=== PATIENT | male | born 1955 | race Caucasian/White ===

== ENCOUNTER 2017-12-25 09:43 | Inpatient (IN) ==
[2017-12-25] MEDS: Heparin Drip 25,000 UNIT/250 ML BAG IV.CONT PRN ×2 (12:00→20:58)
[2017-12-25] MEDS ORDERED: Dextrose 50% in Water 50 ML Vial IV.PUSH PRN (13:35)
[2017-12-25] MEDS ORDERED: Bisacodyl 10 MG Supp RECTAL PRN (13:37)
[2017-12-25] MEDS ORDERED: Temazepam 15 MG Capsule PO PRN (13:37)
[2017-12-25] MEDS ORDERED: Ranolazine 500 MG 12HR ER Tablet PO SCH (14:00)
[2017-12-25] MEDS ORDERED: Vancomycin Consult Pharmacy 1 EACH OTHER SCH (15:00)
[2017-12-25] MEDS: Sod Chloride 0.9% Inj 1,000 ML IV.CONT SCH (15:04)
--- NOTE | 2017-12-25 15:16 | P.HPIM ---
History of Present Illness Primary Care Physician: UNKNOWN History of Present Illness: 62-year-old male with a history of diabetes mellitus, CAD with CABG in 2013, cardiomyopathy with EF 4550%, hypertension, peripheral artery disease with history of PCI to the right leg, hyperlipidemia, peripheral neuropathy, history of osteomyelitis with partial amputation of the right fourth toe who presented to outside hospital 2 weeks ago with right first toe cellulitis, which has subsequently progressed to wet gangrene. Patient was continued on broad- spectrum antibiotics. Podiatry and interventional radiology were consulted during admission. Patient underwent right lower extremity catheterization with balloon angioplasty of proximal right anterior tibial artery, right posterior tibial artery. Patient reports continued intermittent neuropathic type pain in the right leg. Denies any chest pain or shortness of breath. Denies nausea or vomiting. Patient transferred here per discussion between referring hospital and vascular surgery. Patient reportedly may need further revascularization. Inpatient Certification: I certify that the inpatient services were ordered in accordance with Medicare regulations governing the order. This includes certification that hospital inpatient services are reasonable and necessary and in the case of services not specified as inpatient-only under 42 CFR 419.22(n), that they are appropriately provided as inpatient services in accordance to with the 2-midnight benchmark under 43 CFR 412.3(e) PMFSH - History History Provided By: Patient - Medical History Medical History: Medical History (Last Updated 12/25/17 @ 15:13 by Danny Feliciano MD) Cardiomyopathy Chronic back pain Coronary artery disease Diabetes mellitus Diabetic peripheral neuropathy Hyperlipidemia Hypertension Peripheral artery disease - Surgical History Surgical History: Surgical History (Last Updated 12/25/17 @ 15:13 by Danny Feliciano MD) Hx of CABG S/P cervical spinal fusion - Family History Family History: Family History (Last Updated 12/25/17 @ 15:13 by Danny Feliciano MD) Mother Cancer Father Heart disease - Tobacco History Second Hand Smoke Exposure: No Smoking Status: Never smoker - Alcohol History How Often Do You Have a Drink Containing Alcohol: Never - Substance Use History Substance History: No History of Abuse - Travel History History of Recent Travel: No Recent Travel in the USA Within the Last 8 Weeks: No Recent Travel Out of the Country Within the Last 8 Weeks: No Medications and Allergies Active Medications: Active Medications Al Hydroxide/Mg Hydroxide (Milk Of Magnboby Liq) 30 ml PO Q12H PRN PRN Reason: Mild Constipation Amitriptyline HCl (Elavil) 25 mg PO DAILY [facility] Aspirin (Ecotrin) 81 mg PO DAILY [facility] Bisacodyl (Dulcolax Supp) 10 mg RECTAL DAILY PRN PRN Reason: SEVERE CONSITIPATION Dextrose (D50w Vial) 50 ml IV.PUSH UNSCH PRN PRN Reason: PER HYPOGLYCEMIA PROTOCOL Enalapril Maleate (Vasotec) 5 mg PO DAILY [facility] Glucagon (Glucagon Inj) 1 mg OTHER PRN PRN PRN Reason: for Hypoglycemia Protocol Sodium Chloride (Ns Inj) 1,000 mls @ 40 mls/hr IV.CONT .Q24H [facility] Last Admin: 12/25/17 15:04 Dose: 40 mls/hr Heparin Sodium/Dextrose (Heparin/D5w 25,000 U/250 Ml) 25,000 unit in 250 mls @ 0 mls/hr IV.CONT TITRATE PRN; Protocol PRN Reason: Per Protocol Pharmacy Profile Note (Vancomycin Consult Pharmacy) 0 mls @ 0 mls/hr OTHER UNSCH [facility] Piperacillin/Tazobactam/Dextrose (Zosyn 3.375 Gm Premix) 50 mls @ 100 mls/hr IV.SIG Q6H [facility] Insulin Aspart (Novolog Insulin Correctional Sugar Inj) 0 unit SQ ACHS [facility]; Protocol Lactulose (Lactulose Liq) 30 ml PO DAILY PRN PRN Reason: SEVERE CONSITIPATION Pravastatin Sodium (Pravachol) 40 mg PO DAILY [facility] Ranolazine (Ranexa) 500 mg PO Q12H [facility] Sennosides (Senokot) 17.2 mg PO Q12H PRN PRN Reason: Moderate Constipation Temazepam (Restoril) 15 mg PO HS PRN PRN Reason: INSOMNIA Allergies Allergy/AdvReac Type Severity Reaction Status Date / Time No Known Allergies Allergy Unverified 12/25/17 13:13 Home Medications Medication Instructions Recorded Confirmed Type amitriptyline 25 mg PO DAILY 12/25/17 12/25/17 History aspirin 81 mg PO DAILY 12/25/17 12/25/17 History enalapril maleate 5 mg PO DAILY 12/25/17 12/25/17 History insulin asp prt-insulin aspart 20 unit SUB-Q BID 12/25/17 12/25/17 History insulin asp prt-insulin aspart 20 unit SUB-Q BID 12/25/17 12/25/17 History [Novolog Mix 70-30FlexPen U-100] metformin 1,000 mg PO BID 12/25/17 12/25/17 History ranolazine [Ranexa] 500 mg PO Q12H 12/25/17 12/25/17 History simvastatin 20 tab PO DAILY 12/25/17 12/25/17 History Exam Vital signs: Vital Signs 12/25/17 12:00 12/25/17 12:18 12/25/17 12:34 Temperature 98.2 F Pulse Rate 88 64 87 Respiratory Rate 20 Blood Pressure 159/87 H Pulse Oximetry 99 Intake & Output 12/24/17 12/25/17 12/25/17 18:59 06:59 18:59 Weight 97.5 kg Other: Date of Last Bowel Movement 12/23/17 Weight On Admission 97.5 kg Narrative: GENERAL: Patient sitting up in bed. Appears comfortable. Alert and oriented 4. SKIN: Warm and dry. HEAD: Atraumatic. Normocephalic. EYES: Pupils equal and round. No scleral icterus. No injection or drainage. ENT: No nasal bleeding or discharge. Mucous membranes pink and moist. NECK: Trachea midline. No JVD. CARDIOVASCULAR: Regular rate and rhythm. RESPIRATORY: No accessory muscle use. Clear to auscultation. Breath sounds equal bilaterally. GASTROINTESTINAL: Abdomen soft, non-tender, nondistended. Hepatic and splenic margins not palpable. MUSCULOSKELETAL: Extremities without clubbing. Patient with black right first toe up to just distal to first MTP. Toe is boggy and edematous, malodorous, appears to be wet gangrene. NEUROLOGICAL: Awake and alert. No obvious cranial nerve deficits. Motor grossly within normal limits. Five out of 5 muscle strength in the arms and legs. Normal speech. PSYCHIATRIC: Appropriate mood and affect; insight and judgment normal. Caprini VTE Risk Assessment Caprini VTE Risk Assessment: Moderate/High Risk (score >= 2) Caprini Risk Assessment Model: Point Value = 1 Point Value = 2 Point Value = 3 Point Value = 5 Age 41-60 Minor surgery BMI > 25 kg/m2 Swollen legs Varicose veins or History of unexplained or recurrent spontaneous Oral contraceptives or hormone replacement Sepsis (< 1 month) Serious lung disease, including pneumonia (< 1 month) Abnormal pulmonary function Acute myocardial infarction Congestive heart failure (< 1 month) History of inflammatory bowel disease Medical patient at bed rest Age 61-74 Arthroscopic surgery Major open surgery (> 45 min) Laparoscopic surgery (> 45 min) Malignancy Confined to bed (> 72 hours) Immobilizing plaster cast Central venous access Age >= 75 History of VTE Family history of VTE Factor V Leiden Prothrombin 38506Y Lupus anticoagulant Anticardiolipin antibodies Elevated serum homocysteine Heparin-induced thrombocytopenia Other congenital or acquired thrombophilia Stroke (< 1 month) Elective arthroplasty Hip, pelvis, or leg fracture Acute spinal cord injury (< 1 month) Prophylaxis Regimen: Total Risk Factor Score Risk Level Prophylaxis Regimen 0-1 Low Early ambulation 2 Moderate Order ONE of the following: *Sequential Compression Device (SCD) *Heparin 5000 units SQ BID 3-4 Higher Order ONE of the following medications: *Heparin 5000 units SQ TID *Enoxaparin/Lovenox 40 mg SQ daily (WT < 150 kg, CrCl > 30 mL/min) *Enoxaparin/Lovenox 30 mg SQ daily (WT < 150 kg, CrCl > 10-29 mL/min) *Enoxaparin/Lovenox 30 mg SQ BID (WT < 150 kg, CrCl > 30 mL/min) AND/OR *Sequential Compression Device (SCD) 5 or more Highest Order ONE of the following medications: *Heparin 5000 units SQ TID (Preferred with Epidurals) *Enoxaparin/Lovenox 40 mg SQ daily (WT < 150 kg, CrCl > 30 mL/min) *Enoxaparin/Lovenox 30 mg SQ daily (WT < 150 kg, CrCl > 10-29 mL/min) *Enoxaparin/Lovenox 30 mg SQ BID (WT < 150 kg, CrCl > 30 mL/min) AND *Sequential Compression Device (SCD) Assessment and Plan - Plan //Right lower extremity first toe wet gangrene //Diabetic foot infection //Presentation with sepsis to the outside hospital. //Right lower extremity peripheral artery disease Patient is continued on heparin drip. = Continue on broad-spectrum antibiotics. Vancomycin and Zosyn. Continue ranolazine -We will request more recent outside records, most recent progress note, microbiology results, hopefully a discharge summary Consult vascular surgery and podiatry. //Diabetes mellitus. Diabetic diet and insulin sliding scale. Monitor sugars closely. //History of coronary artery disease //History of cardiomyopathy Continue aspirin, enalapril. Patient does not appear to be on beta-arnulfo. //Hypertension. Blood pressure acceptable. Continue home medications. Discharge Planning: Pending clearance by vascular surgery and podiatry, maybe patient can be transferred back to referring hospital. H&P: Quality - VTE Deep Vein Thrombosis/Pulmonary Embolism Present on Admission: No
[2017-12-25] MEDS: Piperacil/Tazo 3.375 GM Premix 50 ML IV.SIG SCH ×2 (16:13→22:32)
[2017-12-25 16:15] LABS: Baso # (Auto) 0.1 th/mm3 (0.0-0.2); Baso % (Auto) 0.8 % (0.0-2.0); Eos # (Auto) 0.2 th/mm3 (0.0-0.4); Eos % (Auto) 1.6 % (0.0-4.0); Hematocrit 32.8 % (39.0-51.0); Hemoglobin 10.9 gm/dL (13.0-17.0); Lymph # (Auto) 1.6 th/mm3 (1.0-4.8); Lymph % (Auto) 16.4 % (9.0-44.0); Mean Corpuscular HGB Conc 33.2 % (32.0-36.0); Mean Corpuscular Hemoglobin 29.1 pg (27.0-34.0); Mean Corpuscular Volume 87.8 fL (80.0-100.0); Mean Platelet Volume 8.3 fL (7.0-11.0); Mono # (Auto) 0.7 th/mm3 (0.0-0.9); Mono % (Auto) 7.6 % (0.0-8.0); Neut # (Auto) 7.1 th/mm3 (1.8-7.7); Neut % (Auto) 73.6 % (16.0-70.0); Platelet Count 385 th/mm3 (150-450); Red Blood Count 3.73 mil/mm3 (4.50-5.90); Red Cell Distribution Width 13.9 % (11.6-17.2); White Blood Count 9.6 th/mm3 (4.0-11.0)
[2017-12-25 16:21] LABS: Activated Partial Thrombo Time 54.8 sec (24.3-30.1); INR 1.1 Ratio; Prothrombin Time 11.3 sec (9.8-11.6)
[2017-12-25 16:31] LABS: Albumin 2.9 g/dL (3.4-5.0); Anion Gap 8 meq/L (5-15); Aspartate Aminotransferase 9 U/L (15-37); Blood Urea Nitrogen 15 mg/dL (7-18); Carbon Dioxide 27.9 meq/L (21.0-32.0); Chloride 99 meq/L (98-107); Glomerular Filtration Rate 68 mL/min (>89); Glucose,Random 332 mg/dL (74-106); Potassium 4.4 meq/L (3.5-5.1); Sodium 135 meq/L (136-145)
[2017-12-25 16:32] LABS: Alanine Aminotransferase 12 U/L (12-78)
[2017-12-25 16:35] LABS: Alkaline Phosphatase 63 U/L (45-117); Total Protein 8.1 g/dL (6.4-8.2)
[2017-12-25] MEDS: Insulin NovoLOG Aspart Correctional Sugar Inj SQ SCH ×2 (17:06→20:54)
--- NOTE | 2017-12-25 17:29 | ECHRPT ---
EXAM DATE: 12/25/2017 4:57 PM EDT AGE/SEX: 62 years / Male INDICATIONS: wound infection CLINICAL DATA: This is the patient's initial encounter. Patient reports that signs and symptoms have been present for 1 week and indicates a pain score of 8/10. MEDICAL/SURGICAL HISTORY: . cardiomyopathy, chronic back pain, coronary artery disease, diabete s mellitus, diabetic peripheral neuropathy, hyperlipidemia, hypertension, peripheral artery disease . cabg, cervical spinal fusion COMPARISON: No prior exams available for comparison. TECHNIQUE: Four-cuff ankle and brachial pressures were obtained. Pulse cuff waveform tracings of the ankles were recorded, and ankle-brachial indices were calculated. PRESSURES (mmHg): Brachial (arm) : RIGHT: 150, LEFT: IV SITE Ankle : RIGHT: 73, LEFT: 69 RL : RIGHT: 0.49, LEFT: 0.46 TBI : RIGHT: 0.19, LEFT: 0.17 FINDINGS: Pulsed-Cuff Waveform: There are poor pulse wave tracings. CONCLUSION: 1. Severely depressed depressed RL using right brachial pressures suggesting critical limb ischemia . 2. I have no prior cross-sectional imaging studies for comparison 3. CT angiography or conventional catheter angiography would be of benefit. Electronically signed by: Jaleel Goodman MD 12/25/2017 5:27 PM EDT
[2017-12-25 17:36] LABS: Bilirubin,Urine Negative (Negative); Clarity,Urine Clear (Clear); Color,Urine Yellow (Yellw/Straw); Glucose,Urine (UA) 500 or Greater mg/dL (Negative); Leukocyte Esterase,Urine Negative (Negative); Nitrite,Urine Negative (Negative); Specific Gravity,Urine 1.011 (1.002-1.035)
--- NOTE | 2017-12-25 18:53 | P.CONVS ---
History of Present Illness Service: Vascular Surgery Consult date: 12/25/17 Requesting Physician: Danny Feliciano Reason for Consult: PAD Primary Care Provider: UNKNOWN Family Provider: Carlos Salamanca MD Chief Complaint: R gangrenous toe History of Present Illness: 62 yo male who sustained trauma to R great toe about a week and a half ago - was taking out garbage and upon return noted that his dog was licking the toe and there was blood. Wound worsened. Adm to OSH and rec'd antibiotics and hep gtt and angiogram that showed infrapopliteal disease, not amenable to endovascular repair. Transferred here for consideration of revascularization. Pt notes chills and pain in R foot but no rigors. BS elevated chronically (per OSH EMR, A1c was 9 during prior admission). No fevers. Moved to [place] from [place] in 2009. Retired from insurance. Review of Systems Constitutional: Reports chills Cardiovascular: Denies chest pain Respiratory: Denies shortness of breath Musculoskeletal: Reports abnormal walking, Reports neck pain, Reports numbness Neurologic: Reports sensory deficit, Reports tingling/numbness/burning sensations PMFSH - History History Provided By: Patient - Medical History Medical History: Medical History (Last Reviewed 12/25/17 @ 18:48 by Nadeem Llanos MD) Cardiomyopathy Chronic back pain Coronary artery disease Diabetes mellitus Diabetic peripheral neuropathy Hyperlipidemia Hypertension Peripheral artery disease - Surgical History Surgical History: Surgical History (Last Reviewed 12/25/17 @ 18:48 by Nadeem Llanos MD) Hx of CABG S/P cervical spinal fusion - Family History Family History: Family History (Last Updated 12/25/17 @ 15:13 by Danny Feliciano MD) Mother Cancer Father Heart disease - Tobacco History Second Hand Smoke Exposure: No Smoking Status: Never smoker - Alcohol History How Often Do You Have a Drink Containing Alcohol: Never - Substance Use History Substance History: No History of Abuse - Travel History History of Recent Travel: No Recent Travel in the [place] Within the Last 8 Weeks: No Recent Travel Out of the Country Within the Last 8 Weeks: No Medications and Allergies Active Medications: Active Medications Hydrocodone Bitart/Acetaminophen (Orient 5/325) 1 tab PO Q4H PRN PRN Reason: Pain 2-10 Last Admin: 12/25/17 18:01 Dose: 1 tab Al Hydroxide/Mg Hydroxide (Milk Of Magnesia Liq) 30 ml PO Q12H PRN PRN Reason: Mild Constipation Amitriptyline HCl (Elavil) 25 mg PO DAILY [facility] Aspirin (Ecotrin) 81 mg PO DAILY [facility] Bisacodyl (Dulcolax Supp) 10 mg RECTAL DAILY PRN PRN Reason: SEVERE CONSITIPATION Dextrose (D50w Vial) 50 ml IV.PUSH UNSCH PRN PRN Reason: PER HYPOGLYCEMIA PROTOCOL Enalapril Maleate (Vasotec) 5 mg PO DAILY [facility] Glucagon (Glucagon Inj) 1 mg OTHER PRN PRN PRN Reason: for Hypoglycemia Protocol Sodium Chloride (Ns Inj) 1,000 mls @ 40 mls/hr IV.CONT .Q24H [facility] Last Admin: 12/25/17 15:04 Dose: 40 mls/hr Heparin Sodium/Dextrose (Heparin/D5w 25,000 U/250 Ml) 25,000 unit in 250 mls @ 0 mls/hr IV.CONT TITRATE PRN; Protocol PRN Reason: Per Protocol Last Titration: 12/25/17 16:00 Dose: 1,900 units/hr, 19 mls/hr Pharmacy Profile Note (Vancomycin Consult Pharmacy) 0 mls @ 0 mls/hr OTHER UNSCH [facility] Piperacillin/Tazobactam/Dextrose (Zosyn 3.375 Gm Premix) 50 mls @ 100 mls/hr IV.SIG Q6H [facility] Last Infusion: 12/25/17 16:43 Dose: Infused Insulin Aspart (Novolog Insulin Correctional Sugar Inj) 0 unit SQ ACHS [facility]; Protocol Last Admin: 12/25/17 17:06 Dose: 1 unit Lactulose (Lactulose Liq) 30 ml PO DAILY PRN PRN Reason: SEVERE CONSITIPATION Pravastatin Sodium (Pravachol) 40 mg PO DAILY [facility] Ranolazine (Ranexa) 500 mg PO Q12H [facility] Sennosides (Senokot) 17.2 mg PO Q12H PRN PRN Reason: Moderate Constipation Temazepam (Restoril) 15 mg PO HS PRN PRN Reason: INSOMNIA Allergies Allergy/AdvReac Type Severity Reaction Status Date / Time No Known Allergies Allergy Unverified 12/25/17 13:13 Home Medications Medication Instructions Recorded Confirmed Type amitriptyline 25 mg PO DAILY 12/25/17 12/25/17 History aspirin 81 mg PO DAILY 12/25/17 12/25/17 History cefepime 50 mg/kg IV Q8H 12/25/17 12/25/17 History enalapril maleate 5 mg PO DAILY 12/25/17 12/25/17 History heparin (porcine) in 5 % dex 250 ml IV DIRECTED 12/25/17 12/25/17 History hydrocodone-acetaminophen [Orient] 1 tab PO Q4-6H PRN 12/25/17 12/25/17 History insulin asp prt-insulin aspart 20 unit SUB-Q BID 12/25/17 12/25/17 History insulin asp prt-insulin aspart 20 unit SUB-Q BID 12/25/17 12/25/17 History [Novolog Mix 70-30FlexPen U-100] metformin 1,000 mg PO BID 12/25/17 12/25/17 History ranolazine [Ranexa] 500 mg PO Q12H 12/25/17 12/25/17 History simvastatin 20 tab PO DAILY 12/25/17 12/25/17 History Physical Exam Vital Signs / I&O: Vital Signs 12/25/17 12:00 12/25/17 12:18 12/25/17 12:34 Temperature 98.2 F Pulse Rate 88 64 87 Respiratory Rate 20 Blood Pressure 159/87 H Pulse Oximetry 99 12/25/17 15:00 12/25/17 16:00 12/25/17 17:00 Temperature 98.6 F Pulse Rate 78 85 90 Respiratory Rate 20 Blood Pressure 150/65 H Pulse Oximetry 96 12/25/17 17:56 Temperature Pulse Rate 76 Respiratory Rate Blood Pressure Pulse Oximetry Intake & Output 12/24/17 12/25/17 12/25/17 18:59 06:59 18:59 Intake Total 230 / 230 Output Total 600 / 600 Balance -370 / -370 Weight 97.5 kg Intake: IV 50 / 50 Zosyn 3.375 GM Premix 50 ML @ 50 / 50 100 mls/hr IV.SIG Q6H [facility] Rx#: [id number] Oral 180 / 180 Output: Urine 600 / 600 Other: # Voids 1 Date of Last Bowel Movement 12/23/17 # Bowel Movements 0 Weight On Admission 97.5 kg Neuro: alert, oriented, pleasant HEENT: NC/AT; anicteric sclera Neck: no JVD Heart: reg rate Lungs: clear and nonlabored Vascular: palpable femoral and R popliteal pulse, no palpable R pedal pulses Extremities: Gangrenous, erythematous R hallux extending to distal forefoot. + odor Laboratory Results - last 24 hr 12/25/17 12/25/17 12/25/17 15:28 15:28 15:28 WBC 9.6 RBC 3.73 L Hgb 10.9 L Hct 32.8 L MCV 87.8 MCH 29.1 MCHC 33.2 RDW 13.9 Plt Count 385 MPV 8.3 Neut % (Auto) 73.6 H Lymph % (Auto) 16.4 [place] % (Auto) 7.6 Eos % (Auto) 1.6 Baso % (Auto) 0.8 Neut # (Auto) 7.1 Lymph # (Auto) 1.6 [place] # (Auto) 0.7 Eos # (Auto) 0.2 Baso # (Auto) 0.1 WBC Differential . Differential Comment Auto diff final PT 11.3 INR 1.1 APTT 54.8 H Sodium 135 L Potassium 4.4 Chloride 99 Carbon Dioxide 27.9 Anion Gap 8 BUN 15 Creatinine 1.09 Estimated GFR 68 L POC Glucose Random Glucose 332 H Calcium 9.0 Total Bilirubin 0.3 AST 9 L ALT 12 Alkaline Phosphatase 63 Total Protein 8.1 Albumin 2.9 L Urine Color Urine Clarity Urine pH Ur Specific Blackwell Urine Protein Urine Glucose (UA) Urine Ketones Urine Occult Blood Urine Nitrate Urine Bilirubin Urine Urobilinogen Ur Leukocyte Esterase Urine RBC Urine WBC 12/25/17 12/25/17 16:28 16:43 WBC RBC Hgb Hct MCV MCH MCHC RDW Plt Count MPV Neut % (Auto) Lymph % (Auto) Dor[place] % (Auto) Eos % (Auto) Baso % (Auto) Neut # (Auto) Lymph # (Auto) [place] # (Auto) Eos # (Auto) Baso # (Auto) WBC Differential Differential Comment PT INR APTT Sodium Potassium Chloride Carbon Dioxide Anion Gap BUN Creatinine Estimated GFR POC Glucose 363 H Random Glucose Calcium Total Bilirubin AST ALT Alkaline Phosphatase Total Protein Albumin Urine Color Yellow Urine Clarity Clear Urine pH 6.0 Ur Specific [place]well 1.011 Urine Protein 30 H Urine Glucose (UA) 500 or greater Urine Ketones Negative Urine Occult Blood Negative Urine Nitrate Negative Urine Bilirubin Negative Urine Urobilinogen Less than 2 Ur Leukocyte Esterase Negative Urine RBC Less than 1 Urine WBC 1 Impressions Extremity Arterial Study 12/25/17 00:00 CONCLUSION: 1. Severely depressed depressed RL using right brachial pressures suggesting critical limb ischemia. 2. I have no prior cross-sectional imaging studies for comparison 3. CT angiography or conventional catheter angiography would be of benefit. Assessment and Plan - Assessment (1) Diabetic infection of right foot Code(s): E11.628 - Type 2 diabetes mellitus with other skin complications; L08.9 - Local infection of the skin and subcutaneous tissue, unspecified Status: Acute (2) PAD (peripheral artery disease) Code(s): I73.9 - Peripheral vascular disease, unspecified Status: Acute - Plan 62 yo male with DM and diabetic foot infection 1. Podiatry consulted; continue antibiotics (broad spectrum). Discussed with patient and the need for toe amputation. Plain XRay ordered. 2. PAD - needs more perfusion. Outside angiogram reviewed. Infrapopliteal disease. ABIs show severe PAD. Will get UE/LE vein survey for conduit options. Unfortunately, his R GSV was ablated for "varicose veins" elsewhere. Given pattern of disease, may either need arm vein distal bypass or re-attempt at endovascular recanalization including pedal (retrograde) access. Will schedule early part of week. 3. DM control - A1c ordered. Defer to medicine 4. PT/wound care. Nadeem Llanos MD FACS [employer] audit tech [facility] - [facility] Vascular Surgery at [facility] [phone]
--- NOTE | 2017-12-25 20:21 | XR ---
EXAM DATE: 12/25/2017 7:21 PM EDT AGE/SEX: 62 years / Male INDICATIONS: Evaluate for osteomyelitis on right great toe. CLINICAL DATA: This is the patient's initial encounter. Patient reports that signs and symptoms have been present for 1 week and indicates a pain score of 2/10. MEDICAL/SURGICAL HISTORY: . cardiomyopathy, chronic back pain, coronary artery disease, diabete s mellitus, diabetic peripheral neuropathy, hyperlipidemia, hypertension, peripheral artery disease. . CABG. Cervical spinal fusion COMPARISON: No prior exams available for comparison. FINDINGS: There is marked soft tissue swelling about the great toe without bony destruction. There is a suggestion of a small amount gas in the webspace. There is obvious osteomyelitis involving the distal tuft of the fourth metatarsal with penciling of t he fourth phalanx head of the fifth metatarsal is probably involved as well. CONCLUSION: Osteomyelitis involving fourth and fifth toes. Questionable small amount of gas web space versus second toes I don't see osteomyelitis great toe. Electronically signed by: Jaleel Goodman MD 12/25/2017 8:20 PM EDT
[2017-12-25] MEDS: Ranolazine 500 MG 12HR ER Tablet PO SCH (20:32)
--- NOTE | 2017-12-25 20:49 | P.CONPOD ---
History of Present Illness Service: Podiatry Consult date: 12/25/17 Primary Care Provider: UNKNOWN Family Provider: Carlos Salamanca MD Chief Complaint: R gangrenous toe History of Present Illness: Patient states he has had increasing redness to the foot and darkening of the great toe over a period of about a week and a half. he states he took out the garbage and was wearing shoes and then noticed his dog sniffing and licking the foot area and took his shoes off and saw blood everywhere. he went to [facility] and got antibiotics and was discharged and told to come back if it did not improve, then went back a few days later when it started looking worse. he was then transferred to [place]. Review of Systems All other systems reviewed negative except as stated in [facility] - History History Provided By: Patient - Medical History Medical History: Medical History (Last Reviewed 12/25/17 @ 18:48 by Nadeem Llanos MD) Cardiomyopathy Chronic back pain Coronary artery disease Diabetes mellitus Diabetic peripheral neuropathy Hyperlipidemia Hypertension Peripheral artery disease - Surgical History Surgical History: Surgical History (Last Reviewed 12/25/17 @ 18:48 by Nadeem Llanos MD) Hx of CABG S/P cervical spinal fusion - Family History Family History: Family History (Last Updated 12/25/17 @ 15:13 by Danny Feliciano MD) Mother Cancer Father Heart disease - Tobacco History Second Hand Smoke Exposure: No Smoking Status: Never smoker - Alcohol History How Often Do You Have a Drink Containing Alcohol: Never - Substance Use History Substance History: No History of Abuse - Travel History History of Recent Travel: No Recent Travel in the [place] Within the Last 8 Weeks: No Recent Travel Out of the Country Within the Last 8 Weeks: No Medications and Allergies Active Medications: Active Medications Hydrocodone Bitart/Acetaminophen ([place] 5/325) 1 tab PO Q4H PRN PRN Reason: Pain 2-10 Last Admin: 12/25/17 18:01 Dose: 1 tab Al Hydroxide/Mg Hydroxide (Milk Of Magnboby Liq) 30 ml PO Q12H PRN PRN Reason: Mild Constipation Amitriptyline HCl (Elavil) 25 mg PO DAILY [facility] Aspirin (Ecotrin) 81 mg PO DAILY [facility] Bisacodyl (Dulcolax Supp) 10 mg RECTAL DAILY PRN PRN Reason: SEVERE CONSITIPATION Dextrose (D50w Vial) 50 ml IV.PUSH UNSCH PRN PRN Reason: PER HYPOGLYCEMIA PROTOCOL Enalapril Maleate (Vasotec) 5 mg PO DAILY [facility] Glucagon (Glucagon Inj) 1 mg OTHER PRN PRN PRN Reason: for Hypoglycemia Protocol Sodium Chloride (Ns Inj) 1,000 mls @ 40 mls/hr IV.CONT .Q24H [facility] Last Admin: 12/25/17 15:04 Dose: 40 mls/hr Heparin Sodium/Dextrose (Heparin/D5w 25,000 U/250 Ml) 25,000 unit in 250 mls @ 0 mls/hr IV.CONT TITRATE PRN; Protocol PRN Reason: Per Protocol Last Titration: 12/25/17 16:00 Dose: 1,900 units/hr, 19 mls/hr Pharmacy Profile Note (Vancomycin Consult Pharmacy) 0 mls @ 0 mls/hr OTHER UNSCH [facility] Piperacillin/Tazobactam/Dextrose (Zosyn 3.375 Gm Premix) 50 mls @ 100 mls/hr IV.SIG Q6H [facility] Last Infusion: 12/25/17 16:43 Dose: Infused Insulin Aspart (Novolog Insulin Correctional Sugar Inj) 0 unit SQ ACHS [facility]; Protocol Last Admin: 12/25/17 17:06 Dose: 1 unit Lactulose (Lactulose Liq) 30 ml PO DAILY PRN PRN Reason: SEVERE CONSITIPATION Pravastatin Sodium (Pravachol) 40 mg PO DAILY [facility] Ranolazine (Ranexa) 500 mg PO Q12H [facility] Last Admin: 12/25/17 20:32 Dose: 500 mg Sennosides (Senokot) 17.2 mg PO Q12H PRN PRN Reason: Moderate Constipation Temazepam (Restoril) 15 mg PO HS PRN PRN Reason: INSOMNIA Allergies Allergy/AdvReac Type Severity Reaction Status Date / Time No Known Allergies Allergy Unverified 12/25/17 13:13 Home Medications Medication Instructions Recorded Confirmed Type amitriptyline 25 mg PO DAILY 12/25/17 12/25/17 History aspirin 81 mg PO DAILY 12/25/17 12/25/17 History cefepime 50 mg/kg IV Q8H 12/25/17 12/25/17 History enalapril maleate 5 mg PO DAILY 12/25/17 12/25/17 History heparin (porcine) in 5 % dex 250 ml IV DIRECTED 12/25/17 12/25/17 History hydrocodone-acetaminophen [[place]] 1 tab PO Q4-6H PRN 12/25/17 12/25/17 History insulin asp prt-insulin aspart 20 unit SUB-Q BID 12/25/17 12/25/17 History insulin asp prt-insulin aspart 20 unit SUB-Q BID 12/25/17 12/25/17 History [Novolog Mix 70-30FlexPen U-100] metformin 1,000 mg PO BID 12/25/17 12/25/17 History ranolazine [Ranexa] 500 mg PO Q12H 12/25/17 12/25/17 History simvastatin 20 tab PO DAILY 12/25/17 12/25/17 History Physical Exam Vital signs: Vital Signs 12/25/17 12:00 12/25/17 12:18 12/25/17 12:34 Temperature 98.2 F Pulse Rate 88 64 87 Respiratory Rate 20 Blood Pressure 159/87 H Pulse Oximetry 99 12/25/17 15:00 12/25/17 16:00 12/25/17 17:00 Temperature 98.6 F Pulse Rate 78 85 90 Respiratory Rate 20 Blood Pressure 150/65 H Pulse Oximetry 96 12/25/17 17:56 Temperature Pulse Rate 76 Respiratory Rate Blood Pressure Pulse Oximetry Intake & Output 12/25/17 12/25/17 12/26/17 06:59 18:59 06:59 Intake Total 230 / 230 Output Total 600 / 600 Balance -370 / -370 Weight 97.5 kg Intake: IV 50 / 50 Zosyn 3.375 GM Premix 50 ML @ 50 / 50 100 mls/hr IV.SIG Q6H [facility] Rx#: [id number] Oral 180 / 180 Output: Urine 600 / 600 Other: # Voids 1 Date of Last Bowel Movement 12/23/17 # Bowel Movements 0 Weight On Admission 97.5 kg Narrative: Right foot with necrotic purple tissue to entire right hallux with erythema extending to midfoot level. Mild purulence at margin noted. No other toes appear to be affected. Sensation absent to light touch. - Constitutional no acute distress - Neurological Alert and oriented x3 Results - Labs CBC & Chem 7: 12/25/17 15:28 12/25/17 15:28 Laboratory Results - last 24 hr 12/25/17 12/25/17 12/25/17 15:28 15:28 15:28 WBC 9.6 RBC 3.73 L Hgb 10.9 L Hct 32.8 L MCV 87.8 MCH 29.1 MCHC 33.2 RDW 13.9 Plt Count 385 MPV 8.3 Neut % (Auto) 73.6 H Lymph % (Auto) 16.4 Real % (Auto) 7.6 Eos % (Auto) 1.6 Baso % (Auto) 0.8 Neut # (Auto) 7.1 Lymph # (Auto) 1.6 Real # (Auto) 0.7 Eos # (Auto) 0.2 Baso # (Auto) 0.1 WBC Differential . Differential Comment Auto diff final PT 11.3 INR 1.1 APTT 54.8 H Sodium 135 L Potassium 4.4 Chloride 99 Carbon Dioxide 27.9 Anion Gap 8 BUN 15 Creatinine 1.09 Estimated GFR 68 L POC Glucose Random Glucose 332 H Calcium 9.0 Total Bilirubin 0.3 AST 9 L ALT 12 Alkaline Phosphatase 63 Total Protein 8.1 Albumin 2.9 L Urine Color Urine Clarity Urine pH Ur Specific Franklin Urine Protein Urine Glucose (UA) Urine Ketones Urine Occult Blood Urine Nitrate Urine Bilirubin Urine Urobilinogen Ur Leukocyte Esterase Urine RBC Urine WBC 12/25/17 12/25/17 12/25/17 16:28 16:43 20:35 WBC RBC Hgb Hct MCV MCH MCHC RDW Plt Count MPV Neut % (Auto) Lymph % (Auto) Real % (Auto) Eos % (Auto) Baso % (Auto) Neut # (Auto) Lymph # (Auto) Real # (Auto) Eos # (Auto) Baso # (Auto) WBC Differential Differential Comment PT INR APTT Sodium Potassium Chloride Carbon Dioxide Anion Gap BUN Creatinine Estimated GFR POC Glucose 363 H 297 H Random Glucose Calcium Total Bilirubin AST ALT Alkaline Phosphatase Total Protein Albumin Urine Color Yellow Urine Clarity Clear Urine pH 6.0 Ur Specific Franklin 1.011 Urine Protein 30 H Urine Glucose (UA) 500 or greater Urine Ketones Negative Urine Occult Blood Negative Urine Nitrate Negative Urine Bilirubin Negative Urine Urobilinogen Less than 2 Ur Leukocyte Esterase Negative Urine RBC Less than 1 Urine WBC 1 - Imaging Impressions Extremity Arterial Study 12/25/17 00:00 CONCLUSION: 1. Severely depressed depressed RL using right brachial pressures suggesting critical limb ischemia. 2. I have no prior cross-sectional imaging studies for comparison 3. CT angiography or conventional catheter angiography would be of benefit. Foot X-Ray 12/25/17 00:00 CONCLUSION: Osteomyelitis involving fourth and fifth toes. Questionable small amount of gas web space versus second toes I don't see osteomyelitis great toe. Assessment and Plan - Assessment (1) Gangrene due to peripheral vascular disease Code(s): I96 - Gangrene, not elsewhere classified; I73.9 - Peripheral vascular disease, unspecified Status: Acute Plan: To OR tomorrow for right foot partial 1st ray amputation. Discussed risks/benefits/complications with patient and he agrees to proceed. Discussed with Dr Llanos for revascularization early next week. Will continue to monitor tissue response to revascularization/IV antibiotics postoperatively to determine if further foot surgery is required later next week. NPO after midnight Consent ordered (2) Cellulitis of foot, right Code(s): L03.115 - Cellulitis of right lower limb Status: Acute
--- NOTE | 2017-12-25 21:08 | US ---
EXAM DATE: 12/25/2017 9:03 PM EDT AGE/SEX: 62 years / Male INDICATIONS: PreOp bypass. CLINICAL DATA: This is the patient's initial encounter. Patient reports that signs and symptoms have been present for 1 day and indicates a pain score of 0/10. MEDICAL/SURGICAL HISTORY: . Cardiomyopathy. Chronic back pain. Coronary artery disease. Diabete s. Diabetic neuropathy. Hyperlipidemia. Hypertension. Peripheral artery disease. CABG. Cervical spin e fusion. COMPARISON: [facility] [place], VENOUS DOPPLER LEG BI, 12/25/2017. . MEASUREMENTS: RIGHT THIGH: Proximal:__8 mm Mid:__ 4 mm Distal:__6 mm LEFT THIGH: Proximal:__8 mm Mid:__Non-visualized Distal:__6 mm RIGHT CALF: Proximal:__5 mm Mid:__2 mm Distal:__5 mm LEFT CALF: Proximal:__Non-visualized Mid:__Non-visualized Distal:__Non-visualized FINDINGS: The right greater saphenous vein in mid calf is varicose. The left greater saphenous vein is surgically absent. CONCLUSION: 1. Venous mapping as above. The right greater saphenous vein has significant varicosities. Electronically signed by: Jaleel Goodman MD 12/25/2017 9:06 PM EDT
--- NOTE | 2017-12-25 21:09 | US ---
EXAM DATE: 12/25/2017 9:01 PM EDT AGE/SEX: 62 years / Male INDICATIONS: PreOp bypass. CLINICAL DATA: This is the patient's initial encounter. Patient reports that signs and symptoms have been present for 1 day and indicates a pain score of 0/10. MEDICAL/SURGICAL HISTORY: . Cardiomyopathy. Chronic back pain. Coronary artery disease. Diabete s. Diabetic neuropathy. Hyperlipidemia. Hypertension. Peripheral artery disease. CABG. Cervical fusi on. COMPARISON: No prior exams available for comparison. TECHNIQUE: Venous ultrasound of both lower extremities was performed from the inguinal ligament to t he proximal calf. Real-time, color Doppler and spectral tracing, compression and augmentation techni ques were used. FINDINGS: Right Leg: Normal compression of the deep venous system from the inguinal region to the proximal erick f. No echogenic clot is seen. Normal response of the venous system to augmentation and respiration. Left Leg: Normal compression of the deep venous system from the inguinal region to the proximal calf . No echogenic clot is seen. Normal response of the venous system to augmentation and respiration. Other: 2.3 cm right inguinal node. CONCLUSION: 1. Negative for deep venous thrombosis 2. Right inguinal adenopathy Electronically signed by: Jaleel Goodman MD 12/25/2017 9:08 PM EDT
--- NOTE | 2017-12-25 21:14 | US ---
EXAM DATE: 12/25/2017 9:09 PM EDT AGE/SEX: 62 years / Male INDICATIONS: PreOp bypass. CLINICAL DATA: This is the patient's initial encounter. Patient reports that signs and symptoms have been present for 1 day and indicates a pain score of 0/10. MEDICAL/SURGICAL HISTORY: . Cardiomyopathy. Chronic back pain. Coronary artery disease. Diabete s. Diabetic neuropathy. Hyperlipidemia. Hypertension. Peripheral artery disease. CABG. Cervical spin e fusion. COMPARISON: [facility] [place], VENOUS DOPPLER ARM BI, 12/25/2017. . MEASUREMENTS: RIGHT: CEPHALIC: Origin:__Thrombosed Mid-Arm:__Thrombosed Elbow:__Thrombosed Forearm:__Thrombosed Wrist:__Thrombosed BASILIC: Origin:__3 mm Mid-Arm:__2 mm Elbow:__3 mm ARTERIES: Brachial:__6 mm Ulnar:__2 mm Radial:__3 mm VEINS: Radial:__2 mm Ulnar:__2 mm LEFT: CEPHALIC: Origin:__2 mm Mid-Arm:__2 mm Elbow:__3 mm Forearm:__2 mm Wrist:__2 mm BASILIC: Origin:__3 mm Mid-Arm:__4 mm Elbow:__5 mm ARTERIES: Brachial:__5 mm Ulnar:__3 mm Radial:__2 mm VEINS: Radial:__2 mm Ulnar:__2 mm FINDINGS: The venous system of the upper extremities are patent by color Doppler imaging. Measurements of the arm veins (in mm) are listed above. CONCLUSION: 1. Majority of the cephalic vein is thrombosed from wrist to shoulder. 2. Measurements of the deep venous system as above. Electronically signed by: Jaleel Goodman MD 12/25/2017 9:12 PM EDT
--- NOTE | 2017-12-25 21:15 | US ---
EXAM DATE: 12/25/2017 9:06 PM EDT AGE/SEX: 62 years / Male INDICATIONS: PreOp bypass. CLINICAL DATA: This is the patient's initial encounter. Patient reports that signs and symptoms have been present for 1 day and indicates a pain score of 0/10. MEDICAL/SURGICAL HISTORY: . Cardiomyopathy. Chronic back pain. Coronary artery disease. Diabete s. Diabetic neuropathy. Hyperlipidemia. Hypertension. Peripheral artery disease. CABG. Cervical fusi on. COMPARISON: No prior exams available for comparison. FINDINGS: Right Upper Extremity: Occlusive thrombus in the cephalic vein from wrist to axillary vein. The deep venous system is patent. Left Upper Extremity: Nonocclusive thrombus in mid left cephalic vein above the elbow. The venous system patent. Other: None. CONCLUSION: 1. Complete superficial cephalic vein thrombosis on the right. 2. Partial cephalic vein thrombosis on the left. Electronically signed by: Jaleel Goodman MD 12/25/2017 9:13 PM EDT
[2017-12-25] MEDS ORDERED: Chlorhexidine Gluconate 2% 1 Pack (2 Cloths) TOPICAL SCH (22:30)
[2017-12-25] MEDS ORDERED: Sodium Chlor 0.9% Inj 500 ML IV.SIG SCH (23:00)
[2017-12-26 04:34] LABS: Baso % (Auto) 0.4 % (0.0-2.0); Eos # (Auto) 0.1 th/mm3 (0.0-0.4); Eos % (Auto) 1.6 % (0.0-4.0); Hematocrit 29.9 % (39.0-51.0); Hemoglobin 10.2 gm/dL (13.0-17.0); Lymph # (Auto) 1.7 th/mm3 (1.0-4.8); Lymph % (Auto) 19.3 % (9.0-44.0); Mean Corpuscular Hemoglobin 29.5 pg (27.0-34.0); Mean Corpuscular Volume 86.6 fL (80.0-100.0); Mean Platelet Volume 7.6 fL (7.0-11.0); Mono # (Auto) 0.7 th/mm3 (0.0-0.9); Mono % (Auto) 8.3 % (0.0-8.0); Neut # (Auto) 6.2 th/mm3 (1.8-7.7); Neut % (Auto) 70.4 % (16.0-70.0); Platelet Count 356 th/mm3 (150-450); Red Blood Count 3.45 mil/mm3 (4.50-5.90); Red Cell Distribution Width 13.7 % (11.6-17.2); White Blood Count 8.8 th/mm3 (4.0-11.0)
[2017-12-26 04:59] LABS: Alanine Aminotransferase 8 U/L (12-78); Albumin 2.4 g/dL (3.4-5.0); Alkaline Phosphatase 52 U/L (45-117); Anion Gap 6 meq/L (5-15); Aspartate Aminotransferase 8 U/L (15-37); Blood Urea Nitrogen 16 mg/dL (7-18); Calcium 8.5 mg/dL (8.5-10.1); Carbon Dioxide 28.5 meq/L (21.0-32.0); Chloride 103 meq/L (98-107); Glomerular Filtration Rate 76 mL/min (>89); Glucose,Random 221 mg/dL (74-106); Potassium 4.2 meq/L (3.5-5.1); Sodium 137 meq/L (136-145); Total Protein 7.1 g/dL (6.4-8.2)
[2017-12-26] MEDS: Piperacil/Tazo 3.375 GM Premix 50 ML IV.SIG SCH ×3 (05:20→16:29)
[2017-12-26] MEDS ORDERED: Lidocaine 2% Inj 50 ML Vial ONE (07:11)
[2017-12-26] MEDS ORDERED: Bupivacaine PF 0.5% Inj 30 ML Vial ONE (07:12)
[2017-12-26] MEDS: Insulin NovoLOG Aspart Correctional Sugar Inj SQ SCH ×4 (07:41→20:54)
[2017-12-26] MEDS: Ranolazine 500 MG 12HR ER Tablet PO SCH ×2 (08:10→20:51)
[2017-12-26] MEDS: Amitriptyline 25 MG Tablet PO SCH (08:10)
--- NOTE | 2017-12-26 09:43 | P.BOP ---
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 Tissue at first metatarsophalangeal joint necrotic with purulent drainage. Incision taken more proximally to achieve viable margin and bone resected at midshaft 1st metatarsal level to remove distal 1st metatarsal and hallux. Sent to pathology. Bone from residual 1st metatarsal sent as bone biopsy. Culture taken from wound. Excision of all necrotic tissue down to viable tissue, followed by irrigation with normal saline, and closure with 2-0 nylon suture. No tourniquet utilized. All visible infected tissue was removed. Minimal bleeding noted intraoperatively. Plan to monitor tissue to determine if further surgery is required later in the week after revascularization has taken place. Nonweightbearing right lower extremity. Wear surgical shoe when up with PT. Ok to remove when at rest. PT consulted. Implants: n/a Anesthesia: GETA, local (20mL 0.5% marcaine plain) Surgeon: Precious Mccollum DPM [employer] Control System Installer: staff Estimated blood loss (mL): 20 Pathology: other (1. culture right foot. 2. partial first ray right foot. 3. bone residual 1st metatarsal for bone biopsy) Condition: stable Disposition: PACU
[2017-12-26] MEDS ORDERED: *Meperidine Inj 25 MG/ML Vial PERIprocedural Use ONLY ONE (09:45)
[2017-12-26 10:28] LABS: Hemoglobin A1c 7.7 % (4.3-6.0)
[2017-12-26] MEDS: Vancomycin Inj 1,750 MG in Sodium Chlor 0.9% Inj 500 ML IV.SIG SCH ×2 (10:35→20:51)
--- NOTE | 2017-12-26 10:55 | XR ---
EXAM DATE: 12/26/2017 10:49 AM EDT AGE/SEX: 62 years / Male INDICATIONS: Post op. CLINICAL DATA: This is the patient's initial encounter. Patient reports that signs and symptoms have been present for 1 day and indicates a pain score of 4/10. MEDICAL/SURGICAL HISTORY: . cardiomyopathy, chronic back pain, coronary artery disease, diabet es mellitus, diabetic peripheral neuropathy, hyperlipidemia, hypertension, peripheral artery disease. . CABG. Cervical spinal fusion [place] [facility] [place]. . FINDINGS: There is evidence for amputation of the first digit at the level of the mid metatarsal bone. The defo rmity of the fourth metatarsophalangeal joint with adjacent displaced bony fragments are again seen n ot significantly changed may be chronic. CONCLUSION: Interval amputation of the first digit otherwise not significantly changed. Electronically signed by: Miri Carter MD 12/26/2017 10:54 AM EDT
--- NOTE | 2017-12-26 11:00 | P.PNIM ---
Subjective Interval history: Patient says he is feeling all right. Denies any chest or shortness of breath. Physical Exam Vital signs: Vital Signs 12/25/17 12:00 12/25/17 12:18 12/25/17 12:34 Temperature 98.2 F Pulse Rate 88 64 87 Respiratory Rate 20 Blood Pressure 159/87 H Pulse Oximetry 99 12/25/17 15:00 12/25/17 16:00 12/25/17 17:00 Temperature 98.6 F Pulse Rate 78 85 90 Respiratory Rate 20 Blood Pressure 150/65 H Pulse Oximetry 96 12/25/17 17:56 12/25/17 19:00 12/25/17 20:00 Temperature 98.1 F Pulse Rate 76 79 79 Respiratory Rate Blood Pressure 172/77 H Pulse Oximetry 98 12/25/17 21:00 12/25/17 22:29 12/26/17 00:00 Temperature 98.1 F Pulse Rate 77 76 75 Respiratory Rate Blood Pressure 155/71 H Pulse Oximetry 98 12/26/17 01:00 12/26/17 02:00 12/26/17 03:00 Temperature Pulse Rate 73 74 66 Respiratory Rate Blood Pressure Pulse Oximetry 12/26/17 04:00 12/26/17 05:00 12/26/17 06:00 Temperature 98 F Pulse Rate 81 68 63 Respiratory Rate Blood Pressure 170/79 H Pulse Oximetry 98 12/26/17 07:00 12/26/17 07:45 12/26/17 08:00 Temperature 97.9 F Pulse Rate 73 83 69 Respiratory Rate 20 Blood Pressure 176/78 H Pulse Oximetry 99 12/26/17 09:36 12/26/17 09:45 12/26/17 10:00 Temperature 98.2 F Pulse Rate 69 68 68 Respiratory Rate 20 18 17 Blood Pressure 147/70 H 155/74 H 160/80 H Pulse Oximetry 99 99 97 12/26/17 10:05 12/26/17 10:07 Temperature 98.3 F Pulse Rate 68 Respiratory Rate 18 Blood Pressure 155/74 H Pulse Oximetry 99 98 Intake & Output 12/25/17 12/26/17 12/26/17 18:59 06:59 18:59 Intake Total 230 / 230 1684 / 1684 Output Total 600 / 600 1050 / 1050 Balance -370 / -370 634 / 634 Weight 97.5 kg 102 kg Intake: IV 50 / 50 964 / 964 Heparin/D5W 25,000 U/250 mL 25, 250 / 250 000 unit In 250 ml @ Per Protocol IV.CONT TITRATE PRN Rx #:[id number] NS Inj 1,000 ML @ 40 mls/hr IV. 614 / 614 CONT .Q24H MEY Rx#:[id number] Zosyn 3.375 GM Premix 50 ML @ 50 / 50 100 / 100 100 mls/hr IV.SIG Q6H MEY Rx#: [id number] Oral 180 / 180 720 / 720 Output: Urine 600 / 600 1050 / 1050 Other: # Voids 1 Date of Last Bowel Movement 12/23/17 12/23/17 # Bowel Movements 0 Weight On Admission 97.5 kg Narrative: GENERAL: Patient sitting up in bed. Appears comfortable. SKIN: Warm and dry. HEAD: Normocephalic. EYES: No scleral icterus. No injection or drainage. NECK: Supple, trachea midline. No JVD. CARDIOVASCULAR: Regular rate and rhythm without murmurs, gallops, or rubs. RESPIRATORY: Breath sounds equal bilaterally. No accessory muscle use. GASTROINTESTINAL: Abdomen soft, non-tender, nondistended. MUSCULOSKELETAL: No cyanosis, or edema. BACK: Nontender without obvious deformity. No CVA tenderness. Results - Labs CBC & Chem 7: 12/26/17 03:17 12/26/17 03:17 Laboratory Results - last 24 hr 12/25/17 12/25/17 12/25/17 15:28 15:28 15:28 WBC 9.6 RBC 3.73 L Hgb 10.9 L Hct 32.8 L MCV 87.8 MCH 29.1 MCHC 33.2 RDW 13.9 Plt Count 385 MPV 8.3 Neut % (Auto) 73.6 H Lymph % (Auto) 16.4 [place] % (Auto) 7.6 Eos % (Auto) 1.6 Baso % (Auto) 0.8 Neut # (Auto) 7.1 Lymph # (Auto) 1.6 [place] # (Auto) 0.7 Eos # (Auto) 0.2 Baso # (Auto) 0.1 WBC Differential . Differential Comment Auto diff final PT 11.3 INR 1.1 APTT 54.8 H Sodium 135 L Potassium 4.4 Chloride 99 Carbon Dioxide 27.9 Anion Gap 8 BUN 15 Creatinine 1.09 Estimated GFR 68 L POC Glucose Random Glucose 332 H Calcium 9.0 Total Bilirubin 0.3 AST 9 L ALT 12 Alkaline Phosphatase 63 Total Protein 8.1 Albumin 2.9 L Urine Color Urine Clarity Urine pH Ur Specific [place] Urine Protein Urine Glucose (UA) Urine Ketones Urine Occult Blood Urine Nitrate Urine Bilirubin Urine Urobilinogen Ur Leukocyte Esterase Urine RBC Urine WBC Blood Type Blood Type Recheck Antibody Screen 12/25/17 12/25/17 12/25/17 16:28 16:43 20:35 WBC RBC Hgb Hct MCV MCH MCHC RDW Plt Count MPV Neut % (Auto) Lymph % (Auto) [place] % (Auto) Eos % (Auto) Baso % (Auto) Neut # (Auto) Lymph # (Auto) [place] # (Auto) Eos # (Auto) Baso # (Auto) WBC Differential Differential Comment PT INR APTT Sodium Potassium Chloride Carbon Dioxide Anion Gap BUN Creatinine Estimated GFR POC Glucose 363 H 297 H Random Glucose Calcium Total Bilirubin AST ALT Alkaline Phosphatase Total Protein Albumin Urine Color Yellow Urine Clarity Clear Urine pH 6.0 Ur Specific [place] 1.011 Urine Protein 30 H Urine Glucose (UA) 500 or greater Urine Ketones Negative Urine Occult Blood Negative Urine Nitrate Negative Urine Bilirubin Negative Urine Urobilinogen Less than 2 Ur Leukocyte Esterase Negative Urine RBC Less than 1 Urine WBC 1 Blood Type Blood Type Recheck Antibody Screen 12/25/17 12/26/17 12/26/17 21:02 03:17 03:17 WBC 8.8 RBC 3.45 L Hgb 10.2 L Hct 29.9 L MCV 86.6 MCH 29.5 MCHC 34.0 RDW 13.7 Plt Count 356 MPV 7.6 Neut % (Auto) 70.4 H Lymph % (Auto) 19.3 [place] % (Auto) 8.3 H Eos % (Auto) 1.6 Baso % (Auto) 0.4 Neut # (Auto) 6.2 Lymph # (Auto) 1.7 [place] # (Auto) 0.7 Eos # (Auto) 0.1 Baso # (Auto) 0.0 WBC Differential . Differential Comment Auto diff final PT INR APTT 52.7 H Sodium 137 Potassium 4.2 Chloride 103 Carbon Dioxide 28.5 Anion Gap 6 BUN 16 Creatinine 0.99 Estimated GFR 76 L POC Glucose Random Glucose 221 H D Calcium 8.5 Total Bilirubin 0.2 AST 8 L ALT 8 L Alkaline Phosphatase 52 Total Protein 7.1 D Albumin 2.4 L Urine Color Urine Clarity Urine pH Ur Specific [place] Urine Protein Urine Glucose (UA) Urine Ketones Urine Occult Blood Urine Nitrate Urine Bilirubin Urine Urobilinogen Ur Leukocyte Esterase Urine RBC Urine WBC Blood Type Blood Type Recheck Antibody Screen 12/26/17 12/26/17 12/26/17 03:17 07:28 07:33 WBC RBC Hgb Hct MCV MCH MCHC RDW Plt Count MPV Neut % (Auto) Lymph % (Auto) [place] % (Auto) Eos % (Auto) Baso % (Auto) Neut # (Auto) Lymph # (Auto) [place] # (Auto) Eos # (Auto) Baso # (Auto) WBC Differential Differential Comment PT INR APTT 60.9 H Sodium Potassium Chloride Carbon Dioxide Anion Gap BUN Creatinine Estimated GFR POC Glucose 210 H Random Glucose Calcium Total Bilirubin AST ALT Alkaline Phosphatase Total Protein Albumin Urine Color Urine Clarity Urine pH Ur Specific [place] Urine Protein Urine Glucose (UA) Urine Ketones Urine Occult Blood Urine Nitrate Urine Bilirubin Urine Urobilinogen Ur Leukocyte Esterase Urine RBC Urine WBC Blood Type A Positive Blood Type Recheck Required Antibody Screen Negative 12/26/17 09:42 WBC RBC Hgb Hct MCV MCH MCHC RDW Plt Count MPV Neut % (Auto) Lymph % (Auto) [place] % (Auto) Eos % (Auto) Baso % (Auto) Neut # (Auto) Lymph # (Auto) [place] # (Auto) Eos # (Auto) Baso # (Auto) WBC Differential Differential Comment PT INR APTT Sodium Potassium Chloride Carbon Dioxide Anion Gap BUN Creatinine Estimated GFR POC Glucose 185 H Random Glucose Calcium Total Bilirubin AST ALT Alkaline Phosphatase Total Protein Albumin Urine Color Urine Clarity Urine pH Ur Specific [place] Urine Protein Urine Glucose (UA) Urine Ketones Urine Occult Blood Urine Nitrate Urine Bilirubin Urine Urobilinogen Ur Leukocyte Esterase Urine RBC Urine WBC Blood Type Blood Type Recheck Antibody Screen - Imaging Impressions Extremity Arterial Study 12/25/17 00:00 CONCLUSION: 1. Severely depressed depressed RL using right brachial pressures suggesting critical limb ischemia. 2. I have no prior cross-sectional imaging studies for comparison 3. CT angiography or conventional catheter angiography would be of benefit. Foot X-Ray 12/25/17 00:00 CONCLUSION: Osteomyelitis involving fourth and fifth toes. Questionable small amount of gas web space versus second toes I don't see osteomyelitis great toe. Lower Extremity Ultrasound 12/25/17 00:00 CONCLUSION: 1. Venous mapping as above. The right greater saphenous vein has significant varicosities. Upper Extremity Ultrasound 12/25/17 00:00 CONCLUSION: 1. Majority of the cephalic vein is thrombosed from wrist to shoulder. 2. Measurements of the deep venous system as above. Venous Doppler Study 12/25/17 00:00 CONCLUSION: 1. Negative for deep venous thrombosis 2. Right inguinal adenopathy Venous Doppler Study 12/25/17 00:00 CONCLUSION: 1. Complete superficial cephalic vein thrombosis on the right. 2. Partial cephalic vein thrombosis on the left. Foot X-Ray 12/26/17 00:00 CONCLUSION: Interval amputation of the first digit otherwise not significantly changed. Assessment and Plan - Plan //Right lower extremity first toe wet gangrene //Diabetic foot infection //Presentation with sepsis to the outside hospital. //Right lower extremity peripheral artery disease Patient is continued on heparin drip. = Continue on broad-spectrum antibiotics. Vancomycin and Zosyn. Continue ranolazine -We will request more recent outside records, most recent progress note, microbiology results, hopefully a discharge summary Consult vascular surgery and podiatry. = 12/26. Status post amputation this morning. Pending revascularization procedure this coming week by Dr. Llanos. //Diabetes mellitus. Diabetic diet and insulin sliding scale. Monitor sugars closely. //History of coronary artery disease //History of cardiomyopathy Continue aspirin, enalapril. Patient does not appear to be on beta-arnulfo. //Hypertension. Blood pressure acceptable. Okay with systolic blood pressures under 170. Continue home medications. Discussed with nursing. Discharge Planning: Pending clearance by vascular surgery and podiatry, maybe patient can be transferred back to referring hospital.
[2017-12-26] MEDS ORDERED: Lidocaine PF 1% Inj 5 ML Syringe INFILTRATN ONE (12:00)
[2017-12-26] MEDS: Sod Chloride 0.9% Inj 1,000 ML IV.CONT SCH (13:40)
--- NOTE | 2017-12-26 14:15 | ECG ---
Date Performed: 12/25/2017 Time Performed: 22:37:00 PTAGE: 62 years EKG: Sinus rhythm Left axis deviation IV conduction defect Lateral ST elevation suggests early repolarization Lateral ST-T changes may be due to myocardial ischemia Abnormal ECG NO PREVIOUS TRACING DOCTOR: Pastor Vernon Interpretating Date/Time 12/26/2017 14:14:38
--- NOTE | 2017-12-26 15:36 | OTSOAPIP ---
TIME SESSION COMPLETED: AM TREATMENT TIME: 0 MINS. CHART REVIEWED. ATTEMPTED TO SEE FOR OT ASSESSMENT, HOWEVER HAVING SURGERY FOR RIGHT GREAT TOE AMPUTATION. WILL FOLLOW NEXT DAY. Therapist: Sue Hussein Signature on file
[2017-12-27] MEDS: Piperacil/Tazo 3.375 GM Premix 50 ML IV.SIG SCH ×5 (00:01→23:26)
[2017-12-27] MEDS: Heparin Drip 25,000 UNIT/250 ML BAG IV.CONT PRN ×2 (00:01→11:08)
[2017-12-27] MEDS: Insulin NovoLOG Aspart Correctional Sugar Inj SQ SCH ×4 (07:52→20:50)
--- NOTE | 2017-12-27 07:55 | P.PNVS ---
- Pre-operative Note Planned Procedure: R LE angiogram and potential intervention (scheduled 12/28) Interval History: Pt underwent toe amputation yesterday. discussed with patient this morning that I would like to attempt once at endovascular revascularization. If fails or unable, will schedule for R LE surgical bypass, likely . Labs: WBC 8.8 th/mm3 (4.0-11.0) 12/26/17 03:17 RBC 3.45 mil/mm3 (4.50-5.90) L 12/26/17 03:17 Hgb 10.2 gm/dL (13.0-17.0) L 12/26/17 03:17 Hct 29.9 % (39.0-51.0) L 12/26/17 03:17 MCV 86.6 fL (80.0-100.0) 12/26/17 03:17 MCH 29.5 pg (27.0-34.0) 12/26/17 03:17 MCHC 34.0 % (32.0-36.0) 12/26/17 03:17 RDW 13.7 % (11.6-17.2) 12/26/17 03:17 Plt Count 356 th/mm3 (150-450) 12/26/17 03:17 MPV 7.6 fL (7.0-11.0) 12/26/17 03:17 INR 1.1 Ratio 12/25/17 15:28 Sodium 137 meq/L (136-145) 12/26/17 03:17 Potassium 4.2 meq/L (3.5-5.1) 12/26/17 03:17 Chloride 103 meq/L (98-107) 12/26/17 03:17 Carbon Dioxide 28.5 meq/L (21.0-32.0) 12/26/17 03:17 Anion Gap 6 meq/L (5-15) 12/26/17 03:17 BUN 16 mg/dL (7-18) 12/26/17 03:17 Random Glucose 221 mg/dL (74-106) H D 12/26/17 03:17 Calcium 8.5 mg/dL (8.5-10.1) 12/26/17 03:17 Blood: none needed Imaging: ITS Impressions Extremity Arterial Study 12/25/17 00:00 CONCLUSION: 1. Severely depressed depressed RL using right brachial pressures suggesting critical limb ischemia. 2. I have no prior cross-sectional imaging studies for comparison 3. CT angiography or conventional catheter angiography would be of benefit. Lower Extremity Ultrasound 12/25/17 00:00 CONCLUSION: 1. Venous mapping as above. The right greater saphenous vein has significant varicosities. Upper Extremity Ultrasound 12/25/17 00:00 CONCLUSION: 1. Majority of the cephalic vein is thrombosed from wrist to shoulder. 2. Measurements of the deep venous system as above. Venous Doppler Study 12/25/17 00:00 CONCLUSION: 1. Complete superficial cephalic vein thrombosis on the right. 2. Partial cephalic vein thrombosis on the left. Foot X-Ray 12/26/17 00:00 CONCLUSION: Interval amputation of the first digit otherwise not significantly changed. Orders: NPO after MN Post-operative Destination: PACU, then back to floor Operative site marked: Yes Consent: Informed consent has been obtained from Steve Villarreal. I have explained the procedure in detail and discussed the risks, benefits, and potential complications. All questions have been answered.
[2017-12-27] MEDS: Amitriptyline 25 MG Tablet PO SCH (09:03)
[2017-12-27] MEDS: Ranolazine 500 MG 12HR ER Tablet PO SCH ×2 (09:03→20:49)
[2017-12-27] MEDS: Vancomycin Inj 1,750 MG in Sodium Chlor 0.9% Inj 500 ML IV.SIG SCH ×2 (09:05→20:49)
--- NOTE | 2017-12-27 11:58 | P.PN ---
Subjective Interval history: 62-year-old male with gangrene of the right large toe secondary to poor circulation and complications of diabetes and peripheral neuropathy. He underwent amputation of the right large toe yesterday and states that he is feeling well, pain is adequately controlled. He understands that he will be undergoing a vascular procedure to restore blood flow to his right lower extremity in order to prevent further infections and other complications in the future. Physical Exam Vital signs: Vital Signs 12/26/17 12:00 12/26/17 13:27 12/26/17 14:00 Temperature Pulse Rate 79 86 80 Respiratory Rate Blood Pressure Pulse Oximetry 12/26/17 15:00 12/26/17 15:33 12/26/17 16:00 Temperature 98.6 F Pulse Rate 66 85 69 Respiratory Rate 20 Blood Pressure 150/65 H Pulse Oximetry 96 12/26/17 17:00 12/26/17 18:00 12/26/17 19:00 Temperature Pulse Rate 78 81 81 Respiratory Rate Blood Pressure Pulse Oximetry 12/26/17 20:00 12/26/17 21:00 12/26/17 22:00 Temperature 98.4 F Pulse Rate 81 78 75 Respiratory Rate Blood Pressure 163/79 H Pulse Oximetry 99 12/26/17 23:00 12/27/17 00:00 12/27/17 01:00 Temperature 98.4 F Pulse Rate 77 77 81 Respiratory Rate Blood Pressure 182/83 H Pulse Oximetry 96 12/27/17 02:00 12/27/17 03:00 12/27/17 04:00 Temperature 98.3 F Pulse Rate 77 100 H 77 Respiratory Rate Blood Pressure 163/73 H Pulse Oximetry 95 12/27/17 05:00 12/27/17 06:00 12/27/17 07:00 Temperature Pulse Rate 71 71 77 Respiratory Rate Blood Pressure Pulse Oximetry 12/27/17 07:30 12/27/17 08:00 12/27/17 09:00 Temperature 98.5 F Pulse Rate 78 84 70 Respiratory Rate 16 Blood Pressure 187/84 H Pulse Oximetry 100 12/27/17 10:00 12/27/17 10:59 Temperature 97.6 F Pulse Rate 68 77 Respiratory Rate 16 Blood Pressure 186/84 H Pulse Oximetry 100 Intake & Output 12/26/17 12/27/17 12/27/17 18:59 06:59 18:59 Intake Total 2440 / 2440 1718.0 / 1718.0 147 / 147 Output Total 800 / 800 2140 / 2140 Balance 1640 / 1640 -422.0 / -422.0 147 / 147 Weight 101.5 kg Intake: IV 850 / 850 1238.0 / 1238.0 147 / 147 Heparin/D5W 25,000 U/250 mL 25, 250 / 250 103 / 103 147 / 147 000 unit In 250 ml @ Per Protocol IV.CONT TITRATE PRN Rx #:[id number] Zosyn 3.375 GM Premix 50 ML @ 100 / 100 100 / 100 100 mls/hr IV.SIG Q6H MEY Rx#: [id number] Vancomycin Inj 1,750 MG In NS 500 / 500 1035.0 / 1035.0 Inj 500 ML @ 250 mls/hr IV.SIG Q12H MEY Rx#:[id number] Oral 940 / 940 480 / 480 Anesthesia Amount 650 / 650 Output: Urine 800 / 800 2140 / 2140 Other: Date of Last Bowel Movement 12/23/17 12/27/17 # Bowel Movements 0 Narrative: GENERAL: Alert and oriented 3, no acute distress SKIN: Warm and dry. HEAD: Normocephalic. EYES: No scleral icterus. No injection or drainage. NECK: Supple, trachea midline. No JVD or lymphadenopathy. CARDIOVASCULAR: Regular rate and rhythm without murmurs, gallops, or rubs. RESPIRATORY: Breath sounds equal bilaterally. No accessory muscle use. GASTROINTESTINAL: Abdomen soft, non-tender, nondistended. MUSCULOSKELETAL: No cyanosis, or edema. Right foot and surgical wrap, status post amputation of right large toe Results - Labs CBC & Chem 7: 12/26/17 03:17 12/26/17 03:17 Laboratory Results - last 24 hr 12/26/17 12/26/17 12/27/17 16:38 20:55 07:45 APTT POC Glucose 327 H 184 H 176 H 12/27/17 09:57 APTT 50.3 H POC Glucose Microbiology 12/26/17 09:30 Wound - Foot Fungal Smear - Final No fungal elements seen 12/26/17 09:30 Wound - Foot Gram Stain - Final Assessment and Plan - Plan Gangrene, right large toe complications of diabetic foot infection and very poor circulation s/p amputation of right large toe 12/26, pain controlled Borderline sepsis prior to admission Continue heparin drip Continue vancomycin and Zosyn Continue ranolazine Vascular surgery planning revascularization procedure this week Appreciate podiatry consult Appreciate vascular surgery consult Type 2 diabetes Last hemoglobin A1c was 7.7 Continue sliding-scale insulin coverage with Accu-Cheks Continue diabetic diet h/o CHF, CAD Continue aspirin, enalapril h/o HTN Continue enalapril Continue Clonidine as needed Discharge Planning Pending clearance by vascular surgery and podiatry, maybe patient can be transferred back to referring hospital.
[2017-12-27] MEDS: Sod Chloride 0.9% Inj 1,000 ML IV.CONT SCH (16:21)
--- NOTE | 2017-12-27 18:02 | P.PNPOD ---
Subjective Interval history: Patient seen postop day 1. Denies any nausea vomiting fevers or chills. Denies any calf pain. Is resting comfortably no concerns at this time. Physical Exam Vital signs: Vital Signs 12/26/17 18:00 12/26/17 19:00 12/26/17 20:00 Temperature 98.4 F Pulse Rate 81 81 81 Respiratory Rate Blood Pressure 163/79 H Pulse Oximetry 99 12/26/17 21:00 12/26/17 22:00 12/26/17 23:00 Temperature Pulse Rate 78 75 77 Respiratory Rate Blood Pressure Pulse Oximetry 12/27/17 00:00 12/27/17 01:00 12/27/17 02:00 Temperature 98.4 F Pulse Rate 77 81 77 Respiratory Rate Blood Pressure 182/83 H Pulse Oximetry 96 12/27/17 03:00 12/27/17 04:00 12/27/17 05:00 Temperature 98.3 F Pulse Rate 100 H 77 71 Respiratory Rate Blood Pressure 163/73 H Pulse Oximetry 95 12/27/17 06:00 12/27/17 07:00 12/27/17 07:30 Temperature 98.5 F Pulse Rate 71 77 78 Respiratory Rate 16 Blood Pressure 187/84 H Pulse Oximetry 100 12/27/17 08:00 12/27/17 09:00 12/27/17 10:00 Temperature Pulse Rate 84 70 68 Respiratory Rate Blood Pressure Pulse Oximetry 12/27/17 10:59 12/27/17 11:00 12/27/17 12:00 Temperature 97.6 F Pulse Rate 77 77 76 Respiratory Rate 16 Blood Pressure 186/84 H Pulse Oximetry 100 12/27/17 13:00 12/27/17 13:40 12/27/17 14:00 Temperature Pulse Rate 68 66 Respiratory Rate Blood Pressure 158/69 H Pulse Oximetry 12/27/17 15:00 12/27/17 15:36 12/27/17 16:00 Temperature 99.0 F Pulse Rate 85 68 78 Respiratory Rate 16 Blood Pressure 161/73 H Pulse Oximetry 98 12/27/17 17:00 Temperature Pulse Rate 80 Respiratory Rate Blood Pressure Pulse Oximetry Intake & Output 12/26/17 12/27/17 12/27/17 18:59 06:59 18:59 Intake Total 2440 / 2440 1718.0 / 1718.0 2154.5 / 2154.5 Output Total 800 / 800 2140 / 2140 1600 / 1600 Balance 1640 / 1640 -422.0 / -422.0 554.5 / 554.5 Weight 101.5 kg Intake: IV 850 / 850 1238.0 / 1238.0 714.5 / 714.5 Heparin/D5W 25,000 U/250 mL 25, 250 / 250 103 / 103 147 / 147 000 unit In 250 ml @ Per Protocol IV.CONT TITRATE PRN Rx #:[id number] Zosyn 3.375 GM Premix 50 ML @ 100 / 100 100 / 100 50 / 50 100 mls/hr IV.SIG Q6H [facility] Rx#: [id number] Vancomycin Inj 1,750 MG In NS 500 / 500 1035.0 / 1035.0 517.5 / 517.5 Inj 500 ML @ 250 mls/hr IV.SIG Q12H [facility] Rx#:[id number] Oral 940 / 940 480 / 480 1440 / 1440 Anesthesia Amount 650 / 650 Output: Urine 800 / 800 2140 / 2140 1600 / 1600 Other: Date of Last Bowel Movement 12/23/17 12/27/17 # Bowel Movements 0 1 Narrative: Dressing the right foot clean dry and intact with capillary refill time to digits 2 through 5 under 3 seconds and intact. No ascending erythema noted past ankle. Medications and Allergies Active Medications: Active Medications Hydrocodone Bitart/Acetaminophen (Pomona 5/325) 1 tab PO Q4H PRN PRN Reason: Pain 2-10 Last Admin: 12/27/17 12:28 Dose: 1 tab Al Hydroxide/Mg Hydroxide (Milk Of Dung Penaloza) 30 ml PO Q12H PRN PRN Reason: Mild Constipation Amitriptyline HCl (Elavil) 25 mg PO DAILY [facility] Last Admin: 12/27/17 09:03 Dose: 25 mg Aspirin (Ecotrin) 81 mg PO DAILY [facility] Last Admin: 12/27/17 09:04 Dose: 81 mg Bisacodyl (Dulcolax Supp) 10 mg RECTAL DAILY PRN PRN Reason: SEVERE CONSITIPATION Chlorhexidine Gluconate (Chlorhexidine 2% Cloth) 3 pack TOPICAL [employer] [facility] Stop: 12/28/17 22:26 Clonidine HCl (Catapres) 0.1 mg PO Q6H PRN PRN Reason: SBP>160, DBP>90 Last Admin: 12/27/17 11:35 Dose: 0.1 mg Dextrose (D50w Vial) 50 ml IV.PUSH UNSCH PRN PRN Reason: PER HYPOGLYCEMIA PROTOCOL Enalapril Maleate (Vasotec) 5 mg PO DAILY [facility] Last Admin: 12/27/17 09:04 Dose: 5 mg Glucagon (Glucagon Inj) 1 mg OTHER PRN PRN PRN Reason: for Hypoglycemia Protocol Sodium Chloride (Ns Inj) 1,000 mls @ 40 mls/hr IV.CONT .Q24H [facility] Last Admin: 12/27/17 16:21 Dose: Not Given Heparin Sodium/Dextrose (Heparin/D5w 25,000 U/250 Ml) 25,000 unit in 250 mls @ 0 mls/hr IV.CONT TITRATE PRN; Protocol PRN Reason: Per Protocol Last Admin: 12/27/17 11:08 Dose: 1,900 units/hr, 19 mls/hr Pharmacy Profile Note (Vancomycin Consult Pharmacy) 0 mls @ 0 mls/hr OTHER UNSCH [facility] Piperacillin/Tazobactam/Dextrose (Zosyn 3.375 Gm Premix) 50 mls @ 100 mls/hr IV.SIG Q6H [facility] Last Admin: 12/27/17 16:21 Dose: 100 mls/hr Sodium Chloride (Ns Inj) 500 mls @ 30 mls/hr IV.SIG .Q10H [facility] Stop: 12/28/17 22:26 Lactated Ringer's (Lr 1000 Ml Inj) 1,000 mls @ 30 mls/hr IV.SIG .Q24H [facility] Stop: 12/28/17 22:26 Last Admin: 12/26/17 23:57 Dose: Not Given Vancomycin HCl 1,750 mg/ (Sodium Chloride) 517.5 mls @ 250 mls/hr IV.SIG Q12H [facility] Last Infusion: 12/27/17 11:10 Dose: Infused Insulin Aspart (Novolog Insulin Correctional Sugar Inj) 0 unit SQ ACHS [facility]; Protocol Last Admin: 12/27/17 16:52 Dose: 10 unit Lactulose (Lactulose Liq) 30 ml PO DAILY PRN PRN Reason: SEVERE CONSITIPATION Miscellaneous Information ([facility] Ordered Lab Info) 0 each OTHER ONCE ONE Stop: 12/27/17 20:46 Povidone Iodine (Betadine 5% Antisepsis Kit) 1 applicatio EACH NARE [employer] [facility] Stop: 12/28/17 22:26 Pravastatin Sodium (Pravachol) 40 mg PO DAILY [facility] Last Admin: 12/27/17 09:04 Dose: 40 mg Ranolazine (Ranexa) 500 mg PO Q12H [facility] Last Admin: 12/27/17 09:03 Dose: 500 mg Sennosides (Senokot) 17.2 mg PO Q12H PRN PRN Reason: Moderate Constipation Temazepam (Restoril) 15 mg PO HS PRN PRN Reason: INSOMNIA Allergies Allergy/AdvReac Type Severity Reaction Status Date / Time No Known Allergies Allergy Unverified 12/25/17 13:13 Home Medications Medication Instructions Recorded Confirmed Type amitriptyline 25 mg PO DAILY 12/25/17 12/25/17 History aspirin 81 mg PO DAILY 12/25/17 12/25/17 History cefepime 50 mg/kg IV Q8H 12/25/17 12/25/17 History enalapril maleate 5 mg PO DAILY 12/25/17 12/25/17 History heparin (porcine) in 5 % dex 250 ml IV DIRECTED 12/25/17 12/25/17 History hydrocodone-acetaminophen [Pomona] 1 tab PO Q4-6H PRN 12/25/17 12/25/17 History insulin asp prt-insulin aspart 20 unit SUB-Q BID 12/25/17 12/25/17 History insulin asp prt-insulin aspart 20 unit SUB-Q BID 12/25/17 12/25/17 History [Novolog Mix 70-30FlexPen U-100] metformin 1,000 mg PO BID 12/25/17 12/25/17 History ranolazine [Ranexa] 500 mg PO Q12H 12/25/17 12/25/17 History simvastatin 20 tab PO DAILY 12/25/17 12/25/17 History Results - Labs CBC & Chem 7: 12/26/17 03:17 12/26/17 03:17 Laboratory Results - last 24 hr 12/26/17 12/27/17 12/27/17 20:55 07:45 09:57 APTT 50.3 H POC Glucose 184 H 176 H 12/27/17 12/27/17 12:20 16:23 APTT POC Glucose 197 H 297 H Microbiology 12/27/17 12:30 Stool Stool Occult Blood ([facility]) - Final Hemoccult negative 12/26/17 09:30 Wound - Foot Gram Stain - Final 12/26/17 09:30 Wound - Foot Wound Culture - Preliminary Proteus species Group D Enterococcus 12/26/17 09:30 Wound - Foot Acid Fast Bacilli Smear - Final No acid fast bacilli seen 12/26/17 09:30 Wound - Foot Fungal Smear - Final No fungal elements seen Assessment and Plan - Assessment (1) Gangrene due to peripheral vascular disease Code(s): I96 - Gangrene, not elsewhere classified; I73.9 - Peripheral vascular disease, unspecified Status: Acute (2) Cellulitis of foot, right Code(s): L03.115 - Cellulitis of right lower limb Status: Acute - Plan 62-year-old male postop day 1 right foot partial first ray amputation; date of surgery: 12/26 Examined evaluated with all questions answered Will take down dressing in the next 24-48 hours and evaluate if further debridement is necessary Patient for vascular intervention tomorrow Patient to keep right leg elevated, keep dressing clean dry and intact Heel weightbearing to right foot in surgical shoe
[2017-12-27] MEDS ORDERED: Pharmacy Ordered Lab Info OTHER ONE (20:45)
[2017-12-28] MEDS: Heparin Drip 25,000 UNIT/250 ML BAG IV.CONT PRN (02:26)
[2017-12-28] MEDS: Piperacil/Tazo 3.375 GM Premix 50 ML IV.SIG SCH ×4 (04:34→23:00)
[2017-12-28] MEDS: Insulin NovoLOG Aspart Correctional Sugar Inj SQ SCH ×4 (08:01→23:55)
[2017-12-28] MEDS: Ranolazine 500 MG 12HR ER Tablet PO SCH ×2 (08:16→21:51)
[2017-12-28] MEDS: Amitriptyline 25 MG Tablet PO SCH (08:16)
[2017-12-28] MEDS: Vancomycin Inj 1,750 MG in Sodium Chlor 0.9% Inj 500 ML IV.SIG SCH (08:16)
[2017-12-28] MEDS ORDERED: Glycopyrrolate Inj 1 MG/5 ML Syringe IV.PUSH ONE (12:00)
[2017-12-28] MEDS ORDERED: Lidocaine PF 1% Inj 5 ML Syringe INFILTRATN ONE (12:00)
[2017-12-28] MEDS ORDERED: Phenylephrine/NS 1000 MCG/10ML Syringe IV.PUSH ONE (12:00)
--- NOTE | 2017-12-28 13:47 | P.PN ---
Subjective Interval history: Patient understands he will likely have a vascular procedure done today to restore flow to his distal right lower extremity. He had a right large toe amputation performed 2 days ago and has his pain well controlled with current pain medicines. Physical Exam Vital signs: Vital Signs 12/27/17 14:00 12/27/17 15:00 12/27/17 15:36 Temperature 99.0 F Pulse Rate 66 85 68 Respiratory Rate 16 Blood Pressure 161/73 H Pulse Oximetry 98 12/27/17 16:00 12/27/17 17:00 12/27/17 18:14 Temperature Pulse Rate 78 80 83 Respiratory Rate Blood Pressure Pulse Oximetry 12/27/17 19:00 12/27/17 20:00 12/27/17 21:00 Temperature 98.9 F Pulse Rate 79 69 62 Respiratory Rate Blood Pressure 182/80 H Pulse Oximetry 99 12/27/17 22:00 12/27/17 23:00 12/28/17 00:00 Temperature 98.4 F Pulse Rate 61 59 L 57 L Respiratory Rate Blood Pressure 123/58 L Pulse Oximetry 98 12/28/17 01:00 12/28/17 02:00 12/28/17 03:00 Temperature 98.2 F Pulse Rate 61 66 69 Respiratory Rate Blood Pressure 148/68 H Pulse Oximetry 96 12/28/17 04:00 12/28/17 05:00 12/28/17 06:00 Temperature Pulse Rate 69 66 69 Respiratory Rate Blood Pressure Pulse Oximetry 12/28/17 07:00 12/28/17 08:00 12/28/17 09:00 Temperature 97.9 F Pulse Rate 76 71 61 Respiratory Rate 18 Blood Pressure 158/72 H Pulse Oximetry 100 12/28/17 10:00 12/28/17 11:00 12/28/17 12:00 Temperature 98.2 F Pulse Rate 65 62 62 Respiratory Rate 18 Blood Pressure 163/70 H Pulse Oximetry 100 12/28/17 13:00 Temperature Pulse Rate 57 L Respiratory Rate Blood Pressure Pulse Oximetry Intake & Output 12/27/17 12/28/17 12/28/17 18:59 06:59 18:59 Intake Total 2204.5 / 2204.5 1707.5 / 1707.5 567.5 / 567.5 Output Total 1600 / 1600 1550 / 1550 Balance 604.5 / 604.5 157.5 / 157.5 567.5 / 567.5 Weight 101.5 kg Intake: IV 764.5 / 764.5 867.5 / 867.5 567.5 / 567.5 Heparin/D5W 25,000 U/250 mL 25, 147 / 147 250 / 250 000 unit In 250 ml @ Per Protocol IV.CONT TITRATE PRN Rx #:[id number] Zosyn 3.375 GM Premix 50 ML @ 100 / 100 100 / 100 50 / 50 100 mls/hr IV.SIG Q6H [facility] Rx#: [id number] Vancomycin Inj 1,750 MG In NS 517.5 / 517.5 517.5 / 517.5 517.5 / 517.5 Inj 500 ML @ 250 mls/hr IV.SIG Q12H [facility] Rx#:[id number] Oral 1440 / 1440 840 / 840 Output: Urine 1600 / 1600 1550 / 1550 Other: Date of Last Bowel Movement 12/27/17 12/27/17 # Bowel Movements 1 Narrative: GENERAL: Alert and oriented 3, no acute distress SKIN: Warm and dry. HEAD: Normocephalic. EYES: No scleral icterus. No injection or drainage. NECK: Supple, trachea midline. No JVD or lymphadenopathy. CARDIOVASCULAR: Regular rate and rhythm without murmurs, gallops, or rubs. RESPIRATORY: Breath sounds equal bilaterally. No accessory muscle use. GASTROINTESTINAL: Abdomen soft, non-tender, nondistended. MUSCULOSKELETAL: No cyanosis, or edema. Right foot and surgical wrap, status post amputation of right large toe Results - Labs CBC & Chem 7: 12/26/17 03:17 12/26/17 03:17 Laboratory Results - last 24 hr 12/27/17 12/27/17 12/27/17 16:23 20:44 20:50 APTT POC Glucose 297 H 276 H Vancomycin Trough 16.6 H 12/28/17 12/28/17 12/28/17 05:02 07:38 10:15 APTT 57.4 H POC Glucose 215 H 175 H Vancomycin Trough Microbiology 12/26/17 09:30 Wound - Foot Gram Stain - Final 12/26/17 09:30 Wound - Foot Wound Culture - Preliminary Proteus mirabilis Group D Enterococcus 12/27/17 12:30 Stool Stool Occult Blood ([facility]) - Final Hemoccult negative 12/26/17 09:30 Wound - Foot Acid Fast Bacilli Smear - Final No acid fast bacilli seen Assessment and Plan - Plan Gangrene, right large toe complications of diabetic foot infection and very poor circulation s/p amputation of right large toe 12/26, pain controlled Continue heparin drip, ranolazine Continue vancomycin and Zosyn Vascular surgery planning revascularization procedure Podiatry to reevaluate wound following revascularization Appreciate podiatry consult Appreciate vascular surgery consult Type 2 diabetes Last hemoglobin A1c was 7.7 Continue sliding-scale insulin coverage with Accu-Cheks Continue diabetic diet h/o CHF, CAD Continue aspirin, enalapril h/o HTN Continue enalapril Continue Clonidine as needed Discharge Planning Pending clearance by vascular surgery and podiatry, maybe patient can be transferred back to referring hospital.
[2017-12-28] MEDS: Heparin/NS PF Inj 500 ML ONE ×2 (15:00→15:07)
[2017-12-28] MEDS: Heparin 10,000 UNITS/10 ML Vial (for IV use) ONE ×2 (15:00→15:07)
[2017-12-28] MEDS: Sod Chloride 0.9% Inj 1,000 ML IV.CONT SCH (15:07)
[2017-12-28] MEDS ORDERED: Iohexol 300 MG/ML 50 ML Vial (for Rad Diag) IVCONTRAST ONE (16:27)
[2017-12-28] MEDS ORDERED: fentaNYL Citrate Inj 100 MCG/2 ML Ampul ONE ×3 (16:29→23:21)
--- NOTE | 2017-12-28 16:37 | P.OP ---
Date of procedure: 12/28/17 Procedure: 1. Aortogram w/ R LE angiogram 2. U/S guided access to R DP 3. R LE angiogram via pedal access 4. L [employer] Angioseal Implants: L [employer] Angioseal Anesthesia: GETA Surgeon: Nadeem Llanos MD Estimated blood loss (mL): 10 IV fluids (mL): 450 Operation and Findings: 1. Patent aortoiliac segment 2. Patent R fem-pop segment 3. Occluded BK pop and all tibial arteries 4. Reconstitution of DP and distal peroneal Needs either pop-DP with compromised conduit or BKA
--- NOTE | 2017-12-28 19:26 | MP ---
cc: Nadeem Llanos MD, Robert J MD DATE OF OPERATION: 12/28/2017 PREOPERATIVE DIAGNOSIS: Right lower extremity tissue loss, peripheral arterial occlusive disease. POSTOPERATIVE DIAGNOSIS: Right lower extremity tissue loss, peripheral arterial occlusive disease. PROCEDURES PERFORMED: 1. Aortogram with right lower extremity angiograms. 2. Ultrasound-guided access to dorsalis pedis artery. 3. Retrograde angiogram of right lower extremity. 4. Left common femoral artery Angio-Seal. ATTENDING SURGEON: Nadeem Llanos MD SECTIONIZER SURGEON: None. ANESTHESIA: General. INDICATIONS: Mr. Villarreal is a 59-year-old gentleman with right lower extremity tissue loss. He has infrapopliteal disease by physical examination. He is taken to the operating room for endovascular evaluation and treatment. There is no prior catheter-based imaging available for my review of adequate quality in the infrapopliteal segment. DESCRIPTION OF PROCEDURE: Informed consent was obtained from the patient and he was taken to the operating room and placed supine on the operating table. Appropriate timeout was taken to ensure the patient's identity, the operative site and planned procedure. The administration of antibiotics was not necessary as the patient is on systemic and therapeutic antibiotics for ongoing treatment of a diabetic foot infection. Everyone in the room agreed with timeout and we proceeded. His bilateral groin and right leg were prepped and draped. A 21-gauge micropuncture needle was used to access the left common femoral artery. This was exchanged using Seldinger technique for micropuncture sheath through which a 0.035 Glidewire was introduced. The micro sheath was exchanged for a 5-Bolivian sheath and a VCF catheter was placed over the wire and through the sheath and aortogram and pelvic arteriogram was obtained. The Glidewire was reintroduced and navigated down to the right common femoral artery and the VCF catheter was advanced over this and a right lower extremity arteriogram was obtained. The patient was systemically heparinized with 5000 units of IV heparin. A 0.035 Quach wire was advanced down to the popliteal artery. The VCF catheter and 5-Bolivian sheath were removed, and a 6-Bolivian 90 cm sheath was introduced and a CXI catheter was placed over the wire and through the sheath and the Quach wire was exchanged for a SLITTER CREASER SLOTTER OPERATOR wire and ultimately a stiffened Glidewire was used to navigated into the anterior tibial artery and the CXI catheter followed the wire into the anterior tibial artery. Multiple attempts were made to recanalize the anterior tibial artery from the antegrade approach, but these were unsuccessful. Using ultrasonographic guidance, the right dorsalis pedis was accessed with a 21-gauge micropuncture needle. This was exchanged using Seldinger technique for a micropuncture sheath through which a 0.018 14 SLITTER CREASER SLOTTER OPERATOR wire and then a V-18 wire was then introduced and a 0.018 CXI catheter was placed over this. Multiple attempts to recanalize retrograde were obtained, but we were not able to pass the wire nor catheter past the mid tibia. The wire and catheter were removed and pressure was held on the dorsalis pedis. Wire, catheter and sheath were removed from the left groin and the groin was closed with an Angio-Seal. There were no complications. I was present and scrubbed and performed the entire procedure. INTERPRETATION OF IMAGES: The patient has a patent terminal aorta, common iliac arteries, hypogastric arteries and external iliac arteries bilaterally. Common femoral artery is patent bilaterally and the right profunda and SFA are patent. The popliteal artery is patent. The below-knee popliteal artery occludes and there is no posterior tibial artery down almost to the level of the ankle. The dorsalis pedis reconstitutes via peroneal collaterals and the peroneal is very diseased distally and only fills via collaterals. On retrograde angiography through the dorsalis pedis, the anterior tibial artery is occluded in the distal calf and there is no retrograde reconstitution. MD SHOSHANA Kennedy/ , 06:49 PM , 06:57 PM
[2017-12-28] MEDS ORDERED: Pharmacy Ordered Lab Info OTHER ONE (20:45)
[2017-12-28 23:36] LABS: Vancomycin,Trough 17.6 mcg/mL (5.0-10.0)
[2017-12-29] MEDS: Vancomycin Inj 1,750 MG in Sodium Chlor 0.9% Inj 500 ML IV.SIG SCH ×3 (00:43→21:28)
[2017-12-29] MEDS: Piperacil/Tazo 3.375 GM Premix 50 ML IV.SIG SCH ×4 (05:00→23:56)
--- NOTE | 2017-12-29 07:09 | P.PNVS ---
Subjective Subjective/Hospital Course: Pt POD#1 R LE angiogram without intervention No new foot symptoms, pain controlled Objective Vital Signs / I&O: Vital Signs 12/28/17 08:00 12/28/17 09:00 12/28/17 10:00 Temperature Pulse Rate 71 61 65 Respiratory Rate Blood Pressure Pulse Oximetry 12/28/17 11:00 12/28/17 12:00 12/28/17 13:00 Temperature 98.2 F Pulse Rate 62 62 57 L Respiratory Rate 18 Blood Pressure 163/70 H Pulse Oximetry 100 12/28/17 14:00 12/28/17 16:22 12/28/17 16:30 Temperature 97.9 F Pulse Rate 67 77 77 Respiratory Rate 18 18 Blood Pressure 160/74 H 153/72 H Pulse Oximetry 100 12/28/17 16:37 12/28/17 16:45 12/28/17 17:00 Temperature 98.5 F 97.9 F Pulse Rate 74 72 73 Respiratory Rate 18 Blood Pressure 168/80 H 159/74 H Pulse Oximetry 99 100 12/28/17 20:00 12/28/17 23:00 12/29/17 04:00 Temperature 97.7 F 98 F 98 F Pulse Rate 82 99 H 68 Respiratory Rate Blood Pressure 169/79 H 178/79 H 153/72 H Pulse Oximetry 97 97 97 Intake & Output 12/28/17 12/29/17 12/29/17 18:59 06:59 18:59 Intake Total 2287.5 / 2287.5 420 / 420 Output Total 1060 / 1060 1200 / 1200 Balance 1227.5 / 1227.5 -780 / -780 Weight 103.5 kg Intake: IV 1117.5 / 1117.5 Heparin/NS PF Inj 500 ML @ 0 500 / 500 mls/hr .ROUTE .[facility] Rx#: [id number] Zosyn 3.375 GM Premix 50 ML @ 100 / 100 100 mls/hr IV.SIG Q6H [facility] Rx#: [id number] Vancomycin Inj 1,750 MG In NS 517.5 / 517.5 Inj 500 ML @ 250 mls/hr IV.SIG Q12H [facility] Rx#:[id number] Oral 720 / 720 420 / 420 Anesthesia Amount 450 / 450 Output: Urine 1050 / 1050 1200 / 1200 Estimated Blood Loss Physical Exam: resting comfortably foot wrapped leg warm Laboratory Results - last 24 hr 12/28/17 12/28/17 12/28/17 07:38 10:15 21:50 POC Glucose 215 H 175 H 491 H* Random Glucose Vancomycin Trough 12/28/17 12/28/17 22:00 22:56 POC Glucose 522 H* Random Glucose 441 H Vancomycin Trough 17.6 H Microbiology 12/26/17 09:30 Gram Stain - Final Wound - Foot Wound Culture - Preliminary Proteus mirabilis Group D Enterococcus Assessment and Plan - Assessment (1) Diabetic infection of right foot Code(s): E11.628 - Type 2 diabetes mellitus with other skin complications; L08.9 - Local infection of the skin and subcutaneous tissue, unspecified Status: Acute (2) PAD (peripheral artery disease) Code(s): I73.9 - Peripheral vascular disease, unspecified Status: Acute - Plan 62 yo male with DM and diabetic foot infection, PAD and severe tibial disease I had a long talk with the patient about the options - BKA vs attempt at pedal bypass. Limited conduit and poor distal target make bypass option less viable. He would like to try anything to avoid amputation as long as he can and so will attempt bypass tomorrow (). He understands risks including bypass failure and ultimate need for amputation
[2017-12-29] MEDS: Insulin NovoLOG Aspart Correctional Sugar Inj SQ SCH ×4 (08:36→21:36)
[2017-12-29] MEDS: Ranolazine 500 MG 12HR ER Tablet PO SCH ×2 (08:37→21:08)
[2017-12-29] MEDS: Amitriptyline 25 MG Tablet PO SCH (08:37)
[2017-12-29] MEDS ORDERED: Pharmacy Ordered Lab Info OTHER ONE (08:45)
--- NOTE | 2017-12-29 09:03 | P.PN ---
Subjective Interval history: 62-year-old male who underwent an attempted stent placement in his right leg yesterday to restore blood flow. The level of occlusions was 2 advanced and I passed grafting is recommended. Patient is resting comfortably. Bypass grafting is scheduled for tomorrow. Physical Exam Vital signs: Vital Signs 12/28/17 10:00 12/28/17 11:00 12/28/17 12:00 Temperature 98.2 F Pulse Rate 65 62 62 Respiratory Rate 18 Blood Pressure 163/70 H Pulse Oximetry 100 12/28/17 13:00 12/28/17 14:00 12/28/17 16:22 Temperature 97.9 F Pulse Rate 57 L 67 77 Respiratory Rate 18 Blood Pressure 160/74 H Pulse Oximetry 12/28/17 16:30 12/28/17 16:37 12/28/17 16:45 Temperature 98.5 F 97.9 F Pulse Rate 77 74 72 Respiratory Rate 18 18 Blood Pressure 153/72 H 168/80 H 159/74 H Pulse Oximetry 100 99 100 12/28/17 17:00 12/28/17 20:00 12/28/17 23:00 Temperature 97.7 F 98 F Pulse Rate 73 82 99 H Respiratory Rate Blood Pressure 169/79 H 178/79 H Pulse Oximetry 97 97 12/29/17 04:00 12/29/17 08:00 Temperature 98 F Pulse Rate 68 Respiratory Rate Blood Pressure 153/72 H Pulse Oximetry 97 100 Intake & Output 12/28/17 12/29/17 12/29/17 18:59 06:59 18:59 Intake Total 2287.5 / 2287.5 470 / 470 567.5 / 567.5 Output Total 1060 / 1060 1200 / 1200 Balance 1227.5 / 1227.5 -730 / -730 567.5 / 567.5 Weight 103.5 kg Intake: IV 1117.5 / 1117.5 50 / 50 567.5 / 567.5 Heparin/NS PF Inj 500 ML @ 0 500 / 500 mls/hr .ROUTE .[facility] Rx#: [id number] Zosyn 3.375 GM Premix 50 ML @ 100 / 100 50 / 50 50 / 50 100 mls/hr IV.SIG Q6H [facility] Rx#: [id number] Vancomycin Inj 1,750 MG In NS 517.5 / 517.5 517.5 / 517.5 Inj 500 ML @ 250 mls/hr IV.SIG Q12H [facility] Rx#:[id number] Oral 720 / 720 420 / 420 Anesthesia Amount 450 / 450 Output: Urine 1050 / 1050 1200 / 1200 Estimated Blood Loss Narrative: GENERAL: Alert and oriented 3, no acute distress SKIN: Warm and dry. HEAD: Normocephalic. EYES: No scleral icterus. No injection or drainage. NECK: Supple, trachea midline. No JVD or lymphadenopathy. CARDIOVASCULAR: Regular rate and rhythm without murmurs, gallops, or rubs. RESPIRATORY: Breath sounds equal bilaterally. No accessory muscle use. GASTROINTESTINAL: Abdomen soft, non-tender, nondistended. MUSCULOSKELETAL: No cyanosis, or edema. Right foot and surgical wrap, status post amputation of right large toe Results - Labs CBC & Chem 7: 12/26/17 03:17 12/28/17 22:56 Laboratory Results - last 24 hr 12/28/17 12/28/17 12/28/17 10:15 21:50 22:00 POC Glucose 175 H 491 H* 522 H* Random Glucose Vancomycin Trough 12/28/17 12/29/17 22:56 07:40 POC Glucose 312 H Random Glucose 441 H Vancomycin Trough 17.6 H Microbiology 12/26/17 09:30 Wound - Foot Gram Stain - Final 12/26/17 09:30 Wound - Foot Wound Culture - Preliminary Proteus mirabilis Group D Enterococcus Assessment and Plan - Plan Gangrene, right large toe complications of diabetic foot infection and very poor circulation s/p amputation of right large toe 12/26, pain controlled Continue heparin drip, ranolazine Continue vancomycin and Zosyn Stent placement via vascular was unsuccessful due to very extensive disease Bypass graft with vascular surgery is recommended and is scheduled for tomorrow Podiatry to reevaluate wound following revascularization Appreciate podiatry consult Appreciate vascular surgery consult Type 2 diabetes Last hemoglobin A1c was 7.7 Continue sliding-scale insulin coverage with Accu-Cheks Continue diabetic diet h/o CHF, CAD Continue aspirin, enalapril h/o HTN Continue enalapril Continue Clonidine as needed Discharge Planning Undergoing bypass graft of right leg tomorrow
[2017-12-29] MEDS: Sod Chloride 0.9% Inj 1,000 ML IV.CONT SCH (13:24)
--- NOTE | 2017-12-29 22:55 | P.PNPOD ---
Subjective Interval history: Patient seen bedside. States vascular surgery will be performing bypass tomorrow. Patient denies any N,V,F,Ch. Physical Exam Vital signs: Vital Signs 12/28/17 23:00 12/29/17 04:00 12/29/17 07:00 Temperature 98 F 98 F 98.0 F Pulse Rate 99 H 68 79 Respiratory Rate 18 Blood Pressure 178/79 H 153/72 H 173/81 H Pulse Oximetry 97 97 99 12/29/17 08:00 12/29/17 10:00 12/29/17 11:00 Temperature 98.2 F Pulse Rate 84 69 65 Respiratory Rate 18 Blood Pressure 149/64 H Pulse Oximetry 100 100 12/29/17 12:00 12/29/17 13:00 12/29/17 14:00 Temperature Pulse Rate 70 64 78 Respiratory Rate Blood Pressure Pulse Oximetry 12/29/17 15:00 12/29/17 16:00 12/29/17 17:00 Temperature 98.5 F Pulse Rate 63 60 62 Respiratory Rate 18 Blood Pressure 167/77 H Pulse Oximetry 100 12/29/17 18:00 12/29/17 19:00 12/29/17 20:00 Temperature 98.2 F Pulse Rate 65 60 64 Respiratory Rate 16 Blood Pressure 139/60 Pulse Oximetry 99 99 12/29/17 21:14 Temperature Pulse Rate Respiratory Rate Blood Pressure Pulse Oximetry 99 Intake & Output 12/29/17 12/29/17 12/30/17 06:59 18:59 06:59 Intake Total 470 / 470 2485.0 / 2485.0 Output Total 1200 / 1200 1100 / 1100 Balance -730 / -730 1385.0 / 1385.0 Weight 103.5 kg Intake: IV 50 / 50 1185.0 / 1185.0 Zosyn 3.375 GM Premix 50 ML @ 50 / 50 150 / 150 100 mls/hr IV.SIG Q6H [facility] Rx#: [id number] Vancomycin Inj 1,750 MG In NS 1035.0 / 1035.0 Inj 500 ML @ 250 mls/hr IV.SIG Q12H [facility] Rx#:[id number] Oral 420 / 420 1300 / 1300 Output: Urine 1200 / 1200 1100 / 1100 Other: Date of Last Bowel Movement 12/29/17 # Bowel Movements 1 Narrative: Sutures intact with skin well coapted. Ischemia and maceration noted to incision line. Ischemia and discoloration extends approximately 1cm mehran incisional area. Medications and Allergies Active Medications: Active Medications Hydrocodone Bitart/Acetaminophen ([place] 5/325) 1 tab PO Q4H PRN PRN Reason: Pain 2-10 Last Admin: 12/29/17 22:40 Dose: 1 tab Al Hydroxide/Mg Hydroxide (Milk Of Magnboby Liq) 30 ml PO Q12H PRN PRN Reason: Mild Constipation Amitriptyline HCl (Elavil) 25 mg PO DAILY [facility] Last Admin: 12/29/17 08:37 Dose: 25 mg Aspirin (Ecotrin) 81 mg PO DAILY [facility] Last Admin: 12/29/17 08:37 Dose: 81 mg Bisacodyl (Dulcolax Supp) 10 mg RECTAL DAILY PRN PRN Reason: SEVERE CONSITIPATION Clonidine HCl (Catapres) 0.1 mg PO Q6H PRN PRN Reason: SBP>160, DBP>90 Last Admin: 12/29/17 15:58 Dose: 0.1 mg Dextrose (D50w Vial) 50 ml IV.PUSH UNSCH PRN PRN Reason: PER HYPOGLYCEMIA PROTOCOL Enalapril Maleate (Vasotec) 5 mg PO DAILY [facility] Last Admin: 12/29/17 08:37 Dose: 5 mg Glucagon (Glucagon Inj) 1 mg OTHER PRN PRN PRN Reason: for Hypoglycemia Protocol Sodium Chloride (Ns Inj) 1,000 mls @ 40 mls/hr IV.CONT .Q24H [facility] Last Admin: 12/29/17 13:24 Dose: Not Given Heparin Sodium/Dextrose (Heparin/D5w 25,000 U/250 Ml) 25,000 unit in 250 mls @ 0 mls/hr IV.CONT TITRATE PRN; Protocol PRN Reason: Per Protocol Last Admin: 12/28/17 02:26 Dose: 1,900 units/hr, 19 mls/hr Pharmacy Profile Note (Vancomycin Consult Pharmacy) 0 mls @ 0 mls/hr OTHER UNSCH [facility] Piperacillin/Tazobactam/Dextrose (Zosyn 3.375 Gm Premix) 50 mls @ 100 mls/hr IV.SIG Q6H [facility] Last Infusion: 12/29/17 16:43 Dose: Infused Vancomycin HCl 1,750 mg/ (Sodium Chloride) 517.5 mls @ 250 mls/hr IV.SIG Q12H [facility] Last Admin: 12/29/17 21:28 Dose: 250 mls/hr Insulin Aspart (Novolog Insulin Correctional Sugar Inj) 0 unit SQ ACHS [facility]; Protocol Last Admin: 12/29/17 21:36 Dose: 7 unit Lactulose (Lactulose Liq) 30 ml PO DAILY PRN PRN Reason: SEVERE CONSITIPATION Miscellaneous Information ([facility] Ordered Lab Info) 0 each OTHER ONCE ONE Stop: 12/30/17 08:46 Pravastatin Sodium (Pravachol) 40 mg PO DAILY [facility] Last Admin: 12/29/17 08:37 Dose: 40 mg Ranolazine (Ranexa) 500 mg PO Q12H [facility] Last Admin: 12/29/17 21:08 Dose: 500 mg Sennosides (Senokot) 17.2 mg PO Q12H PRN PRN Reason: Moderate Constipation Sodium Chloride (Ns Flush) 2 ml IV.FLUSH BID [facility] Last Admin: 12/29/17 08:37 Dose: 2 ml Sodium Chloride (Ns Flush) 2 ml IV.FLUSH PRN PRN PRN Reason: FLUSH AFTER USING IV ACCESS Temazepam (Restoril) 15 mg PO HS PRN PRN Reason: INSOMNIA Allergies Allergy/AdvReac Type Severity Reaction Status Date / Time No Known Allergies Allergy Unverified 12/25/17 13:13 Home Medications Medication Instructions Recorded Confirmed Type amitriptyline 25 mg PO DAILY 12/25/17 12/25/17 History aspirin 81 mg PO DAILY 12/25/17 12/25/17 History cefepime 50 mg/kg IV Q8H 12/25/17 12/25/17 History enalapril maleate 5 mg PO DAILY 12/25/17 12/25/17 History heparin (porcine) in 5 % dex 250 ml IV DIRECTED 12/25/17 12/25/17 History hydrocodone-acetaminophen [[place]] 1 tab PO Q4-6H PRN 12/25/17 12/25/17 History insulin asp prt-insulin aspart 20 unit SUB-Q BID 12/25/17 12/25/17 History insulin asp prt-insulin aspart 20 unit SUB-Q BID 12/25/17 12/25/17 History [Novolog Mix 70-30FlexPen U-100] metformin 1,000 mg PO BID 12/25/17 12/25/17 History ranolazine [Ranexa] 500 mg PO Q12H 12/25/17 12/25/17 History simvastatin 20 tab PO DAILY 12/25/17 12/25/17 History Results - Labs CBC & Chem 7: 12/26/17 03:17 12/28/17 22:56 Laboratory Results - last 24 hr 12/28/17 12/29/17 12/29/17 22:56 07:40 11:18 POC Glucose 312 H 372 H Random Glucose 441 H Vancomycin Trough 17.6 H 12/29/17 12/29/17 15:57 19:47 POC Glucose 156 H 279 H Random Glucose Vancomycin Trough Microbiology 12/26/17 09:30 Wound - Foot Gram Stain - Final 12/26/17 09:30 Wound - Foot Wound Culture - Final Proteus mirabilis Enterococcus faecalis Enterococcus raffinosus anaerobic gram negative rods Assessment and Plan - Assessment (1) Gangrene due to peripheral vascular disease Code(s): I96 - Gangrene, not elsewhere classified; I73.9 - Peripheral vascular disease, unspecified Status: Acute (2) Cellulitis of foot, right Code(s): L03.115 - Cellulitis of right lower limb Status: Acute - Plan 62-year-old male postop day 1 right foot partial first ray amputation; date of surgery: 12/26 Examined evaluated with all questions answered Bypass tomorrow with vascular Will take down dressing in the next 48 hours after bypass and evaluate if further debridement/resection is necessary Patient to keep right leg elevated, keep dressing clean dry and intact Heel weightbearing to right foot in surgical shoe Discussed with patient and present bedside
[2017-12-30] MEDS: Piperacil/Tazo 3.375 GM Premix 50 ML IV.SIG SCH ×4 (04:14→23:12)
[2017-12-30] MEDS ORDERED: Pharmacy Ordered Lab Info OTHER ONE (08:45)
[2017-12-30] MEDS: Vancomycin Inj 1,750 MG in Sodium Chlor 0.9% Inj 500 ML IV.SIG SCH ×2 (09:22→21:12)
[2017-12-30] MEDS: Ranolazine 500 MG 12HR ER Tablet PO SCH ×2 (09:24→21:12)
[2017-12-30] MEDS: Amitriptyline 25 MG Tablet PO SCH (09:26)
[2017-12-30] MEDS: Insulin NovoLOG Aspart Correctional Sugar Inj SQ SCH ×4 (09:28→21:47)
[2017-12-30] MEDS ORDERED: Glycopyrrolate Inj 1 MG/5 ML Syringe IV.PUSH ONE (12:00)
[2017-12-30] MEDS ORDERED: Sodium Chlor 0.9% Inj 500 ML IV.SIG ONE (12:00)
[2017-12-30] MEDS ORDERED: Labetalol HCl Inj 100 MG/20 ML Vial IV.CONT ONE (12:00)
[2017-12-30] MEDS ORDERED: Lidocaine PF 1% Inj 5 ML Syringe INFILTRATN ONE (12:00)
[2017-12-30] MEDS ORDERED: Phenylephrine/NS 1000 MCG/10ML Syringe IV.PUSH ONE (12:00)
[2017-12-30] MEDS ORDERED: Neostigmine Inj 5 MG/5 ML Syringe IV.PUSH ONE (12:00)
[2017-12-30] MEDS ORDERED: Heparin 10,000 UNITS/10 ML Vial (for IV use) ONE ×2 (12:12→13:47)
[2017-12-30] MEDS ORDERED: Protamine Sulfate Inj 50 MG/5 ML Vial ONE ×2 (12:12→13:47)
[2017-12-30] MEDS ORDERED: Bupivacaine PF 0.5% Inj 30 ML Vial ONE (12:12)
[2017-12-30] MEDS ORDERED: Heparin/NS PF Inj 500 ML ONE (12:13)
[2017-12-30] MEDS ORDERED: ceFAZolin 2 GM Premix Inj 0 GM/0 ML PIGGYBACK IV.SIG ONE (12:13)
[2017-12-30] MEDS ORDERED: Thrombin Topical 20,000 UNIT Spray Kit TOPICAL ONE (12:13)
[2017-12-30] MEDS ORDERED: fentaNYL Citrate Inj 250 MCG/5 ML Ampul ONE (15:07)
[2017-12-30] MEDS ORDERED: fentaNYL Citrate Inj 100 MCG/2 ML Ampul ONE (15:13)
--- NOTE | 2017-12-30 15:42 | P.OP ---
Date of procedure: 12/30/17 Procedure: 1. R BK pop-DP bypass with cryo vein 2. Vein patch of DP Implants: cryo vein Anesthesia: GETA Surgeon: Nadeem Llanos MD [employer] Worker: Nadeem Kenyon Estimated blood loss (mL): 150 IV fluids (mL): 2,000 Urine output (mL): 1,500 Pathology: none sent Operation and Findings: severe disease at DP palpable graft pulse and DP and PT signals at conclusion of case
--- NOTE | 2017-12-30 16:14 | MP ---
cc: Nadeem Llanos MD DATE OF OPERATION: 12/30/2017 PREOPERATIVE DIAGNOSIS: Right lower extremity diabetic foot infection, peripheral arterial occlusive disease. POSTOPERATIVE DIAGNOSIS: Right lower extremity diabetic foot infection, peripheral arterial occlusive disease. PROCEDURE PERFORMED: 1. Right below-knee popliteal artery to dorsalis pedis bypass with reverse greater saphenous vein. 2. Vein patch of the dorsalis pedis artery. ATTENDING SURGEON: Nadeem Llanos MD. [employer] SURGEON: Nadeem Snowden MD ANESTHESIA: General. INDICATIONS: Mr. Villarreal is a 62-year-old gentleman with a diabetic tissue loss. He has nonpalpable pulses and no vein. His right leg vein has been ablated. His left leg vein has been harvested for coronary bypass and he has no suitable arm vein. Cryopreserved vein was then chosen. DESCRIPTION OF PROCEDURE: Informed consent was obtained from the patient. He was taken to the operating room and placed supine on the operating room table. Appropriate timeout was taken to ensure the patient's identity, operative site, and the planned procedure. Antibiotics were not administered as the patient was on systemic and therapeutic antibiotics and these will be continued postoperatively for ongoing therapy of diabetic foot infection. Everyone in the room agreed with the timeout and we proceeded. He was prepped from his nipples to his toes and incision was made over the dorsalis pedis in the dorsum of the foot, carried down through subcutaneous tissue with electrocautery. The dorsalis pedis artery was identified and dissected free for several centimeters. A medial incision was made on the proximal calf, carried down to subcutaneous tissue with electrocautery. Muscle was retracted posteriorly and the popliteal vein was retracted posteriorly. Further dissection exposed the exposed popliteal artery. This had a nice pulse in it and it was dissected circumferentially for several centimeters. A counter incision was made on the distal medial calf, carried down through subcutaneous tissue with electrocautery. A tributary vein was identified and dissected free for several centimeters. It was clamped proximally and distally and the vein was resected and spatulated. The patient was then systemically heparinized and ACT was confirmed to be greater than 250. Proximal and distal control of the dorsalis pedis artery were obtained with Carlos haas. A longitudinal arteriotomy was made with an 11 blade and the vein which had been harvested was fashioned into a patch and sewn on with running 6-0 Prolene suture as a patch. The cryopreserved vein was brought up on the field and prepared in the standard fashion. The proximal and distal control of the below-knee popliteal artery was obtained with profunda clamps and a longitudinal arteriotomy was made with an 11 blade, extended with Adrian scissors. The vein was spatulated and sewn end-to-side to the below-knee popliteal artery with a running 5-0 Prolene suture. At the completion, it was flushed and noted to be hemostatic. The vein was clamped on the distal end, marked for orientation and passed through the tunnel from the below-knee popliteal artery incision to the distal calf incision. We then tunneled it anterior to the tibia over toward the dorsalis pedis and the dorsalis pedis was controlled proximally and distally. The previous patch was incised with an 11 blade, extended with Adrian scissors. The vein was cut to an appropriate length, spatulated and sewn end-to-side to the patch with running 6-0 Prolene suture. At the completion, it was flushed and noted to be hemostatic. There was a nice palpable pulse in the graft and the dorsalis pedis signal distal to the skin incision as well as the posterior tibial artery Doppler signal. The wounds were all irrigated, heparin reversed with protamine. The wounds were closed. The proximal calf wound was closed with 2-0 Polysorb, 3-0 Polysorb and 4-0 Monocryl. The distal calf wound was closed with 3-0 Polysorb and 4-0 Monocryl as was the dorsalis pedis wound. MD SHOSHANA Kennedy/SOHAM , 03:48 PM , 03:56 PM
--- NOTE | 2017-12-30 16:37 | P.PN ---
Subjective Interval history: 62-year-old male awaiting vascular bypass surgery for his leg today. He was n.p.o. so he is on a bit of pain this morning. Elevated blood pressure is asymptomatic from that. Physical Exam Vital signs: Vital Signs 12/29/17 17:00 12/29/17 18:00 12/29/17 19:00 Temperature 98.2 F Pulse Rate 62 65 60 Respiratory Rate 16 Blood Pressure 139/60 Pulse Oximetry 99 12/29/17 20:00 12/29/17 21:00 12/29/17 21:14 Temperature Pulse Rate 64 68 Respiratory Rate Blood Pressure Pulse Oximetry 99 99 12/29/17 22:00 12/29/17 23:00 12/30/17 00:00 Temperature 98.5 F Pulse Rate 64 65 66 Respiratory Rate 16 Blood Pressure 148/69 H Pulse Oximetry 99 12/30/17 01:00 12/30/17 02:00 12/30/17 03:00 Temperature 97.5 F L Pulse Rate 65 65 67 Respiratory Rate 16 Blood Pressure 169/79 H Pulse Oximetry 99 12/30/17 04:00 12/30/17 05:00 12/30/17 05:58 Temperature Pulse Rate 67 68 60 Respiratory Rate Blood Pressure Pulse Oximetry 12/30/17 07:00 12/30/17 08:00 12/30/17 08:21 Temperature 97.8 F Pulse Rate 72 59 L Respiratory Rate 16 Blood Pressure 185/84 H Pulse Oximetry 100 100 12/30/17 09:00 12/30/17 10:00 12/30/17 11:00 Temperature 97.8 F Pulse Rate 61 59 L 72 Respiratory Rate 16 Blood Pressure 185/84 H Pulse Oximetry 100 12/30/17 12:00 12/30/17 16:14 Temperature 97.8 F Pulse Rate 70 65 Respiratory Rate 12 Blood Pressure 148/70 H Pulse Oximetry 97 Intake & Output 12/29/17 12/30/17 12/30/17 18:59 06:59 18:59 Intake Total 2485.0 / 2485.0 80 / 80 3635.0 / 3635.0 Output Total 1100 / 1100 1250 / 1250 1650 / 1650 Balance 1385.0 / 1385.0 -1170 / -1170 1985.0 / 1985.0 Weight 101.5 kg Intake: IV 1185.0 / 1185.0 50 / 50 1635.0 / 1635.0 Heparin/NS PF Inj 500 ML @ 0 500 / 500 mls[facility]#: [id number] Zosyn 3.375 GM Premix 50 ML @ 150 / 150 50 / 50 100 / 100 100 mls/hr IV.SIG Q6H [facility] Rx#: [id number] Vancomycin Inj 1,750 MG In NS 1035.0 / 1035.0 1035.0 / 1035.0 Inj 500 ML @ 250 mls/hr IV.SIG Q12H [facility] Rx#:[id number] Oral 1300 / 1300 30 / 30 Anesthesia Amount 2000 / 1999 Output: Urine 1100 / 1100 1250 / 1250 Estimated Blood Loss 150 / 150 Urine Amount (Catheter) 1500 / 1500 Indwelling Urethral Catheter 1500 / 1500 Other: Date of Last Bowel Movement 12/29/17 # Bowel Movements 1 Narrative: GENERAL: Alert and oriented 3, no acute distress SKIN: Warm and dry. HEAD: Normocephalic. EYES: No scleral icterus. No injection or drainage. NECK: Supple, trachea midline. No JVD or lymphadenopathy. CARDIOVASCULAR: Regular rate and rhythm without murmurs, gallops, or rubs. RESPIRATORY: Breath sounds equal bilaterally. No accessory muscle use. GASTROINTESTINAL: Abdomen soft, non-tender, nondistended. MUSCULOSKELETAL: No cyanosis, or edema. Right foot and surgical wrap, status post amputation of right large toe - Urinary Catheter Management Indwelling Urethral Catheter Cath placed during this visit: yes Reason for continuing: Hourly intake/output Insertion date: 12/30/17 Insertion time: 13:05 Results - Labs CBC & Chem 7: 12/26/17 03:17 12/30/17 03:28 Laboratory Results - last 24 hr 12/29/17 12/30/17 12/30/17 19:47 03:28 03:28 Creatinine 0.96 Estimated GFR 79 L POC Glucose 279 H Vancomycin Trough 26.5 H 12/30/17 12/30/17 12/30/17 08:26 12:02 16:25 Creatinine Estimated GFR POC Glucose 265 H 236 H 238 H Vancomycin Trough Assessment and Plan - Plan Gangrene, right large toe complications of diabetic foot infection and very poor circulation s/p amputation of right large toe 12/26, pain controlled Continue heparin drip, ranolazine Continue vancomycin and Zosyn Stent placement via vascular was unsuccessful due to very extensive disease Bypass graft with vascular surgery was performed 12/30/17 Podiatry to reevaluate wound following revascularization Appreciate podiatry consult Appreciate vascular surgery consult Type 2 diabetes Last hemoglobin A1c was 7.7 Continue sliding-scale insulin coverage with Accu-Cheks Continue diabetic diet h/o CHF, CAD Continue aspirin, enalapril h/o HTN Continue enalapril Continue Clonidine as needed Discharge Planning Undergoing bypass graft of right leg today
[2017-12-30] MEDS ORDERED: *morphine SULFATE 4 MG/ML PERIprocedure ONLY ONE (17:36)
[2017-12-30] MEDS ORDERED: Morphine Inj 4 MG/ML Vial ONE (18:34)
[2017-12-30] MEDS: Sod Chloride 0.9% Inj 1,000 ML IV.CONT SCH (23:07)
[2017-12-30] MEDS: Morphine Inj 4 MG/ML Vial IV.PUSH PRN (23:10)
[2017-12-31] MEDS: Piperacil/Tazo 3.375 GM Premix 50 ML IV.SIG SCH ×5 (01:35→20:13)
[2017-12-31 04:22] LABS: Hematocrit 26.9 % (39.0-51.0); Hemoglobin 9.1 gm/dL (13.0-17.0); Mean Corpuscular Hemoglobin 29.4 pg (27.0-34.0); Mean Corpuscular Volume 86.4 fL (80.0-100.0); Mean Platelet Volume 7.4 fL (7.0-11.0); Platelet Count 308 th/mm3 (150-450); Red Blood Count 3.11 mil/mm3 (4.50-5.90); Red Cell Distribution Width 13.7 % (11.6-17.2); White Blood Count 8.5 th/mm3 (4.0-11.0)
[2017-12-31 04:44] LABS: Calcium 8.2 mg/dL (8.5-10.1); Carbon Dioxide 28.9 meq/L (21.0-32.0); Potassium 4.2 meq/L (3.5-5.1)
[2017-12-31] MEDS: Morphine Inj 4 MG/ML Vial IV.PUSH PRN (05:47)
--- NOTE | 2017-12-31 07:15 | P.PNVS ---
Subjective Post Op Day #: 1 Procedure: R BK pop to DP bypass with patch of DP Subjective/Hospital Course: looks great - foot "tingling". Pain controlled + hematuria last night but that has cleared - he notes that he accidentally pulled on his Cota Objective Vital Signs / I&O: Vital Signs 12/30/17 08:00 12/30/17 08:21 12/30/17 09:00 Temperature Pulse Rate 59 L 61 Respiratory Rate Blood Pressure Pulse Oximetry 100 12/30/17 10:00 12/30/17 11:00 12/30/17 12:00 Temperature 97.8 F Pulse Rate 59 L 72 70 Respiratory Rate 16 Blood Pressure 185/84 H Pulse Oximetry 100 12/30/17 16:14 12/30/17 16:30 12/30/17 16:45 Temperature 97.8 F Pulse Rate 65 67 68 Respiratory Rate 12 12 12 Blood Pressure 148/70 H 151/74 H 156/76 H Pulse Oximetry 97 99 98 12/30/17 17:00 12/30/17 17:15 12/30/17 17:30 Temperature Pulse Rate 64 66 73 Respiratory Rate 12 12 12 Blood Pressure 155/75 H 156/72 H 164/81 H Pulse Oximetry 95 98 95 12/30/17 17:41 12/30/17 17:45 12/30/17 18:00 Temperature Pulse Rate 66 70 Respiratory Rate 12 Blood Pressure 162/76 H Pulse Oximetry 95 96 12/30/17 19:00 12/30/17 20:00 12/30/17 21:00 Temperature 98.0 F Pulse Rate 77 88 76 Respiratory Rate 16 Blood Pressure 193/93 H Pulse Oximetry 97 97 12/30/17 22:00 12/30/17 22:29 12/30/17 23:00 Temperature 98.0 F Pulse Rate 78 77 Respiratory Rate 16 16 Blood Pressure 169/77 H Pulse Oximetry 97 12/30/17 23:15 12/31/17 00:00 12/31/17 01:00 Temperature Pulse Rate 74 72 Respiratory Rate 16 Blood Pressure Pulse Oximetry 12/31/17 02:00 12/31/17 02:30 12/31/17 03:00 Temperature 98.2 F Pulse Rate 74 70 70 Respiratory Rate 16 Blood Pressure 158/70 H Pulse Oximetry 96 12/31/17 04:00 12/31/17 05:00 12/31/17 06:00 Temperature Pulse Rate 72 76 76 Respiratory Rate Blood Pressure Pulse Oximetry 12/31/17 06:12 Temperature Pulse Rate Respiratory Rate 16 Blood Pressure Pulse Oximetry Intake & Output 12/30/17 12/31/17 12/31/17 18:59 06:59 18:59 Intake Total 3635.0 / 3635.0 1447.5 / 1447.5 Output Total 1800 / 1800 1300 / 1300 Balance 1835.0 / 1835.0 147.5 / 147.5 Weight 103 kg Intake: IV 1635.0 / 1635.0 667.5 / 667.5 Heparin/NS PF Inj 500 ML @ 0 500 / 500 mls/hr .ROUTE [facility] Rx#: [id number] Zosyn 3.375 GM Premix 50 ML @ 100 / 100 150 / 150 100 mls/hr IV.SIG Q6H [facility] Rx#: [id number] Vancomycin Inj 1,750 MG In NS 1035.0 / 1035.0 517.5 / 517.5 Inj 500 ML @ 250 mls/hr IV.SIG Q12H [facility] Rx#:[id number] Oral 780 / 780 Anesthesia Amount 1999 / 1999 Output: Estimated Blood Loss 150 / 150 Urine Amount (Catheter) 1650 / 1650 1300 / 1300 Indwelling Temp Sensing 1300 / 1300 Catheter Indwelling Urethral Catheter 1650 / 1650 Exam: Resting comfortably palpable graft pulse R BK pop and distal calf incision c/d/i R DP incision covered Laboratory Results - last 24 hr 12/30/17 12/30/17 12/30/17 03:28 08:26 12:02 WBC RBC Hgb Hct MCV MCH MCHC RDW Plt Count MPV Sodium Potassium Chloride Carbon Dioxide Anion Gap BUN Creatinine Estimated GFR POC Glucose 265 H 236 H Random Glucose Calcium Vancomycin Trough 26.5 H 12/30/17 12/30/17 12/31/17 16:25 21:33 03:55 WBC RBC Hgb Hct MCV MCH MCHC RDW Plt Count MPV Sodium 137 Potassium 4.2 Chloride 102 Carbon Dioxide 28.9 Anion Gap 6 BUN 12 Creatinine 1.00 Estimated GFR 75 L POC Glucose 238 H 307 H Random Glucose 220 H Calcium 8.2 L Vancomycin Trough 12/31/17 03:55 WBC 8.5 RBC 3.11 L Hgb 9.1 L Hct 26.9 L MCV 86.4 MCH 29.4 MCHC 34.0 RDW 13.7 Plt Count 308 MPV 7.4 Sodium Potassium Chloride Carbon Dioxide Anion Gap BUN Creatinine Estimated GFR POC Glucose Random Glucose Calcium Vancomycin Trough Assessment and Plan - Assessment (1) Diabetic infection of right foot Code(s): E11.628 - Type 2 diabetes mellitus with other skin complications; L08.9 - Local infection of the skin and subcutaneous tissue, unspecified Status: Acute (2) PAD (peripheral artery disease) Code(s): I73.9 - Peripheral vascular disease, unspecified Status: Acute - Plan POD#1 s/p R BK-pop to DP bypass 1. Cancel urology consult - hematuria resolved 2. D/C cota 3. Anticoagulation for graft protection 4. OOB/PT; mobility and weight bearing per podiatry 5. wound care per podiatry Discharge Planning: likely 2-3 days
[2017-12-31] MEDS ORDERED: Heparin Drip 25,000 UNIT/250 ML BAG IV.CONT PRN (07:16)
[2017-12-31] MEDS: Vancomycin Inj 1,750 MG in Sodium Chlor 0.9% Inj 500 ML IV.SIG SCH (08:32)
[2017-12-31] MEDS: Ranolazine 500 MG 12HR ER Tablet PO SCH ×2 (08:33→20:12)
[2017-12-31] MEDS: Amitriptyline 25 MG Tablet PO SCH (08:33)
[2017-12-31] MEDS: Insulin NovoLOG Aspart Correctional Sugar Inj SQ SCH ×4 (08:38→20:22)
[2017-12-31 10:26] LABS: Hematocrit 29.4 % (39.0-51.0); Hemoglobin 9.9 gm/dL (13.0-17.0); Mean Corpuscular HGB Conc 33.7 % (32.0-36.0); Mean Corpuscular Hemoglobin 29.4 pg (27.0-34.0); Mean Corpuscular Volume 87.2 fL (80.0-100.0); Mean Platelet Volume 7.7 fL (7.0-11.0); Platelet Count 314 th/mm3 (150-450); Red Blood Count 3.37 mil/mm3 (4.50-5.90); Red Cell Distribution Width 14.2 % (11.6-17.2); White Blood Count 8.4 th/mm3 (4.0-11.0)
[2017-12-31 10:40] LABS: INR 1.1 Ratio; Prothrombin Time 11.5 sec (9.8-11.6)
--- NOTE | 2017-12-31 11:38 | P.CONURO ---
History of Present Illness Service: Urology Consult date: 12/31/17 Requesting Physician: Nadeem Llanos Reason for Consult: Hematuria Primary Care Provider: UNKNOWN Family Provider: Carlos Salamanca MD Chief Complaint: R gangrenous toe History of Present Illness: Pt is a 62y.o m s/p following Procedure: 1. R BK pop-DP bypass with cryo vein 2. Vein patch of DP He is recovering well. Urology was paged last night due to hematuria. Pt has cota cath post/op. Hematuria now resolving, no pain, no abnormal labs. no fever. He states that he possibly pulled his catheter a little by accident and bled after. Plus being on heparin made it a little worse Since hematuria is resolving he does not need any additional w/u Review of Systems All other systems reviewed negative except as stated in HPI PMFSH - History History Provided By: Patient - Medical History Medical History: Medical History (Last Reviewed 12/30/17 @ 09:55 by Anya Ivory) Cardiomyopathy Chronic back pain Coronary artery disease Diabetes mellitus Diabetic peripheral neuropathy Hyperlipidemia Hypertension Peripheral artery disease - Surgical History Surgical History: Surgical History (Last Reviewed 12/30/17 @ 09:55 by Anya Ivory) Hx of CABG S/P cervical spinal fusion - Family History Family History: Family History (Last Reviewed 12/30/17 @ 09:55 by Anya Ivory) Mother Cancer Father Heart disease - Tobacco History Second Hand Smoke Exposure: No Smoking Status: Never smoker - Alcohol History How Often Do You Have a Drink Containing Alcohol: Never - Substance Use History Substance History: No History of Abuse - Travel History History of Recent Travel: No Recent Travel in the [place] Within the Last 8 Weeks: No Recent Travel Out of the Country Within the Last 8 Weeks: No Medications and Allergies Active Medications: Active Medications Hydrocodone Bitart/Acetaminophen (Monarch 5/325) 1 tab PO Q4H PRN PRN Reason: Pain 2-10 Last Admin: 12/31/17 01:34 Dose: 1 tab Al Hydroxide/Mg Hydroxide (Milk Of Magnboby Liq) 30 ml PO Q12H PRN PRN Reason: Mild Constipation Amitriptyline HCl (Elavil) 25 mg PO DAILY [facility] Last Admin: 12/31/17 08:33 Dose: 25 mg Aspirin (Ecotrin) 81 mg PO DAILY [facility] Last Admin: 12/31/17 08:33 Dose: 81 mg Bisacodyl (Dulcolax Supp) 10 mg RECTAL DAILY PRN PRN Reason: SEVERE CONSITIPATION Clonidine HCl (Catapres) 0.1 mg PO Q6H PRN PRN Reason: SBP>160, DBP>90 Last Admin: 12/31/17 05:54 Dose: 0.1 mg Dextrose (D50w Vial) 50 ml IV.PUSH UNSCH PRN PRN Reason: PER HYPOGLYCEMIA PROTOCOL Enalapril Maleate (Vasotec) 5 mg PO DAILY [facility] Last Admin: 12/31/17 08:33 Dose: 5 mg Glucagon (Glucagon Inj) 1 mg OTHER PRN PRN PRN Reason: for Hypoglycemia Protocol Pharmacy Profile Note (Vancomycin Consult Pharmacy) 0 mls @ 0 mls/hr OTHER UNSCH [facility] Vancomycin HCl 1,750 mg/ (Sodium Chloride) 517.5 mls @ 250 mls/hr IV.SIG Q12H [facility] Last Admin: 12/31/17 08:32 Dose: 250 mls/hr Piperacillin/Tazobactam/Dextrose (Zosyn 3.375 Gm Premix) 50 mls @ 100 mls/hr IV.SIG Q6H [facility] Last Infusion: 12/31/17 10:12 Dose: Infused Heparin Sodium/Dextrose (Heparin/D5w 25,000 U/250 Ml) 25,000 unit in 250 mls @ 0 mls/hr IV.CONT TITRATE PRN; Protocol PRN Reason: Per Protocol Insulin Aspart (Novolog Insulin Correctional Sugar Inj) 0 unit SQ ACHS [facility]; Protocol Last Admin: 12/31/17 08:38 Dose: 7 unit Lactulose (Lactulose Liq) 30 ml PO DAILY PRN PRN Reason: SEVERE CONSITIPATION Miscellaneous Information (Misc Nursing Information) 1 each OTHER UNSCH PRN PRN Reason: SEE LABEL COMMENTS Stop: 12/31/17 16:13 Morphine Sulfate (Morphine Inj) 2 mg IV.PUSH Q1H PRN PRN Reason: BREAKTHROUGH PAIN 1 -10 Last Admin: 12/31/17 05:47 Dose: 2 mg Pravastatin Sodium (Pravachol) 40 mg PO DAILY [facility] Last Admin: 12/31/17 08:33 Dose: 40 mg Ranolazine (Ranexa) 500 mg PO Q12H [facility] Last Admin: 12/31/17 08:33 Dose: 500 mg Sennosides (Senokot) 17.2 mg PO Q12H PRN PRN Reason: Moderate Constipation Sodium Chloride (Ns Flush) 2 ml IV.FLUSH BID [facility] Last Admin: 12/31/17 08:33 Dose: 2 ml Sodium Chloride (Ns Flush) 2 ml IV.FLUSH PRN PRN PRN Reason: FLUSH AFTER USING IV ACCESS Temazepam (Restoril) 15 mg PO HS PRN PRN Reason: INSOMNIA Allergies Allergy/AdvReac Type Severity Reaction Status Date / Time No Known Allergies Allergy Unverified 12/25/17 13:13 Home Medications Medication Instructions Recorded Confirmed Type amitriptyline 25 mg PO DAILY 12/25/17 12/25/17 History aspirin 81 mg PO DAILY 12/25/17 12/25/17 History cefepime 50 mg/kg IV Q8H 12/25/17 12/25/17 History enalapril maleate 5 mg PO DAILY 12/25/17 12/25/17 History heparin (porcine) in 5 % dex 250 ml IV DIRECTED 12/25/17 12/25/17 History hydrocodone-acetaminophen [Monarch] 1 tab PO Q4-6H PRN 12/25/17 12/25/17 History insulin asp prt-insulin aspart 20 unit SUB-Q BID 12/25/17 12/25/17 History insulin asp prt-insulin aspart 20 unit SUB-Q BID 12/25/17 12/25/17 History [Novolog Mix 70-30FlexPen U-100] metformin 1,000 mg PO BID 12/25/17 12/25/17 History ranolazine [Ranexa] 500 mg PO Q12H 12/25/17 12/25/17 History simvastatin 20 tab PO DAILY 12/25/17 12/25/17 History Physical Exam Vital Signs - 24 hr 12/30/17 12:00 12/30/17 16:14 12/30/17 16:30 Temperature 97.8 F Pulse Rate 70 65 67 Respiratory Rate 12 12 Blood Pressure 148/70 H 151/74 H Pulse Oximetry 97 99 12/30/17 16:45 12/30/17 17:00 12/30/17 17:15 Temperature Pulse Rate 68 64 66 Respiratory Rate 12 12 12 Blood Pressure 156/76 H 155/75 H 156/72 H Pulse Oximetry 98 95 98 12/30/17 17:30 12/30/17 17:41 12/30/17 17:45 Temperature Pulse Rate 73 66 Respiratory Rate 12 12 Blood Pressure 164/81 H 162/76 H Pulse Oximetry 95 95 96 12/30/17 18:00 12/30/17 19:00 12/30/17 20:00 Temperature 98.0 F Pulse Rate 70 77 88 Respiratory Rate 16 Blood Pressure 193/93 H Pulse Oximetry 97 97 12/30/17 21:00 12/30/17 22:00 12/30/17 22:29 Temperature Pulse Rate 76 78 Respiratory Rate 16 Blood Pressure Pulse Oximetry 12/30/17 23:00 12/30/17 23:15 12/31/17 00:00 Temperature 98.0 F Pulse Rate 77 74 Respiratory Rate 16 16 Blood Pressure 169/77 H Pulse Oximetry 97 12/31/17 01:00 12/31/17 02:00 12/31/17 02:30 Temperature Pulse Rate 72 74 70 Respiratory Rate Blood Pressure Pulse Oximetry 12/31/17 03:00 12/31/17 04:00 12/31/17 05:00 Temperature 98.2 F Pulse Rate 70 72 76 Respiratory Rate 16 Blood Pressure 158/70 H Pulse Oximetry 96 12/31/17 06:00 12/31/17 06:12 12/31/17 07:00 Temperature 97.9 F Pulse Rate 76 80 Respiratory Rate 16 18 Blood Pressure 186/86 H Pulse Oximetry 99 12/31/17 10:30 Temperature Pulse Rate Respiratory Rate Blood Pressure Pulse Oximetry 94 L Physical Exam: NAD RRR Clear lungs Cota is in place. Laboratory Results - last 24 hr 12/30/17 12/30/17 12/30/17 03:28 12:02 16:25 WBC RBC Hgb Hct MCV MCH MCHC RDW Plt Count MPV PT INR APTT Sodium Potassium Chloride Carbon Dioxide Anion Gap BUN Creatinine Estimated GFR POC Glucose 236 H 238 H Random Glucose Calcium Vancomycin Trough 26.5 H 12/30/17 12/31/17 12/31/17 21:33 03:55 03:55 WBC 8.5 RBC 3.11 L Hgb 9.1 L Hct 26.9 L MCV 86.4 MCH 29.4 MCHC 34.0 RDW 13.7 Plt Count 308 MPV 7.4 PT INR APTT Sodium 137 Potassium 4.2 Chloride 102 Carbon Dioxide 28.9 Anion Gap 6 BUN 12 Creatinine 1.00 Estimated GFR 75 L POC Glucose 307 H Random Glucose 220 H Calcium 8.2 L Vancomycin Trough 12/31/17 12/31/17 12/31/17 08:38 09:56 09:56 WBC 8.4 RBC 3.37 L Hgb 9.9 L Hct 29.4 L MCV 87.2 MCH 29.4 MCHC 33.7 RDW 14.2 Plt Count 314 MPV 7.7 PT 11.5 INR 1.1 APTT Sodium Potassium Chloride Carbon Dioxide Anion Gap BUN Creatinine Estimated GFR POC Glucose 278 H Random Glucose Calcium Vancomycin Trough 12/31/17 09:56 WBC RBC Hgb Hct MCV MCH MCHC RDW Plt Count MPV PT INR APTT 31.0 H Sodium Potassium Chloride Carbon Dioxide Anion Gap BUN Creatinine Estimated GFR POC Glucose Random Glucose Calcium Vancomycin Trough Result Diagrams: 12/31/17 09:56 12/31/17 03:55 Imaging: ITS Impressions Extremity Arterial Study 12/25/17 00:00 CONCLUSION: 1. Severely depressed depressed RL using right brachial pressures suggesting critical limb ischemia. 2. I have no prior cross-sectional imaging studies for comparison 3. CT angiography or conventional catheter angiography would be of benefit. Lower Extremity Ultrasound 12/25/17 00:00 CONCLUSION: 1. Venous mapping as above. The right greater saphenous vein has significant varicosities. Upper Extremity Ultrasound 12/25/17 00:00 CONCLUSION: 1. Majority of the cephalic vein is thrombosed from wrist to shoulder. 2. Measurements of the deep venous system as above. Venous Doppler Study 12/25/17 00:00 CONCLUSION: 1. Complete superficial cephalic vein thrombosis on the right. 2. Partial cephalic vein thrombosis on the left. Foot X-Ray 12/26/17 00:00 CONCLUSION: Interval amputation of the first digit otherwise not significantly changed. Assessment and Plan - Plan 62 y.o M s/p Vascular surgery on 12/30/17 Had episode of hematuria. He is on Heparin. Hematuria resolving pt has no other c/o - Continue care as per primary team No additional intervention needed Keep cota as long as needed by Vascular team Rx flomax daily this will help him to void better after cota removed Pt to f/u with [facility] outpt after d/c Discussed Condition With: Dr Cally NERI attending who agrees with this plan
--- NOTE | 2017-12-31 11:55 | P.PN ---
Subjective Interval history: 62-year-old male admitted for right distal foot gangrene, status post right large toe amputation. Main underlying issue was poor circulation, he underwent double bypass of the lower extremity yesterday and tolerated the procedure well. He has no new complaints, no major pain. Physical Exam Vital signs: Vital Signs 12/30/17 12:00 12/30/17 16:14 12/30/17 16:30 Temperature 97.8 F Pulse Rate 70 65 67 Respiratory Rate 12 12 Blood Pressure 148/70 H 151/74 H Pulse Oximetry 97 99 12/30/17 16:45 12/30/17 17:00 12/30/17 17:15 Temperature Pulse Rate 68 64 66 Respiratory Rate 12 12 12 Blood Pressure 156/76 H 155/75 H 156/72 H Pulse Oximetry 98 95 98 12/30/17 17:30 12/30/17 17:41 12/30/17 17:45 Temperature Pulse Rate 73 66 Respiratory Rate 12 12 Blood Pressure 164/81 H 162/76 H Pulse Oximetry 95 95 96 12/30/17 18:00 12/30/17 19:00 12/30/17 20:00 Temperature 98.0 F Pulse Rate 70 77 88 Respiratory Rate 16 Blood Pressure 193/93 H Pulse Oximetry 97 97 12/30/17 21:00 12/30/17 22:00 12/30/17 22:29 Temperature Pulse Rate 76 78 Respiratory Rate 16 Blood Pressure Pulse Oximetry 12/30/17 23:00 12/30/17 23:15 12/31/17 00:00 Temperature 98.0 F Pulse Rate 77 74 Respiratory Rate 16 16 Blood Pressure 169/77 H Pulse Oximetry 97 12/31/17 01:00 12/31/17 02:00 12/31/17 02:30 Temperature Pulse Rate 72 74 70 Respiratory Rate Blood Pressure Pulse Oximetry 12/31/17 03:00 12/31/17 04:00 12/31/17 05:00 Temperature 98.2 F Pulse Rate 70 72 76 Respiratory Rate 16 Blood Pressure 158/70 H Pulse Oximetry 96 12/31/17 06:00 12/31/17 06:12 12/31/17 07:00 Temperature 97.9 F Pulse Rate 76 80 Respiratory Rate 16 18 Blood Pressure 186/86 H Pulse Oximetry 99 12/31/17 08:00 12/31/17 09:00 12/31/17 10:00 Temperature Pulse Rate 74 66 69 Respiratory Rate Blood Pressure Pulse Oximetry 12/31/17 10:30 Temperature Pulse Rate Respiratory Rate Blood Pressure Pulse Oximetry 94 L Intake & Output 12/30/17 12/31/17 12/31/17 18:59 06:59 18:59 Intake Total 3635.0 / 3635.0 1447.5 / 1447.5 567.5 / 567.5 Output Total 1800 / 1800 1300 / 1300 Balance 1835.0 / 1835.0 147.5 / 147.5 567.5 / 567.5 Weight 103 kg Intake: IV 1635.0 / 1635.0 667.5 / 667.5 567.5 / 567.5 Heparin/NS PF Inj 500 ML @ 0 500 / 500 mls/hr .[facility] Rx#: [id number] Zosyn 3.375 GM Premix 50 ML @ 100 / 100 150 / 150 50 / 50 100 mls/hr IV.SIG Q6H [facility] Rx#: [id number] Vancomycin Inj 1,750 MG In NS 1035.0 / 1035.0 517.5 / 517.5 517.5 / 517.5 Inj 500 ML @ 250 mls/hr IV.SIG Q12H [facility] Rx#:[id number] Oral 780 / 780 Anesthesia Amount 1999 / 1999 Output: Estimated Blood Loss 150 / 150 Urine Amount (Catheter) 1650 / 1650 1300 / 1300 Indwelling Temp Sensing 1300 / 1300 Catheter Indwelling Urethral Catheter 1650 / 1650 Narrative: GENERAL: Alert and oriented 3, no acute distress SKIN: Warm and dry. HEAD: Normocephalic. EYES: No scleral icterus. No injection or drainage. NECK: Supple, trachea midline. No JVD or lymphadenopathy. CARDIOVASCULAR: Regular rate and rhythm without murmurs, gallops, or rubs. RESPIRATORY: Breath sounds equal bilaterally. No accessory muscle use. GASTROINTESTINAL: Abdomen soft, non-tender, nondistended. MUSCULOSKELETAL: No cyanosis, or edema. Right foot bandaged with gauze, walking shoe in place - Urinary Catheter Management Indwelling Urethral Catheter Cath placed during this visit: yes Reason for continuing: Other continuation reason Insertion date: 12/30/17 Insertion time: 13:05 Indwelling Temp Sensing Catheter Cath placed during this visit: yes Reason for continuing: Hourly intake/output Insertion date: 12/30/17 Results - Labs CBC & Chem 7: 12/31/17 09:56 12/31/17 03:55 Laboratory Results - last 24 hr 12/30/17 12/30/17 12/30/17 03:28 12:02 16:25 WBC RBC Hgb Hct MCV MCH MCHC RDW Plt Count MPV PT INR APTT Sodium Potassium Chloride Carbon Dioxide Anion Gap BUN Creatinine Estimated GFR POC Glucose 236 H 238 H Random Glucose Calcium Vancomycin Trough 26.5 H 12/30/17 12/31/17 12/31/17 21:33 03:55 03:55 WBC 8.5 RBC 3.11 L Hgb 9.1 L Hct 26.9 L MCV 86.4 MCH 29.4 MCHC 34.0 RDW 13.7 Plt Count 308 MPV 7.4 PT INR APTT Sodium 137 Potassium 4.2 Chloride 102 Carbon Dioxide 28.9 Anion Gap 6 BUN 12 Creatinine 1.00 Estimated GFR 75 L POC Glucose 307 H Random Glucose 220 H Calcium 8.2 L Vancomycin Trough 12/31/17 12/31/17 12/31/17 08:38 09:56 09:56 WBC 8.4 RBC 3.37 L Hgb 9.9 L Hct 29.4 L MCV 87.2 MCH 29.4 MCHC 33.7 RDW 14.2 Plt Count 314 MPV 7.7 PT 11.5 INR 1.1 APTT Sodium Potassium Chloride Carbon Dioxide Anion Gap BUN Creatinine Estimated GFR POC Glucose 278 H Random Glucose Calcium Vancomycin Trough 12/31/17 09:56 WBC RBC Hgb Hct MCV MCH MCHC RDW Plt Count MPV PT INR APTT 31.0 H Sodium Potassium Chloride Carbon Dioxide Anion Gap BUN Creatinine Estimated GFR POC Glucose Random Glucose Calcium Vancomycin Trough Assessment and Plan - Plan Gangrene, right large toe complications of diabetic foot infection and very poor circulation s/p amputation of right large toe 12/26, pain controlled Continue heparin drip, ranolazine Continue vancomycin and Zosyn Stent placement via vascular was unsuccessful due to very extensive disease Bypass graft with vascular surgery was performed successfully 12/30/17, 2 grafts placed Podiatry to reevaluate wound prior to discharge Appreciate podiatry consult Appreciate vascular surgery consult Type 2 diabetes Last hemoglobin A1c was 7.7 Continue sliding-scale insulin coverage with Accu-Cheks Continue diabetic diet h/o CHF, CAD Continue aspirin, enalapril h/o HTN Continue enalapril Continue Clonidine as needed Discharge Planning Undergoing bypass graft of right leg 12/30, podiatry to evaluate wound and debride prior to discharge
--- NOTE | 2017-12-31 16:44 | MP ---
cc: Ioana Mccollummalikabhupinder CHONG DATE OF OPERATION: 12/26/2017 DATE OF SURGERY: 12/26/2017 INDICATION FOR PROCEDURE: The patient presented initially to [facility] with wet gangrene to the great toe on the right foot. He was found to have some gas in the tissues of that area as well as significant necrosis with erythema to the area as well as peripheral vascular disease. Vascular was consulted and followed by podiatry being consulted to manage the infection prior to revascularization, which is planned to follow. I discussed with the patient that we need to at least remove the infected tissue that we know to be necrotic at this time, with the possibility of further surgery being required in the future after revascularization and allowing the tissues to demarcate. He agreed to move forward with surgery after reviewing risks, benefits, and potential complications and agreed to move forward with right foot partial first ray amputation. DESCRIPTION OF PROCEDURE: The patient was seen in preop holding by myself, nursing staff, and anesthesia, where the correct patient, side, and site were all confirmed to be correct and the right foot. He was then taken to the surgical suite in supine position and the right foot was prepped and draped in normal sterile fashion. Following this, 2 semi-elliptical incisions were made at the level of the first metatarsophalangeal joint of the right foot after timeouts were performed as per facility protocol. The tissue at the first metatarsophalangeal joint was noted to be necrotic with purulent drainage. The incision was then taken more proximally to achieve a viable margin and the bone was resected at approximately the level of midshaft first metatarsal to remove the distal aspect of the first metatarsal and the hallux. This was sent to pathology. Bone from the residual first metatarsal was also sent to pathology as a bone biopsy. Culture was taken from the wound. Excision of all necrotic tissue was taken down to viable tissue, followed by irrigation with normal saline and attempts at closure with 2-0 nylon suture. No visible necrotic tissue was noted and all visible infected tissue was removed at this time. There was minimal bleeding noted intraoperatively. The patient tolerated procedure and anesthesia well without complications and was taken back to PACU with vital signs stable and vascular status intact to the remainder of the right foot. He will be nonweightbearing to the right lower extremity, wear a surgical shoe and will undergo revascularization, and we will continue to monitor the tissue to determine if further surgery is required. SHORT OPERATIVE NOTE SURGEON: Precious Mccollum DPM GIS PROFESSOR: Staff. PREOPERATIVE DIAGNOSIS: Gangrene, right foot. POSTOPERATIVE DIAGNOSES: 1. Gangrene, right foot. 2. Abscess, right foot with osteomyelitis. PROCEDURE PERFORMED: Right foot partial first ray amputation with bone biopsy. ANESTHESIA: General endotracheal anesthesia plus local consisting of 20 mL 0.5% Marcaine plain. ESTIMATED BLOOD LOSS: 20 mL. PATHOLOGY: 1. Culture, right foot. 2. Partial first ray, right foot. 3. Bone from residual first metatarsal for bone biopsy, right foot. HEMOSTASIS: No tourniquet utilized. CONDITION: Stable to PACU. DISPOSITION: Nonweightbearing right lower extremity. We will continue to assess viability of tissue to determine if further surgery will be required. CASTILLO Zaldivar/RAIN , 04:24 PM , 04:32 PM
[2018-01-01] MEDS: Piperacil/Tazo 3.375 GM Premix 50 ML IV.SIG SCH ×4 (04:17→20:11)
[2018-01-01 05:31] LABS: Hematocrit 24.9 % (39.0-51.0); Hemoglobin 8.5 gm/dL (13.0-17.0); Mean Corpuscular HGB Conc 34.3 % (32.0-36.0); Mean Corpuscular Hemoglobin 29.8 pg (27.0-34.0); Mean Corpuscular Volume 86.9 fL (80.0-100.0); Mean Platelet Volume 7.7 fL (7.0-11.0); Platelet Count 278 th/mm3 (150-450); Red Blood Count 2.87 mil/mm3 (4.50-5.90); White Blood Count 7.8 th/mm3 (4.0-11.0)
[2018-01-01 05:57] LABS: Calcium 8.5 mg/dL (8.5-10.1); Carbon Dioxide 25.5 meq/L (21.0-32.0)
[2018-01-01 05:59] LABS: Vancomycin,Random 15.3 Comment
[2018-01-01] MEDS: Amitriptyline 25 MG Tablet PO SCH (08:30)
[2018-01-01] MEDS: Ranolazine 500 MG 12HR ER Tablet PO SCH ×2 (08:30→20:12)
[2018-01-01] MEDS: Insulin NovoLOG Aspart Correctional Sugar Inj SQ SCH ×4 (08:30→21:02)
--- NOTE | 2018-01-01 10:30 | P.PNIM ---
Subjective Interval history: Patient is status post amputation yesterday and bypass surgery previous to that. Pain is under good control today. He has not been ambulating significantly after the procedure. His last physical therapy assessment shows recommendations rehab which could be difficult given patient has no insurance. Physical Exam Vital signs: Vital Signs 12/31/17 10:30 12/31/17 11:00 12/31/17 12:00 Temperature 97.8 F Pulse Rate 76 75 Respiratory Rate 18 Blood Pressure 143/65 H Pulse Oximetry 94 L 99 12/31/17 13:00 12/31/17 13:01 12/31/17 13:27 Temperature Pulse Rate 87 87 Respiratory Rate 18 Blood Pressure Pulse Oximetry 12/31/17 15:00 12/31/17 16:00 12/31/17 17:00 Temperature 98.2 F Pulse Rate 72 70 86 Respiratory Rate 18 Blood Pressure 164/74 H Pulse Oximetry 100 12/31/17 17:38 12/31/17 18:36 12/31/17 19:00 Temperature 98.2 F Pulse Rate 89 82 Respiratory Rate 18 Blood Pressure 152/66 H Pulse Oximetry 96 12/31/17 20:00 12/31/17 21:00 12/31/17 22:00 Temperature Pulse Rate 70 92 H 70 Respiratory Rate Blood Pressure Pulse Oximetry 12/31/17 23:00 01/01/18 00:00 01/01/18 01:00 Temperature 99 F Pulse Rate 72 72 65 Respiratory Rate Blood Pressure 168/73 H Pulse Oximetry 98 01/01/18 02:00 01/01/18 03:00 01/01/18 04:00 Temperature 98.7 F Pulse Rate 85 76 76 Respiratory Rate Blood Pressure 149/67 H Pulse Oximetry 95 01/01/18 05:00 01/01/18 06:00 01/01/18 07:00 Temperature 98.0 F Pulse Rate 72 77 69 Respiratory Rate 18 Blood Pressure 183/83 H Pulse Oximetry 100 01/01/18 08:00 01/01/18 09:00 01/01/18 10:00 Temperature Pulse Rate 78 75 73 Respiratory Rate Blood Pressure Pulse Oximetry 100 Intake & Output 12/31/17 01/01/18 01/01/18 18:59 06:59 18:59 Intake Total 1697.5 / 1697.5 820 / 820 50 / 50 Output Total 1550 / 1550 1200 / 1200 Balance 147.5 / 147.5 -380 / -380 50 / 50 Weight 103 kg Intake: IV 617.5 / 617.5 100 / 100 50 / 50 Zosyn 3.375 GM Premix 50 ML @ 100 / 100 100 / 100 50 / 50 100 mls/hr IV.SIG Q6H [facility] Rx#: [id number] Vancomycin Inj 1,750 MG In NS 517.5 / 517.5 Inj 500 ML @ 250 mls/hr IV.SIG Q12H [facility] Rx#:[id number] Oral 1080 / 1080 720 / 720 Output: Urine 1550 / 1550 200 / 200 Urine Amount (Catheter) 1000 / 1000 Straight 1000 / 1000 Other: Date of Last Bowel Movement 12/29/17 # Bowel Movements 0 Narrative: GENERAL: NAD, A&Ox3 HEAD: Normocephalic. NECK: Supple, trachea midline. No lymphadenopathy. EYES: No scleral icterus. No injection or drainage. CARDIOVASCULAR: Regular rate and rhythm without murmurs, gallops, or rubs. RESPIRATORY: Breath sounds equal bilaterally. No accessory muscle use. GASTROINTESTINAL: Abdomen soft, non-tender, nondistended. MUSCULOSKELETAL: No cyanosis, or edema. Right foot bandaged. SKIN: Warm and dry. NEURO: No focal neurological deficits. - Urinary Catheter Management Indwelling Urethral Catheter Cath placed during this visit: yes Reason for continuing: Not indwelling catheter Insertion date: 12/30/17 Insertion time: 13:05 Indwelling Temp Sensing Catheter Cath placed during this visit: yes Reason for continuing: Not indwelling catheter Insertion date: 12/30/17 Straight Cath placed during this visit: no Results - Labs CBC & Chem 7: 01/01/18 04:43 01/01/18 04:43 Laboratory Results - last 24 hr 12/31/17 12/31/17 12/31/17 09:56 09:56 12:20 WBC RBC Hgb Hct MCV MCH MCHC RDW Plt Count MPV PT 11.5 INR 1.1 APTT 31.0 H Sodium Potassium Chloride Carbon Dioxide Anion Gap BUN Creatinine Estimated GFR POC Glucose 282 H Random Glucose Calcium Vancomycin Trough Random Vancomycin 12/31/17 12/31/17 12/31/17 13:44 13:44 17:19 WBC RBC Hgb Hct MCV MCH MCHC RDW Plt Count MPV PT INR APTT 31.3 H Sodium Potassium Chloride Carbon Dioxide Anion Gap BUN Creatinine Estimated GFR POC Glucose 258 H Random Glucose Calcium Vancomycin Trough 34.2 H Random Vancomycin 12/31/17 01/01/18 01/01/18 20:20 04:43 04:43 WBC 7.8 RBC 2.87 L Hgb 8.5 L Hct 24.9 L MCV 86.9 MCH 29.8 MCHC 34.3 RDW 14.0 Plt Count 278 MPV 7.7 PT INR APTT Sodium 136 Potassium 4.0 Chloride 102 Carbon Dioxide 25.5 Anion Gap 9 BUN 12 Creatinine 0.88 Estimated GFR 87 L POC Glucose 334 H Random Glucose 245 H Calcium 8.5 Vancomycin Trough Random Vancomycin 15.3 Assessment and Plan - Plan 62-year-old male admitted secondary to right toe gangrene, now status post bypass surgery and amputation Gangrene, right large toe Status post amputation Amputation surgery occurred on 12/31/2017 Bypass graft with vascular surgery occurred on 12/30/2017 Pain control Continue heparin drip, ranolazine Continue vancomycin and Zosyn Podiatry to reevaluate wound prior to discharge Improved ambulation needed prior to discharge Continue with physical therapy Type 2 diabetes Follow blood sugars Insulin sliding scale Diabetic diet h/o CHF, CAD Asymptomatic continue aspirin, enalapril h/o HTN Continue baseline treatment Follow blood pressures Adjust treatments as needed continue enalapril Continue Clonidine as needed Discharge Planning podiatry to evaluate wound and debride prior to discharge Improved ambulation needed prior to discharge
--- NOTE | 2018-01-01 11:18 | P.PNVS ---
Subjective Post Op Day #: 2 Procedure: R BK pop to DP bypass with patch of DP Subjective/Hospital Course: looks great; hematuria resolved foot feels "tingly" but otherwise ok Objective Vital Signs / I&O: Vital Signs 12/31/17 12:00 12/31/17 13:00 12/31/17 13:01 Temperature Pulse Rate 75 87 Respiratory Rate 18 Blood Pressure Pulse Oximetry 12/31/17 13:27 12/31/17 15:00 12/31/17 16:00 Temperature 98.2 F Pulse Rate 87 72 70 Respiratory Rate 18 Blood Pressure 164/74 H Pulse Oximetry 100 12/31/17 17:00 12/31/17 17:38 12/31/17 18:36 Temperature Pulse Rate 86 89 Respiratory Rate 18 Blood Pressure Pulse Oximetry 12/31/17 19:00 12/31/17 20:00 12/31/17 21:00 Temperature 98.2 F Pulse Rate 82 70 92 H Respiratory Rate Blood Pressure 152/66 H Pulse Oximetry 96 12/31/17 22:00 12/31/17 23:00 01/01/18 00:00 Temperature 99 F Pulse Rate 70 72 72 Respiratory Rate Blood Pressure 168/73 H Pulse Oximetry 98 01/01/18 01:00 01/01/18 02:00 01/01/18 03:00 Temperature 98.7 F Pulse Rate 65 85 76 Respiratory Rate Blood Pressure 149/67 H Pulse Oximetry 95 01/01/18 04:00 01/01/18 05:00 01/01/18 06:00 Temperature Pulse Rate 76 72 77 Respiratory Rate Blood Pressure Pulse Oximetry 01/01/18 07:00 01/01/18 08:00 01/01/18 09:00 Temperature 98.0 F Pulse Rate 69 78 75 Respiratory Rate 18 Blood Pressure 183/83 H Pulse Oximetry 100 100 01/01/18 10:00 Temperature Pulse Rate 73 Respiratory Rate Blood Pressure Pulse Oximetry Intake & Output 12/31/17 01/01/18 01/01/18 18:59 06:59 18:59 Intake Total 1697.5 / 1697.5 820 / 820 50 / 50 Output Total 1550 / 1550 1200 / 1200 Balance 147.5 / 147.5 -380 / -380 50 / 50 Weight 103 kg Intake: IV 617.5 / 617.5 100 / 100 50 / 50 Zosyn 3.375 GM Premix 50 ML @ 100 / 100 100 / 100 50 / 50 100 mls/hr IV.SIG Q6H [facility] Rx#: [id number] Vancomycin Inj 1,750 MG In NS 517.5 / 517.5 Inj 500 ML @ 250 mls/hr IV.SIG Q12H [facility] Rx#:[id number] Oral 1080 / 1080 720 / 720 Output: Urine 1550 / 1550 200 / 200 Urine Amount (Catheter) 1000 / 1000 Straight 1000 / 1000 Other: Date of Last Bowel Movement 12/29/17 # Bowel Movements 0 Exam: sitting in chair Medial calf incisions c/d/i palpable graft pulse DP incision dressing c/d/i Laboratory Results - last 24 hr 12/31/17 12/31/17 12/31/17 12:20 13:44 13:44 WBC RBC Hgb Hct MCV MCH MCHC RDW Plt Count MPV APTT 31.3 H Sodium Potassium Chloride Carbon Dioxide Anion Gap BUN Creatinine Estimated GFR POC Glucose 282 H Random Glucose Calcium Vancomycin Trough 34.2 H Random Vancomycin 12/31/17 12/31/17 01/01/18 17:19 20:20 04:43 WBC RBC Hgb Hct MCV MCH MCHC RDW Plt Count MPV APTT Sodium 136 Potassium 4.0 Chloride 102 Carbon Dioxide 25.5 Anion Gap 9 BUN 12 Creatinine 0.88 Estimated GFR 87 L POC Glucose 258 H 334 H Random Glucose 245 H Calcium 8.5 Vancomycin Trough Random Vancomycin 15.3 01/01/18 04:43 WBC 7.8 RBC 2.87 L Hgb 8.5 L Hct 24.9 L MCV 86.9 MCH 29.8 MCHC 34.3 RDW 14.0 Plt Count 278 MPV 7.7 APTT Sodium Potassium Chloride Carbon Dioxide Anion Gap BUN Creatinine Estimated GFR POC Glucose Random Glucose Calcium Vancomycin Trough Random Vancomycin Assessment and Plan - Assessment (1) Diabetic infection of right foot Code(s): E11.628 - Type 2 diabetes mellitus with other skin complications; L08.9 - Local infection of the skin and subcutaneous tissue, unspecified Status: Acute (2) PAD (peripheral artery disease) Code(s): I73.9 - Peripheral vascular disease, unspecified Status: Acute - Plan POD#2 s/p R BK-pop to DP bypass 1. From vascular standpoint, no activity limitations 2. Hep gtt until POD#4 then transition to po anticoagulation. Anticipate d/c on oral systemic anticoagulation x 6m and then ASA along with statin 3. Will take DP dressing off POD#4 (Wednesday) 4. Toe amputation site per podiatry Discharge Planning: probably Wednesday
[2018-01-01] MEDS: Vancomycin Inj 1,250 MG in Sodium Chlor 0.9% Inj 250 ML IV.SIG SCH (12:13)
[2018-01-02] MEDS: Vancomycin Inj 1,250 MG in Sodium Chlor 0.9% Inj 250 ML IV.SIG SCH ×3 (00:31→23:14)
[2018-01-02] MEDS: Piperacil/Tazo 3.375 GM Premix 50 ML IV.SIG SCH ×4 (03:09→20:55)
[2018-01-02 04:32] LABS: Hematocrit 25.5 % (39.0-51.0); Hemoglobin 8.7 gm/dL (13.0-17.0); Mean Corpuscular Hemoglobin 29.5 pg (27.0-34.0); Mean Corpuscular Volume 86.9 fL (80.0-100.0); Mean Platelet Volume 7.6 fL (7.0-11.0); Platelet Count 284 th/mm3 (150-450); Red Blood Count 2.93 mil/mm3 (4.50-5.90); Red Cell Distribution Width 14.3 % (11.6-17.2); White Blood Count 6.8 th/mm3 (4.0-11.0)
[2018-01-02] MEDS: Amitriptyline 25 MG Tablet PO SCH (08:28)
[2018-01-02] MEDS: Ranolazine 500 MG 12HR ER Tablet PO SCH ×2 (08:28→20:55)
[2018-01-02] MEDS: Insulin NovoLOG Aspart Correctional Sugar Inj SQ SCH ×4 (08:28→20:55)
[2018-01-02] MEDS ORDERED: Insulin Detemir Inj 1,000 UNIT/10 ML Vial SQ ONE (09:09)
--- NOTE | 2018-01-02 09:54 | P.PNPOD ---
Subjective Interval history: s/p right partial first ray amp with and vascular bypass with . Pt denies any pain to the foot. He denies any n/v/f/h/c/sob. Physical Exam Vital signs: Vital Signs 01/01/18 10:00 01/01/18 11:00 01/01/18 12:00 Temperature 98.2 F Pulse Rate 73 69 76 Respiratory Rate 18 Blood Pressure 147/66 H Pulse Oximetry 100 01/01/18 13:00 01/01/18 14:00 01/01/18 15:00 Temperature 98.1 F Pulse Rate 70 72 70 Respiratory Rate 18 Blood Pressure 183/81 H Pulse Oximetry 100 01/01/18 16:00 01/01/18 17:00 01/01/18 18:00 Temperature Pulse Rate 76 71 64 Respiratory Rate Blood Pressure Pulse Oximetry 01/01/18 19:00 01/01/18 19:55 01/01/18 20:00 Temperature 98.3 F Pulse Rate 71 71 68 Respiratory Rate 20 Blood Pressure 158/72 H Pulse Oximetry 98 01/01/18 21:00 01/01/18 22:00 01/01/18 23:00 Temperature 98.3 F Pulse Rate 71 69 68 Respiratory Rate 18 Blood Pressure 142/65 H Pulse Oximetry 98 01/02/18 00:00 01/02/18 01:00 01/02/18 02:00 Temperature Pulse Rate 79 78 71 Respiratory Rate Blood Pressure Pulse Oximetry 01/02/18 03:00 01/02/18 04:00 01/02/18 05:00 Temperature 98.1 F Pulse Rate 71 79 66 Respiratory Rate 18 Blood Pressure 141/66 H Pulse Oximetry 97 01/02/18 06:00 01/02/18 07:00 01/02/18 08:00 Temperature 98.2 F Pulse Rate 74 69 70 Respiratory Rate 18 Blood Pressure 146/68 H Pulse Oximetry 100 01/02/18 09:00 Temperature Pulse Rate 72 Respiratory Rate Blood Pressure Pulse Oximetry Intake & Output 01/01/18 01/02/18 01/02/18 18:59 06:59 18:59 Intake Total 1562.5 / 1562.5 782.5 / 782.5 50 / 50 Output Total 1974 1475 / 1475 Balance -412.5 / -412.5 -692.5 / -692.5 50 / 50 Weight 104 kg Intake: IV 362.5 / 362.5 362.5 / 362.5 50 / 50 Zosyn 3.375 GM Premix 50 ML @ 100 / 100 100 / 100 50 / 50 100 mls/hr IV.SIG Q6H [facility] Rx#: [id number] Vancomycin Inj 1,250 MG In NS 262.5 / 262.5 262.5 / 262.5 Inj 250 ML @ 250 mls/hr IV.SIG Q12H [facility] Rx#:[id number] Oral 1200 / 1200 420 / 420 Output: Urine 1974 1475 / 1475 Narrative: Right foot partial first ray amputation with sutures intact but dry gangrene through out the incision line. No erythema. No drainage. Foot feels warm and perfused but no palpable pulses. Medications and Allergies Active Medications: Active Medications Hydrocodone Bitart/Acetaminophen ([place] 5/325) 1 tab PO Q4H PRN PRN Reason: Pain 2-10 Last Admin: 01/02/18 03:21 Dose: 1 tab Al Hydroxide/Mg Hydroxide ([employer]k [employer]) 30 ml PO Q12H PRN PRN Reason: Mild Constipation Amitriptyline HCl (Elavil) 25 mg PO DAILY [facility] Last Admin: 01/02/18 08:28 Dose: 25 mg Aspirin (Ecotrin) 81 mg PO DAILY [facility] Last Admin: 01/02/18 08:28 Dose: 81 mg Bisacodyl (Dulcolax Supp) 10 mg RECTAL DAILY PRN PRN Reason: SEVERE CONSITIPATION Clonidine HCl (Catapres) 0.1 mg PO Q6H PRN PRN Reason: SBP>160, DBP>90 Last Admin: 01/01/18 15:28 Dose: 0.1 mg Dextrose (D50w Vial) 50 ml IV.PUSH UNSCH PRN PRN Reason: PER HYPOGLYCEMIA PROTOCOL Enalapril Maleate (Vasotec) 5 mg PO DAILY [facility] Last Admin: 01/02/18 08:29 Dose: 5 mg Glucagon (Glucagon Inj) 1 mg OTHER PRN PRN PRN Reason: for Hypoglycemia Protocol Pharmacy Profile Note (Vancomycin Consult Pharmacy) 0 mls @ 0 mls/hr OTHER UNSCH [facility] Piperacillin/Tazobactam/Dextrose (Zosyn 3.375 Gm Premix) 50 mls @ 100 mls/hr IV.SIG Q6H [facility] Last Infusion: 01/02/18 09:33 Dose: Infused Heparin Sodium/Dextrose (Heparin/D5w 25,000 U/250 Ml) 25,000 unit in 250 mls @ 0 mls/hr IV.CONT TITRATE PRN; Protocol PRN Reason: Per Protocol Vancomycin HCl 1,250 mg/ (Sodium Chloride) 262.5 mls @ 250 mls/hr IV.SIG Q12H [facility] Last Infusion: 01/02/18 01:34 Dose: Infused Insulin Aspart (Novolog Insulin Correctional Sugar Inj) 0 unit SQ ACHS [facility]; Protocol Last Admin: 01/02/18 08:28 Dose: 4 unit Insulin Detemir (Levemir Inj) 10 unit SQ DAILY [facility] Lactulose (Lactulose Liq) 30 ml PO DAILY PRN PRN Reason: SEVERE CONSITIPATION Miscellaneous Information ([facility] Ordered Lab Info) 0 each OTHER ONCE ONE Stop: 01/03/18 11:46 Morphine Sulfate (Morphine Inj) 2 mg IV.PUSH Q1H PRN PRN Reason: BREAKTHROUGH PAIN 1 -10 Last Admin: 12/31/17 05:47 Dose: 2 mg Pravastatin Sodium (Pravachol) 40 mg PO DAILY [facility] Last Admin: 01/02/18 08:28 Dose: 40 mg Ranolazine (Ranexa) 500 mg PO Q12H [facility] Last Admin: 01/02/18 08:28 Dose: 500 mg Sennosides (Senokot) 17.2 mg PO Q12H PRN PRN Reason: Moderate Constipation Sodium Chloride (Ns Flush) 2 ml IV.FLUSH BID [facility] Last Admin: 01/02/18 08:29 Dose: 2 ml Sodium Chloride (Ns Flush) 2 ml IV.FLUSH PRN PRN PRN Reason: FLUSH AFTER USING IV ACCESS Temazepam (Restoril) 15 mg PO HS PRN PRN Reason: INSOMNIA Allergies Allergy/AdvReac Type Severity Reaction Status Date / Time No Known Allergies Allergy Unverified 12/25/17 13:13 Home Medications Medication Instructions Recorded Confirmed Type amitriptyline 25 mg PO DAILY 12/25/17 12/25/17 History aspirin 81 mg PO DAILY 12/25/17 12/25/17 History cefepime 50 mg/kg IV Q8H 12/25/17 12/25/17 History enalapril maleate 5 mg PO DAILY 12/25/17 12/25/17 History heparin (porcine) in 5 % dex 250 ml IV DIRECTED 12/25/17 12/25/17 History hydrocodone-acetaminophen [[place]] 1 tab PO Q4-6H PRN 12/25/17 12/25/17 History insulin asp prt-insulin aspart 20 unit SUB-Q BID 12/25/17 12/25/17 History insulin asp prt-insulin aspart 20 unit SUB-Q BID 12/25/17 12/25/17 History [Novolog Mix 70-30FlexPen U-100] metformin 1,000 mg PO BID 12/25/17 12/25/17 History ranolazine [Ranexa] 500 mg PO Q12H 12/25/17 12/25/17 History simvastatin 20 tab PO DAILY 12/25/17 12/25/17 History Results - Labs CBC & Chem 7: 01/02/18 03:51 01/02/18 03:51 Laboratory Results - last 24 hr 01/01/18 01/01/18 01/01/18 11:20 16:03 20:52 WBC RBC Hgb Hct MCV MCH MCHC RDW Plt Count MPV Creatinine Estimated GFR POC Glucose 323 H 231 H 218 H 01/02/18 01/02/18 01/02/18 03:51 03:51 07:33 WBC 6.8 RBC 2.93 L Hgb 8.7 L Hct 25.5 L MCV 86.9 MCH 29.5 MCHC 34.0 RDW 14.3 Plt Count 284 MPV 7.6 Creatinine 1.02 Estimated GFR 74 L POC Glucose 245 H Assessment and Plan - Assessment (1) Gangrene due to peripheral vascular disease Code(s): I96 - Gangrene, not elsewhere classified; I73.9 - Peripheral vascular disease, unspecified Status: Acute Plan: - pt will need revisional first ray amputation to remove dry gangrene - NPO after midnight -plan reviewed with pt, he is agreeable - to operate tentatively on Wednesday afternoon (2) Cellulitis of foot, right Code(s): L03.115 - Cellulitis of right lower limb Status: Acute
--- NOTE | 2018-01-02 11:29 | P.PNIM ---
Subjective Interval history: No new complaints from the patient. Pain control. Plan for further surgery on 01/03/2018 for further revision of gangrene. Postop vascular wounds are being monitored by vascular team through tomorrow. Physical Exam Vital signs: Vital Signs 01/01/18 12:00 01/01/18 13:00 01/01/18 14:00 Temperature Pulse Rate 76 70 72 Respiratory Rate Blood Pressure Pulse Oximetry 01/01/18 15:00 01/01/18 16:00 01/01/18 17:00 Temperature 98.1 F Pulse Rate 70 76 71 Respiratory Rate 18 Blood Pressure 183/81 H Pulse Oximetry 100 01/01/18 18:00 01/01/18 19:00 01/01/18 19:55 Temperature 98.3 F Pulse Rate 64 71 71 Respiratory Rate 20 Blood Pressure 158/72 H Pulse Oximetry 98 01/01/18 20:00 01/01/18 21:00 01/01/18 22:00 Temperature Pulse Rate 68 71 69 Respiratory Rate Blood Pressure Pulse Oximetry 01/01/18 23:00 01/02/18 00:00 01/02/18 01:00 Temperature 98.3 F Pulse Rate 68 79 78 Respiratory Rate 18 Blood Pressure 142/65 H Pulse Oximetry 98 01/02/18 02:00 01/02/18 03:00 01/02/18 04:00 Temperature 98.1 F Pulse Rate 71 71 79 Respiratory Rate 18 Blood Pressure 141/66 H Pulse Oximetry 97 01/02/18 05:00 01/02/18 06:00 01/02/18 07:00 Temperature 98.2 F Pulse Rate 66 74 69 Respiratory Rate 18 Blood Pressure 146/68 H Pulse Oximetry 100 01/02/18 08:00 01/02/18 09:00 01/02/18 10:00 Temperature Pulse Rate 70 72 70 Respiratory Rate Blood Pressure Pulse Oximetry 01/02/18 11:00 Temperature 98.0 F Pulse Rate 68 Respiratory Rate 18 Blood Pressure 181/76 H Pulse Oximetry 100 Intake & Output 01/01/18 01/02/18 01/02/18 18:59 06:59 18:59 Intake Total 1562.5 / 1562.5 782.5 / 782.5 50 / 50 Output Total 1974 1475 / 1475 Balance -412.5 / -412.5 -692.5 / -692.5 50 / 50 Weight 104 kg Intake: IV 362.5 / 362.5 362.5 / 362.5 50 / 50 Zosyn 3.375 GM Premix 50 ML @ 100 / 100 100 / 100 50 / 50 100 mls/hr IV.SIG Q6H [facility] Rx#: [id number] Vancomycin Inj 1,250 MG In NS 262.5 / 262.5 262.5 / 262.5 Inj 250 ML @ 250 mls/hr IV.SIG Q12H [facility] Rx#:[id number] Oral 1200 / 1200 420 / 420 Output: Urine 1974 1475 / 1475 Narrative: GENERAL: NAD, A&Ox3 HEAD: Normocephalic. NECK: Supple, trachea midline. No lymphadenopathy. EYES: No scleral icterus. No injection or drainage. CARDIOVASCULAR: Regular rate and rhythm without murmurs, gallops, or rubs. RESPIRATORY: Breath sounds equal bilaterally. No accessory muscle use. GASTROINTESTINAL: Abdomen soft, non-tender, nondistended. MUSCULOSKELETAL: No cyanosis, or edema. Right foot bandaged. Healthy postop vascular surgery wounds of right lower extremity. SKIN: Warm and dry. NEURO: No focal neurological deficits. - Urinary Catheter Management Indwelling Urethral Catheter Cath placed during this visit: yes Reason for continuing: Not indwelling catheter Insertion date: 12/30/17 Insertion time: 13:05 Indwelling Temp Sensing Catheter Cath placed during this visit: yes Reason for continuing: Not indwelling catheter Insertion date: 12/30/17 Straight Cath placed during this visit: no Results - Labs CBC & Chem 7: 01/02/18 03:51 01/02/18 03:51 Laboratory Results - last 24 hr 01/01/18 01/01/18 01/02/18 16:03 20:52 03:51 WBC RBC Hgb Hct MCV MCH MCHC RDW Plt Count MPV Creatinine 1.02 Estimated GFR 74 L POC Glucose 231 H 218 H 01/02/18 01/02/18 01/02/18 03:51 07:33 10:58 WBC 6.8 RBC 2.93 L Hgb 8.7 L Hct 25.5 L MCV 86.9 MCH 29.5 MCHC 34.0 RDW 14.3 Plt Count 284 MPV 7.6 Creatinine Estimated GFR POC Glucose 245 H 263 H Assessment and Plan - Plan 62-year-old male admitted secondary to right toe gangrene, now status post bypass surgery and amputation Plan for repeat foot surgery tomorrow for further removal of gangrene. Postop vascular surgery wounds are looking healthy without signs of infection and appear to be healing well. Continue pain treatments. N.p.o. after midnight for surgery tomorrow. Gangrene, right large toe Status post amputation Amputation surgery occurred on 12/31/2017 Bypass graft with vascular surgery occurred on 12/30/2017 Pain control Continue heparin drip, ranolazine Continue vancomycin and Zosyn Podiatry to reevaluate wound prior to discharge Improved ambulation needed prior to discharge Continue with physical therapy Type 2 diabetes Follow blood sugars Insulin sliding scale Diabetic diet h/o CHF, CAD Asymptomatic continue aspirin, enalapril h/o HTN Continue baseline treatment Follow blood pressures Adjust treatments as needed continue enalapril Continue Clonidine as needed Discharge Planning podiatry to evaluate wound and debride prior to discharge Improved ambulation needed prior to discharge
[2018-01-03] MEDS: Piperacil/Tazo 3.375 GM Premix 50 ML IV.SIG SCH ×4 (03:03→20:47)
[2018-01-03] MEDS: Ranolazine 500 MG 12HR ER Tablet PO SCH ×2 (08:15→20:46)
--- NOTE | 2018-01-03 08:15 | P.PNVS ---
Subjective Post Op Day #: 4 Procedure: R BK pop to DP bypass with patch of DP Subjective/Hospital Course: doing well, pain treated appropriately headed to OR with podiatry today Objective Vital Signs / I&O: Vital Signs 01/02/18 09:00 01/02/18 10:00 01/02/18 11:00 Temperature 98.0 F Pulse Rate 72 70 68 Respiratory Rate 18 Blood Pressure 181/76 H Pulse Oximetry 100 01/02/18 12:00 01/02/18 13:00 01/02/18 14:00 Temperature Pulse Rate 71 64 67 Respiratory Rate Blood Pressure Pulse Oximetry 01/02/18 15:00 01/02/18 16:00 01/02/18 17:00 Temperature 98.2 F Pulse Rate 63 65 70 Respiratory Rate 18 Blood Pressure 161/71 H Pulse Oximetry 100 01/02/18 18:00 01/02/18 19:00 01/02/18 20:00 Temperature 98.1 F Pulse Rate 84 68 71 Respiratory Rate 18 Blood Pressure 172/72 H Pulse Oximetry 100 01/02/18 21:00 01/02/18 22:00 01/02/18 23:00 Temperature 98 F Pulse Rate 67 63 66 Respiratory Rate 16 Blood Pressure 166/76 H Pulse Oximetry 98 01/03/18 00:00 01/03/18 01:00 01/03/18 02:00 Temperature Pulse Rate 62 64 63 Respiratory Rate Blood Pressure Pulse Oximetry 01/03/18 03:00 01/03/18 04:00 01/03/18 05:00 Temperature 97.9 F Pulse Rate 76 63 62 Respiratory Rate 16 Blood Pressure 179/82 H Pulse Oximetry 100 01/03/18 06:00 01/03/18 07:00 01/03/18 08:00 Temperature 98.2 F Pulse Rate 64 71 68 Respiratory Rate 16 Blood Pressure 168/81 H Pulse Oximetry 98 Intake & Output 01/02/18 01/03/18 01/03/18 18:59 06:59 18:59 Intake Total 2162.5 / 2162.5 602.5 / 602.5 Output Total 1600 / 1600 800 / 800 Balance 562.5 / 562.5 -197.5 / -197.5 Weight 102 kg Intake: IV 362.5 / 362.5 362.5 / 362.5 Zosyn 3.375 GM Premix 50 ML @ 100 / 100 100 / 100 100 mls/hr IV.SIG Q6H [facility] Rx#: [id number] Vancomycin Inj 1,250 MG In NS 262.5 / 262.5 262.5 / 262.5 Inj 250 ML @ 250 mls/hr IV.SIG Q12H [facility] Rx#:[id number] Oral 1800 / 1800 240 / 240 Output: Urine 1600 / 1600 800 / 800 Other: Date of Last Bowel Movement 12/29/17 01/01/18 Exam: Medial calf incisions c/d/i Dorsal foot incision covered from OR palpable graft pulse at ankle Laboratory Results - last 24 hr 01/02/18 01/02/18 01/02/18 10:58 15:58 19:28 Creatinine Estimated GFR POC Glucose 263 H 166 H 286 H 01/03/18 01/03/18 05:02 07:29 Creatinine 0.94 Estimated GFR 81 L POC Glucose 216 H Microbiology 12/26/17 09:30 Fungal Smear - Final Wound - Foot No fungal elements seen Fungal Culture - Preliminary No growth in 1 week 12/26/17 09:30 Acid Fast Bacilli Smear - Final Wound - Foot No acid fast bacilli seen Mycobacterial Culture - Preliminary No growth in 1 week Assessment and Plan - Assessment (1) Diabetic infection of right foot Code(s): E11.628 - Type 2 diabetes mellitus with other skin complications; L08.9 - Local infection of the skin and subcutaneous tissue, unspecified Status: Acute (2) PAD (peripheral artery disease) Code(s): I73.9 - Peripheral vascular disease, unspecified Status: Acute - Plan POD#4 s/p R BK-pop to DP bypass 1. From vascular standpoint, no activity limitations 2. Hep gtt until after podiatry procedures completed then transition to oral anticoagulation. Anticipate d/c on oral systemic anticoagulation x 6m and then ASA along with statin 3. Will take DP dressing off after podiatry procedure today 4. Toe amputation site per podiatry Discharge Planning: anytime once on oral anticoagulation
[2018-01-03] MEDS: Amitriptyline 25 MG Tablet PO SCH (08:16)
[2018-01-03] MEDS: Insulin NovoLOG Aspart Correctional Sugar Inj SQ SCH ×4 (08:18→20:46)
[2018-01-03] MEDS: Insulin Detemir Inj 1,000 UNIT/10 ML Vial SQ SCH (08:19)
--- NOTE | 2018-01-03 10:09 | P.PNIM ---
Subjective Interval history: Plan for further revision with podiatry in the OR today. Patient has no complaints. Pain control. Ambulation improving. Physical Exam Vital signs: Vital Signs 01/02/18 11:00 01/02/18 12:00 01/02/18 13:00 Temperature 98.0 F Pulse Rate 68 71 64 Respiratory Rate 18 Blood Pressure 181/76 H Pulse Oximetry 100 01/02/18 14:00 01/02/18 15:00 01/02/18 16:00 Temperature 98.2 F Pulse Rate 67 63 65 Respiratory Rate 18 Blood Pressure 161/71 H Pulse Oximetry 100 01/02/18 17:00 01/02/18 18:00 01/02/18 19:00 Temperature 98.1 F Pulse Rate 70 84 68 Respiratory Rate 18 Blood Pressure 172/72 H Pulse Oximetry 100 01/02/18 20:00 01/02/18 21:00 01/02/18 22:00 Temperature Pulse Rate 71 67 63 Respiratory Rate Blood Pressure Pulse Oximetry 01/02/18 23:00 01/03/18 00:00 01/03/18 01:00 Temperature 98 F Pulse Rate 66 62 64 Respiratory Rate 16 Blood Pressure 166/76 H Pulse Oximetry 98 01/03/18 02:00 01/03/18 03:00 01/03/18 04:00 Temperature 97.9 F Pulse Rate 63 76 63 Respiratory Rate 16 Blood Pressure 179/82 H Pulse Oximetry 100 01/03/18 05:00 01/03/18 06:00 01/03/18 07:00 Temperature 98.2 F Pulse Rate 62 64 71 Respiratory Rate 16 Blood Pressure 168/81 H Pulse Oximetry 98 01/03/18 08:00 01/03/18 09:00 01/03/18 10:00 Temperature Pulse Rate 68 66 61 Respiratory Rate Blood Pressure Pulse Oximetry Intake & Output 01/02/18 01/03/18 01/03/18 18:59 06:59 18:59 Intake Total 2162.5 / 2162.5 602.5 / 602.5 50 / 50 Output Total 1600 / 1600 800 / 800 Balance 562.5 / 562.5 -197.5 / -197.5 50 / 50 Weight 102 kg Intake: IV 362.5 / 362.5 362.5 / 362.5 50 / 50 Zosyn 3.375 GM Premix 50 ML @ 100 / 100 100 / 100 50 / 50 100 mls/hr IV.SIG Q6H [facility] Rx#: [id number] Vancomycin Inj 1,250 MG In NS 262.5 / 262.5 262.5 / 262.5 Inj 250 ML @ 250 mls/hr IV.SIG Q12H [facility] Rx#:[id number] Oral 1800 / 1800 240 / 240 Output: Urine 1600 / 1600 800 / 800 Other: Date of Last Bowel Movement 12/29/17 01/01/18 Narrative: GENERAL: NAD, A&Ox3 HEAD: Normocephalic. NECK: Supple, trachea midline. No lymphadenopathy. EYES: No scleral icterus. No injection or drainage. CARDIOVASCULAR: Regular rate and rhythm without murmurs, gallops, or rubs. RESPIRATORY: Breath sounds equal bilaterally. No accessory muscle use. GASTROINTESTINAL: Abdomen soft, non-tender, nondistended. MUSCULOSKELETAL: No cyanosis, or edema. Right foot bandaged. Healthy postop vascular surgery wounds of right lower extremity. SKIN: Warm and dry. NEURO: No focal neurological deficits. - Urinary Catheter Management Indwelling Urethral Catheter Cath placed during this visit: yes Reason for continuing: Not indwelling catheter Insertion date: 12/30/17 Insertion time: 13:05 Indwelling Temp Sensing Catheter Cath placed during this visit: yes Reason for continuing: Not indwelling catheter Insertion date: 12/30/17 Straight Cath placed during this visit: no Results - Labs CBC & Chem 7: 01/02/18 03:51 01/03/18 05:02 Laboratory Results - last 24 hr 01/02/18 01/02/18 01/02/18 10:58 15:58 19:28 Creatinine Estimated GFR POC Glucose 263 H 166 H 286 H 01/03/18 01/03/18 05:02 07:29 Creatinine 0.94 Estimated GFR 81 L POC Glucose 216 H Microbiology 12/26/17 09:30 Wound - Foot Fungal Smear - Final No fungal elements seen 12/26/17 09:30 Wound - Foot Fungal Culture - Preliminary No growth in 1 week 12/26/17 09:30 Wound - Foot Acid Fast Bacilli Smear - Final No acid fast bacilli seen 12/26/17 09:30 Wound - Foot Mycobacterial Culture - Preliminary No growth in 1 week Assessment and Plan - Plan 62-year-old male admitted secondary to right toe gangrene, now status post bypass surgery and amputation Plan for repeat foot surgery today for further removal of gangrene. Postop vascular surgery wounds are looking healthy without signs of infection and appear to be healing well. Continue pain treatments. For surgery tomorrow. Gangrene, right large toe Status post amputation Amputation surgery occurred on 12/31/2017 Bypass graft with vascular surgery occurred on 12/30/2017 Pain control Continue heparin drip, ranolazine Continue vancomycin and Zosyn Podiatry to reevaluate wound prior to discharge Improved ambulation needed prior to discharge Continue with physical therapy Type 2 diabetes Follow blood sugars Insulin sliding scale Diabetic diet h/o CHF, CAD Asymptomatic continue aspirin, enalapril h/o HTN Continue baseline treatment Follow blood pressures Adjust treatments as needed continue enalapril Continue Clonidine as needed Discharge Planning podiatry to evaluate wound and debride prior to discharge Improved ambulation needed prior to discharge
[2018-01-03] MEDS ORDERED: Pharmacy Ordered Lab Info OTHER ONE (11:45)
[2018-01-03] MEDS: Vancomycin Inj 1,250 MG in Sodium Chlor 0.9% Inj 250 ML IV.SIG SCH ×2 (12:32→23:15)
[2018-01-04] MEDS: Piperacil/Tazo 3.375 GM Premix 50 ML IV.SIG SCH ×4 (03:39→21:09)
[2018-01-04 05:42] LABS: Baso % (Auto) 0.8 % (0.0-2.0); Eos # (Auto) 0.1 th/mm3 (0.0-0.4); Eos % (Auto) 2.8 % (0.0-4.0); Hematocrit 28.3 % (39.0-51.0); Hemoglobin 9.5 gm/dL (13.0-17.0); Lymph # (Auto) 0.8 th/mm3 (1.0-4.8); Lymph % (Auto) 14.8 % (9.0-44.0); Mean Corpuscular HGB Conc 33.5 % (32.0-36.0); Mean Corpuscular Hemoglobin 28.9 pg (27.0-34.0); Mean Corpuscular Volume 86.5 fL (80.0-100.0); Mean Platelet Volume 7.1 fL (7.0-11.0); Mono # (Auto) 0.6 th/mm3 (0.0-0.9); Mono % (Auto) 10.5 % (0.0-8.0); Neut # (Auto) 3.8 th/mm3 (1.8-7.7); Neut % (Auto) 71.1 % (16.0-70.0); Platelet Count 274 th/mm3 (150-450); Red Blood Count 3.27 mil/mm3 (4.50-5.90); Red Cell Distribution Width 13.8 % (11.6-17.2); White Blood Count 5.3 th/mm3 (4.0-11.0)
[2018-01-04 06:08] LABS: Alanine Aminotransferase 10 U/L (12-78); Albumin 2.5 g/dL (3.4-5.0); Anion Gap 5 meq/L (5-15); Aspartate Aminotransferase 7 U/L (15-37); Blood Urea Nitrogen 12 mg/dL (7-18); Calcium 8.4 mg/dL (8.5-10.1); Carbon Dioxide 29.3 meq/L (21.0-32.0); Chloride 105 meq/L (98-107); Glomerular Filtration Rate 70 mL/min (>89); Glucose,Random 231 mg/dL (74-106); Potassium 4.3 meq/L (3.5-5.1); Sodium 139 meq/L (136-145)
[2018-01-04 06:11] LABS: Alkaline Phosphatase 52 U/L (45-117); Total Protein 6.7 g/dL (6.4-8.2)
--- NOTE | 2018-01-04 07:42 | ECG ---
Date Performed: 01/02/2018 Time Performed: 22:30:46 PTAGE: 62 years EKG: Sinus rhythm Left axis deviation IV conduction defect Possible left ventricular hypertrophy Lateral ST-T changes may be due to hypertrophy and/or ischemia Abnormal ECG PREVIOUS TRACING : 12/25/2017 22.37 DOCTOR: Kel Abdi Interpretating Date/Time 01/04/2018 07:37:05
[2018-01-04] MEDS: Ranolazine 500 MG 12HR ER Tablet PO SCH ×2 (08:05→21:09)
[2018-01-04] MEDS: Amitriptyline 25 MG Tablet PO SCH (08:05)
[2018-01-04] MEDS: Insulin Detemir Inj 1,000 UNIT/10 ML Vial SQ SCH (09:08)
[2018-01-04] MEDS: Insulin NovoLOG Aspart Correctional Sugar Inj SQ SCH ×4 (09:08→21:09)
[2018-01-04] MEDS ORDERED: Sod Phosphate/Sod Biphosphate (Adult) Enema 133 ML Bottle RECTAL ONE (09:51)
--- NOTE | 2018-01-04 09:52 | P.PNIM ---
Subjective Interval history: Patient was unable to have podiatry procedure yesterday. This is planned for this afternoon. Patient currently n.p.o. Complaint today of constipation which is painful. He is trying oral therapies. Physical Exam Vital signs: Vital Signs 01/03/18 10:00 01/03/18 11:00 01/03/18 12:00 Temperature 98.0 F Pulse Rate 61 59 L 54 L Respiratory Rate 16 Blood Pressure 127/62 Pulse Oximetry 98 01/03/18 13:00 01/03/18 14:00 01/03/18 15:00 Temperature 98.1 F Pulse Rate 59 L 54 L 55 L Respiratory Rate 18 Blood Pressure 142/69 H Pulse Oximetry 98 01/03/18 16:00 01/03/18 17:00 01/03/18 18:00 Temperature Pulse Rate 60 63 60 Respiratory Rate Blood Pressure Pulse Oximetry 01/03/18 19:00 01/03/18 23:00 01/04/18 01:26 Temperature 98.4 F 98 F Pulse Rate 72 74 67 Respiratory Rate 18 16 Blood Pressure 200/91 H 144/69 H Pulse Oximetry 100 100 01/04/18 03:00 01/04/18 05:54 01/04/18 06:00 Temperature 98.2 F Pulse Rate 65 66 76 Respiratory Rate 16 Blood Pressure 135/67 Pulse Oximetry 98 01/04/18 07:00 01/04/18 08:00 01/04/18 09:00 Temperature 97.6 F Pulse Rate 78 78 97 H Respiratory Rate 18 Blood Pressure 194/86 H Pulse Oximetry 100 Intake & Output 01/03/18 01/04/18 01/04/18 18:59 06:59 18:59 Intake Total 482.5 / 482.5 1042.5 / 1042.5 Output Total 275 / 275 Balance 482.5 / 482.5 767.5 / 767.5 Weight 101.5 kg Intake: IV 362.5 / 362.5 362.5 / 362.5 Zosyn 3.375 GM Premix 50 ML @ 100 / 100 100 / 100 100 mls/hr IV.SIG Q6H MEY Rx#: [id number] Vancomycin Inj 1,250 MG In NS 262.5 / 262.5 262.5 / 262.5 Inj 250 ML @ 250 mls/hr IV.SIG Q12H MEY Rx#:[id number] Oral 120 / 120 680 / 680 Output: Urine 275 / 275 Other: # Voids 3 3 Date of Last Bowel Movement 01/01/18 01/01/18 01/01/18 Narrative: GENERAL: NAD, A&Ox3 HEAD: Normocephalic. NECK: Supple, trachea midline. No lymphadenopathy. EYES: No scleral icterus. No injection or drainage. CARDIOVASCULAR: Regular rate and rhythm without murmurs, gallops, or rubs. RESPIRATORY: Breath sounds equal bilaterally. No accessory muscle use. GASTROINTESTINAL: Abdomen soft, non-tender, nondistended. MUSCULOSKELETAL: No cyanosis, or edema. Right foot bandaged. Healthy postop vascular surgery wounds of right lower extremity. SKIN: Warm and dry. NEURO: No focal neurological deficits. - Urinary Catheter Management Indwelling Urethral Catheter Cath placed during this visit: yes Reason for continuing: Not indwelling catheter Insertion date: 12/30/17 Insertion time: 13:05 Indwelling Temp Sensing Catheter Cath placed during this visit: yes Reason for continuing: Not indwelling catheter Insertion date: 12/30/17 Straight Cath placed during this visit: no Results - Labs CBC & Chem 7: 01/04/18 05:32 01/04/18 05:32 Laboratory Results - last 24 hr 01/03/18 01/03/18 01/03/18 12:08 12:19 17:23 WBC RBC Hgb Hct MCV MCH MCHC RDW Plt Count MPV Neut % (Auto) Lymph % (Auto) [place] % (Auto) Eos % (Auto) Baso % (Auto) Neut # (Auto) Lymph # (Auto) [place] # (Auto) Eos # (Auto) Baso # (Auto) WBC Differential Differential Comment Sodium Potassium Chloride Carbon Dioxide Anion Gap BUN Creatinine Estimated GFR POC Glucose 203 H 109 Random Glucose Calcium Total Bilirubin AST ALT Alkaline Phosphatase Total Protein Albumin Vancomycin Trough 14.7 H 01/03/18 01/04/18 01/04/18 20:03 05:32 05:32 WBC 5.3 RBC 3.27 L Hgb 9.5 L Hct 28.3 L MCV 86.5 MCH 28.9 MCHC 33.5 RDW 13.8 Plt Count 274 MPV 7.1 Neut % (Auto) 71.1 H Lymph % (Auto) 14.8 Labette % (Auto) 10.5 H Eos % (Auto) 2.8 Baso % (Auto) 0.8 Neut # (Auto) 3.8 Lymph # (Auto) 0.8 L [place] # (Auto) 0.6 Eos # (Auto) 0.1 Baso # (Auto) 0.0 WBC Differential . Differential Comment Auto diff final Sodium 139 Potassium 4.3 Chloride 105 Carbon Dioxide 29.3 Anion Gap 5 BUN 12 Creatinine 1.07 Estimated GFR 70 L POC Glucose 176 H Random Glucose 231 H Calcium 8.4 L Total Bilirubin 0.4 AST 7 L ALT 10 L Alkaline Phosphatase 52 Total Protein 6.7 Albumin 2.5 L Vancomycin Trough 01/04/18 08:21 WBC RBC Hgb Hct MCV MCH MCHC RDW Plt Count MPV Neut % (Auto) Lymph % (Auto) Lab[place] % (Auto) Eos % (Auto) Baso % (Auto) Neut # (Auto) Lymph # (Auto) Labette # (Auto) Eos # (Auto) Baso # (Auto) WBC Differential Differential Comment Sodium Potassium Chloride Carbon Dioxide Anion Gap BUN Creatinine Estimated GFR POC Glucose 297 H Random Glucose Calcium Total Bilirubin AST ALT Alkaline Phosphatase Total Protein Albumin Vancomycin Trough Assessment and Plan - Plan 62-year-old male admitted secondary to right toe gangrene, now status post bypass surgery and amputation Plan for repeat foot surgery today for further removal of gangrene. Add fleets enema for constipation. Monitor for resolution constipation and try oral magnesium citrate postop if no benefit from enema. Gangrene, right large toe Status post amputation Amputation surgery occurred on 12/31/2017 Bypass graft with vascular surgery occurred on 12/30/2017 Pain control Continue heparin drip, ranolazine Continue vancomycin and Zosyn Podiatry to reevaluate wound prior to discharge Improved ambulation needed prior to discharge Continue with physical therapy Type 2 diabetes Follow blood sugars Insulin sliding scale Diabetic diet h/o CHF, CAD Asymptomatic continue aspirin, enalapril h/o HTN Continue baseline treatment Follow blood pressures Adjust treatments as needed continue enalapril Continue Clonidine as needed Discharge Planning podiatry to evaluate wound and debride prior to discharge Improved ambulation needed prior to discharge
[2018-01-04] MEDS ORDERED: Lidocaine PF 1% Inj 5 ML Syringe INFILTRATN ONE (12:00)
[2018-01-04] MEDS ORDERED: Phenylephrine/NS 1000 MCG/10ML Syringe IV.PUSH ONE (12:00)
[2018-01-04] MEDS: Vancomycin Inj 1,250 MG in Sodium Chlor 0.9% Inj 250 ML IV.SIG SCH ×2 (13:28→23:41)
[2018-01-04] MEDS ORDERED: Bupivacaine PF 0.5% Inj 30 ML Vial ONE (16:44)
[2018-01-04] MEDS ORDERED: Lidocaine 2% Inj 50 ML Vial ONE (16:44)
[2018-01-04] MEDS ORDERED: fentaNYL Citrate Inj 100 MCG/2 ML Ampul ONE (18:46)
--- NOTE | 2018-01-04 18:47 | P.BOP ---
- Preoperative Diagnosis (1) Gangrene due to peripheral vascular disease (2) Cellulitis of foot, right (3) Abscess of right foot including toes - Postoperative Diagnosis (1) Gangrene due to peripheral vascular disease (2) Cellulitis of foot, right (3) Abscess of right foot including toes Date of procedure: 01/04/18 Procedure: 1. Revision amputation right foot partial 1st ray 2. Right foot partial 2nd ray amputation Necrotic tissue from previous amputation site of partial first ray amputation excised and 2nd toe amputated. Further bone at level of midshaft 2nd metatarsal resected. Specimen sent to pathology. Bleeders tied off and hemostasis achieved. Adequate bleeding noted. No tourniquet utilized. Tissue resected to viable bleeding margins, followed by culture, then irrigation with normal saline and closure with 2-0 nylon suture. Dressing with xeroform, 4x4, abd, cast padding, rosendo applied to right foot. Nonweightbearing right foot. No further surgery anticipated. Follow up in clinic 1 week for dressing change Anesthesia: NELIDA Surgeon: Precious Mccollum DPM Auditor/Quality: staff Estimated blood loss (mL): 80 Pathology: other (1. partial 1st and 2nd ray right foot 2. culture right foot) Condition: stable Disposition: PACU
--- NOTE | 2018-01-04 22:08 | XR ---
EXAM DATE: 01/04/2018 9:58 PM EDT AGE/SEX: 62 years / Male INDICATIONS: Post operative right foot. Second digit amputation. CLINICAL DATA: This is the patient's initial encounter. Patient reports that signs and symptoms have been present for 1 day and indicates a pain score of 5/10. MEDICAL/SURGICAL HISTORY: . Cardiomyopathy, chronic back pain, coronary artery disease, diabete s mellitus, diabetic peripheral neuropathy, hyperlipidemia, hypertension, peripheral artery disease. . CABG. Cervical spinal fusion. Right foot, first digit amputation. COMPARISON: [facility] [place], FOOT COMPLETE RIGHT 3V, 12/26/2017. . FINDINGS: Second toe has been amputated back to the mid metatarsal. First metatarsal amputation has been expand ed back to the proximal shaft. Chronic appearing destructive changes are seen of the fourth toe and fourth metatarsal head. There is increased conspicuity minimally displaced fracture in the neck region of the third metatarsal. CONCLUSION: 1. New surgical changes second toe and second metatarsal and of the first metatarsal without evidenc e of an acute complication here. 2. Fracture propagation neck region of the third metatarsal since the prior study. Displacement is m inimal. 3. Chronic bone changes fourth metatarsal head and phalanges. Electronically signed by: Jimmie Hernadez MD 01/04/2018 10:07 PM EDT
[2018-01-05] MEDS: Piperacil/Tazo 3.375 GM Premix 50 ML IV.SIG SCH ×4 (03:12→20:07)
[2018-01-05] MEDS: Morphine Inj 4 MG/ML Vial IV.PUSH PRN ×2 (03:14→19:57)
--- NOTE | 2018-01-05 08:29 | P.PNVS ---
Subjective Post Op Day #: 6 Procedure: R BK pop to DP bypass with patch of DP Subjective/Hospital Course: 62/M S/P R LE distal bypass POD 6 Pt continues to be doing well LE warm Incisions intact w/o R/D/S Post op dressing I/C/D to R foot (s/p toe amputation/podiatry) Pt c/o right foot discomfort - "amputation site" Objective Vital Signs / I&O: Vital Signs 01/04/18 09:00 01/04/18 10:00 01/04/18 11:00 Temperature 97.6 F Pulse Rate 97 H 100 H 84 Respiratory Rate 18 Blood Pressure 159/79 H Pulse Oximetry 99 01/04/18 12:00 01/04/18 13:00 01/04/18 14:00 Temperature Pulse Rate 78 75 72 Respiratory Rate Blood Pressure Pulse Oximetry 01/04/18 15:00 01/04/18 16:00 01/04/18 16:50 Temperature 97.6 F 98.1 F Pulse Rate 76 75 81 Respiratory Rate 18 15 Blood Pressure 178/81 H 176/84 H Pulse Oximetry 96 100 01/04/18 18:45 01/04/18 19:00 01/04/18 19:15 Temperature 97.5 F L 98.5 F Pulse Rate 81 71 73 Respiratory Rate 17 14 14 Blood Pressure 106/60 137/61 137/67 Pulse Oximetry 96 99 98 01/04/18 19:40 01/04/18 19:50 01/04/18 20:00 Temperature 98.7 F Pulse Rate 76 76 Respiratory Rate 20 Blood Pressure 159/75 H Pulse Oximetry 96 99 01/04/18 21:30 01/04/18 22:50 01/04/18 23:54 Temperature 98.5 F Pulse Rate 78 77 78 Respiratory Rate 17 Blood Pressure 127/59 L Pulse Oximetry 99 01/05/18 00:04 01/05/18 01:14 01/05/18 02:00 Temperature Pulse Rate 69 67 68 Respiratory Rate Blood Pressure Pulse Oximetry 01/05/18 03:00 01/05/18 04:00 01/05/18 05:00 Temperature 98.1 F Pulse Rate 80 78 75 Respiratory Rate 16 20 Blood Pressure 165/88 H Pulse Oximetry 98 01/05/18 05:58 Temperature Pulse Rate 80 Respiratory Rate Blood Pressure Pulse Oximetry Intake & Output 01/04/18 01/05/18 01/05/18 18:59 06:59 18:59 Intake Total 782.5 / 782.5 770 / 770 Output Total 400 / 400 900 / 900 Balance 382.5 / 382.5 -130 / -130 Weight 103 kg Intake: IV 362.5 / 362.5 50 / 50 Zosyn 3.375 GM Premix 50 ML @ 100 / 100 50 / 50 100 mls/hr IV.SIG Q6H MEY Rx#: [id number] Vancomycin Inj 1,250 MG In NS 262.5 / 262.5 Inj 250 ML @ 250 mls/hr IV.SIG Q12H MEY Rx#:[id number] Oral 120 / 120 720 / 720 Anesthesia Amount 300 / 300 Output: Urine 300 / 300 900 / 900 Estimated Blood Loss 100 / 100 Other: # Voids 4 Date of Last Bowel Movement 01/04/18 # Bowel Movements 4 Exam: GENERAL: A&OX3,NAD,GCS 15 SKIN: LE Warm and dry Incision to R LE intact w/o R/D/S GASTROINTESTINAL: Abdomen soft, non-tender, nondistended/B groins w/o swelling or hematoma MUSCULOSKELETAL: No cyanosis, or edema. Dressing to R foot I/C/D Laboratory Results - last 24 hr 01/04/18 01/04/18 01/04/18 08:21 13:39 18:53 POC Glucose 297 H 239 H 179 H 01/04/18 01/05/18 20:32 07:53 POC Glucose 210 H 236 H Assessment and Plan - Assessment (1) Diabetic infection of right foot Code(s): E11.628 - Type 2 diabetes mellitus with other skin complications; L08.9 - Local infection of the skin and subcutaneous tissue, unspecified Status: Acute (2) PAD (peripheral artery disease) Code(s): I73.9 - Peripheral vascular disease, unspecified Status: Acute - Plan POD#6 S/p R BK-pop to DP bypass Doing well Pain controlled Plan Discussed post operative care and management with patient From a vascular standpoint- no activity limitations D/C Hep gtt start oral anticoagulation- Apixaban ordered Pt clear for D/C from a vascular standpoint -Anticipate d/c on oral systemic anticoagulation x 6m and then ASA 81mg along with statin Arranged out pt f/u in 2W Pt aware of plan Lottie Caldera NP [facility]/[place] [phone] Discharge Planning: anytime once on oral anticoagulation
[2018-01-05] MEDS: Insulin NovoLOG Aspart Correctional Sugar Inj SQ SCH ×4 (08:36→20:07)
[2018-01-05] MEDS: Insulin Detemir Inj 1,000 UNIT/10 ML Vial SQ SCH (08:36)
[2018-01-05] MEDS: Ranolazine 500 MG 12HR ER Tablet PO SCH ×2 (08:39→20:44)
[2018-01-05] MEDS: Amitriptyline 25 MG Tablet PO SCH (08:39)
[2018-01-05] MEDS ORDERED: Pharmacy Ordered Lab Info OTHER ONE (11:45)
[2018-01-05] MEDS: Vancomycin Inj 1,250 MG in Sodium Chlor 0.9% Inj 250 ML IV.SIG SCH (12:32)
--- NOTE | 2018-01-05 13:43 | P.PNIM ---
Subjective Interval history: Patient is doing well postop. First and second toes have been amputated at this point. He had a bowel movement with enema yesterday. Physical Exam Vital signs: Vital Signs 01/04/18 14:00 01/04/18 15:00 01/04/18 16:00 Temperature 97.6 F Pulse Rate 72 76 75 Respiratory Rate 18 Blood Pressure 178/81 H Pulse Oximetry 96 01/04/18 16:50 01/04/18 18:45 01/04/18 19:00 Temperature 98.1 F 97.5 F L Pulse Rate 81 81 71 Respiratory Rate 15 17 14 Blood Pressure 176/84 H 106/60 137/61 Pulse Oximetry 100 96 99 01/04/18 19:15 01/04/18 19:40 01/04/18 19:50 Temperature 98.5 F 98.7 F Pulse Rate 73 76 Respiratory Rate 14 20 Blood Pressure 137/67 159/75 H Pulse Oximetry 98 96 99 01/04/18 20:00 01/04/18 21:30 01/04/18 22:50 Temperature Pulse Rate 76 78 77 Respiratory Rate Blood Pressure Pulse Oximetry 01/04/18 23:54 01/05/18 00:04 01/05/18 01:14 Temperature 98.5 F Pulse Rate 78 69 67 Respiratory Rate 17 Blood Pressure 127/59 L Pulse Oximetry 99 01/05/18 02:00 01/05/18 03:00 01/05/18 04:00 Temperature 98.1 F Pulse Rate 68 80 78 Respiratory Rate 16 20 Blood Pressure 165/88 H Pulse Oximetry 98 01/05/18 05:00 01/05/18 05:58 01/05/18 07:00 Temperature Pulse Rate 75 80 82 Respiratory Rate Blood Pressure Pulse Oximetry 01/05/18 08:00 01/05/18 09:00 01/05/18 12:00 Temperature 97.9 F Pulse Rate 84 82 82 Respiratory Rate 16 Blood Pressure 177/77 H Pulse Oximetry 99 Intake & Output 01/04/18 01/05/18 01/05/18 18:59 06:59 18:59 Intake Total 782.5 / 782.5 1082.5 / 1082.5 50 / 50 Output Total 400 / 400 900 / 900 Balance 382.5 / 382.5 182.5 / 182.5 50 / 50 Weight 103 kg Intake: IV 362.5 / 362.5 362.5 / 362.5 50 / 50 Zosyn 3.375 GM Premix 50 ML @ 100 / 100 100 / 100 50 / 50 100 mls/hr IV.SIG Q6H MEY Rx#: [id number] Vancomycin Inj 1,250 MG In NS 262.5 / 262.5 262.5 / 262.5 Inj 250 ML @ 250 mls/hr IV.SIG Q12H MEY Rx#:[id number] Oral 120 / 120 720 / 720 Anesthesia Amount 300 / 300 Output: Urine 300 / 300 900 / 900 Estimated Blood Loss 100 / 100 Other: # Voids 4 Date of Last Bowel Movement 01/04/18 01/04/18 # Bowel Movements 4 Narrative: GENERAL: NAD, A&Ox3 HEAD: Normocephalic. NECK: Supple, trachea midline. No lymphadenopathy. EYES: No scleral icterus. No injection or drainage. CARDIOVASCULAR: Regular rate and rhythm without murmurs, gallops, or rubs. RESPIRATORY: Breath sounds equal bilaterally. No accessory muscle use. GASTROINTESTINAL: Abdomen soft, non-tender, nondistended. MUSCULOSKELETAL: No cyanosis, or edema. Right foot bandaged. Healthy postop vascular surgery wounds of right lower extremity. SKIN: Warm and dry. NEURO: No focal neurological deficits. - Urinary Catheter Management Indwelling Urethral Catheter Cath placed during this visit: yes Reason for continuing: Not indwelling catheter Insertion date: 12/30/17 Insertion time: 13:05 Indwelling Temp Sensing Catheter Cath placed during this visit: yes Reason for continuing: Not indwelling catheter Insertion date: 12/30/17 Straight Cath placed during this visit: no Results - Labs CBC & Chem 7: 01/04/18 05:32 01/04/18 05:32 Laboratory Results - last 24 hr 01/04/18 01/04/18 01/04/18 13:39 18:53 20:32 POC Glucose 239 H 179 H 210 H Vancomycin Trough 01/05/18 01/05/18 01/05/18 07:53 11:46 12:29 POC Glucose 236 H 289 H Vancomycin Trough 16.8 H Microbiology 01/04/18 18:30 Wound - Foot Gram Stain - Final - Imaging Impressions Foot X-Ray 01/04/18 00:00 CONCLUSION: 1. New surgical changes second toe and second metatarsal and of the first metatarsal without evidence of an acute complication here. 2. Fracture propagation neck region of the third metatarsal since the prior study. Displacement is minimal. 3. Chronic bone changes fourth metatarsal head and phalanges. Assessment and Plan - Plan 62-year-old male admitted secondary to right toe gangrene, now status post bypass surgery and amputation Status post repeat foot surgery for gangrene with amputation of first and second toes of the right foot. Patient responded yesterday to fleets enema for constipation. Repeat wound evaluation pending and discharge will be considered after cleared by podiatry. Gangrene, right large toe Status post amputation Amputation surgery occurred on 12/31/2017 Bypass graft with vascular surgery occurred on 12/30/2017 Pain control Continue heparin drip, ranolazine Continue vancomycin and Zosyn Podiatry to reevaluate wound prior to discharge Improved ambulation needed prior to discharge Continue with physical therapy Type 2 diabetes Follow blood sugars Insulin sliding scale Diabetic diet h/o CHF, CAD Asymptomatic continue aspirin, enalapril h/o HTN Continue baseline treatment Follow blood pressures Adjust treatments as needed continue enalapril Continue Clonidine as needed Discharge Planning podiatry to evaluate wound and debride prior to discharge Vascular surgery has cleared patient for discharge.
--- NOTE | 2018-01-05 20:01 | P.PNPOD ---
Physical Exam Vital signs: Vital Signs 01/04/18 20:00 01/04/18 21:30 01/04/18 22:50 Temperature Pulse Rate 76 78 77 Respiratory Rate Blood Pressure Pulse Oximetry 01/04/18 23:54 01/05/18 00:04 01/05/18 01:14 Temperature 98.5 F Pulse Rate 78 69 67 Respiratory Rate 17 Blood Pressure 127/59 L Pulse Oximetry 99 01/05/18 02:00 01/05/18 03:00 01/05/18 04:00 Temperature 98.1 F Pulse Rate 68 80 78 Respiratory Rate 16 20 Blood Pressure 165/88 H Pulse Oximetry 98 01/05/18 05:00 01/05/18 05:58 01/05/18 07:00 Temperature Pulse Rate 75 80 82 Respiratory Rate Blood Pressure Pulse Oximetry 01/05/18 08:00 01/05/18 09:00 01/05/18 12:00 Temperature 97.9 F 98.5 F Pulse Rate 84 82 83 Respiratory Rate 16 16 Blood Pressure 177/77 H 147/72 H Pulse Oximetry 99 97 01/05/18 16:00 Temperature Pulse Rate 61 Respiratory Rate Blood Pressure Pulse Oximetry Intake & Output 01/05/18 01/05/18 01/06/18 06:59 18:59 06:59 Intake Total 1082.5 / 1082.5 1082.5 / 1082.5 Output Total 900 / 900 1900 / 1900 Balance 182.5 / 182.5 -817.5 / -817.5 Weight 103 kg Intake: IV 362.5 / 362.5 362.5 / 362.5 Zosyn 3.375 GM Premix 50 ML @ 100 / 100 100 / 100 100 mls/hr IV.SIG Q6H MEY Rx#: [id number] Vancomycin Inj 1,250 MG In NS 262.5 / 262.5 262.5 / 262.5 Inj 250 ML @ 250 mls/hr IV.SIG Q12H MEY Rx#:[id number] Oral 720 / 720 720 / 720 Output: Urine 900 / 900 1900 / 1900 Other: Date of Last Bowel Movement 01/04/18 Narrative: Bandage intact to right foot, clean, dry. Medications and Allergies Active Medications: Active Medications Hydrocodone Bitart/Acetaminophen (Hurley 5/325) 1 tab PO Q4H PRN PRN Reason: Pain 2-10 Last Admin: 01/05/18 16:59 Dose: 1 tab Al Hydroxide/Mg Hydroxide (Milk Of Magnesia Liq) 30 ml PO Q12H PRN PRN Reason: Mild Constipation Last Admin: 01/04/18 06:26 Dose: 30 ml Amitriptyline HCl (Elavil) 25 mg PO DAILY [facility] Last Admin: 01/05/18 08:39 Dose: 25 mg Apixaban (Eliquis) 5 mg PO BID [facility] Last Admin: 01/05/18 08:45 Dose: 5 mg Aspirin (Ecotrin) 81 mg PO DAILY [facility] Last Admin: 01/05/18 08:34 Dose: 81 mg Bisacodyl (Dulcolax Supp) 10 mg RECTAL DAILY PRN PRN Reason: SEVERE CONSITIPATION Last Admin: 01/04/18 08:10 Dose: 10 mg Clonidine HCl (Catapres) 0.1 mg PO Q6H PRN PRN Reason: SBP>160, DBP>90 Last Admin: 01/05/18 18:22 Dose: 0.1 mg Dextrose (D50w Vial) 50 ml IV.PUSH UNSCH PRN PRN Reason: PER HYPOGLYCEMIA PROTOCOL Docusate Sodium (Colace) 100 mg PO BID [facility] Enalapril Maleate (Vasotec) 5 mg PO DAILY [facility] Last Admin: 01/05/18 08:34 Dose: 5 mg Glucagon (Glucagon Inj) 1 mg OTHER PRN PRN PRN Reason: for Hypoglycemia Protocol Pharmacy Profile Note (Vancomycin Consult Pharmacy) 0 mls @ 0 mls/hr OTHER UNSCH [facility] Piperacillin/Tazobactam/Dextrose (Zosyn 3.375 Gm Premix) 50 mls @ 100 mls/hr IV.SIG Q6H [facility] Last Infusion: 01/05/18 16:21 Dose: Infused Vancomycin HCl 1,250 mg/ (Sodium Chloride) 262.5 mls @ 250 mls/hr IV.SIG Q12H [facility] Last Infusion: 01/05/18 13:57 Dose: Infused Insulin Aspart (Novolog Insulin Correctional Sugar Inj) 0 unit SQ ACHS [facility]; Protocol Last Admin: 01/05/18 16:59 Dose: 4 unit Insulin Detemir (Levemir Inj) 10 unit SQ DAILY [facility] Last Admin: 01/05/18 08:36 Dose: 10 unit Lactulose (Lactulose Liq) 30 ml PO DAILY PRN PRN Reason: SEVERE CONSITIPATION Miscellaneous Information ([facility] Ordered Lab Info) 0 each OTHER ONCE ONE Stop: 01/10/18 11:46 Morphine Sulfate (Morphine Inj) 2 mg IV.PUSH Q1H PRN PRN Reason: BREAKTHROUGH PAIN 1 -10 Last Admin: 01/05/18 03:14 Dose: 2 mg Pravastatin Sodium (Pravachol) 40 mg PO DAILY [facility] Last Admin: 01/05/18 08:34 Dose: 40 mg Ranolazine (Ranexa) 500 mg PO Q12H [facility] Last Admin: 01/05/18 08:39 Dose: 500 mg Sennosides (Senokot) 17.2 mg PO Q12H PRN PRN Reason: Moderate Constipation Last Admin: 01/05/18 05:33 Dose: 8.6 mg Sodium Chloride (Ns Flush) 2 ml IV.FLUSH BID [facility] Last Admin: 01/05/18 08:40 Dose: 2 ml Sodium Chloride (Ns Flush) 2 ml IV.FLUSH PRN PRN PRN Reason: FLUSH AFTER USING IV ACCESS Temazepam (Restoril) 15 mg PO HS PRN PRN Reason: INSOMNIA Allergies Allergy/AdvReac Type Severity Reaction Status Date / Time No Known Allergies Allergy Unverified 12/25/17 13:13 Home Medications Medication Instructions Recorded Confirmed Type amitriptyline 25 mg PO DAILY 12/25/17 12/25/17 History aspirin 81 mg PO DAILY 12/25/17 12/25/17 History cefepime 50 mg/kg IV Q8H 12/25/17 12/25/17 History enalapril maleate 5 mg PO DAILY 12/25/17 12/25/17 History heparin (porcine) in 5 % dex 250 ml IV DIRECTED 12/25/17 12/25/17 History hydrocodone-acetaminophen [Hurley] 1 tab PO Q4-6H PRN 12/25/17 12/25/17 History insulin asp prt-insulin aspart 20 unit SUB-Q BID 12/25/17 12/25/17 History insulin asp prt-insulin aspart 20 unit SUB-Q BID 12/25/17 12/25/17 History [Novolog Mix 70-30FlexPen U-100] metformin 1,000 mg PO BID 12/25/17 12/25/17 History ranolazine [Ranexa] 500 mg PO Q12H 12/25/17 12/25/17 History simvastatin 20 tab PO DAILY 12/25/17 12/25/17 History Results - Labs CBC & Chem 7: 01/04/18 05:32 01/04/18 05:32 Laboratory Results - last 24 hr 01/04/18 01/05/18 01/05/18 20:32 07:53 11:46 POC Glucose 210 H 236 H 289 H Vancomycin Trough 01/05/18 01/05/18 12:29 16:23 POC Glucose 248 H Vancomycin Trough 16.8 H Microbiology 01/04/18 18:30 Wound - Foot Gram Stain - Final 01/04/18 18:30 Wound - Foot Wound Culture - Preliminary gram negative rods - Imaging Impressions Foot X-Ray 01/04/18 00:00 CONCLUSION: 1. New surgical changes second toe and second metatarsal and of the first metatarsal without evidence of an acute complication here. 2. Fracture propagation neck region of the third metatarsal since the prior study. Displacement is minimal. 3. Chronic bone changes fourth metatarsal head and phalanges. Assessment and Plan - Assessment (1) Gangrene due to peripheral vascular disease Code(s): I96 - Gangrene, not elsewhere classified; I73.9 - Peripheral vascular disease, unspecified Status: Acute Plan: To OR tomorrow for right foot partial 1st ray amputation. Discussed risks/benefits/complications with patient and he agrees to proceed. Discussed with Dr Llanos for revascularization early next week. Will continue to monitor tissue response to revascularization/IV antibiotics postoperatively to determine if further foot surgery is required later next week. NPO after midnight Consent ordered (2) Abscess of right foot including toes Code(s): L02.611 - Cutaneous abscess of right foot Status: Acute - Plan s/p revision partial 1st ray and partial 2nd ray amputation right foot, 01/04/18 Dr Mccollum Heel touch for transfers only. Ok to keep bandage intact and follow up in clinic in 1 week for dressing change. Podiatry ok with discharge tomorrow 01/06/18
[2018-01-05] MEDS: Docusate Sodium 100 MG Capsule PO SCH (20:07)
[2018-01-06] MEDS: Vancomycin Inj 1,250 MG in Sodium Chlor 0.9% Inj 250 ML IV.SIG SCH ×2 (00:03→12:49)
[2018-01-06] MEDS: Piperacil/Tazo 3.375 GM Premix 50 ML IV.SIG SCH ×4 (02:57→21:03)
[2018-01-06] MEDS: Docusate Sodium 100 MG Capsule PO SCH ×2 (09:31→21:03)
[2018-01-06] MEDS: Insulin NovoLOG Aspart Correctional Sugar Inj SQ SCH ×4 (09:32→21:05)
[2018-01-06] MEDS: Amitriptyline 25 MG Tablet PO SCH (09:33)
[2018-01-06] MEDS: Insulin Detemir Inj 1,000 UNIT/10 ML Vial SQ SCH (09:33)
[2018-01-06 09:43] LABS: Baso % (Auto) 0.5 % (0.0-2.0); Eos # (Auto) 0.1 th/mm3 (0.0-0.4); Eos % (Auto) 1.2 % (0.0-4.0); Hematocrit 23.1 % (39.0-51.0); Hemoglobin 7.8 gm/dL (13.0-17.0); Lymph % (Auto) 10.8 % (9.0-44.0); Mean Corpuscular HGB Conc 33.9 % (32.0-36.0); Mean Corpuscular Hemoglobin 29.5 pg (27.0-34.0); Mean Platelet Volume 7.8 fL (7.0-11.0); Mono # (Auto) 0.7 th/mm3 (0.0-0.9); Neut # (Auto) 7.3 th/mm3 (1.8-7.7); Neut % (Auto) 79.5 % (16.0-70.0); Platelet Count 221 th/mm3 (150-450); Red Blood Count 2.65 mil/mm3 (4.50-5.90); Red Cell Distribution Width 13.9 % (11.6-17.2); White Blood Count 9.1 th/mm3 (4.0-11.0)
[2018-01-06 10:08] LABS: Albumin 2.4 g/dL (3.4-5.0); Anion Gap 9 meq/L (5-15); Aspartate Aminotransferase 7 U/L (15-37); Calcium 7.8 mg/dL (8.5-10.1); Carbon Dioxide 24.4 meq/L (21.0-32.0); Chloride 103 meq/L (98-107); Glomerular Filtration Rate 59 mL/min (>89); Glucose,Random 256 mg/dL (74-106); Potassium 3.8 meq/L (3.5-5.1); Sodium 136 meq/L (136-145)
[2018-01-06 10:10] LABS: Blood Urea Nitrogen 13 mg/dL (7-18); Total Protein 6.6 g/dL (6.4-8.2)
[2018-01-06 10:11] LABS: Alkaline Phosphatase 47 U/L (45-117)
[2018-01-06] MEDS: Ranolazine 500 MG 12HR ER Tablet PO SCH ×2 (11:07→22:34)
--- NOTE | 2018-01-06 13:11 | P.PNIM ---
Subjective Interval history: Patient has been cleared by podiatry today. He says he is having difficulty walking with a walker without being able to put any pressure on his right foot. Repeat physical therapy evaluation pending. Physical Exam Vital signs: Vital Signs 01/05/18 16:00 01/05/18 19:59 01/05/18 20:00 Temperature 101.5 F H Pulse Rate 61 89 Respiratory Rate 18 17 Blood Pressure 171/81 H Pulse Oximetry 96 01/05/18 21:32 01/06/18 00:00 01/06/18 01:31 Temperature 100.9 F H Pulse Rate 87 Respiratory Rate 18 18 18 Blood Pressure 138/66 Pulse Oximetry 97 01/06/18 04:00 01/06/18 06:33 01/06/18 07:00 Temperature 98.6 F Pulse Rate 77 77 Respiratory Rate 18 18 Blood Pressure 124/58 L Pulse Oximetry 95 01/06/18 07:46 01/06/18 08:00 01/06/18 11:06 Temperature 99.5 F Pulse Rate 80 81 81 Respiratory Rate 18 Blood Pressure 125/60 Pulse Oximetry 95 01/06/18 12:00 Temperature 99.3 F Pulse Rate 77 Respiratory Rate 18 Blood Pressure 147/67 H Pulse Oximetry 97 Intake & Output 01/05/18 01/06/18 01/06/18 18:59 06:59 18:59 Intake Total 1082.5 / 1082.5 722.5 / 722.5 Output Total 1900 / 1900 550 / 550 Balance -817.5 / -817.5 172.5 / 172.5 Weight 100.8 kg Intake: IV 362.5 / 362.5 362.5 / 362.5 Zosyn 3.375 GM Premix 50 ML @ 100 / 100 100 / 100 100 mls/hr IV.SIG Q6H MEY Rx#: [id number] Vancomycin Inj 1,250 MG In NS 262.5 / 262.5 262.5 / 262.5 Inj 250 ML @ 250 mls/hr IV.SIG Q12H MEY Rx#:[id number] Oral 720 / 720 360 / 360 Output: Urine 1900 / 1900 550 / 550 Other: Date of Last Bowel Movement 01/04/18 01/04/18 Narrative: GENERAL: NAD, A&Ox3 HEAD: Normocephalic. NECK: Supple, trachea midline. No lymphadenopathy. EYES: No scleral icterus. No injection or drainage. CARDIOVASCULAR: Regular rate and rhythm without murmurs, gallops, or rubs. RESPIRATORY: Breath sounds equal bilaterally. No accessory muscle use. GASTROINTESTINAL: Abdomen soft, non-tender, nondistended. MUSCULOSKELETAL: No cyanosis, or edema. Right foot bandaged. Healthy postop vascular surgery wounds of right lower extremity. SKIN: Warm and dry. NEURO: No focal neurological deficits. - Urinary Catheter Management Indwelling Urethral Catheter Cath placed during this visit: yes Reason for continuing: Not indwelling catheter Insertion date: 12/30/17 Insertion time: 13:05 Indwelling Temp Sensing Catheter Cath placed during this visit: yes Reason for continuing: Not indwelling catheter Insertion date: 12/30/17 Straight Cath placed during this visit: no Results - Labs CBC & Chem 7: 01/06/18 08:39 01/06/18 08:39 Laboratory Results - last 24 hr 01/05/18 01/05/18 01/05/18 12:29 16:23 20:02 WBC RBC Hgb Hct MCV MCH MCHC RDW Plt Count MPV Neut % (Auto) Lymph % (Auto) Divide % (Auto) Eos % (Auto) Baso % (Auto) Neut # (Auto) Lymph # (Auto) Divide # (Auto) Eos # (Auto) Baso # (Auto) WBC Differential Differential Comment Sodium Potassium Chloride Carbon Dioxide Anion Gap BUN Creatinine Estimated GFR POC Glucose 248 H 303 H Random Glucose Calcium Total Bilirubin AST ALT Alkaline Phosphatase Total Protein Albumin Vancomycin Trough 16.8 H 01/06/18 01/06/18 01/06/18 08:39 08:39 08:49 WBC 9.1 RBC 2.65 L Hgb 7.8 L Hct 23.1 L MCV 87.0 MCH 29.5 MCHC 33.9 RDW 13.9 Plt Count 221 MPV 7.8 Neut % (Auto) 79.5 H Lymph % (Auto) 10.8 Divide % (Auto) 8.0 Eos % (Auto) 1.2 Baso % (Auto) 0.5 Neut # (Auto) 7.3 Lymph # (Auto) 1.0 Divide # (Auto) 0.7 Eos # (Auto) 0.1 Baso # (Auto) 0.0 WBC Differential . Differential Comment Auto diff final Sodium 136 Potassium 3.8 Chloride 103 Carbon Dioxide 24.4 Anion Gap 9 BUN 13 Creatinine 1.23 Estimated GFR 59 L POC Glucose 326 H Random Glucose 256 H Calcium 7.8 L Total Bilirubin 0.4 AST 7 L ALT Less than 6 L Alkaline Phosphatase 47 Total Protein 6.6 Albumin 2.4 L Vancomycin Trough 01/06/18 12:02 WBC RBC Hgb Hct MCV MCH MCHC RDW Plt Count MPV Neut % (Auto) Lymph % (Auto) Divide % (Auto) Eos % (Auto) Baso % (Auto) Neut # (Auto) Lymph # (Auto) Divide # (Auto) Eos # (Auto) Baso # (Auto) WBC Differential Differential Comment Sodium Potassium Chloride Carbon Dioxide Anion Gap BUN Creatinine Estimated GFR POC Glucose 304 H Random Glucose Calcium Total Bilirubin AST ALT Alkaline Phosphatase Total Protein Albumin Vancomycin Trough Microbiology 01/04/18 18:30 Wound - Foot Acid Fast Bacilli Smear - Final No acid fast bacilli seen 01/04/18 18:30 Wound - Foot Gram Stain - Final 01/04/18 18:30 Wound - Foot Wound Culture - Final Klebsiella pneumoniae Pseudomonas aeruginosa Assessment and Plan - Plan 62-year-old male admitted secondary to right toe gangrene, now status post bypass surgery and amputation Patient has been cleared by podiatry and vascular surgery. Repeat physical therapy evaluation pending. Patient will need to be functional for care for self at home prior to discharge. Gangrene, right large toe Status post amputation Amputation surgery occurred on 12/31/2017 Bypass graft with vascular surgery occurred on 12/30/2017 Pain control Continue heparin drip, ranolazine Continue vancomycin and Zosyn Improved ambulation needed prior to discharge Continue with physical therapy Type 2 diabetes Follow blood sugars Insulin sliding scale Diabetic diet h/o CHF, CAD Asymptomatic continue aspirin, enalapril h/o HTN Continue baseline treatment Follow blood pressures Adjust treatments as needed continue enalapril Continue Clonidine as needed Discharge Planning Physical functionality needed prior to discharge Podiatry is clear patient for discharge Vascular surgery has cleared patient for discharge.
[2018-01-07] MEDS: Vancomycin Inj 1,250 MG in Sodium Chlor 0.9% Inj 250 ML IV.SIG SCH ×2 (00:48→12:37)
[2018-01-07] MEDS: Piperacil/Tazo 3.375 GM Premix 50 ML IV.SIG SCH ×4 (03:35→21:24)
[2018-01-07] MEDS: Insulin NovoLOG Aspart Correctional Sugar Inj SQ SCH ×4 (08:44→21:22)
[2018-01-07] MEDS: Insulin Detemir Inj 1,000 UNIT/10 ML Vial SQ SCH (08:45)
[2018-01-07] MEDS: Docusate Sodium 100 MG Capsule PO SCH ×2 (08:45→21:23)
[2018-01-07] MEDS: Ranolazine 500 MG 12HR ER Tablet PO SCH ×2 (08:45→21:23)
[2018-01-07] MEDS: Amitriptyline 25 MG Tablet PO SCH (08:45)
--- NOTE | 2018-01-07 12:56 | P.PNIM ---
Subjective Interval history: Patient reports fatigue today. He is working in physical therapy. Pain is under control. Physical Exam Vital signs: Vital Signs 01/06/18 15:00 01/06/18 15:18 01/06/18 16:00 Temperature 98.6 F Pulse Rate 68 77 Respiratory Rate 18 18 Blood Pressure 159/72 H Pulse Oximetry 97 01/06/18 20:00 01/06/18 21:27 01/07/18 00:00 Temperature 98.7 F 98.7 F Pulse Rate 83 78 Respiratory Rate 17 18 17 Blood Pressure 188/84 H 137/64 Pulse Oximetry 99 99 01/07/18 04:00 01/07/18 08:00 01/07/18 12:00 Temperature 98.2 F 99.5 F 97.9 F Pulse Rate 88 74 70 Respiratory Rate 18 18 17 Blood Pressure 163/89 H 166/79 H 139/66 Pulse Oximetry 100 96 98 Intake & Output 01/06/18 01/07/18 01/07/18 18:59 06:59 18:59 Intake Total 1322.5 / 1322.5 362.5 / 362.5 50 / 50 Output Total 500 / 500 Balance 822.5 / 822.5 362.5 / 362.5 50 / 50 Weight 101.3 kg Intake: IV 362.5 / 362.5 362.5 / 362.5 50 / 50 Zosyn 3.375 GM Premix 50 ML @ 100 / 100 100 / 100 50 / 50 100 mls/hr IV.SIG Q6H MEY Rx#: [id number] Vancomycin Inj 1,250 MG In NS 262.5 / 262.5 262.5 / 262.5 Inj 250 ML @ 250 mls/hr IV.SIG Q12H MEY Rx#:[id number] Oral 960 / 960 Output: Urine 500 / 500 Other: Date of Last Bowel Movement 01/04/18 Narrative: GENERAL: NAD, A&Ox3 HEAD: Normocephalic. NECK: Supple, trachea midline. No lymphadenopathy. EYES: No scleral icterus. No injection or drainage. CARDIOVASCULAR: Regular rate and rhythm without murmurs, gallops, or rubs. RESPIRATORY: Breath sounds equal bilaterally. No accessory muscle use. GASTROINTESTINAL: Abdomen soft, non-tender, nondistended. MUSCULOSKELETAL: No cyanosis, or edema. Right foot bandaged. Healthy postop vascular surgery wounds of right lower extremity. SKIN: Warm and dry. NEURO: No focal neurological deficits. - Urinary Catheter Management Indwelling Urethral Catheter Cath placed during this visit: yes Reason for continuing: Not indwelling catheter Insertion date: 12/30/17 Insertion time: 13:05 Indwelling Temp Sensing Catheter Cath placed during this visit: yes Reason for continuing: Not indwelling catheter Insertion date: 12/30/17 Straight Cath placed during this visit: no Results - Labs CBC & Chem 7: 01/06/18 08:39 01/06/18 08:39 Laboratory Results - last 24 hr 01/06/18 01/06/18 01/07/18 16:54 20:26 08:11 POC Glucose 160 H 259 H 195 H 01/07/18 12:15 POC Glucose 281 H Microbiology 01/04/18 18:30 Wound - Foot Acid Fast Bacilli Smear - Final No acid fast bacilli seen 01/04/18 18:30 Wound - Foot Gram Stain - Final 01/04/18 18:30 Wound - Foot Wound Culture - Final Klebsiella pneumoniae Pseudomonas aeruginosa Assessment and Plan - Plan 62-year-old male admitted secondary to right toe gangrene, now status post bypass surgery and amputation Patient has been cleared by podiatry and vascular surgery. Continue physical therapy until patient likely functional to return to home in care of herself. Patient is self-pay and has no options for rehab placement. Gangrene, right large toe Status post amputation Amputation surgery occurred on 12/31/2017 Bypass graft with vascular surgery occurred on 12/30/2017 Pain control Continue heparin drip, ranolazine Continue vancomycin and Zosyn Improved ambulation needed prior to discharge Continue with physical therapy Type 2 diabetes Follow blood sugars Insulin sliding scale Diabetic diet h/o CHF, CAD Asymptomatic continue aspirin, enalapril h/o HTN Continue baseline treatment Follow blood pressures Adjust treatments as needed continue enalapril Continue Clonidine as needed Discharge Planning Improved physical functionality needed prior to discharge Podiatry is clear patient for discharge Vascular surgery has cleared patient for discharge.
[2018-01-08] MEDS: Piperacil/Tazo 3.375 GM Premix 50 ML IV.SIG SCH ×4 (02:15→21:02)
[2018-01-08] MEDS ORDERED: Vancomycin Inj 1,250 MG in Sodium Chlor 0.9% Inj 250 ML IV.SIG SCH (06:00)
[2018-01-08] MEDS: Insulin Detemir Inj 1,000 UNIT/10 ML Vial SQ SCH (07:59)
[2018-01-08] MEDS: Amitriptyline 25 MG Tablet PO SCH (07:59)
[2018-01-08] MEDS: Ranolazine 500 MG 12HR ER Tablet PO SCH ×2 (07:59→21:02)
[2018-01-08] MEDS: Docusate Sodium 100 MG Capsule PO SCH ×2 (07:59→21:02)
[2018-01-08] MEDS: Insulin NovoLOG Aspart Correctional Sugar Inj SQ SCH ×4 (09:31→21:01)
--- NOTE | 2018-01-08 16:13 | P.PNIM ---
Subjective Interval history: RN denies any deterioration since last night. Pt thinks he needs some more rehab. Physical Exam Vital signs: Vital Signs 01/07/18 20:00 01/08/18 00:00 01/08/18 04:00 Temperature 98.5 F 98.9 F 98.5 F Pulse Rate 78 76 74 Respiratory Rate 18 18 18 Blood Pressure 142/62 H 159/83 H Pulse Oximetry 97 97 97 01/08/18 11:08 01/08/18 12:00 Temperature 98.7 F 97.2 F L Pulse Rate 72 69 Respiratory Rate 20 20 Blood Pressure 175/79 H 135/63 Pulse Oximetry 96 100 Intake & Output 01/07/18 01/08/18 01/08/18 18:59 06:59 18:59 Intake Total 362.5 / 362.5 1082 / 1082 312.5 / 312.5 Output Total 1100 / 1100 Balance 362.5 / 362.5 -18 / -18 312.5 / 312.5 Weight 102.5 kg Intake: IV 362.5 / 362.5 362 / 362 312.5 / 312.5 Zosyn 3.375 GM Premix 50 ML @ 100 / 100 100 / 100 50 / 50 100 mls/hr IV.SIG Q6H MEY Rx#: [id number] Vancomycin Inj 1,250 MG In NS 262.5 / 262.5 262 / 262 262.5 / 262.5 Inj 250 ML @ 250 mls/hr IV.SIG Q18H MEY Rx#:[id number] Oral 720 / 720 Output: Urine 1100 / 1100 Other: # Voids 3 Date of Last Bowel Movement 01/07/18 12/31/17 Narrative: Right foot is in postop shoe/status post ray amputation Postop wound with no obvious drainage, wound dressing in place, sutures in place - Urinary Catheter Management Indwelling Urethral Catheter Cath placed during this visit: yes Reason for continuing: Not indwelling catheter Insertion date: 12/30/17 Insertion time: 13:05 Indwelling Temp Sensing Catheter Cath placed during this visit: yes Reason for continuing: Not indwelling catheter Insertion date: 12/30/17 Straight Cath placed during this visit: no Results - Labs CBC & Chem 7: 01/06/18 08:39 01/08/18 05:37 Laboratory Results - last 24 hr 01/07/18 01/07/1801/08/18 17:28 19:55 05:37 Creatinine 1.20 Estimated GFR 61 L POC Glucose 293 H 286 H 01/08/18 01/08/18 07:27 11:22 Creatinine Estimated GFR POC Glucose 195 H 310 H Microbiology 01/04/18 18:30 Wound - Foot Fungal Smear - Final No fungal elements seen Assessment and Plan - Plan 62-year-old male admitted secondary to right toe gangrene, now status post bypass surgery and amputation Patient has been cleared by podiatry and vascular surgery. Continue physical therapy until patient likely functional to return to home in care of himself. Patient is self-pay and has no options for rehab placement. Gangrene, right large toe Status post amputation Amputation surgery occurred on 12/31/2017 Bypass graft with vascular surgery occurred on 12/30/2017 Pain control Continue heparin drip, ranolazine Continue vancomycin and Zosyn Improved ambulation needed prior to discharge Continue with physical therapy Type 2 diabetes Follow blood sugars Insulin sliding scale h/o CHF, CAD Asymptomatic continue aspirin, enalapril h/o HTN continue enalapril Continue Clonidine as needed Discharge Planning Improved physical functionality needed prior to discharge Podiatry has cleared patient for discharge Vascular surgery has cleared patient for discharge.
[2018-01-09] MEDS: Piperacil/Tazo 3.375 GM Premix 50 ML IV.SIG SCH ×3 (04:25→14:53)
[2018-01-09] MEDS: Insulin NovoLOG Aspart Correctional Sugar Inj SQ SCH ×5 (08:28→21:13)
[2018-01-09] MEDS: Ranolazine 500 MG 12HR ER Tablet PO SCH ×2 (08:29→21:12)
[2018-01-09] MEDS: Docusate Sodium 100 MG Capsule PO SCH ×2 (08:29→21:12)
[2018-01-09] MEDS: Amitriptyline 25 MG Tablet PO SCH (08:29)
[2018-01-09] MEDS: Insulin Detemir Inj 1,000 UNIT/10 ML Vial SQ SCH ×3 (11:32→21:13)
[2018-01-09] MEDS ORDERED: Vancomycin Inj 1,250 MG in Sodium Chlor 0.9% Inj 250 ML IV.SIG SCH (13:00)
--- NOTE | 2018-01-09 16:12 | P.PNIM ---
Subjective Interval history: Denies any deterioration since last night. Physical therapy reports that the patient starts to bear weight on his foot when he gets tired during his physical therapy sessions and needs to be reminded to not bear weight on the front of his right foot. Patient himself has no new complaints otherwise. Says he bled a little bit after the adhesive dressing was changed yesterday since he is on a blood thinner (Eliquis). Physical Exam Vital signs: Vital Signs 01/08/18 20:00 01/09/18 00:00 01/09/18 04:00 Temperature 98.0 F 98.3 F 98.6 F Pulse Rate 66 77 84 Respiratory Rate 18 18 16 Blood Pressure 159/76 H 126/66 185/88 H Pulse Oximetry 99 95 96 01/09/18 08:00 01/09/18 12:00 Temperature 97.9 F 98.1 F Pulse Rate 68 67 Respiratory Rate 20 Blood Pressure 162/80 H 159/75 H Pulse Oximetry 98 Intake & Output 01/08/18 01/09/18 01/09/18 18:59 06:59 18:59 Intake Total 1442.5 / 1442.5 580 / 580 312.05 / 312.05 Output Total 800 / 800 Balance 642.5 / 642.5 580 / 580 312.05 / 312.05 Weight 103.9 kg Intake: IV 362.5 / 362.5 100 / 100 312.05 / 312.05 Zosyn 3.375 GM Premix 50 ML @ 100 / 100 100 / 100 50 / 50 100 mls/hr IV.SIG Q6H MEY Rx#: [id number] Vancomycin Inj 1,250 MG In NS 262.5 / 262.5 262.05 / 262.05 Inj 250 ML @ 250 mls/hr IV.SIG Q12H MEY Rx#:[id number] Oral 1080 / 1080 480 / 480 Output: Urine 800 / 800 Other: # Voids 2 1 # Urine Diapers 2 Date of Last Bowel Movement 12/31/17 01/09/18 # Bowel Movements 0 1 Narrative: Right foot in postop dressing which appears to be soaked in now dried blood, in post op shoe sitting up in chair - Urinary Catheter Management Indwelling Urethral Catheter Cath placed during this visit: yes Reason for continuing: Not indwelling catheter Insertion date: 12/30/17 Insertion time: 13:05 Indwelling Temp Sensing Catheter Cath placed during this visit: yes Reason for continuing: Not indwelling catheter Insertion date: 12/30/17 Straight Cath placed during this visit: no Results - Labs CBC & Chem 7: 01/06/18 08:39 01/08/18 05:37 Laboratory Results - last 24 hr 01/08/18 01/08/18 01/09/18 16:24 19:56 07:24 POC Glucose 260 H 274 H 210 H Random Vancomycin 01/09/18 01/09/18 10:30 11:50 POC Glucose 276 H Random Vancomycin 9.8 Microbiology 12/26/17 09:30 Wound - Foot Fungal Smear - Final No fungal elements seen 12/26/17 09:30 Wound - Foot Fungal Culture - Preliminary No growth in 2 weeks 12/26/17 09:30 Wound - Foot Acid Fast Bacilli Smear - Final No acid fast bacilli seen 12/26/17 09:30 Wound - Foot Mycobacterial Culture - Preliminary No growth in 2 weeks Assessment and Plan - Plan 62-year-old male admitted secondary to right toe gangrene, now status post bypass surgery and amputation Patient has been cleared by podiatry and vascular surgery. Continue physical therapy until patient likely functional to return to home in care of himself. Patient is self-pay and has no options for rehab placement. Gangrene, right large toe Status post amputation Amputation surgery occurred on 12/31/2017 Bypass graft with vascular surgery occurred on 12/30/2017 Pain control Continue ranolazine transitioning to Levaquin. Improved ambulation needed prior to discharge Continue with physical therapy Type 2 diabetes Still uncontrolled BS while on MDSS plus levemir 10 daily; will Double levemir dosing from 10 daily to 10 bid; plenty of room to expand insulin coverage given sugars are reaching 300s - essential to wound healing h/o CHF, CAD Asymptomatic continue aspirin, enalapril h/o HTN continue enalapril Continue Clonidine as needed Discharge Planning Improved physical functionality needed prior to discharge Podiatry has cleared patient for discharge Vascular surgery has cleared patient for discharge.
[2018-01-09] MEDS ORDERED: Pharmacy Ordered Lab Info OTHER ONE (17:45)
[2018-01-09] MEDS ORDERED: Insulin Detemir Inj 1,000 UNIT/10 ML Vial SQ SCH (21:00)
[2018-01-09] MEDS: levoFLOXacin 750 MG Tablet PO SCH (21:11)
[2018-01-10] MEDS: Amitriptyline 25 MG Tablet PO SCH (08:24)
[2018-01-10] MEDS: Ranolazine 500 MG 12HR ER Tablet PO SCH ×2 (08:24→20:48)
[2018-01-10] MEDS: Docusate Sodium 100 MG Capsule PO SCH ×2 (08:25→20:45)
[2018-01-10] MEDS: Insulin NovoLOG Aspart Correctional Sugar Inj SQ SCH ×4 (10:06→20:44)
[2018-01-10] MEDS: Insulin Detemir Inj 1,000 UNIT/10 ML Vial SQ SCH ×2 (10:08→20:46)
[2018-01-10] MEDS ORDERED: Pharmacy Ordered Lab Info OTHER ONE (11:45)
[2018-01-10] MEDS ORDERED: NIFEdipine 10 MG Capsule PO ONE (11:48)
--- NOTE | 2018-01-10 12:32 | MP ---
cc: Precious Mccollum DPM DATE OF OPERATION: 01/04/2018 INDICATIONS: The patient presented initially with gangrene and active infection, with purulent drainage to the right foot/great toe area. He underwent relatively urgent amputation of the great toe and partial first ray amputation. He subsequently underwent revascularization with Dr. Llanos and I discussed with the patient, after examining his soft tissue to the area, that he needed to undergo revision of this partial first ray amputation and possible partial second ray amputation in order to achieve primary closure of the area secondary to continued demarcation. He agreed to move forward with surgery. PROCEDURE IN DETAIL: He was seen in preop holding by myself, nursing staff, and anesthesia where the correct patient, side, and site were all confirmed to be correct on the right foot. He was then taken to the surgical suite in supine position. Right foot was prepped and draped in normal sterile fashion. After timeouts were performed per facility protocol, the right foot was addressed. There was some necrotic tissue noted from previous amputation site of the partial first ray amputation. It was excised and the second toe was amputated, as well as further bone removed at the level of the midshaft second metatarsal area. All the bone was resected and necrotic tissue was resected and sent to pathology as a specimen. Active bleeders were noted. There was adequate bleeding noted throughout the remaining soft tissue. All necrotic tissue was removed and the area was irrigated, followed by culture of the area. Irrigated with normal saline and closed primarily with 2-0 nylon suture. A dressing consisting of Xeroform, 4 x 4s, ABD, cast padding, and Gerald were applied to the right foot. He tolerated the procedure and anesthesia well and will be nonweightbearing to the right foot. No further surgery is anticipated and he needs to follow up in clinic in 1 week for a dressing change. SHORT OPERATIVE NOTE SURGEON: Precious Mccollum DPM. FIELD [employer]ILLERY OPERATIONS SPECIALIST: Staff. PREOPERATIVE DIAGNOSES: 1. Gangrene, right foot. 2. Cellulitis, right foot. 3. Abscess, right foot. POSTOPERATIVE DIAGNOSES: 1. Gangrene, right foot. 2. Cellulitis, right foot. 3. Abscess, right foot. PROCEDURES PERFORMED: 1. Revision amputation, right foot partial first ray. 2. Right foot partial second ray amputation. PATHOLOGY: 1. Partial first and second ray, right foot. 2. Culture right foot. TYPE OF ANESTHESIA: General endotracheal anesthesia. ESTIMATED BLOOD LOSS: 80 mL. CONDITION: Stable to PACU. DISPOSITION: Nonweightbearing right foot. No further surgery. Anticipated followup in clinic in 1 week for a dressing change. CASTILLO Zaldivar/bhavana , 11:22 AM , 11:29 AM
--- NOTE | 2018-01-10 17:24 | P.DS ---
Date of admission: 12/25/17 12:07 Primary care physician: UNKNOWN Brief History from admission: 62-year-old male with a history of diabetes mellitus, CAD with CABG in 2013, cardiomyopathy with EF 4550%, hypertension, peripheral artery disease with history of PCI to the right leg, hyperlipidemia, peripheral neuropathy, history of osteomyelitis with partial amputation of the right fourth toe who presented to outside hospital 2 weeks ago with right first toe cellulitis, which has subsequently progressed to wet gangrene. Patient was continued on broad- spectrum antibiotics. Podiatry and interventional radiology were consulted during admission. Patient underwent right lower extremity catheterization with balloon angioplasty of proximal right anterior tibial artery, right posterior tibial artery. Patient reports continued intermittent neuropathic type pain in the right leg. Denies any chest pain or shortness of breath. Denies nausea or vomiting. Patient transferred here per discussion between referring hospital and vascular surgery. Patient reportedly may need further revascularization. DS: Medications - Discharge Medications Prescriptions: apixaban [Eliquis] 5 mg PO BID #60 tab carvedilol 6.25 mg PO BID #60 tab hydrocodone-acetaminophen [[place]] 1 tab PO Q6H PRN #24 tab PRN Reason: Acute Pain levofloxacin 750 mg PO DAILY #7 tab DS: Summary Hospital Course: Patient was admitted and had a complex course while inpatient. Podiatry and vascular surgery were consulted while started on abx. Ultimately underwent 4 operations: - 12/26 right foot partial first ray amputation -on 12/28 pt underwent Aortogram w/ R LE angiogram, U/S guided access to R DP, R LE angiogram via pedal access, and L SENIOR COMMUNICATIONS SPECIALIST Angioseal. -Then on 12/30/17 Under went R BK pop-DP bypass with cryo vein and Vein patch of DP. -on 01/04/18 Also underwent Revision amputation right foot partial 1st ray and Right foot partial 2nd ray amputation. Foot cultures grew Pseudomonas and Klebsiella, abx were continued. Patient had improvement in his blood sugars. Patient was not a qualifying candidate for [facility] rehab bed. Ultimately PT cleared the patient to be able to go home so long as the patient agreed to follow instructions (which he was emphatically informed of) to avoid weightbearing of the right foot, only allowed to heal weight-bear for transfers only per podiatry. Patient verbalized understanding of instructions and understood that he would otherwise need to use a wheelchair for ambulatory purposes until cleared by podiatry in the outpatient setting to ambulate otherwise. Patient has met maximal benefit from hospitalization and is clinically stable for discharge. [employer] Prescription Drug Monitoring Database has been queried and verified prior to prescribing the controlled subsection. Patient is having significant pain caused by patient's foot condition which will last more than 3 days. Trial of alternative treatment options other than prescribed opioids has not helped. I believe that it is medically necessary to treat the patients pain because it is affecting patients ability to return to normal level of function. - Time Spent with Patient Total time spent providing and/or coordinating discharge services: Less than 30 minutes - Quality: VTE Deep Vein Thrombosis/Pulmonary Embolism Present on Admission: No Exam Vital signs: Vital Signs 01/09/18 20:00 01/10/18 00:00 01/10/18 04:00 Temperature 97.7 F 98.0 F 98.0 F Pulse Rate 74 84 69 Respiratory Rate 20 20 20 Blood Pressure 172/71 H 187/83 H 176/83 H Pulse Oximetry 99 97 97 01/10/18 05:34 01/10/18 08:00 01/10/18 12:00 Temperature 97.9 F 98 F Pulse Rate 71 74 Respiratory Rate 20 20 Blood Pressure 160/75 H 170/78 H 105/55 L Pulse Oximetry 100 98 01/10/18 16:00 Temperature 98.6 F Pulse Rate 73 Respiratory Rate 20 Blood Pressure 136/65 Pulse Oximetry 97 Intake & Output 01/09/18 01/10/18 01/10/18 18:59 06:59 18:59 Intake Total 1612.05 / 1612.05 120 / 120 Output Total 550 / 550 Balance 1612.05 / 1612.05 -430 / -430 Weight 103.4 kg Intake: IV 312.05 / 312.05 Zosyn 3.375 GM Premix 50 ML @ 50 / 50 100 mls/hr IV.SIG Q6H MEY Rx#: [id number] Vancomycin Inj 1,250 MG In NS 262.05 / 262.05 Inj 250 ML @ 250 mls/hr IV.SIG Q12H MEY Rx#:[id number] Oral 1300 / 1300 120 / 120 Output: Urine 550 / 550 Other: # Voids 3 Date of Last Bowel Movement 01/09/18 01/09/18 # Bowel Movements 1 1 Narrative: Right foot and postop dressing and postop shoe Results Procedures completed during hospitalization: - 12/26 right foot partial first ray amputation -on 12/28 pt underwent Aortogram w/ R LE angiogram, U/S guided access to R DP, R LE angiogram via pedal access, and L SENIOR COMMUNICATIONS SPECIALIST Angioseal. Date of procedure: 12/30/17 Procedure: 1. R BK pop-DP bypass with cryo vein 2. Vein patch of DP Implants: cryo vein Date of procedure: 01/04/18 Procedure: 1. Revision amputation right foot partial 1st ray 2. Right foot partial 2nd ray amputation Completed studies during hospitalization: Pending at discharge 01/04/18 07:35 Surgical [PTH] Routine Labs on day of discharge: Labs from last 24 hours 01/10/18 01/10/18 01/10/18 17:08 12:34 08:22 Creatinine Estimated GFR POC Glucose 237 H 320 H 175 H 01/10/18 01/09/18 05:56 19:50 Creatinine 1.18 Estimated GFR 62 L POC Glucose 253 H Preliminary micro results at discharge 12/26/17 09:30 Fungal Culture - Preliminary Wound - Foot No growth in 2 weeks 12/26/17 09:30 Mycobacterial Culture - Preliminary Wound - Foot No growth in 2 weeks - Impressions ITS Impressions Extremity Arterial Study 12/25/17 00:00 CONCLUSION: 1. Severely depressed depressed RL using right brachial pressures suggesting critical limb ischemia. 2. I have no prior cross-sectional imaging studies for comparison 3. CT angiography or conventional catheter angiography would be of benefit. Lower Extremity Ultrasound 12/25/17 00:00 CONCLUSION: 1. Venous mapping as above. The right greater saphenous vein has significant varicosities. Upper Extremity Ultrasound 12/25/17 00:00 CONCLUSION: 1. Majority of the cephalic vein is thrombosed from wrist to shoulder. 2. Measurements of the deep venous system as above. Venous Doppler Study 12/25/17 00:00 CONCLUSION: 1. Complete superficial cephalic vein thrombosis on the right. 2. Partial cephalic vein thrombosis on the left. Foot X-Ray 01/04/18 00:00 CONCLUSION: 1. New surgical changes second toe and second metatarsal and of the first metatarsal without evidence of an acute complication here. 2. Fracture propagation neck region of the third metatarsal since the prior study. Displacement is minimal. 3. Chronic bone changes fourth metatarsal head and phalanges. Discharge Plan - Discharge Disposition Patient Disposition: 01 Discharge Home - Discharge Condition Condition: Stable - Discharge Order Discharge Orders: Discharge Order (Routine); Ordered 01/10/18 Ordered By: Cyrus Waldron - Physicians Team Primary Care Provider: CLOETTE, Attending Provider: Cyrus Waldron Other Providers: Nadeem Llanos MD ; Precious Mccollum DPM - Rxs /Orders / Referrals /Forms Prescriptions: New apixaban [Eliquis] 5 mg Tablet 5 mg PO BID Qty: 60 RF: 0 carvedilol 6.25 mg Tablet 6.25 mg PO BID Qty: 60 RF: 0 hydrocodone-acetaminophen [[place]] 5-325 mg Tablet 1 tab PO Q6H PRN (Reason: Acute Pain) Qty: 24 levofloxacin 750 mg Tablet 750 mg PO DAILY Qty: 7 RF: 0 Continue amitriptyline 25 mg Tablet 25 mg PO DAILY aspirin 81 mg Tablet,Delayed Release (Dr/Ec) 81 mg PO DAILY enalapril maleate 5 mg Tablet 5 mg PO DAILY insulin asp prt-insulin aspart 100 unit/mL (70-30) Insulin Pen 20 unit SUB-Q BID insulin asp prt-insulin aspart [Novolog Mix 70-30FlexPen U-100] 100 unit/mL ( 70-30) Insulin Pen 20 unit SUB-Q BID metformin 1,000 mg Tablet 1,000 mg PO BID ranolazine [Ranexa] 500 mg Tablet Extended Release 12 Hr 500 mg PO Q12H simvastatin 20 mg Tablet 20 tab PO DAILY Discontinued cefepime 2 gram Recon Soln 50 mg/kg IV Q8H heparin (porcine) in 5 % dex 25,000 unit/500 mL (50 unit/mL) Parenteral Solution 250 ml IV DIRECTED Ambulatory Orders / Order Sets / DME: Wheelchair (1 each) (Routine) Location: Determined by Patient Ordered By: Cyrus Waldron Referrals: Carlos Salamanca MD [Family Provider] - See Instructions (UNABLE TO REACH PHYSICIAN) Precious Mccollum DPM [Physician] - See Instructions (1 week provider requires further information for follow up appointment. please call to set up appointment.) Nadeem Llanos MD [Physician] - See Instructions (Your post op follow up is scheduled on 01/19/18 at 3:15) UNKNOWN, [Primary Care Provider] - See Instructions (CALL [facility] TO SET UP APPOINTMENT. ) - Discharge Instructions Patient Printed Instructions: Hydrocodone/Acetaminophen (By mouth), Levofloxacin (By mouth), Carvedilol (By mouth), Apixaban (By mouth), Toe Amputation (DC) Additional Instructions: An appointment has been scheduled with Dr. Mccollum on January 26, 2018 at 2: 30PM for dressing change to right foot. Office phone number is . - Post Discharge Care Plan Care Plan Goals: Your Health Problems: Goals to Promote Your Health: * To prevent worsening of your condition * To maintain your health at the optimal level Directions to Meet Your Goals: * Take your medications as prescribed * Follow your dietary instruction * Follow activity as directed * Keep your appointments as scheduled * Take your immunizations and boosters as scheduled * If your symptoms worsen call your PCP * If no PCP go to Urgent Care or Emergency Room Smoking is dangerous to your health. Avoid second hand smoke. You may reach the 24-hour crisis hotline for domestic abuse at .
[2018-01-10] MEDS: NIFEdipine 10 MG Capsule PO SCH ×2 (18:38→20:43)
[2018-01-10] MEDS: levoFLOXacin 750 MG Tablet PO SCH (20:43)
[2018-01-11] MEDS ORDERED: Pharmacy Ordered Lab Info OTHER ONE (00:45)
[2018-01-11] MEDS ORDERED: Lisinopril 20 MG Tablet PO SCH (09:00)
[2018-01-11] MEDS: NIFEdipine 10 MG Capsule PO SCH (09:01)
[2018-01-11] MEDS: Ranolazine 500 MG 12HR ER Tablet PO SCH (09:02)
[2018-01-11] MEDS: Amitriptyline 25 MG Tablet PO SCH (09:02)
[2018-01-11 09:09] VITALS: RESP 20; O2SAT 100
[2018-01-11] MEDS: Docusate Sodium 100 MG Capsule PO SCH (09:29)
[2018-01-11] MEDS: Insulin NovoLOG Aspart Correctional Sugar Inj SQ SCH (09:29)
--- NOTE | 2018-01-11 09:30 | P.PNVS ---
Subjective Post Op Day #: 12 Procedure: R BK pop to DP bypass with patch of DP Subjective/Hospital Course: 62/M S/P R LE distal bypass POD 12 Pt continues to be doing well Pt w/o complaints of pain Pt reported he is being D/C today Objective Vital Signs / I&O: Vital Signs 01/10/18 12:00 01/10/18 16:00 01/10/18 20:00 Temperature 98 F 98.6 F 98.2 F Pulse Rate 74 70 76 Respiratory Rate 20 20 20 Blood Pressure 105/55 L 136/65 167/77 H Pulse Oximetry 98 97 100 01/11/18 00:00 01/11/18 04:00 01/11/18 08:00 Temperature 97.9 F 97.7 F 97.2 F L Pulse Rate 77 84 70 Respiratory Rate 20 18 20 Blood Pressure 160/84 H 183/83 H 158/100 H Pulse Oximetry 96 98 100 Intake & Output 01/10/18 01/11/18 01/11/18 18:59 06:59 18:59 Intake Total 720 / 720 Output Total 4 / 4 Balance 716 / 716 Weight 102.1 kg Intake: Oral 720 / 720 Output: Urine 3 / 3 Stool 1 / 1 Other: Date of Last Bowel Movement 01/10/18 Exam: 62/M Alert in NAD B LE Warm and dry w/ motor intact L groin soft w/o hematoma or swelling Palpable R DP (2+) Incisions to R LE intact, well approximated w/o R/D/S/O Post op dressing I/C/D to R foot (s/p toe amputation/podiatry) Laboratory Results - last 24 hr 01/10/18 01/10/18 01/10/18 12:34 17:08 19:38 POC Glucose 320 H 237 H 230 H 01/11/18 08:02 POC Glucose 187 H Assessment and Plan - Assessment (1) Diabetic infection of right foot Code(s): E11.628 - Type 2 diabetes mellitus with other skin complications; L08.9 - Local infection of the skin and subcutaneous tissue, unspecified Status: Acute (2) PAD (peripheral artery disease) Code(s): I73.9 - Peripheral vascular disease, unspecified Status: Acute - Plan POD#12 S/p R BK-pop to DP bypass Doing well Pain controlled Plan Discussed post operative care and management with patient From a vascular standpoint- no activity limitations Pt clear for D/C from a vascular standpoint with anticipated d/c on oral systemic anticoagulation x 6m and then ASA 81mg along with statin Arranged out pt f/u next week Pt aware of plan Lottie Caldera NP [facility] [phone] Discharge Planning: anytime once on oral anticoagulation
[2018-01-11] MEDS: Insulin Detemir Inj 1,000 UNIT/10 ML Vial SQ SCH (09:56)
[2018-01-11 12:23] VITALS: BP 145/69; PULSE 75; TEMP 98.7
== END 2018-01-11 13:06 | disposition home or self-care (01) ==
LOC: HCPC 12:07 → UNDODISIN 12-26 12:20 → N04 01-05 01:35
PROVIDERS: ADMIT Hospitalist; ATTEND Hospitalist
PROC: ANGIOLE (2017-12-28 14:30)

== ENCOUNTER 2018-01-14 12:44 | Observation (INO) ==
--- NOTE | 2018-01-14 17:38 | P.PNVS ---
Subjective Subjective/Hospital Course: Pt well known to me. He had significant R LE tissue loss and underwent R BK pop -DP bypass with DP patch on 12/30/17. He presents to ED tonight with toe amputation site troubles. No F/C. Pain controlled. Objective Vital Signs / I&O: Vital Signs 01/14/18 12:47 01/14/18 16:37 Temperature 98.4 F Pulse Rate 73 82 Respiratory Rate 16 19 Blood Pressure 205/90 H 193/101 H Pulse Oximetry 100 100 Intake & Output 01/13/18 01/14/18 01/14/18 18:59 06:59 18:59 Weight 101.605 kg Physical Exam: sitting in bed, no distress foot wound slightly dehisced, edematous. DP and 2 medial calf incisions c/d/i palpable pulse Assessment and Plan - Assessment (1) PAD (peripheral artery disease) Code(s): I73.9 - Peripheral vascular disease, unspecified Status: Acute - Plan graft patent, slight wound dehiscence from toe amputation site 1. consult podiatry 2. pulse checks 3. can be managed as outpatient from a pure vascular surgery standpoint, but I will see him while inpatient. Nadeem Llanos MD FACS [employer]PV[employer] head mechanic [facility] - Heart and Vascular Surgery at [facility] [phone]
--- NOTE | 2018-01-14 17:40 | XR ---
EXAM DATE: 01/14/2018 5:32 PM EDT AGE/SEX: 62 years / Male INDICATIONS: Pain. Possible infection in 1st and 2nd amputated toes. CLINICAL DATA: This is the patient's initial encounter. Patient reports that signs and symptoms have been present for 1 day and indicates a pain score of 0/10. MEDICAL/SURGICAL HISTORY: . Cardiomyopathy, chronic back pain, coronary artery disease, diabete s mellitus, diabetic peripheral neuropathy, hyperlipidemia, hypertension, peripheral artery disease. . CABG. Cervical spinal fusion. Right foot, first and second digit amputation. COMPARISON: [facility] [place], FOOT COMPLETE RIGHT 3V, 01/04/2018. . FINDINGS: Compare January 04. There are postoperative changes are amputation of the distal first and second metat arsals. Previously noted fracture at the distal third metatarsal has become more displaced. Erosive c hanges at the fourth metatarsal head are stable. Partial amputation of the fourth toe. CONCLUSION: Amputation of the first and second metatarsals distally. Increase in displacement of the fracture through the third distal metatarsal compared with prior exam ination on January 04. Stable erosive changes of the fourth metatarsal head. Electronically signed by: Joel Rainey MD 01/14/2018 5:39 PM EDT
[2018-01-14 18:15] LABS: Calcium 8.5 mg/dL (8.5-10.1); Carbon Dioxide 22.5 meq/L (21.0-32.0); Potassium 4.3 meq/L (3.5-5.1)
--- NOTE | 2018-01-14 18:20 | US ---
EXAM DATE: 01/14/2018 6:11 PM EDT AGE/SEX: 62 years / Male INDICATIONS: Right lower extremity pain and swelling status post right arterial bypass surgery. CLINICAL DATA: This is the patient's initial encounter. Patient reports that signs and symptoms have been present for 2 days and indicates a pain score of 7/10. MEDICAL/SURGICAL HISTORY: Cardiovascular disease. Hypercholesterolemia. Hypertension. Diabet es mellitus. Diabetic peripheral neuropathy. Peripheral artery disease. CABG. Fusion, cervical. Right Pop-DP bypass with patch on 12/30/17. COMPARISON: [facility] – [place], [place] VENOUS MAPPING LEG BI, 12/25/2017. . TECHNIQUE: Venous ultrasound of both lower extremities was performed from the inguinal ligament to t he proximal calf. Real-time, color Doppler and spectral tracing, compression and augmentation techni ques were used. FINDINGS: Normal compression of the deep venous system from the inguinal region to the proximal calf . No echogenic clot is seen. Normal response of the venous system to augmentation and respiration. CONCLUSION: 1. Negative exam with no evidence of deep venous thrombosis. Electronically signed by: Maxwell Deluca MD 01/14/2018 6:19 PM EDT
[2018-01-14 19:20] LABS: Baso % (Auto) 0.6 % (0.0-2.0); Eos # (Auto) 0.4 th/mm3 (0.0-0.4); Eos % (Auto) 5.1 % (0.0-4.0); Hemoglobin 9.9 gm/dL (13.0-17.0); Lymph # (Auto) 1.2 th/mm3 (1.0-4.8); Mean Corpuscular Hemoglobin 28.5 pg (27.0-34.0); Mean Corpuscular Volume 86.2 fL (80.0-100.0); Mean Platelet Volume 7.8 fL (7.0-11.0); Mono # (Auto) 0.7 th/mm3 (0.0-0.9); Mono % (Auto) 8.5 % (0.0-8.0); Neut # (Auto) 5.8 th/mm3 (1.8-7.7); Neut % (Auto) 70.8 % (16.0-70.0); Platelet Count 370 th/mm3 (150-450); Red Blood Count 3.48 mil/mm3 (4.50-5.90); Red Cell Distribution Width 14.2 % (11.6-17.2); White Blood Count 8.2 th/mm3 (4.0-11.0)
[2018-01-14] MEDS ORDERED: Dextrose 50% in Water 50 ML Vial IV.PUSH PRN (19:38)
[2018-01-14] MEDS ORDERED: Bisacodyl 10 MG Supp RECTAL PRN (19:38)
[2018-01-14] MEDS ORDERED: Acetaminophen 325 MG Tablet PO PRN (19:39)
[2018-01-14] MEDS ORDERED: Morphine Sulfate Inj 2 MG/ML Vial IV.PUSH PRN (19:40)
[2018-01-14] MEDS ORDERED: Vancomycin Consult Pharmacy OTHER ONE (20:06)
--- NOTE | 2018-01-14 20:06 | P.HPIM ---
History of Present Illness Primary Care Physician: [facility] History of Present Illness: This is a 62-year-old male with a PMH of HTN, Hyperlipidemia, Peripheral Neuropathy, CHF (EF 45-50%), PVD s/p PCI to RLE, h/o Right Foot Osteomyelitis and Wet Gangrene s/p amputation great toe by Dr. Mccollum 12/26/17, Right BK Pop- DP Bypass w/ DP Patch 12/30/[address] Llanos and revision of partial first ray amputation w/ partial second ray amputation on 01/04/[address] Mccollum. Wound Cultures 01/04/18 +Pseudomonas/Klebsiella, s/p Cefepime 2mg IV q8h and d/c' d home on 01/10/18 w/ Levaquin 750mg po qd x7 days. States saw his PCP today who noted erythema and purulent drainage from post-op site and referred him to the ER. Denies fever, chills. No significant pain complaints. On arrival, BP 205/90, HR 73, O2 sat 100% on RA, Afebrile. WBC 8.2. Chemistry essentially unremarkable except for creatinine 1.35, previously 1.18 on 01/10/2018. Foot X- ray with increasing displacement of fracture through third distal metatarsal, stable erosive changes of fourth metatarsal head, amputation of first and second metatarsals. RLE Doppler negative for DVT. S/p eval by Dr. Llanos in ER , no emergent vascular intervention needed at this time. Dr. Pineda consulted , recommended admission for IV Abx w/ possible surgical intervention. - Diagnosis (1) Cellulitis of foot, right (2) HTN (hypertension) (3) DM (diabetes mellitus) (4) BRAD (acute kidney injury) Review of Systems PAST FAMILY HISTORY: Reviewed, positive for DM. All other systems reviewed negative except as stated in HPI PMFSH - History History Provided By: Patient - Medical History Medical History: Medical History (Last Reviewed 01/14/18 @ 20:07 by KATHY Dawn) Cardiomyopathy (Acute) Peripheral artery disease (Acute) Diabetes mellitus (Acute) Diabetic peripheral neuropathy (Acute) Coronary artery disease (Acute) Chronic back pain (Acute) Hyperlipidemia (Acute) Hypertension (Acute) Neuropathy - Surgical History Surgical History: Surgical History (Last Reviewed 01/14/18 @ 20:07 by KATHY Dawn) S/P cervical spinal fusion (Acute) Hx of CABG (Acute) - Family History Family History: Family History (Last Reviewed 01/14/18 @ 20:07 by KATHY Dawn) Mother Cancer Father Heart disease - Tobacco History Second Hand Smoke Exposure: No Smoking Status: Never smoker - Alcohol History How Often Do You Have a Drink Containing Alcohol: Never - Substance Use History Substance History: No History of Abuse - Travel History History of Recent Travel: No Recent Travel in the [place] Within the Last 8 Weeks: No Recent Travel Out of the Country Within the Last 8 Weeks: No - Immunization History Tetanus Immunization: <5 Years Tetanus Immunization Year if Known: 2016 Hx Influenza Vaccine This Season: Yes Medications and Allergies Active Medications: Active Medications Acetaminophen (Tylenol) 650 mg PO Q4H PRN PRN Reason: Temp > 100.4 Hydrocodone Bitart/Acetaminophen (Ponce 5/325) 1 tab PO Q4H PRN PRN Reason: PAIN 3-5 Al Hydroxide/Mg Hydroxide (Milk Of Magnesia Liq) 30 ml PO Q12H PRN PRN Reason: Mild Constipation Amitriptyline HCl (Elavil) 25 mg PO DAILY MEY Apixaban (Eliquis) 5 mg PO BID MEY Aspirin (Ecotrin) 81 mg PO DAILY MEY Bisacodyl (Dulcolax Supp) 10 mg RECTAL DAILY PRN PRN Reason: SEVERE CONSITIPATION Carvedilol (Coreg) 6.25 mg PO BID MEY Dextrose (D50w Vial) 50 ml IV.PUSH UNSCH PRN PRN Reason: PER HYPOGLYCEMIA PROTOCOL Enalapril Maleate (Vasotec) 5 mg PO DAILY MEY Glucagon (Glucagon Inj) 1 mg OTHER PRN PRN PRN Reason: for Hypoglycemia Protocol Sodium Chloride (Ns Inj) 1,000 mls @ 100 mls/hr IV.CONT .Q10H MEY Insulin Aspart (Novolog Insulin Correctional Sugar Inj) 0 unit SQ ACHS MEY; Protocol Lactulose (Lactulose Liq) 30 ml PO DAILY PRN PRN Reason: SEVERE CONSITIPATION Morphine Sulfate (Morphine Inj) 2 mg IV.PUSH Q4H PRN PRN Reason: PAIN 6-10 Non-Formulary Medication (Insulin Asp Prt-Insulin Aspart [Novolog Mix 70- 30flexpen U-100]) 20 unit SQ BID MEY Non-Formulary Medication (Simvastatin [Simvastatin]) 20 tab PO DAILY [facility] Ondansetron HCl (Zofran Inj) 4 mg IV.PUSH Q6H PRN PRN Reason: NAUSEA OR VOMITING Ranolazine (Ranexa) 500 mg PO Q12H [facility] Senna/Docusate Sodium (Ilda-Colace) 1 tab PO BID [facility] Sennosides (Senokot) 17.2 mg PO Q12H PRN PRN Reason: Moderate Constipation Temazepam (Restoril) 15 mg PO HS PRN PRN Reason: INSOMNIA Allergies Allergy/AdvReac Type Severity Reaction Status Date / Time No Known Allergies Allergy Verified 01/14/18 16:30 Home Medications Medication Instructions Recorded Confirmed Type amitriptyline 25 mg PO DAILY 12/25/17 01/14/18 History aspirin 81 mg PO DAILY 12/25/17 01/14/18 History enalapril maleate 5 mg PO DAILY 12/25/17 01/14/18 History insulin asp prt-insulin aspart 20 unit SUB-Q BID 12/25/17 01/14/18 History insulin asp prt-insulin aspart 20 unit SUB-Q BID 12/25/17 01/14/18 History [Novolog Mix 70-30FlexPen U-100] metformin 1,000 mg PO BID 12/25/17 01/14/18 History ranolazine [Ranexa] 500 mg PO Q12H 12/25/17 01/14/18 History simvastatin 20 tab PO DAILY 12/25/17 01/14/18 History Exam Vital signs: Vital Signs 01/14/18 12:47 01/14/18 16:37 Temperature 98.4 F Pulse Rate 73 82 Respiratory Rate 16 19 Blood Pressure 205/90 H 193/101 H Pulse Oximetry 100 100 Intake & Output 01/14/18 01/14/18 01/15/18 06:59 18:59 06:59 Weight 101.605 kg Narrative: PE: GENERAL: Pleasant middle-aged white male in no acute distress. HEENT: PERRLA, EOMI. No scleral icterus or conjunctival pallor. No lid lag or facial droop. CARDIOVASCULAR: Regular rate and rhythm. No obvious murmurs to auscultation. No chest tenderness to palpation. RESPIRATORY: No obvious rhonchi or wheezing. Clear to auscultation. Breath sounds equal bilaterally. GASTROINTESTINAL: Abdomen soft, non-tender, nondistended. BS normal. MUSCULOSKELETAL: Extremities without clubbing, cyanosis, or edema. No obvious deformities. Right foot s/p 1st/2nd toe amputation, sutures in place, macerated tissue, +erythema/edema, +purulent drainage NEUROLOGICAL: Awake, alert and oriented x4. No focal neurologic deficits. Moving both upper and lower extremities spontaneously. Results - Labs CBC & Chem 7: 01/14/18 18:40 01/14/18 17:45 Labs: Short CBC 01/14/18 Range/Units 18:40 WBC 8.2 (4.0-11.0) th/mm3 Hgb 9.9 L (13.0-17.0) gm/dL Hct 30.0 L (39.0-51.0) % Plt Count 370 D (150-450) th/mm3 BMP 01/14/18 17:45 Sodium 139 Potassium 4.3 Chloride 108 H Carbon Dioxide 22.5 BUN 18 Creatinine 1.35 H Calcium 8.5 - Imaging Impressions Foot X-Ray 01/14/18 16:56 CONCLUSION: Amputation of the first and second metatarsals distally. Increase in displacement of the fracture through the third distal metatarsal compared with prior examination on January 04. Stable erosive changes of the fourth metatarsal head. Venous Doppler Study 01/14/18 16:57 CONCLUSION: 1. Negative exam with no evidence of deep venous thrombosis. Caprini VTE Risk Assessment Caprini VTE Risk Assessment: No/Low Risk (score <= 1) Caprini Risk Assessment Model: Point Value = 1 Point Value = 2 Point Value = 3 Point Value = 5 Age 41-60 Minor surgery BMI > 25 kg/m2 Swollen legs Varicose veins or History of unexplained or recurrent spontaneous Oral contraceptives or hormone replacement Sepsis (< 1 month) Serious lung disease, including pneumonia (< 1 month) Abnormal pulmonary function Acute myocardial infarction Congestive heart failure (< 1 month) History of inflammatory bowel disease Medical patient at bed rest Age 61-74 Arthroscopic surgery Major open surgery (> 45 min) Laparoscopic surgery (> 45 min) Malignancy Confined to bed (> 72 hours) Immobilizing plaster cast Central venous access Age >= 75 History of VTE Family history of VTE Factor V Leiden Prothrombin [id number] Lupus anticoagulant Anticardiolipin antibodies Elevated serum homocysteine Heparin-induced thrombocytopenia Other congenital or acquired thrombophilia Stroke (< 1 month) Elective arthroplasty Hip, pelvis, or leg fracture Acute spinal cord injury (< 1 month) Prophylaxis Regimen: Total Risk Factor Score Risk Level Prophylaxis Regimen 0-1 Low Early ambulation 2 Moderate Order ONE of the following: *Sequential Compression Device (SCD) *Heparin 5000 units SQ BID 3-4 Higher Order ONE of the following medications: *Heparin 5000 units SQ TID *Enoxaparin/Lovenox 40 mg SQ daily (WT < 150 kg, CrCl > 30 mL/min) *Enoxaparin/Lovenox 30 mg SQ daily (WT < 150 kg, CrCl > 10-29 mL/min) *Enoxaparin/Lovenox 30 mg SQ BID (WT < 150 kg, CrCl > 30 mL/min) AND/OR *Sequential Compression Device (SCD) 5 or more Highest Order ONE of the following medications: *Heparin 5000 units SQ TID (Preferred with Epidurals) *Enoxaparin/Lovenox 40 mg SQ daily (WT < 150 kg, CrCl > 30 mL/min) *Enoxaparin/Lovenox 30 mg SQ daily (WT < 150 kg, CrCl > 10-29 mL/min) *Enoxaparin/Lovenox 30 mg SQ BID (WT < 150 kg, CrCl > 30 mL/min) AND *Sequential Compression Device (SCD) Assessment and Plan - Assessment (1) Cellulitis of foot, right Code(s): L03.115 - Cellulitis of right lower limb Status: Acute (2) HTN (hypertension) Code(s): I10 - Essential (primary) hypertension Status: Acute (3) DM (diabetes mellitus) Code(s): E11.9 - Type 2 diabetes mellitus without complications Status: Acute (4) BRAD (acute kidney injury) Code(s): N17.9 - Acute kidney failure, unspecified Status: Acute - Plan A/P: 1. Right Foot Cellulitis: s/p Right 1st/2nd Toe Amputation by Dr. Mccollum and R BK Pop-DP Bypass w/ DP Patch by Dr. Llanos on 12/29/17, now w/ erythema/ edema and purulent drainage. Afebrile, no leukocytosis. S/p eval by Dr. Llanos , no vascular intervention indicated at this time. Dr. Pineda consulted, will eval for possible surgical intervention. Check Blood/Wound Cultures, start Vanc /Cefepime, previous wound cultures 01/04/18 +Pseudomonas/Klebsiella. Analgesics/ antiemetics as needed. 2. HTN: Uncontrolled. BP 205/90, HR 73, give Lopressor 5mg IV x1 now, repeat BP, monitor closely, antihypertensives for BP >180, resume home medications. 3. DM: Sliding scale w/ Accu-Cheks, hold Metformin for now 4. DVT Prophylaxis: Resume home Eliquis 5. Social work for d/c planning as needed 6. Case discussed w/ ER physician at length, labs/records/imaging reviewed by me.
--- NOTE | 2018-01-14 20:11 | ED ---
HPI General Chief complaint: Skin/Abscess/Foreign Body Stated complaint: Right foot complaint Time Seen by Provider: 01/14/18 16:00 Source: patient Mode of arrival: wheelchair Limitations: no limitations History of Present Illness HPI narrative: 62-year-old male the presents to the ED for evaluation of possible infection to his right surgical scar. Patient was seen here a couple weeks ago for gangrene and peripheral artery disease to his right foot. Patient had surgery by Dr. Llanos as well as Dr. Berger with amputation of his foot as well as vascular surgery. Patient has been doing well and was released just 4 days ago. Patient went to see his primary care doctor ago in the did check up on him and the doctor saw the wound and he was concerned so he sent him here for evaluation. Per patient he does not really have more pain than usual. His been noticing bleeding from the wound for 2 days. His been noticing some swelling but he thought this was normal. She denies any other medical issues. No chest pain or shortness of breath. No fevers chills or sweats. Per patient the pain is 7 out of 10. Related Data Home Medications Medication Instructions Recorded Confirmed amitriptyline 25 mg PO DAILY 12/25/17 01/14/18 aspirin 81 mg PO DAILY 12/25/17 01/14/18 enalapril maleate 5 mg PO DAILY 12/25/17 01/14/18 insulin asp prt-insulin aspart 20 unit SUB-Q BID 12/25/17 01/14/18 insulin asp prt-insulin aspart 20 unit SUB-Q BID 12/25/17 01/14/18 [Novolog Mix 70-30FlexPen U-100] metformin 1,000 mg PO BID 12/25/17 01/14/18 ranolazine [Ranexa] 500 mg PO Q12H 12/25/17 01/14/18 simvastatin 20 tab PO DAILY 12/25/17 01/14/18 Previous Rx's Medication Instructions Recorded apixaban [Eliquis] 5 mg PO BID #60 tab 01/10/18 hydrocodone-acetaminophen [[place]] 1 tab PO Q6H PRN #24 tab 01/10/18 levofloxacin 750 mg PO DAILY #7 tab 01/10/18 carvedilol 6.25 mg PO BID #60 tab 08/14/18 Allergies Allergy/AdvReac Type Severity Reaction Status Date / Time No Known Allergies Allergy Verified 01/14/18 16:30 Review of Systems ROS: all other systems reviewed are negative [facility] Medical History Medical History Cardiomyopathy (Acute) Peripheral artery disease (Acute) Diabetes mellitus (Acute) Diabetic peripheral neuropathy (Acute) Coronary artery disease (Acute) Chronic back pain (Acute) Hyperlipidemia (Acute) Hypertension (Acute) Neuropathy (Acute) Surgical History Surgical History S/P cervical spinal fusion (Acute) Hx of CABG (Acute) Family History Family History Mother Cancer Father Heart disease Social History Social History Substance History: No History of Abuse Second Hand Smoke Exposure: No Smoking Status: Never smoker How Often Do You Have a Drink Containing Alcohol: Never Hx Recent Travel: No Recent Travel in [place] within the Last 8 Weeks: No Recent Out of Country Travel within the Last 8 Weeks: No Immunization History Tetanus Immunization: <5 Years Tetanus Immunization Year if Known: 2017 Hx Influenza Vaccine This Season: Yes Exam Narrative Exam Narrative: GENERAL: Well-appearing SKIN: Focused skin assessment warm/dry. Patient has a surgical scar noted on the right foot. About 10 cm in diameter. Suture still noted. There is some areas where the skin appears to have open and there is some what appears to be drainage including serosanguineous fluid. Patient does have erythema on the dorsal aspect of the foot as well. Slightly warm to touch. More pinkish discoloration around the borders of the skin as well. 2+ pulses bilaterally on the right foot. HEAD: Atraumatic. Normocephalic. EYES: Pupils equal and round. No scleral icterus. No injection or drainage. ENT: No nasal bleeding or discharge. Mucous membranes pink and moist. NECK: Trachea midline. No JVD. CARDIOVASCULAR: Regular rate and rhythm. No murmur appreciated. RESPIRATORY: No accessory muscle use. Clear to auscultation. Breath sounds equal bilaterally. GASTROINTESTINAL: Abdomen soft, non-tender, nondistended. Hepatic and splenic margins not palpable. MUSCULOSKELETAL: No obvious deformities. No clubbing. No cyanosis. No edema. NEUROLOGICAL: Awake and alert. No obvious cranial nerve deficits. Motor grossly within normal limits. Normal speech. PSYCHIATRIC: Appropriate mood and affect; insight and judgment normal. Course Initial Documented Vital Signs Temperature 98.4 F 01/14/18 12:47 Pulse Rate 73 01/14/18 12:47 Respiratory Rate 16 01/14/18 12:47 Blood Pressure 205/90 H 01/14/18 12:47 Pulse Oximetry 100 01/14/18 12:47 Last Documented Vital Signs Temperature 98.4 F 01/14/18 12:47 Pulse Rate 82 01/14/18 16:37 Respiratory Rate 19 01/14/18 16:37 Blood Pressure 193/101 H 01/14/18 16:37 Pulse Oximetry 100 01/14/18 16:37 Medical Decision Making MDM Narrative Medical decision making narrative: 62-year-old male the presents to the ED for evaluation of possible infection to his right foot. Patient was properly examined and was found to have signs and symptoms which appear to be consistent with possible infected right foot. Imaging and labs ordered. Imaging and labs were essentially unremarkable. Chronic changes noted. Dr. Llanos evaluate the patient himself and agrees that from the standpoint from vascular surgery there is no much for him to do. per him Dr Mccollum might have to be consulted. I spoke with Dr. Mancini over the phone who wanted me to take pictures. I sent the pictures to her after getting verbal consent from the patient. She recommends admission for absent will evaluate tomorrow for possible surgical intervention if needed. At this time once the patient to be in IV antibiotics. Case discussed with Dr. Jaeger agrees to admission. My attending Dr. Alexandre was made aware of findings and agrees with admission plan. Medical Screen Exam Complete: Yes Emergency Medical Condition: Yes Differential Diagnosis Differential Diagnosis: Wound infection versus cellulitis versus osteomyelitis versus DVT Medical Records Medical records reviewed: Yes I reviewed the patient's medical records. Lab Data Lab results reviewed: Yes I reviewed the patient's lab results. Result diagrams: 01/14/18 18:40 01/14/18 17:45 Lab Results 01/14/18 01/14/18 Range/Units 17:45 18:40 WBC 8.2 (4.0-11.0) th/mm3 RBC 3.48 L (4.50-5.90) mil/mm3 Hgb 9.9 L (13.0-17.0) gm/dL Hct 30.0 L (39.0-51.0) % MCV 86.2 (80.0-100.0) fL MCH 28.5 (27.0-34.0) pg MCHC 33.0 (32.0-36.0) % RDW 14.2 (11.6-17.2) % Plt Count 370 D (150-450) th/mm3 MPV 7.8 (7.0-11.0) fL Neut % (Auto) 70.8 H (16.0-70.0) % Lymph % (Auto) 15.0 (9.0-44.0) % [place] % (Auto) 8.5 H (0.0-8.0) % Eos % (Auto) 5.1 H (0.0-4.0) % Baso % (Auto) 0.6 (0.0-2.0) % Neut # (Auto) 5.8 (1.8-7.7) th/mm3 Lymph # (Auto) 1.2 (1.0-4.8) th/mm3 [place] # (Auto) 0.7 (0.0-0.9) th/mm3 Eos # (Auto) 0.4 (0.0-0.4) th/mm3 Baso # (Auto) 0.0 (0.0-0.2) th/mm3 WBC Differential . Differential Comment Auto diff final Sodium 139 (136-145) meq/L Potassium 4.3 (3.5-5.1) meq/L Chloride 108 H (98-107) meq/L Carbon Dioxide 22.5 (21.0-32.0) meq/L Anion Gap 9 (5-15) meq/L BUN 18 (7-18) mg/dL Creatinine 1.35 H (0.60-1.30) mg/dL Estimated GFR 53 L (>89) mL/min Random Glucose 145 H (74-106) mg/dL Calcium 8.5 (8.5-10.1) mg/dL Imaging Data Attestation: I personally reviewed and interpreted this imaging study as follows : Radiologist's impression: Foot X-Ray 01/14/18 16:56 CONCLUSION: Amputation of the first and second metatarsals distally. Increase in displacement of the fracture through the third distal metatarsal compared with prior examination on January 04. Stable erosive changes of the fourth metatarsal head. Venous Doppler Study 01/14/18 16:57 CONCLUSION: 1. Negative exam with no evidence of deep venous thrombosis. Discharge Plan Discharge Disposition Patient Disposition: 30 Still Patient Discharge Details Diagnosis: Cellulitis of foot, right, Postoperative wound infection Physicians Team ED Provider: Randall Alexander ED Midlevel Provider: Elvin Zamudio Primary Care Provider: Imani Croft, Attending Provider: Germaine Jaeger Discharge Interventions Interventions: Vital Signs Last Done: 01/14/18 16:37 Status ED Status: Admitted Observation Patient
[2018-01-14] MEDS ORDERED: Vancomycin Consult Pharmacy OTHER SCH (20:30)
[2018-01-14] MEDS ORDERED: Temazepam 15 MG Capsule PO PRN (21:00)
[2018-01-14] MEDS ORDERED: Metoprolol Inj 5 MG/5 ML Vial IV.PUSH ONE (21:00)
[2018-01-14] MEDS: Sod Chloride 0.9% Inj 1,000 ML IV.CONT SCH (21:09)
[2018-01-14] MEDS: Insulin NovoLOG Aspart Correctional Sugar Inj SQ SCH (21:11)
[2018-01-14] MEDS: Carvedilol 6.25 MG Tablet PO SCH (22:00)
[2018-01-14] MEDS: Ranolazine 500 MG 12HR ER Tablet PO SCH (22:34)
[2018-01-14] MEDS: Insulin Aspart Prot 70/30 1,000 UNITS/10 ML Vial SQ SCH (22:46)
[2018-01-14] MEDS: Senna/Docusate Sodium 8.6/50 MG Tablet PO SCH (22:47)
[2018-01-15] MEDS: Vancomycin Inj 1,250 MG in Sodium Chlor 0.9% Inj 250 ML IV.SIG SCH ×2 (05:51→21:44)
[2018-01-15 06:51] LABS: Alanine Aminotransferase 9 U/L (12-78); Albumin 2.7 g/dL (3.4-5.0); Anion Gap 9 meq/L (5-15); Aspartate Aminotransferase 10 U/L (15-37); Blood Urea Nitrogen 15 mg/dL (7-18); Calcium 8.1 mg/dL (8.5-10.1); Carbon Dioxide 24.3 meq/L (21.0-32.0); Chloride 109 meq/L (98-107); Glomerular Filtration Rate 67 mL/min (>89); Glucose,Random 69 mg/dL (74-106); Potassium 3.8 meq/L (3.5-5.1); Sodium 142 meq/L (136-145)
[2018-01-15 06:53] LABS: Alkaline Phosphatase 51 U/L (45-117); Total Protein 6.9 g/dL (6.4-8.2)
[2018-01-15 06:54] LABS: Baso % (Auto) 0.4 % (0.0-2.0); Eos # (Auto) 0.2 th/mm3 (0.0-0.4); Hemoglobin 9.7 gm/dL (13.0-17.0); Lymph # (Auto) 0.8 th/mm3 (1.0-4.8); Lymph % (Auto) 10.6 % (9.0-44.0); Mean Corpuscular HGB Conc 33.3 % (32.0-36.0); Mean Corpuscular Hemoglobin 28.3 pg (27.0-34.0); Mean Corpuscular Volume 84.8 fL (80.0-100.0); Mean Platelet Volume 7.5 fL (7.0-11.0); Mono # (Auto) 0.5 th/mm3 (0.0-0.9); Mono % (Auto) 6.3 % (0.0-8.0); Neut % (Auto) 79.7 % (16.0-70.0); Platelet Count 331 th/mm3 (150-450); Red Blood Count 3.43 mil/mm3 (4.50-5.90); White Blood Count 7.6 th/mm3 (4.0-11.0)
[2018-01-15] MEDS: Sod Chloride 0.9% Inj 1,000 ML IV.CONT SCH ×2 (07:15→17:19)
[2018-01-15] MEDS: Senna/Docusate Sodium 8.6/50 MG Tablet PO SCH ×2 (08:47→20:57)
[2018-01-15] MEDS: Ranolazine 500 MG 12HR ER Tablet PO SCH ×2 (08:48→20:57)
[2018-01-15] MEDS: Carvedilol 6.25 MG Tablet PO SCH ×2 (08:48→20:57)
[2018-01-15] MEDS: Amitriptyline 25 MG Tablet PO SCH (08:48)
[2018-01-15] MEDS: Insulin NovoLOG Aspart Correctional Sugar Inj SQ SCH ×4 (08:57→21:03)
--- NOTE | 2018-01-15 09:56 | P.PNIM ---
Subjective Interval history: No significant improvement yet, since admit last night. Patient has no complaints, pain controlled. No nausea or vomiting. No fevers. Physical Exam Vital signs: Vital Signs 01/14/18 12:47 01/14/18 16:37 01/14/18 20:00 Temperature 98.4 F Pulse Rate 73 82 Respiratory Rate 16 19 Blood Pressure 205/90 H 193/101 H 201/90 H Pulse Oximetry 100 100 01/14/18 21:01 01/14/18 21:40 01/14/18 22:40 Temperature Pulse Rate 69 80 Respiratory Rate 16 16 Blood Pressure 183/83 H 143/66 H Pulse Oximetry 100 100 01/15/18 00:00 01/15/18 04:00 01/15/18 07:48 Temperature 98.8 F 98.2 F 97.4 F L Pulse Rate 80 65 73 Respiratory Rate 16 15 18 Blood Pressure 186/85 H 200/92 H 180/86 H Pulse Oximetry 99 97 99 01/15/18 09:00 Temperature 97.9 F Pulse Rate Respiratory Rate 18 Blood Pressure 180/60 H Pulse Oximetry 96 Intake & Output 01/14/18 01/15/18 01/15/18 18:59 06:59 18:59 Intake Total 820 / 820 1262.5 / 1262.5 Output Total 400 / 400 Balance 420 / 420 1262.5 / 1262.5 Weight 101.605 kg 101.61 kg Intake: IV 100 / 100 1262.5 / 1262.5 NS Inj 1,000 ML @ 100 mls/hr IV 1000 / 1000 .CONT .Q10H MEY Rx#:[id number] Maxipime Inj 1,000 MG In NS Inj 100 / 100 100 ML @ 200 mls/hr IV.SIG Q12H MEY Rx#:[id number] Vancomycin Inj 1,250 MG In NS 262.5 / 262.5 Inj 250 ML @ 250 mls/hr IV.SIG Q18H [facility]Y Rx#:[id number] Oral 720 / 720 Output: Urine 400 / 400 Other: # Voids 2 Weight On Admission 101.605 kg Narrative: GENERAL: NAD, A&Ox3 HEAD: Normocephalic. NECK: Supple, trachea midline. No lymphadenopathy. EYES: No scleral icterus. No injection or drainage. CARDIOVASCULAR: Regular rate and rhythm without murmurs, gallops, or rubs. RESPIRATORY: Breath sounds equal bilaterally. No accessory muscle use. GASTROINTESTINAL: Abdomen soft, non-tender, nondistended. MUSCULOSKELETAL: No cyanosis, or edema. Right foot wound status post amputation of first and second toe, cellulitis is present around the wound, no significant purulent matter within the wound, wound has dehisced due to surrounding tissue swelling. SKIN: Warm and dry. NEURO: No focal neurological deficits. Results - Labs CBC & Chem 7: 01/15/18 05:50 01/15/18 05:50 Laboratory Results - last 24 hr 01/14/18 01/14/18 01/14/18 17:45 18:40 21:07 WBC 8.2 RBC 3.48 L Hgb 9.9 L Hct 30.0 L MCV 86.2 MCH 28.5 MCHC 33.0 RDW 14.2 Plt Count 370 D MPV 7.8 Neut % (Auto) 70.8 H Lymph % (Auto) 15.0 [place] % (Auto) 8.5 H Eos % (Auto) 5.1 H Baso % (Auto) 0.6 Neut # (Auto) 5.8 Lymph # (Auto) 1.2 [place] # (Auto) 0.7 Eos # (Auto) 0.4 Baso # (Auto) 0.0 WBC Differential . Differential Comment Auto diff final Sodium 139 Potassium 4.3 Chloride 108 H Carbon Dioxide 22.5 Anion Gap 9 BUN 18 Creatinine 1.35 H Estimated GFR 53 L POC Glucose 98 Random Glucose 145 H Calcium 8.5 Total Bilirubin AST ALT Alkaline Phosphatase Total Protein Albumin 01/15/18 01/15/18 01/15/18 05:50 05:50 08:39 WBC 7.6 RBC 3.43 L Hgb 9.7 L Hct 29.0 L MCV 84.8 MCH 28.3 MCHC 33.3 RDW 14.0 Plt Count 331 MPV 7.5 Neut % (Auto) 79.7 H Lymph % (Auto) 10.6 [place] % (Auto) 6.3 Eos % (Auto) 3.0 Baso % (Auto) 0.4 Neut # (Auto) 6.0 Lymph # (Auto) 0.8 L [place] # (Auto) 0.5 Eos # (Auto) 0.2 Baso # (Auto) 0.0 WBC Differential . Differential Comment Auto diff final Sodium 142 Potassium 3.8 Chloride 109 H Carbon Dioxide 24.3 Anion Gap 9 BUN 15 Creatinine 1.11 Estimated GFR 67 L POC Glucose 94 Random Glucose 69 L Calcium 8.1 L Total Bilirubin 0.3 AST 10 L ALT 9 L Alkaline Phosphatase 51 Total Protein 6.9 Albumin 2.7 L - Imaging Impressions Foot X-Ray 01/14/18 16:56 CONCLUSION: Amputation of the first and second metatarsals distally. Increase in displacement of the fracture through the third distal metatarsal compared with prior examination on January 04. Stable erosive changes of the fourth metatarsal head. Venous Doppler Study 01/14/18 16:57 CONCLUSION: 1. Negative exam with no evidence of deep venous thrombosis. Assessment and Plan - Assessment (1) Cellulitis of foot, right Code(s): L03.115 - Cellulitis of right lower limb Status: Acute (2) HTN (hypertension) Code(s): I10 - Essential (primary) hypertension Status: Acute (3) DM (diabetes mellitus) Code(s): E11.9 - Type 2 diabetes mellitus without complications Status: Acute (4) BRAD (acute kidney injury) Code(s): N17.9 - Acute kidney failure, unspecified Status: Acute - Plan 62-year-old male admitted secondary to right foot wound cellulitis Right Foot wound cellulitis s/p Right 1st/2nd Toe Amputation Podiatry following Follow wound cultures Continue vancomycin Continue cefepime Continue pain treatments Hypertension Continue baseline treatment Follow blood pressures Adjust treatments as needed Diabetes mellitus type 2 Follow blood sugars Insulin sliding scale Diabetic diet DVT prophylaxis Eliquis
[2018-01-15] MEDS: Insulin Aspart Prot 70/30 1,000 UNITS/10 ML Vial SQ SCH (12:54)
[2018-01-15] MEDS ORDERED: Gadobutrol PF 10 MMOL/10 ML Vial (for RAD) IV.SIG ONE (15:13)
--- NOTE | 2018-01-15 15:21 | P.CONPOD ---
History of Present Illness Service: Foot and ankle surgery/podiatry Consult date: 01/15/18 Reason for Consult: Status post right foot hallux and second digit amputation with infection Primary Care Provider: Imani Croft Family Provider: Carlos Salamanca MD History of Present Illness: Podiatry consulted for this 62-year-old male with past medical history of hypertension, hyperlipidemia, peripheral neuropathy, CHF with an ejection fraction of 45-50%, PVD status post bypass to right lower extremity with history of right foot osteomyelitis. Patient is status post amputation of hallux by Dr. Mccollum December 26, 2017, right below the knee popDP bypass date of surgery December 30, [address] Llanos and revision of partial first ray amputation with partial second ray amputation on January 04, [address] Mccollum. Review of Systems Constitutional: Denies chills, Denies fatigue, Denies fever(s), Denies headache( s), Denies night sweats, Denies weakness Cardiovascular: Denies chest pain, Denies shortness of breath Respiratory: Denies cough PMFSH - History History Provided By: Patient - Medical History Medical History: Medical History (Last Reviewed 01/15/18 @ 15:17 by Alana Pineda DPM) Cardiomyopathy (Acute) Peripheral artery disease (Acute) Diabetes mellitus (Acute) Diabetic peripheral neuropathy (Acute) Coronary artery disease (Acute) Chronic back pain (Acute) Hyperlipidemia (Acute) Hypertension (Acute) Neuropathy - Surgical History Surgical History: Surgical History (Last Reviewed 01/15/18 @ 15:17 by Alana Pineda DPM) S/P cervical spinal fusion (Acute) Hx of CABG (Acute) - Family History Family History: Family History (Last Reviewed 01/15/18 @ 15:17 by Alana Pineda DPM) Mother Cancer Father Heart disease - Tobacco History Second Hand Smoke Exposure: No Smoking Status: Never smoker - Alcohol History How Often Do You Have a Drink Containing Alcohol: 2 to 4 times a month - Substance Use History Substance History: No History of Abuse - Travel History History of Recent Travel: No Recent Travel in the [place] Within the Last 8 Weeks: No Recent Travel Out of the Country Within the Last 8 Weeks: No - Immunization History Tetanus Immunization: <5 Years Tetanus Immunization Year if Known: 2016 Hx Influenza Vaccine This Season: Yes Medications and Allergies Active Medications: Active Medications Acetaminophen (Tylenol) 650 mg PO Q4H PRN PRN Reason: Temp > 100.4 Hydrocodone Bitart/Acetaminophen ([place] 5/325) 1 tab PO Q4H PRN PRN Reason: PAIN 3-5 Last Admin: 01/15/18 09:04 Dose: 1 tab Al Hydroxide/Mg Hydroxide (Milk Of Magnboby Liq) 30 ml PO Q12H PRN PRN Reason: Mild Constipation Amitriptyline HCl (Elavil) 25 mg PO DAILY [facility] Last Admin: 01/15/18 08:48 Dose: 25 mg Apixaban (Eliquis) 5 mg PO BID [facility] Last Admin: 01/15/18 08:48 Dose: 5 mg Aspirin (Ecotrin) 81 mg PO DAILY [facility] Last Admin: 01/15/18 08:47 Dose: 81 mg Bisacodyl (Dulcolax Supp) 10 mg RECTAL DAILY PRN PRN Reason: SEVERE CONSITIPATION Carvedilol (Coreg) 6.25 mg PO BID [facility] Last Admin: 01/15/18 08:48 Dose: 6.25 mg Clonidine HCl (Catapres) 0.1 mg PO Q6H PRN PRN Reason: SYS BP GREATER THAN 160 MMHG Dextrose (D50w Vial) 50 ml IV.PUSH UNSCH PRN PRN Reason: PER HYPOGLYCEMIA PROTOCOL Enalapril Maleate (Vasotec) 5 mg PO DAILY [facility] Last Admin: 01/15/18 08:47 Dose: 5 mg Glucagon (Glucagon Inj) 1 mg OTHER PRN PRN PRN Reason: for Hypoglycemia Protocol Sodium Chloride (Ns Inj) 1,000 mls @ 100 mls/hr IV.CONT .Q10H [facility] Last Admin: 01/15/18 07:15 Dose: 100 mls/hr Cefepime HCl 1,000 mg/ Sodium (Chloride) 100 mls @ 200 mls/hr IV.SIG Q12H [facility] Last Infusion: 01/15/18 12:56 Dose: Infused Vancomycin HCl 1,250 mg/ (Sodium Chloride) 262.5 mls @ 250 mls/hr IV.SIG Q18H [facility] Last Infusion: 01/15/18 07:16 Dose: Infused Insulin Aspart (Novolog Mix 70/30 Inj) 20 units SQ BID [facility] Last Admin: 01/15/18 12:54 Dose: 20 units Insulin Aspart (Novolog Insulin Correctional Sugar Inj) 0 unit SQ ACHS [facility]; Protocol Last Admin: 01/15/18 12:57 Dose: Not Given Lactulose (Lactulose Liq) 30 ml PO DAILY PRN PRN Reason: SEVERE CONSITIPATION Morphine Sulfate (Morphine Inj) 2 mg IV.PUSH Q4H PRN PRN Reason: PAIN 6-10 Ondansetron HCl (Zofran Inj) 4 mg IV.PUSH Q6H PRN PRN Reason: NAUSEA OR VOMITING Pharmacy Profile Note (Vancomycin Consult Pharmacy) 1 each OTHER [facility] Pravastatin Sodium (Pravachol) 40 mg PO DAILY [facility] Last Admin: 01/15/18 08:47 Dose: 40 mg Ranolazine (Ranexa) 500 mg PO Q12H [facility] Last Admin: 01/15/18 08:48 Dose: 500 mg Senna/Docusate Sodium (Ilda-Colace) 1 tab PO BID [facility] Last Admin: 01/15/18 08:47 Dose: 1 tab Sennosides (Senokot) 17.2 mg PO Q12H PRN PRN Reason: Moderate Constipation Temazepam (Restoril) 15 mg PO HS PRN PRN Reason: INSOMNIA Allergies Allergy/AdvReac Type Severity Reaction Status Date / Time No Known Allergies Allergy Verified 01/14/18 16:30 Home Medications Medication Instructions Recorded Confirmed Type amitriptyline 25 mg PO DAILY 12/25/17 01/14/18 History aspirin 81 mg PO DAILY 12/25/17 01/14/18 History enalapril maleate 5 mg PO DAILY 12/25/17 01/14/18 History insulin asp prt-insulin aspart 20 unit SUB-Q BID 12/25/17 01/14/18 History insulin asp prt-insulin aspart 20 unit SUB-Q BID 12/25/17 01/14/18 History [Novolog Mix 70-30FlexPen U-100] metformin 1,000 mg PO BID 12/25/17 01/14/18 History ranolazine [Ranexa] 500 mg PO Q12H 12/25/17 01/14/18 History simvastatin 20 tab PO DAILY 12/25/17 01/14/18 History Physical Exam Vital signs: Vital Signs 01/14/18 16:37 01/14/18 20:00 01/14/18 21:01 Temperature Pulse Rate 82 69 Respiratory Rate 19 16 Blood Pressure 193/101 H 201/90 H 183/83 H Pulse Oximetry 100 01/14/18 21:40 01/14/18 22:40 01/15/18 00:00 Temperature 98.8 F Pulse Rate 80 80 Respiratory Rate 16 16 Blood Pressure 143/66 H 186/85 H Pulse Oximetry 100 100 99 01/15/18 04:00 01/15/18 07:48 01/15/18 09:00 Temperature 98.2 F 97.4 F L 97.9 F Pulse Rate 65 73 Respiratory Rate 15 18 18 Blood Pressure 200/92 H 180/86 H 180/60 H Pulse Oximetry 97 99 96 01/15/18 12:00 Temperature 97.5 F L Pulse Rate 69 Respiratory Rate 18 Blood Pressure 152/73 H Pulse Oximetry 98 Intake & Output 01/14/18 01/15/18 01/15/18 18:59 06:59 18:59 Intake Total 820 / 820 1362.5 / 1362.5 Output Total 400 / 400 Balance 420 / 420 1362.5 / 1362.5 Weight 101.605 kg 101.61 kg Intake: IV 100 / 100 1362.5 / 1362.5 NS Inj 1,000 ML @ 100 mls/hr IV 1000 / 1000 .CONT .Q10H [facility] Rx#:[id number] Maxipime Inj 1,000 MG In NS Inj 100 / 100 100 / 100 100 ML @ 200 mls/hr IV.SIG Q12H [facility] Rx#:[id number] Vancomycin Inj 1,250 MG In NS 262.5 / 262.5 Inj 250 ML @ 250 mls/hr IV.SIG Q18H [facility] Rx#:[id number] Oral 720 / 720 Output: Urine 400 / 400 Other: # Voids 2 Weight On Admission 101.605 kg Narrative: GENERAL: This is a well-nourished, well-developed patient, in no apparent distress. SKIN: Sutures intact and skin well coapted to right foot superficial dehiscence noted with serosanguineous drainage HEAD: Atraumatic. EYES: Pupils equal round and reactive. ENT: Airway patent. NECK: Trachea midline. RESPIRATORY: Nonlabored breathing. MUSCULOSKELETAL:. Negative Homans sign bilaterally. NEUROLOGICAL: Awake and alert. Normal speech. Lower extremity physical exam: Vascular: Dorsalis pedis diminished, posterior tibial diminished. Capillary refill time within normal limits to digits present to bilateral foot. Edema present right foot Neuro: Gross sensation intact to bilateral lower extremity. Pinpoint sensation decreased. No hyperalgesia noted to bilateral lower extremity Dermatology: Sutures intact and skin well coapted to right foot superficial dehiscence noted with serosanguineous drainage. No fluctuance, no malodor, no crepitus noted to right foot. Musculoskeletal: Right hallux and second digit amputation noted Results - Labs CBC & Chem 7: 01/15/18 05:50 01/15/18 05:50 Laboratory Results - last 24 hr 01/14/18 01/14/18 01/14/18 17:45 18:40 21:07 WBC 8.2 RBC 3.48 L Hgb 9.9 L Hct 30.0 L MCV 86.2 MCH 28.5 MCHC 33.0 RDW 14.2 Plt Count 370 D MPV 7.8 Neut % (Auto) 70.8 H Lymph % (Auto) 15.0 [place] % (Auto) 8.5 H Eos % (Auto) 5.1 H Baso % (Auto) 0.6 Neut # (Auto) 5.8 Lymph # (Auto) 1.2 [place] # (Auto) 0.7 Eos # (Auto) 0.4 Baso # (Auto) 0.0 WBC Differential . Differential Comment Auto diff final Sodium 139 Potassium 4.3 Chloride 108 H Carbon Dioxide 22.5 Anion Gap 9 BUN 18 Creatinine 1.35 H Estimated GFR 53 L POC Glucose 98 Random Glucose 145 H Calcium 8.5 Total Bilirubin AST ALT Alkaline Phosphatase Total Protein Albumin 01/15/18 01/15/18 01/15/18 05:50 05:50 08:39 WBC 7.6 RBC 3.43 L Hgb 9.7 L Hct 29.0 L MCV 84.8 MCH 28.3 MCHC 33.3 RDW 14.0 Plt Count 331 MPV 7.5 Neut % (Auto) 79.7 H Lymph % (Auto) 10.6 [place] % (Auto) 6.3 Eos % (Auto) 3.0 Baso % (Auto) 0.4 Neut # (Auto) 6.0 Lymph # (Auto) 0.8 L [place] # (Auto) 0.5 Eos # (Auto) 0.2 Baso # (Auto) 0.0 WBC Differential . Differential Comment Auto diff final Sodium 142 Potassium 3.8 Chloride 109 H Carbon Dioxide 24.3 Anion Gap 9 BUN 15 Creatinine 1.11 Estimated GFR 67 L POC Glucose 94 Random Glucose 69 L Calcium 8.1 L Total Bilirubin 0.3 AST 10 L ALT 9 L Alkaline Phosphatase 51 Total Protein 6.9 Albumin 2.7 L 01/15/18 12:27 WBC RBC Hgb Hct MCV MCH MCHC RDW Plt Count MPV Neut % (Auto) Lymph % (Auto) [place] % (Auto) Eos % (Auto) Baso % (Auto) Neut # (Auto) Lymph # (Auto) [place] # (Auto) Eos # (Auto) Baso # (Auto) WBC Differential Differential Comment Sodium Potassium Chloride Carbon Dioxide Anion Gap BUN Creatinine Estimated GFR POC Glucose 133 H Random Glucose Calcium Total Bilirubin AST ALT Alkaline Phosphatase Total Protein Albumin Microbiology 01/14/18 17:45 Wound - Foot Gram Stain - Final 01/14/18 17:45 Wound - Foot Wound Culture - Preliminary No growth in 24 hours 01/14/18 18:40 Blood - Peripheral Aerobic Blood Culture - Preliminary No growth in 1 day 01/14/18 18:40 Blood - Peripheral Anaerobic Blood Culture - Preliminary No growth in 1 day 01/14/18 16:45 Blood - Peripheral Aerobic Blood Culture - Preliminary No growth in 1 day 01/14/18 16:45 Blood - Peripheral Anaerobic Blood Culture - Preliminary No growth in 1 day - Imaging Impressions Foot X-Ray 01/14/18 16:56 CONCLUSION: Amputation of the first and second metatarsals distally. Increase in displacement of the fracture through the third distal metatarsal compared with prior examination on January 04. Stable erosive changes of the fourth metatarsal head. Venous Doppler Study 01/14/18 16:57 CONCLUSION: 1. Negative exam with no evidence of deep venous thrombosis. Assessment and Plan - Plan 62-year-old male status post right hallux and second digit amputation Patient okay to DC per podiatry No surgical intervention planned at this point Patient to follow-up with Dr. Mccollum within 72 hours of discharge Please apply Betadine and dry sterile dressing to right foot Appreciate vascular note Please discharge with appropriate antibiotics
--- NOTE | 2018-01-15 16:50 | MR ---
EXAM DATE: 01/15/2018 3:24 PM EDT AGE/SEX: 62 years / Male INDICATIONS: Osteomyelitis. CLINICAL DATA: This is the patient's initial encounter. Patient reports that signs and symptoms have been present for 4 - 6 days and indicates a pain score of 0/10. MEDICAL/SURGICAL HISTORY: Hypertension. Diabetes mellitus type II. CABG. Fusion, cervical. COMPARISON: No prior exams available for comparison. TECHNIQUE: Multiplanar, multisequence MRI examination was performed without contrast and after th e intravenous administration of 10 ml Gadavist (gadobutrol) single exam dose. FINDINGS: There is amputation of the first metatarsus and the proximal shaft, second metatarsus in the mid shaf t, displaced fracture of the distal one third shaft of the third metatarsus, and amputation of the di stal and mid phalanx of the fourth digit. There is preserved T1 signal in the marrow in the residual forefoot osseous structures. On T2-weighted images, there is some mild T2 prolongation in the marrow of the residual first metatarsus. There is no significant enhancement in the marrow of the proximal f irst metatarsus. In the soft tissues about the amputation site medially, there is a focal area of T2 prolongation whic h does not demonstrate enhancement on the postcontrast images and measures 1.4 x 2.5 cm with irregula r margins. There appears to be asymmetric sinus tract to the scan medially adjacent to this nonenhanc ing area. The finding suggests cellulitis or abscess. CONCLUSION: 1. There is normal signal on the pre and postcontrast images in the remaining osseous structures of the forefoot. There is no MR evidence of osteomyelitis. 2. Irregular shaped area of decreased enhancement with an enhancing rim in the soft tissues about th e medial forefoot amputation site measuring 1.4 x 2.5 cm suggesting either abscess or cellulitis. Electronically signed by: Ady Napoles MD 01/15/2018 4:49 PM EDT
[2018-01-15] MEDS ORDERED: Insulin Aspart Prot 70/30 1,000 UNITS/10 ML Vial SQ SCH (21:30)
[2018-01-16] MEDS ORDERED: Insulin Aspart Prot 70/30 1,000 UNITS/10 ML Vial SQ SCH (08:00)
[2018-01-16] MEDS: Insulin NovoLOG Aspart Correctional Sugar Inj SQ SCH ×2 (08:13→13:56)
[2018-01-16] MEDS: Senna/Docusate Sodium 8.6/50 MG Tablet PO SCH (09:32)
[2018-01-16] MEDS: Carvedilol 6.25 MG Tablet PO SCH (09:32)
[2018-01-16] MEDS: Sod Chloride 0.9% Inj 1,000 ML IV.CONT SCH (09:33)
[2018-01-16] MEDS: Ranolazine 500 MG 12HR ER Tablet PO SCH (09:33)
[2018-01-16] MEDS: Amitriptyline 25 MG Tablet PO SCH (09:33)
--- NOTE | 2018-01-16 10:49 | P.PNVS ---
Subjective Subjective/Hospital Course: s/p R BK pop to DP bypass doing well conservative therapy for foot wound podiatry cleared for d/c. Objective Vital Signs / I&O: Vital Signs 01/15/18 12:00 01/15/18 16:12 01/15/18 17:00 Temperature 97.5 F L 98.0 F 98.0 F Pulse Rate 69 70 77 Respiratory Rate 18 20 18 Blood Pressure 152/73 H 158/70 H 172/82 H Pulse Oximetry 98 98 100 01/15/18 18:10 01/15/18 20:00 01/16/18 00:00 Temperature 98.1 F 97.6 F Pulse Rate 75 73 Respiratory Rate 19 19 Blood Pressure 162/84 H 156/73 H 226/100 H Pulse Oximetry 99 97 01/16/18 04:00 01/16/18 08:00 Temperature 98.1 F 97.8 F Pulse Rate 63 74 Respiratory Rate 18 18 Blood Pressure 144/72 H 168/86 H Pulse Oximetry 99 100 Intake & Output 01/15/18 01/16/18 01/16/18 18:59 06:59 18:59 Intake Total 1362.5 / 1362.5 1362.5 / 1362.5 Balance 1362.5 / 1362.5 1362.5 / 1362.5 Intake: IV 1362.5 / 1362.5 1362.5 / 1362.5 NS Inj 1,000 ML @ 100 mls/hr IV 1000 / 1000 1000 / 1000 .CONT .Q10H [facility] Rx#:[id number] Maxipime Inj 1,000 MG In NS Inj 100 / 100 100 / 100 100 ML @ 200 mls/hr IV.SIG Q12H [facility] Rx#:[id number] Vancomycin Inj 1,250 MG In NS 262.5 / 262.5 262.5 / 262.5 Inj 250 ML @ 250 mls/hr IV.SIG Q18H [facility] Rx#:[id number] Other: # Voids 2 Date of Last Bowel Movement 01/15/18 # Bowel Movements 1 Physical Exam: alert, sitting in bed medial calf wounds and DP outflow incision healing nicely palpable graft pulse Laboratory Results - last 24 hr 01/15/18 01/15/18 01/15/18 12:27 17:16 21:02 POC Glucose 133 H 109 125 H 08/01/16/18 01/16/18 00:40 00:49 01:08 POC Glucose 56 L 64 L 105 01/16/18 07:59 POC Glucose 105 Microbiology 01/14/18 17:45 Gram Stain - Final Wound - Foot Wound Culture - Preliminary No growth in 48 hours 01/14/18 18:40 Aerobic Blood Culture - Preliminary Blood - Peripheral No growth in 1 day Anaerobic Blood Culture - Preliminary No growth in 1 day 01/14/18 16:45 Aerobic Blood Culture - Preliminary Blood - Peripheral No growth in 1 day Anaerobic Blood Culture - Preliminary No growth in 1 day Impressions Foot X-Ray 01/14/18 16:56 CONCLUSION: Amputation of the first and second metatarsals distally. Increase in displacement of the fracture through the third distal metatarsal compared with prior examination on January 04. Stable erosive changes of the fourth metatarsal head. Venous Doppler Study 01/14/18 16:57 CONCLUSION: 1. Negative exam with no evidence of deep venous thrombosis. Foot MRI 01/15/18 00:00 CONCLUSION: 1. There is normal signal on the pre and postcontrast images in the remaining osseous structures of the forefoot. There is no MR evidence of osteomyelitis. 2. Irregular shaped area of decreased enhancement with an enhancing rim in the soft tissues about the medial forefoot amputation site measuring 1.4 x 2.5 cm suggesting either abscess or cellulitis. Assessment and Plan - Assessment (1) PAD (peripheral artery disease) Code(s): I73.9 - Peripheral vascular disease, unspecified Status: Acute - Plan graft patent, slight wound dehiscence from toe amputation site 1. ok to d/c from vascular surgery standpoint 2. Avoid PHAN wraps over bypass (extra-anatomic tunnel) 3. Will reschedule outpt appointment - discussed with patient Nadeem Llanos MD FACS [employer] junior network engineer [facility] - Heart and Vascular Surgery at [facility] [phone]
[2018-01-16 11:21] VITALS: BP 124/64; PULSE 87; RESP 16; TEMP 97.5; O2SAT 99
[2018-01-16] MEDS: Insulin Aspart Prot 70/30 1,000 UNITS/10 ML Vial SQ SCH (11:52)
--- NOTE | 2018-01-16 12:19 | P.DS ---
Date of admission: 01/14/18 20:05 Primary care physician: Imani Croft Brief History from admission: This is a 62-year-old male with a PMH of HTN, Hyperlipidemia, Peripheral Neuropathy, CHF (EF 45-50%), PVD s/p PCI to RLE, h/o Right Foot Osteomyelitis and Wet Gangrene s/p amputation great toe by Dr. Mccollum 12/26/17, Right BK Pop- DP Bypass w/ DP Patch 12/30/[address] Llanos and revision of partial first ray amputation w/ partial second ray amputation on 01/04/[address] Mccollum. Wound Cultures 01/04/18 +Pseudomonas/Klebsiella, s/p Cefepime 2mg IV q8h and d/c' d home on 01/10/18 w/ Levaquin 750mg po qd x7 days. States saw his PCP today who noted erythema and purulent drainage from post-op site and referred him to the ER. Denies fever, chills. No significant pain complaints. On arrival, BP 205/90, HR 73, O2 sat 100% on RA, Afebrile. WBC 8.2. Chemistry essentially unremarkable except for creatinine 1.35, previously 1.18 on 01/10/2018. Foot X- ray with increasing displacement of fracture through third distal metatarsal, stable erosive changes of fourth metatarsal head, amputation of first and second metatarsals. RLE Doppler negative for DVT. S/p eval by Dr. Llanos in ER , no emergent vascular intervention needed at this time. Dr. Pineda consulted , recommended admission for IV Abx w/ possible surgical intervention. DS: Diagnosis - Discharge Diagnosis (1) Cellulitis of foot, right Status: Acute (2) HTN (hypertension) Status: Acute (3) DM (diabetes mellitus) Status: Acute (4) BRAD (acute kidney injury) Status: Acute DS: Medications - Discharge Medications Prescriptions: cephalexin [Keflex] 500 mg PO BID #28 cap Lactobacillus acidophilus 500 mmu cells PO TID #60 cap sulfamethoxazole-trimethoprim [Bactrim DS] 1 tab PO BID #28 tab DS: Summary Hospital Course: Mr. Villarreal is a 62-year-old male. He recently had his first digit amputated on his right foot. He subsequently needed first and second digit amputation due to infection. Additionally she had had vascular surgery on that same leg due to arterial stenosis. She was discharged home and placed on Levaquin at time of discharge. He returned 2 days ago secondary to evidence of infection at the wound. The wound itself does not appear to be infected there does appear to be a circumferential cellulitis that had developed around the wound. No evidence of abscess. He has been evaluated and cleared by podiatry and vascular surgery. He has responded to the vancomycin and cefepime while hospitalized here. Wound cultures and blood cultures show no positive findings which would likely be because he was on antibiotics. There does appear to be Levaquin resistance as this developed in the presence of Levaquin. For cellulitis with resistance to Levaquin, patient will be provided with Bactrim and Keflex at time of discharge and probiotics. MRI of the foot showed no evidence of osteomyelitis and did show evidence for cellulitis. Examination by podiatry does not indicate any evidence of abscess. He is medically stable and cleared for discharge home, with home health for dressing changes every other day. - Time Spent with Patient Total time spent providing and/or coordinating discharge services: Less than 30 minutes - Quality: VTE Deep Vein Thrombosis/Pulmonary Embolism Present on Admission: No Exam Vital signs: Vital Signs 01/15/18 16:12 01/15/18 17:00 01/15/18 18:10 Temperature 98.0 F 98.0 F Pulse Rate 70 77 Respiratory Rate 20 18 Blood Pressure 158/70 H 172/82 H 162/84 H Pulse Oximetry 98 100 01/15/18 20:00 01/16/18 00:00 01/16/18 04:00 Temperature 98.1 F 97.6 F 98.1 F Pulse Rate 75 73 63 Respiratory Rate 19 19 18 Blood Pressure 156/73 H 226/100 H 144/72 H Pulse Oximetry 99 97 99 01/16/18 08:00 01/16/18 10:55 01/16/18 11:19 Temperature 97.8 F 97.5 F L Pulse Rate 74 87 Respiratory Rate 18 18 16 Blood Pressure 168/86 H 124/64 Pulse Oximetry 100 99 Intake & Output 01/15/18 01/16/18 01/16/18 18:59 06:59 18:59 Intake Total 1362.5 / 1362.5 1362.5 / 1362.5 100 / 100 Balance 1362.5 / 1362.5 1362.5 / 1362.5 100 / 100 Intake: IV 1362.5 / 1362.5 1362.5 / 1362.5 100 / 100 NS Inj 1,000 ML @ 100 mls/hr IV 1000 / 1000 1000 / 1000 .CONT .Q10H [facility] Rx#:[id number] Maxipime Inj 1,000 MG In NS Inj 100 / 100 100 / 100 100 / 100 100 ML @ 200 mls/hr IV.SIG Q12H [facility] Rx#:[id number] Vancomycin Inj 1,250 MG In NS 262.5 / 262.5 262.5 / 262.5 Inj 250 ML @ 250 mls/hr IV.SIG Q18H [facility] Rx#:[id number] Other: # Voids 2 3 Date of Last Bowel Movement 01/15/18 # Bowel Movements 1 2 Results Procedures completed during hospitalization: none Labs on day of discharge: Labs from last 24 hours 01/16/18 01/16/18 01/16/18 07:59 01:08 00:49 POC Glucose 105 105 64 L 01/16/18 01/15/18 01/15/18 00:40 21:02 17:16 POC Glucose 56 L 125 H 109 01/15/18 12:27 POC Glucose 133 H Preliminary micro results at discharge 01/14/18 18:40 Aerobic Blood Culture - Preliminary Blood - Peripheral No growth in 2 days Anaerobic Blood Culture - Preliminary No growth in 2 days 01/14/18 16:45 Aerobic Blood Culture - Preliminary Blood - Peripheral No growth in 2 days Anaerobic Blood Culture - Preliminary No growth in 2 days 01/14/18 17:45 Wound Culture - Preliminary Wound - Foot No growth in 48 hours - Impressions ITS Impressions Foot X-Ray 01/14/18 16:56 CONCLUSION: Amputation of the first and second metatarsals distally. Increase in displacement of the fracture through the third distal metatarsal compared with prior examination on January 04. Stable erosive changes of the fourth metatarsal head. Venous Doppler Study 01/14/18 16:57 CONCLUSION: 1. Negative exam with no evidence of deep venous thrombosis. Foot MRI 01/15/18 00:00 CONCLUSION: 1. There is normal signal on the pre and postcontrast images in the remaining osseous structures of the forefoot. There is no MR evidence of osteomyelitis. 2. Irregular shaped area of decreased enhancement with an enhancing rim in the soft tissues about the medial forefoot amputation site measuring 1.4 x 2.5 cm suggesting either abscess or cellulitis. Discharge Plan - Discharge Disposition Patient Disposition: /Home Health Service - Discharge Condition Condition: Stable - Discharge Order Discharge Orders: Discharge Order (Routine); Ordered 01/16/18 Ordered By: Rodney Christiansen Vascular Surgery Clear for Discharge (Routine); Ordered 01/16/18 Ordered By: Nadeem Llanos - Discharge Details Anticipated Discharge Date: 01/16/18 - Physicians Team Primary Care Provider: Imani Croft, Attending Provider: Rodney Christiansen Other Providers: Alana Pineda DPM
--- NOTE | 2018-01-16 12:24 | P.DCO ---
- Home Health Nursing Order: Medical education, Signs/symptoms of disease process, Diabetic education , Wound care and dressing changes, Nursing assessment with vital signs Instructions: Nonstick dressing over wound. Gauze for padding. Gerald wrap to hold in place. Change every other day. - Certification I have seen patient Steve Villarreal on 01/16/18. My clinical findings support the need for the requested home health care services because: Limited mobility due to disease progression, Deconditioned with increased weakness, Limited ability to care for self, High risk of falls, Infection with risk of complications I certify that my clinical findings support that this patient is homebound because: Post-op weakness, Unsteady gait/balance, Unsafe to leave home unassisted, Unable to use public transportation
== END 2018-01-16 16:03 | disposition home health service (06) ==
LOC: NEPFCDU 12:44 → NEPC 12:44 → NEDA 12:44 → NEPFCDU 23:36
PROVIDERS: ADMIT Hospitalist; ATTEND Hospitalist

== ENCOUNTER 2018-01-27 09:27 | Inpatient (IN) ==
[2018-01-27] MEDS ORDERED: Piperacil/Tazo 4.5 GM Premix 4.5 GM/100 ML BAG IV.SIG ONE (10:12)
[2018-01-27] MEDS ORDERED: Vancomycin Inj 1 GM/200 ML PIGGYBACK IV.SIG ONE (10:12)
--- NOTE | 2018-01-27 10:19 | ED ---
HPI General Chief complaint: Skin/Abscess/Foreign Body Stated complaint: Foot amputation/PHY sent Time Seen by Provider: 01/27/18 10:00 Source: patient Mode of arrival: ambulatory Limitations: no limitations History of Present Illness HPI narrative: The patient is a 62-year-old male who presents to the emergency department via private vehicle at the discretion of his trash man for admission for possible osteomyelitis of the right foot. The patient does have a history of osteomyelitis with previous foot surgeries on the right foot, currently on Bactrim by his trash man, Dr. Mccollum. The patient states he is currently on Bactrim, had his dressing changes performed yesterday with removal and insertion of new packing into the right foot wound. The patient has failed outpatient therapy and was directed by his trash man to come to the emergency department for x-ray, MRI, and admission to the medical service. The patient does have a history of peripheral vascular disease and diabetes. The patient states his symptoms started several months ago when he stepped on something while taking the garbage, there was some type of penetrating injury through the shoe and into the foot. The patient has had continuing symptoms since then. The patient does have a history of peripheral vascular disease with previous right lower extremity surgery performed by Dr. Llanos. The patient is currently followed at the [facility]. complaint: other Onset (ago): month(s) Tetanus Immunization: <5 Years Location: R foot Severity: severe Severity scale (1-10): 9 Pain Consistency: constant Relieving factors: none Exacerbating factors: none Context: other Treatments prior to arrival: bandages and antibiotic Related Data Home Medications Medication Instructions Recorded Confirmed amitriptyline 25 mg PO DAILY 12/25/17 01/27/18 aspirin 81 mg PO DAILY 12/25/17 01/27/18 enalapril maleate 5 mg PO DAILY 12/25/17 01/27/18 insulin asp prt-insulin aspart 20 unit SUB-Q BID 12/25/17 01/27/18 insulin asp prt-insulin aspart 30 unit SUB-Q AC BREAKFAST 12/25/17 01/27/18 [Novolog Mix 70-30FlexPen U-100] metformin 1,000 mg PO BID 12/25/17 01/27/18 ranolazine [Ranexa] 500 mg PO Q12H 12/25/17 01/27/18 simvastatin 20 tab PO DAILY 12/25/17 01/27/18 Previous Rx's Medication Instructions Recorded apixaban [Eliquis] 5 mg PO BID #60 tab 01/10/18 hydrocodone-acetaminophen [[place]] 1 tab PO Q6H PRN #24 tab 01/10/18 carvedilol 6.25 mg PO BID #60 tab 01/11/18 Lactobacillus acidophilus 500 mmu cells PO TID #60 cap 01/16/18 cephalexin [Keflex] 500 mg PO BID #28 cap 01/16/18 sulfamethoxazole-trimethoprim 1 tab PO BID #28 tab 01/16/18 [Bactrim DS] Allergies Allergy/AdvReac Type Severity Reaction Status Date / Time No Known Allergies Allergy Verified 01/27/18 10:04 Review of Systems ROS: all other systems reviewed are negative [facility] Medical History Medical History Neuropathy (Acute) Cardiomyopathy (Acute) Peripheral artery disease (Acute) Diabetes mellitus (Acute) Diabetic peripheral neuropathy (Acute) Coronary artery disease (Acute) Chronic back pain (Acute) Hyperlipidemia (Acute) Hypertension (Acute) Surgical History Surgical History S/P cervical spinal fusion (Acute) Hx of CABG (Acute) Social History Social History Substance History: No History of Abuse Second Hand Smoke Exposure: No Smoking Status: Never smoker How Often Do You Have a Drink Containing Alcohol: Never Hx Recent Travel: No Recent Travel in [facility] within the Last 8 Weeks: No Recent Out of Country Travel within the Last 8 Weeks: No Immunization History Tetanus Immunization: <5 Years Tetanus Immunization Year if Known: 2017 Hx Influenza Vaccine This Season: No Exam Narrative Exam Narrative: GENERAL: Awake, alert, very pleasant 62-year-old male who appears his stated age and is in no acute respiratory distress. SKIN: Focused skin assessment warm/dry. HEAD: Atraumatic. Normocephalic. EYES: Pupils equal and round. No scleral icterus. No injection or drainage. ENT: No nasal bleeding or discharge. Mucous membranes pink and moist. NECK: Trachea midline. No JVD. CARDIOVASCULAR: Regular rate and rhythm. No murmur appreciated. RESPIRATORY: No accessory muscle use. Clear to auscultation. Breath sounds equal bilaterally. GASTROINTESTINAL: Abdomen soft, non-tender, nondistended. Hepatic and splenic margins not palpable. MUSCULOSKELETAL: Right lower extremity reveals amputation of the first and second toe with partial amputation of the fourth toe. Sutures in place, wound dressing with small amount of drainage on it and packing visible within the wound. Scars noted on the medial aspect the right lower extremity. Positive right dorsalis pedal pulse. NEUROLOGICAL: Awake and alert. No obvious cranial nerve deficits. Motor grossly within normal limits. Normal speech. PSYCHIATRIC: Appropriate mood and affect; insight and judgment normal. Course Initial Documented Vital Signs Temperature 98.2 F 01/27/18 09:53 Pulse Rate 99 H 01/27/18 09:53 Respiratory Rate 16 01/27/18 09:53 Blood Pressure 140/66 01/27/18 09:53 Pulse Oximetry 99 01/27/18 09:53 Last Documented Vital Signs Temperature 98.2 F 01/27/18 09:53 Pulse Rate 79 01/27/18 10:06 Respiratory Rate 17 01/27/18 10:06 Blood Pressure 155/79 H 01/27/18 10:06 Pulse Oximetry 99 01/27/18 10:06 Medical Decision Making [facility] Narrative Medical decision making narrative: IV was established, labs are drawn and sent, and the patient was placed on cardiac telemetry monitoring and continuous pulse oximetry monitoring. X-ray of the right foot was obtained an MRI with and without contrast of the right foot was ordered per podiatry's recommendations. The patient was administered Zosyn and vancomycin to cover for MRSA and possible Pseudomonas infection. Sed rate, CBC, CRP, and CMP were sent to lab per podiatry's recommendations. White count is unremarkable. Creatinine is mildly elevated at 1.35. Glucose is elevated at 315. The patient will be admitted to the medical service, Dr. Daryl Christiansen, with consultation to podiatry per their recommendations. Medical Screen Exam Complete: Yes Emergency Medical Condition: Yes Differential Diagnosis Differential Diagnosis: Differential diagnosis includes osteomyelitis, infected wound, failed outpatient therapy, cellulitis, abscess, peripheral vascular disease, diabetic foot ulcer. Lab Data Lab results narrative: White count is normal. Creatinine is mildly elevated at 1.35. Glucose is elevated at 315. Result diagrams: 01/27/18 10:15 01/27/18 10:15 Lab Results 08/30/18 08/30/18 08/30/18 Range/Units 10:15 10:15 10:15 WBC 6.6 (4.0-11.0) th/mm3 RBC 3.84 L (4.50-5.90) mil/mm3 Hgb 11.1 L (13.0-17.0) gm/dL Hct 31.8 L (39.0-51.0) % MCV 82.7 (80.0-100.0) fL MCH 29.0 (27.0-34.0) pg MCHC 35.1 (32.0-36.0) % RDW 13.9 (11.6-17.2) % Plt Count 245 (150-450) th/mm3 MPV 7.8 (7.0-11.0) fL Neut % (Auto) 70.6 H (16.0-70.0) % Lymph % (Auto) 17.6 (9.0-44.0) % [place] % (Auto) 7.7 (0.0-8.0) % Eos % (Auto) 3.5 (0.0-4.0) % Baso % (Auto) 0.6 (0.0-2.0) % Neut # (Auto) 4.7 (1.8-7.7) th/mm3 Lymph # (Auto) 1.2 (1.0-4.8) th/mm3 [place] # (Auto) 0.5 (0.0-0.9) th/mm3 Eos # (Auto) 0.2 (0.0-0.4) th/mm3 Baso # (Auto) 0.0 (0.0-0.2) th/mm3 WBC Differential . Differential Comment Auto diff final ESR 45 H (0-20) mm/hr Sodium 139 (136-145) meq/L Potassium 4.5 (3.5-5.1) meq/L Chloride 104 (98-107) meq/L Carbon Dioxide 27.1 (21.0-32.0) meq/L Anion Gap 8 (5-15) meq/L BUN 23 H (7-18) mg/dL Creatinine 1.35 H (0.60-1.30) mg/dL Estimated GFR 53 L (>89) mL/min Random Glucose 315 H (74-106) mg/dL Calcium 8.5 (8.5-10.1) mg/dL Total Bilirubin 0.4 (0.2-1.0) mg/dL AST 10 L (15-37) U/L ALT 14 (12-78) U/L Alkaline Phosphatase 94 (45-117) U/L C-Reactive Protein 0.57 H (0.00-0.30) mg/dL Total Protein 7.9 (6.4-8.2) g/dL Albumin 3.5 (3.4-5.0) g/dL Imaging Data Radiologist's impression: Foot X-Ray 01/27/18 10:10 CONCLUSION: No new or significant changes in the overall appearance of the right foot compared to the prior examination. Discharge Plan Discharge Disposition Patient Disposition: 30 Still Patient Discharge Condition Condition: Stable Discharge Details Diagnosis: Diabetic infection of right foot Physicians Team ED Provider: Leon Boudreaux Primary Care Provider: Imani Croft, Other Providers: Charlene Barron Rxs /Orders / Referrals /Forms Prescriptions: No Action insulin asp prt-insulin aspart 100 unit/mL (70-30) Insulin Pen 20 unit SUB-Q BID RF: 0 enalapril maleate 5 mg Tablet 5 mg PO DAILY RF: 0 aspirin 81 mg Tablet,Delayed Release (Dr/Ec) 81 mg PO DAILY RF: 0 amitriptyline 25 mg Tablet 25 mg PO DAILY RF: 0 simvastatin 20 mg Tablet 20 tab PO DAILY RF: 0 metformin 1,000 mg Tablet 1,000 mg PO BID RF: 0 insulin asp prt-insulin aspart [Novolog Mix 70-30FlexPen U-100] 100 unit/mL ( 70-30) Insulin Pen 30 unit SUB-Q AC BREAKFAST RF: 0 ranolazine [Ranexa] 500 mg Tablet Extended Release 12 Hr 500 mg PO Q12H RF: 0 apixaban [Eliquis] 5 mg Tablet 5 mg PO BID Qty: 60 RF: 0 hydrocodone-acetaminophen [[place]] 5-325 mg Tablet 1 tab PO Q6H PRN (Reason: Acute Pain) Qty: 24 RF: 0 carvedilol 6.25 mg Tablet 6.25 mg PO BID Qty: 60 RF: 0 sulfamethoxazole-trimethoprim [Bactrim DS] 800-160 mg Tablet 1 tab PO BID Qty: 28 RF: 0 cephalexin [Keflex] 500 mg Capsule 500 mg PO BID Qty: 28 RF: 0 Lactobacillus acidophilus Capsule 500 mmu cells PO TID Qty: 60 RF: 0 Discharge Interventions Interventions: Vital Signs Last Done: 01/27/18 10:06 Status ED Status: Pending Admission
[2018-01-27 10:23] LABS: Baso % (Auto) 0.6 % (0.0-2.0); Eos # (Auto) 0.2 th/mm3 (0.0-0.4); Eos % (Auto) 3.5 % (0.0-4.0); Hematocrit 31.8 % (39.0-51.0); Hemoglobin 11.1 gm/dL (13.0-17.0); Lymph # (Auto) 1.2 th/mm3 (1.0-4.8); Lymph % (Auto) 17.6 % (9.0-44.0); Mean Corpuscular HGB Conc 35.1 % (32.0-36.0); Mean Corpuscular Volume 82.7 fL (80.0-100.0); Mean Platelet Volume 7.8 fL (7.0-11.0); Mono # (Auto) 0.5 th/mm3 (0.0-0.9); Mono % (Auto) 7.7 % (0.0-8.0); Neut # (Auto) 4.7 th/mm3 (1.8-7.7); Neut % (Auto) 70.6 % (16.0-70.0); Platelet Count 245 th/mm3 (150-450); Red Blood Count 3.84 mil/mm3 (4.50-5.90); Red Cell Distribution Width 13.9 % (11.6-17.2); White Blood Count 6.6 th/mm3 (4.0-11.0)
[2018-01-27] MEDS ORDERED: Vancomycin Inj 1,000 MG in Sodium Chlor 0.9% Inj 250 ML IV.SIG ONE (10:30)
[2018-01-27 10:50] LABS: Alanine Aminotransferase 14 U/L (12-78); Albumin 3.5 g/dL (3.4-5.0); Anion Gap 8 meq/L (5-15); Aspartate Aminotransferase 10 U/L (15-37); Blood Urea Nitrogen 23 mg/dL (7-18); C-Reactive Protein 0.57 mg/dL (0.00-0.30); Calcium 8.5 mg/dL (8.5-10.1); Carbon Dioxide 27.1 meq/L (21.0-32.0); Chloride 104 meq/L (98-107); Glomerular Filtration Rate 53 mL/min (>89); Glucose,Random 315 mg/dL (74-106); Potassium 4.5 meq/L (3.5-5.1); Sodium 139 meq/L (136-145)
[2018-01-27 10:52] LABS: Alkaline Phosphatase 94 U/L (45-117); Total Protein 7.9 g/dL (6.4-8.2)
--- NOTE | 2018-01-27 10:54 | XR ---
EXAM DATE: 01/27/2018 10:46 AM EDT AGE/SEX: 62 years / Male INDICATIONS: Right foot pain post surgery. CLINICAL DATA: This is the patient's initial encounter. Patient reports that signs and symptoms have been present for 3 days and indicates a pain score of 10/10. MEDICAL/SURGICAL HISTORY: Hypertension. Diabetes mellitus type II. Fusion, cervical. CABG. Pa rtial amputation of right foot. COMPARISON: [facility] [place], FOOT COMPLETE RIGHT 3V, 01/14/2018. . FINDINGS: Today's examination compared to the prior study of 01/14/2018. There has been no new or significant ch anges with the overall appearance of the right foot compared to the prior exam. There is evidence of previous amputations through the distal fifth metatarsal and fourth metatarsal. There is a stable sli ghtly displaced fracture involving the distal third metatarsal. There is a stable para-articular eros ion involving the distal second metatarsal. There is evidence of previous amputation involving the se cond toe. Vascular calcifications are seen in the soft tissues. There continues to be some soft tissu e swelling around the foot. The remaining bony structures are intact and stable. CONCLUSION: No new or significant changes in the overall appearance of the right foot compared to the prior exami [facility] [place]. Electronically signed by: Abner Hinojosa MD 01/27/2018 10:53 AM EDT
[2018-01-27] MEDS ORDERED: Gadobutrol PF 10 MMOL/10 ML Vial (for RAD) IV.SIG ONE (12:06)
[2018-01-27] MEDS ORDERED: Acetaminophen 325 MG Tablet PO PRN (12:37)
[2018-01-27] MEDS ORDERED: Dextrose 50% in Water 50 ML Vial IV.PUSH PRN (12:41)
[2018-01-27] MEDS ORDERED: Piperacil/Tazo 4.5 GM Premix 4.5 GM/100 ML BAG IV.SIG SCH (12:43)
[2018-01-27] MEDS ORDERED: Ranolazine 500 MG 12HR ER Tablet PO SCH (12:45)
[2018-01-27] MEDS ORDERED: Vancomycin Inj 1,000 MG in Sodium Chlor 0.9% Inj 250 ML IV.SIG SCH (13:00)
--- NOTE | 2018-01-27 13:07 | P.HP ---
History of Present Illness Service: 62-year-old male with a history of diabetes and peripheral artery disease who is treated at [facility] approximately 1 month ago for a right gangrenous large toe with infection. His toes amputated and the wound was carefully debrided at that time. Severe peripheral artery disease was addressed with vascular surgery who bypassed occluded vessels in order to reestablish blood flow. He went home and did well for a while but had a recurrence of his wound infection approximately 1 week ago. He was brought in for a quick jump start treatment with IV antibiotics and discharged home with oral antibiotics. On follow-up with his supervisor [employer] the wound appears to have reopened. Exploration of the wound demonstrated that it was deep and he was recommended to return to the ER for IV antibiotics and to obtain an MRI with and without IV contrast to rule out osteomyelitis. MRI results are pending. He denies any nausea vomiting or diarrhea. He denies any chest pain, diaphoresis, shortness of breath. Primary Care Physician: Imani Croft Inpatient Certification: I certify that the inpatient services were ordered in accordance with Medicare regulations governing the order. This includes certification that hospital inpatient services are reasonable and necessary and in the case of services not specified as inpatient-only under 42 CFR 419.22(n), that they are appropriately provided as inpatient services in accordance to with the 2-midnight benchmark under 43 CFR 412.3(e) Estimated Total Length of Stay (Days): 9 Plans for Post Hospital Care: Home health Review of Systems All other systems reviewed negative except as stated in HPI [facility] - History History Provided By: Patient - Medical History Medical History: Medical History (Last Updated 01/27/18 @ 10:06 by Alana Guardado) Neuropathy (Acute) Cardiomyopathy (Acute) Peripheral artery disease (Acute) Diabetes mellitus (Acute) Diabetic peripheral neuropathy (Acute) Coronary artery disease (Acute) Chronic back pain (Acute) Hyperlipidemia (Acute) Hypertension (Acute) - Surgical History Surgical History: Surgical History (Last Reviewed 01/27/18 @ 10:06 by Alana Guardado) S/P cervical spinal fusion (Acute) Hx of CABG (Acute) - Family History Family History: Family History (Last Reviewed 01/16/18 @ 06:26 by Jennifer Kidd) Mother Cancer Father Heart disease - Tobacco History Second Hand Smoke Exposure: No Smoking Status: Never smoker - Alcohol History How Often Do You Have a Drink Containing Alcohol: Never - Substance Use History Substance History: No History of Abuse - Travel History History of Recent Travel: No Recent Travel in the [place] Within the Last 8 Weeks: No Recent Travel Out of the Country Within the Last 8 Weeks: No - Immunization History Tetanus Immunization: <5 Years Tetanus Immunization Year if Known: 2016 Hx Influenza Vaccine This Season: No Medications and Allergies Active Medications: Active Medications Acetaminophen (Tylenol) 650 mg PO Q4H PRN PRN Reason: Temp > 100.4 Hydrocodone Bitart/Acetaminophen ([place] 5/325) 1 tab PO Q6H PRN PRN Reason: Acute Pain Al Hydroxide/Mg Hydroxide (Milk Of Magnboby Liq) 30 ml PO Q12H PRN PRN Reason: Mild Constipation Amitriptyline HCl (Elavil) 25 mg PO DAILY MEY Apixaban (Eliquis) 5 mg PO BID MEY Carvedilol (Coreg) 6.25 mg PO BID MEY Dextrose (D50w Vial) 50 ml IV.PUSH UNSCH PRN PRN Reason: PER HYPOGLYCEMIA PROTOCOL Enalapril Maleate (Vasotec) 5 mg PO DAILY MEY Glucagon (Glucagon Inj) 1 mg OTHER PRN PRN PRN Reason: for Hypoglycemia Protocol Vancomycin HCl 1,000 mg/ (Sodium Chloride) 250 mls @ 250 mls/hr IV.SIG Q24H MEY Piperacillin/Tazobactam/Dextrose (Zosyn 4.5 Gm Premix) 4.5 gm in 100 mls @ 200 mls/hr IV.SIG Q12H MEY Insulin Aspart (Novolog Insulin [place] Sugar Inj) 0 unit SQ ACHS MEY; Protocol Ondansetron HCl (Zofran Inj) 4 mg IV.PUSH Q6H PRN PRN Reason: NAUSEA OR VOMITING Ranolazine (Ranexa) 500 mg PO Q12H MEY Allergies Allergy/AdvReac Type Severity Reaction Status Date / Time No Known Allergies Allergy Verified 01/27/18 10:04 Home Medications Medication Instructions Recorded Confirmed Type amitriptyline 25 mg PO DAILY 12/25/17 01/27/18 History aspirin 81 mg PO DAILY 12/25/17 01/27/18 History enalapril maleate 5 mg PO DAILY 12/25/17 01/27/18 History insulin asp prt-insulin aspart 20 unit SUB-Q BID 12/25/17 01/27/18 History insulin asp prt-insulin aspart 30 unit SUB-Q AC BREAKFAST 12/25/17 01/27/18 History [Novolog Mix 70-30FlexPen U-100] metformin 1,000 mg PO BID 12/25/17 01/27/18 History ranolazine [Ranexa] 500 mg PO Q12H 12/25/17 01/27/18 History simvastatin 20 tab PO DAILY 12/25/17 01/27/18 History Exam Vital signs: Vital Signs 01/27/18 09:53 01/27/18 10:06 Temperature 98.2 F Pulse Rate 99 H 79 Respiratory Rate 16 17 Blood Pressure 140/66 155/79 H Pulse Oximetry 99 99 Intake & Output 01/26/18 01/27/18 01/27/18 18:59 06:59 18:59 Intake Total 350 / 350 Balance 350 / 350 Weight 101.605 kg Intake: IV 350 / 350 Zosyn 4.5 GM Premix 4.5 gm In 100 / 100 100 ml @ 200 mls/hr IV.SIG ONCE ONE Rx#:[id number] Vancomycin Inj 1,000 MG In NS 250 / 250 Inj 250 ML @ 250 mls/hr IV.SIG ONCE ONE Rx#:[id number] Other: # Voids 1 # Bowel Movements 1 Narrative: GENERAL: AAOx3, no acute distress, adequate nutrition SKIN: Warm and dry, no rashes. HEAD: Atraumatic. Normocephalic. EYES: Pupils equal, round, reactive to light. No scleral icterus. No injection or drainage. ENT: No nasal bleeding or discharge. Moist mucous membranes. Nonerythematous oropharynx. NECK: Trachea midline. No JVD. Thyroid size within normal limits. CARDIOVASCULAR: Regular rate and rhythm. No murmur, no gallops, no rubs. RESPIRATORY: Clear and equal to auscultation bilaterally. No crackles, no wheezes. No accessory muscle use. GASTROINTESTINAL: Abdomen soft, non-tender, nondistended, normal active bowel sounds. Hepatic and splenic margins not palpable. MUSCULOSKELETAL: Right anterior foot is under gauze wrap with no active bleeding. NEUROLOGICAL: Awake and alert. No obvious cranial nerve deficits. Motor grossly within normal limits. No focal deficits. Five out of 5 muscle strength in the arms and legs. Normal speech. PSYCHIATRIC: Appropriate mood and affect; insight and judgment normal. Results - Labs CBC & Chem 7: 01/27/18 10:15 01/27/18 10:15 Labs: Laboratory Results - last 24 hr 01/27/18 01/27/18 01/27/18 10:15 10:15 10:15 WBC 6.6 RBC 3.84 L Hgb 11.1 L Hct 31.8 L MCV 82.7 MCH 29.0 MCHC 35.1 RDW 13.9 Plt Count 245 MPV 7.8 Neut % (Auto) 70.6 H Lymph % (Auto) 17.6 [place] % (Auto) 7.7 Eos % (Auto) 3.5 Baso % (Auto) 0.6 Neut # (Auto) 4.7 Lymph # (Auto) 1.2 [place] # (Auto) 0.5 Eos # (Auto) 0.2 Baso # (Auto) 0.0 WBC Differential . Differential Comment Auto diff final ESR 45 H Sodium 139 Potassium 4.5 Chloride 104 Carbon Dioxide 27.1 Anion Gap 8 BUN 23 H Creatinine 1.35 H Estimated GFR 53 L Random Glucose 315 H Calcium 8.5 Total Bilirubin 0.4 AST 10 L ALT 14 Alkaline Phosphatase 94 C-Reactive Protein 0.57 H Total Protein 7.9 Albumin 3.5 - Imaging Impressions Foot X-Ray 01/27/18 10:10 CONCLUSION: No new or significant changes in the overall appearance of the right foot compared to the prior examination. Caprini VTE Risk Assessment Caprini VTE Risk Assessment: Moderate/High Risk (score >= 2) Caprini Risk Assessment Model: Point Value = 1 Point Value = 2 Point Value = 3 Point Value = 5 Age 41-60 Minor surgery BMI > 25 kg/m2 Swollen legs Varicose veins or History of unexplained or recurrent spontaneous Oral contraceptives or hormone replacement Sepsis (< 1 month) Serious lung disease, including pneumonia (< 1 month) Abnormal pulmonary function Acute myocardial infarction Congestive heart failure (< 1 month) History of inflammatory bowel disease Medical patient at bed rest Age 61-74 Arthroscopic surgery Major open surgery (> 45 min) Laparoscopic surgery (> 45 min) Malignancy Confined to bed (> 72 hours) Immobilizing plaster cast Central venous access Age >= 75 History of VTE Family history of VTE Factor V Leiden Prothrombin [id number] Lupus anticoagulant Anticardiolipin antibodies Elevated serum homocysteine Heparin-induced thrombocytopenia Other congenital or acquired thrombophilia Stroke (< 1 month) Elective arthroplasty Hip, pelvis, or leg fracture Acute spinal cord injury (< 1 month) Prophylaxis Regimen: Total Risk Factor Score Risk Level Prophylaxis Regimen 0-1 Low Early ambulation 2 Moderate Order ONE of the following: *Sequential Compression Device (SCD) *Heparin 5000 units SQ BID 3-4 Higher Order ONE of the following medications: *Heparin 5000 units SQ TID *Enoxaparin/Lovenox 40 mg SQ daily (WT < 150 kg, CrCl > 30 mL/min) *Enoxaparin/Lovenox 30 mg SQ daily (WT < 150 kg, CrCl > 10-29 mL/min) *Enoxaparin/Lovenox 30 mg SQ BID (WT < 150 kg, CrCl > 30 mL/min) AND/OR *Sequential Compression Device (SCD) 5 or more Highest Order ONE of the following medications: *Heparin 5000 units SQ TID (Preferred with Epidurals) *Enoxaparin/Lovenox 40 mg SQ daily (WT < 150 kg, CrCl > 30 mL/min) *Enoxaparin/Lovenox 30 mg SQ daily (WT < 150 kg, CrCl > 10-29 mL/min) *Enoxaparin/Lovenox 30 mg SQ BID (WT < 150 kg, CrCl > 30 mL/min) AND *Sequential Compression Device (SCD) Assessment and Plan - Plan Right diabetic foot infection, possible osteomyelitis This is a recurrent infection of the right foot following amputation of gangrenous right large toe Empiric coverage with vancomycin and Zosyn This will be a surgical case regardless of MRI results Podiatry is consulted (Dr. Godoy) Type 2 diabetes Accu-Cheks with sliding scale insulin coverage Diabetic diet Peripheral artery disease Patient underwent a femoropopliteal bypass in his right leg within the month Coronary artery disease Continue current medications DVT Prophylaxis Lovenox
--- NOTE | 2018-01-27 15:09 | MR ---
EXAM DATE: 01/27/2018 12:10 PM EDT AGE/SEX: 62 years / Male INDICATIONS: Osteomyelitis. Wound on lateral aspect of right foot. CLINICAL DATA: This is the patient's initial encounter. Patient reports that signs and symptoms have been present for 3 days and indicates a pain score of 4/10. MEDICAL/SURGICAL HISTORY: Myocardial infarction. Diabetes mellitus type II. Hypertension. CAB G. Coronary artery stent. COMPARISON: [facility] [place], MR FOOT RIGHT W & W/O CONTRAST, 01/15/2018. . TECHNIQUE: Multiplanar, multisequence MRI examination was performed without contrast and after th e intravenous administration of 10 ml Gadavist (gadobutrol) single exam dose. FINDINGS: There is evidence of prior amputation of the first and second toes at the levels of the metatarsal sh afts. There is a large dorsal soft tissue ulceration of the medial forefoot. An irregularly-shaped area of nonenhancement extends from the soft tissue ulceration along with surrounding diffuse enhancement. Fi ndings suggest cellulitis with central abscess/necrotic tissue extending from the dorsal ulceration. The nonenhancing soft tissue extends to the distal tip of the remaining first metatarsal. It extends around the distal shaft of the remaining second metatarsal, and it extends around the distal shaft an d neck of the third metatarsal. The abnormal enhancement suggesting cellulitis extends around the fir st through fourth metatarsals. Fracture of the distal third metatarsal shaft with 1 cm medial displacement of the distal fragment. C omminuted fracture of the fourth metatarsal neck and head. Ill-defined bony edema and enhancement of the entire remaining base of the first metatarsal. Diffuse ill-defined bony edema of the entire remaining second metatarsal. Diffuse ill-defined bony edema of t he third metatarsal head as well as the third metatarsal shaft. Diffuse ill-defined bony edema of the fourth metatarsal. Mild diffuse bony edema of the fifth metatarsal shaft, neck, and head. Mild diffu se bony edema of the fifth toe phalanges. Fragmentation and age-indeterminate erosion of the fourth t oe proximal phalanx. Diffuse enhancement of the mid to distal third metatarsal. Diffuse enhancement o f the fourth metatarsal head and neck. CONCLUSION: 1. Medial dorsal forefoot soft tissue ulceration with contiguous extensive nonenhancing soft tissue abscess/soft tissue necrosis extending to the first through fourth metatarsals. Findings highly suspi cious for osteomyelitis of the remaining first metatarsal, mid to distal second and third metatarsals and the fourth metatarsal head and neck metatarsals. 2. Fractures of the third and fourth metatarsals. Fragmentation/erosion of the fourth toe proximal phalanx. Electronically signed by: Osbaldo Marsh MD 01/27/2018 3:08 PM EDT
--- NOTE | 2018-01-27 17:10 | MP ---
cc: Charlene Barron DPM DATE OF OPERATION: 01/27/2018 CHIEF COMPLAINT: Right foot ulceration. HISTORY OF PRESENT ILLNESS: Mr. Villarreal is a 62-year-old male patient who is well known to my group, particularly Dr. Mccollum, who has performed 2 amputations on the right foot. Unfortunately, though, the ulcerations have continued to progress and worsen with no healing noted at his most recent visit. He was advised to come to the ER for admission and further treatment. The patient denies any nausea, vomiting, fever, headaches or chills. PAST MEDICAL HISTORY: Includes neuropathy, cardiomyopathy, peripheral arterial disease, diabetes mellitus, diabetic neuropathy, coronary artery disease, chronic back pain, hyperlipidemia, hypertension. PAST SURGICAL HISTORY: Includes cervical spinal fusion, history of CABG and 2 amputations to the right foot. SOCIAL HISTORY: The patient lives at home with his . Denies any alcohol or drug abuse. VITAL SIGNS: Temperature 98.2, pulse 99, respiratory rate 16, blood pressure 140/66, pulse oximetry 99% O2 on room air. LABORATORY DATA: White count 6.6, hemoglobin 11.1, hematocrit 31.8, platelets 245. Sodium 139, potassium 4.5, chloride 104, carbon dioxide 27.1, BUN 23, creatinine 1.35. C-reactive protein 0.57. Foot MRI shows soft tissue ulceration with highly suspicious findings for osteomyelitis of the remaining first metatarsal as well as the second, third and fourth metatarsals. PHYSICAL EXAMINATION: The patient has palpable pulses and the foot appears well perfused. Sensation is severely diminished, if not absent. The right first ray amputation site has largely dehisced with an ulceration of 2 x 2 x 1 cm probing to bone with fibronecrotic tissue centrally. ASSESSMENT: Right foot ulceration with osteomyelitis. PLAN: 1. I spoke to the patient in detail regarding the findings of the MRI results as well as the nonhealing surgical sites. We discussed a transmetatarsal disarticulation style amputation. The patient is agreeable to this procedure and we will likely move forward with it in the next 1-2 days. 2. Continue IV antibiotics. 3. Daily wet-to-dry wound care dressings have been ordered. Thank you for allowing me to be involved in this patient's care. I will keep the nurse updated as to time and date of said procedure. CASTILLO Vasquez/jl , 04:21 PM , 04:28 PM [facility]
[2018-01-27] MEDS: Insulin NovoLOG Aspart Correctional Sugar Inj SQ SCH ×2 (17:36→20:51)
[2018-01-27] MEDS: Carvedilol 6.25 MG Tablet PO SCH (20:45)
[2018-01-27] MEDS: Piperacil/Tazo 4.5 GM Premix 4.5 GM/100 ML BAG IV.SIG SCH (21:00)
[2018-01-27] MEDS: Ranolazine 500 MG 12HR ER Tablet PO SCH (22:30)
[2018-01-28] MEDS: Carvedilol 6.25 MG Tablet PO SCH ×2 (08:49→20:09)
[2018-01-28] MEDS: Amitriptyline 25 MG Tablet PO SCH (08:49)
[2018-01-28] MEDS: Insulin NovoLOG Aspart Correctional Sugar Inj SQ SCH ×4 (08:49→20:08)
[2018-01-28] MEDS: Ranolazine 500 MG 12HR ER Tablet PO SCH ×2 (08:50→20:09)
[2018-01-28] MEDS: Piperacil/Tazo 4.5 GM Premix 4.5 GM/100 ML BAG IV.SIG SCH ×2 (09:00→21:45)
[2018-01-28] MEDS: Vancomycin Inj 1,000 MG in Sodium Chlor 0.9% Inj 250 ML IV.SIG SCH (11:47)
--- NOTE | 2018-01-28 13:26 | P.PN ---
Subjective Interval history: Follow-up foot infection cellulitis right foot possible osteomyelitis The patient is in the chair. He complains of pain in his right foot. Boot is on. No fever or chills overnight. His plan for surgery tomorrow by podiatry. He denies any tachycardia or chest pain. No shortness of breath. Physical Exam Vital signs: Vital Signs 01/27/18 14:03 01/27/18 16:00 01/27/18 20:00 Temperature 97.8 F 97.1 F L Pulse Rate 77 73 69 Respiratory Rate 19 18 16 Blood Pressure 153/72 H 193/82 H 170/84 H Pulse Oximetry 100 100 97 01/28/18 00:00 01/28/18 08:00 01/28/18 12:00 Temperature 97.2 F L 97.6 F 97.4 F L Pulse Rate 67 76 68 Respiratory Rate 17 18 18 Blood Pressure 155/72 H 182/79 H 134/67 Pulse Oximetry 96 99 100 Intake & Output 01/27/18 01/28/18 01/28/18 18:59 06:59 18:59 Intake Total 350 / 350 100 / 100 100 / 100 Output Total 775 / 775 Balance 350 / 350 -675 / -675 100 / 100 Weight 101.605 kg 101.605 kg Intake: IV 350 / 350 100 / 100 100 / 100 Zosyn 4.5 GM Premix 4.5 gm In 100 / 100 100 / 100 100 / 100 100 ml @ 200 mls/hr IV.SIG Q12H MEY Rx#:[id number] Vancomycin Inj 1,000 MG In NS 250 / 250 Inj 250 ML @ 250 mls/hr IV.SIG ONCE ONE Rx#:[id number] Output: Urine 775 / 775 Other: # Voids 1 Date of Last Bowel Movement 01/27/18 01/27/18 # Bowel Movements 1 Weight On Admission 101.605 kg Narrative: GENERAL: AAOx3, no acute distress, adequate nutrition CARDIOVASCULAR: Regular rate and rhythm. No murmur, no gallops, no rubs. RESPIRATORY: Clear and equal to auscultation bilaterally. No crackles, no wheezes. No accessory muscle use. GASTROINTESTINAL: Abdomen soft, non-tender, nondistended, normal active bowel sounds. Hepatic and splenic margins not palpable. MUSCULOSKELETAL: Right anterior foot is under gauze wrap with no active bleeding. NEUROLOGICAL: Awake and alert. No obvious cranial nerve deficits. Motor grossly within normal limits. No focal deficits. Five out of 5 muscle strength in the arms and legs. Normal speech. PSYCHIATRIC: Appropriate mood and affect; insight and judgment normal. Results - Labs CBC & Chem 7: 01/27/18 10:15 01/27/18 10:15 Laboratory Results - last 24 hr 01/27/18 01/27/18 01/27/18 17:01 18:00 20:44 POC Glucose 243 H 233 H 226 H 01/28/18 01/28/18 08:03 11:41 POC Glucose 184 H 215 H - Imaging Impressions Foot MRI 01/27/18 10:10 CONCLUSION: 1. Medial dorsal forefoot soft tissue ulceration with contiguous extensive nonenhancing soft tissue abscess/soft tissue necrosis extending to the first through fourth metatarsals. Findings highly suspicious for osteomyelitis of the remaining first metatarsal, mid to distal second and third metatarsals and the fourth metatarsal head and neck metatarsals. 2. Fractures of the third and fourth metatarsals. Fragmentation/erosion of the fourth toe proximal phalanx. Assessment and Plan - Plan Right diabetic foot infection, possible osteomyelitis This is a recurrent infection of the right foot following amputation of gangrenous right large toe Continue IV antibiotic empiric coverage with vancomycin and Zosyn This will be a surgical case regardless of MRI results Podiatry is consulted (Dr. Godoy) Plan for surgery tomorrow for podiatry Type 2 diabetes Accu-Cheks with sliding scale insulin coverage Diabetic diet Peripheral artery disease Patient underwent a femoropopliteal bypass in his right leg within the month Coronary artery disease Continue current medications DVT Prophylaxis Lovenox Discussed with the patient, nurse.
[2018-01-29] MEDS ORDERED: Chlorhexidine Gluconate 2% 1 Pack (2 Cloths) TOPICAL ONE (02:35)
[2018-01-29 07:11] LABS: Baso % (Auto) 0.9 % (0.0-2.0); Eos # (Auto) 0.2 th/mm3 (0.0-0.4); Eos % (Auto) 4.7 % (0.0-4.0); Hematocrit 33.4 % (39.0-51.0); Hemoglobin 10.9 gm/dL (13.0-17.0); Lymph # (Auto) 0.9 th/mm3 (1.0-4.8); Lymph % (Auto) 18.3 % (9.0-44.0); Mean Corpuscular HGB Conc 32.7 % (32.0-36.0); Mean Corpuscular Hemoglobin 27.5 pg (27.0-34.0); Mean Corpuscular Volume 84.1 fL (80.0-100.0); Mean Platelet Volume 8.2 fL (7.0-11.0); Mono # (Auto) 0.5 th/mm3 (0.0-0.9); Mono % (Auto) 10.7 % (0.0-8.0); Neut # (Auto) 3.1 th/mm3 (1.8-7.7); Neut % (Auto) 65.4 % (16.0-70.0); Platelet Count 189 th/mm3 (150-450); Red Blood Count 3.97 mil/mm3 (4.50-5.90); Red Cell Distribution Width 13.8 % (11.6-17.2); White Blood Count 4.8 th/mm3 (4.0-11.0)
[2018-01-29 07:36] LABS: Calcium 8.6 mg/dL (8.5-10.1); Potassium 4.3 meq/L (3.5-5.1)
[2018-01-29] MEDS: Ranolazine 500 MG 12HR ER Tablet PO SCH ×2 (08:55→21:29)
[2018-01-29] MEDS: Amitriptyline 25 MG Tablet PO SCH (08:55)
[2018-01-29] MEDS: Carvedilol 6.25 MG Tablet PO SCH ×2 (08:55→21:29)
[2018-01-29] MEDS: Insulin NovoLOG Aspart Correctional Sugar Inj SQ SCH ×4 (08:59→21:30)
--- NOTE | 2018-01-29 09:47 | P.PN ---
Subjective Interval history: Went for surgery in the morning by podiatry. Operative report is pending. Patient denies having any pain in his right food. Dressing is on CDI. No much appetite however he will try to eat later. No nausea vomiting. No diarrhea constipation. He denies any chest pain or shortness of breath he is saturating well on room air. Physical Exam Vital signs: Vital Signs 01/28/18 12:00 01/28/18 16:00 01/28/18 20:00 Temperature 97.4 F L 97.4 F L 97.1 F L Pulse Rate 68 72 74 Respiratory Rate 18 18 18 Blood Pressure 134/67 120/63 148/71 H Pulse Oximetry 100 99 98 01/29/18 00:00 01/29/18 08:00 Temperature 97.1 F L 97.3 F L Pulse Rate 71 84 Respiratory Rate 17 19 Blood Pressure 159/71 H 156/79 H Pulse Oximetry 99 99 Intake & Output 01/28/18 01/29/18 01/29/18 18:59 06:59 18:59 Intake Total 2150 / 2150 660 / 660 Output Total 1200 / 1200 750 / 750 425 / 425 Balance 950 / 950 -90 / -90 -425 / -425 Weight 101.605 kg Intake: IV 350 / 350 100 / 100 Zosyn 4.5 GM Premix 4.5 gm In 100 / 100 100 / 100 100 ml @ 200 mls/hr IV.SIG Q12H MEY Rx#:[id number] Vancomycin Inj 1,000 MG In NS 250 / 250 Inj 250 ML @ 250 mls/hr IV.SIG Q24H MEY Rx#:[id number] Oral 1800 / 1800 560 / 560 Output: Urine 1200 / 1200 750 / 750 425 / 425 Other: Date of Last Bowel Movement 01/27/18 01/28/18 Narrative: GENERAL: Pleasant 62-year-old male, no acute distress. CARDIOVASCULAR: Regular rate and rhythm. No murmur, no gallops, no rubs. RESPIRATORY: Clear and equal to auscultation bilaterally. No crackles, no wheezes. No accessory muscle use. GASTROINTESTINAL: Abdomen soft, non-tender, nondistended, normal active bowel sounds. Hepatic and splenic margins not palpable. MUSCULOSKELETAL: Right anterior foot with gauze dressing wrap with no active bleeding, c/d/i. NEUROLOGICAL: Awake and alert. No obvious cranial nerve deficits. Motor grossly within normal limits. No focal deficits. Five out of 5 muscle strength in the arms and legs. Normal speech. PSYCHIATRIC: Appropriate mood and affect; insight and judgment normal. Results - Labs CBC & Chem 7: 01/29/18 06:04 01/29/18 06:04 Laboratory Results - last 24 hr 01/28/18 01/28/18 01/28/18 11:41 17:14 19:43 WBC RBC Hgb Hct MCV MCH MCHC RDW Plt Count MPV Neut % (Auto) Lymph % (Auto) [place] % (Auto) Eos % (Auto) Baso % (Auto) Neut # (Auto) Lymph # (Auto) [place] # (Auto) Eos # (Auto) Baso # (Auto) WBC Differential Differential Comment Sodium Potassium Chloride Carbon Dioxide Anion Gap BUN Creatinine Estimated GFR POC Glucose 215 H 228 H 243 H Random Glucose Calcium 01/29/18 01/29/18 01/29/18 06:04 06:04 08:15 WBC 4.8 RBC 3.97 L Hgb 10.9 L Hct 33.4 L MCV 84.1 MCH 27.5 MCHC 32.7 RDW 13.8 Plt Count 189 MPV 8.2 Neut % (Auto) 65.4 Lymph % (Auto) 18.3 [place] % (Auto) 10.7 H Eos % (Auto) 4.7 H Baso % (Auto) 0.9 Neut # (Auto) 3.1 Lymph # (Auto) 0.9 L [place] # (Auto) 0.5 Eos # (Auto) 0.2 Baso # (Auto) 0.0 WBC Differential . Differential Comment Auto diff final Sodium 140 Potassium 4.3 Chloride 104 Carbon Dioxide 26.0 Anion Gap 10 BUN 15 Creatinine 1.06 Estimated GFR 71 L POC Glucose 219 H Random Glucose 233 H Calcium 8.6 Assessment and Plan - Plan Right diabetic foot infection, possible osteomyelitis This is a recurrent infection of the right foot following amputation of gangrenous right large toe Continue IV antibiotic empiric coverage with vancomycin and Zosyn This will be a surgical case regardless of MRI results Podiatry is consulted (Dr. Godoy) S/p surgery 01/29/18 , operative report pending Type 2 diabetes Accu-Cheks with sliding scale insulin coverage Diabetic diet Peripheral artery disease Patient underwent a femoropopliteal bypass in his right leg within the month Coronary artery disease Continue current medications DVT Prophylaxis Lovenox Discussed with the patient, nurse, family at bedside.
[2018-01-29] MEDS ORDERED: Bupivacaine PF 0.5% Inj 30 ML Vial ONE (09:53)
[2018-01-29] MEDS ORDERED: Neomycin/Polymyxin G.U. Irrigant 1 ML Ampul ONE (09:55)
[2018-01-29] MEDS ORDERED: Morphine Inj 4 MG/ML Vial ONE (11:47)
[2018-01-29] MEDS ORDERED: fentaNYL Citrate Inj 100 MCG/2 ML Ampul ONE (11:47)
[2018-01-29] MEDS ORDERED: Lidocaine PF 1% Inj 5 ML Syringe INFILTRATN ONE (12:00)
[2018-01-29] MEDS ORDERED: Phenylephrine/NS 1000 MCG/10ML Syringe IV.PUSH ONE (12:00)
--- NOTE | 2018-01-29 12:17 | XR ---
EXAM DATE: 01/29/2018 12:09 PM EDT AGE/SEX: 62 years / Male INDICATIONS: Post op right foot surgery. CLINICAL DATA: This is the patient's initial encounter. Patient reports that signs and symptoms have been present for 1 day and indicates a pain score of 3/10. MEDICAL/SURGICAL HISTORY: None. None. COMPARISON: [facility], MR FOOT RIGHT W & W/O CONTRAST, 01/27/2018. [facility], FOOT LIMITED RIGHT 2V, 018. . FINDINGS: The patient has undergone interval amputation of the foot distal to the base of the first through fif th metatarsals. There is a small amount of subcutaneous air seen. Posterior calcaneal enthesophyte fo rmation noted. Surgical clips overlie the talus on the dorsal aspect. CONCLUSION: Post surgical changes are seen. Electronically signed by: Tarun Lim MD 01/29/2018 12:16 PM EDT
[2018-01-29] MEDS: Piperacil/Tazo 4.5 GM Premix 4.5 GM/100 ML BAG IV.SIG SCH ×2 (13:22→21:30)
--- NOTE | 2018-01-29 13:46 | MP ---
cc: Charlene Barron [facility] DATE OF OPERATION: 01/29/2018 SURGEON: Charlene Barron MD [employer]: Staff provided assisted sales representative. PREOPERATIVE DIAGNOSIS: Right foot osteomyelitis. POSTOPERATIVE DIAGNOSIS: Right foot osteomyelitis. PROCEDURE PERFORMED: Right foot Lisfranc amputation. PATHOLOGY SENT: Right forefoot. ANESTHESIA: General. HEMOSTASIS: Anatomical dissection. ESTIMATED BLOOD LOSS: 75 mL MATERIALS USED: 3-0 Prolene. INJECTABLES: None. COMPLICATIONS: None. INDICATIONS: Mr. Villarreal is a patient well known to my practice. He has had 2 previous surgeries within the last [address] Lorrie Christiansen, both of which have failed to heal. At this time, an MRI reveals advancing osteomyelitis. The decision was then made for a Lisfranc amputation. The patient is aware that if this amputation fails the next option will be a [id number] amputation. The consent was signed. The procedure was explained. No guarantees were given. PROCEDURE: Under mild sedation, the patient was brought to the operating room, placed on the operating table in a supine position. Following IV sedation, a pneumatic ankle tourniquet was placed around the right ankle and the foot was then scrubbed, prepped and draped in the usual aseptic manner. On the dorsal medial aspect of the foot, there was a large fibronecrotic ulceration probing directly to bone. A curvilinear incision was created on the top and bottom aspect of the foot creating a fishmouth type incision. The was deepened through skin and subcutaneous tissue with care being taken to identify and retract any vital neurovascular structures. The first metatarsal was disarticulated and the remaining metatarsals were saw resected using the oscillating saw. They were detached from their soft tissue attachments removed from the field in toto and sent to pathology for further evaluation. The area was flushed with copious amounts of sterile saline. There was excellent bleeding noted. Any and all pumping arteries were ligated and cauterized as necessary. The tendons were resected away from the incision line and again, the area was flushed with copious amounts of sterile saline. The flap was closed using 3-0 Prolene with minimal tension on the tissue flap itself. The patient tolerated the procedure and the anesthesia well. Sterile dressing of Adaptic, 4 x 4's, abdominal pads, cast padding and a very light Gerald bandage were applied. The patient will recover in the PACU for a period of time before being discharged back to his room with written and oral postoperative instructions. CASTILLO Vasquez/michelle , 11:46 AM , 11:52 AM
[2018-01-29] MEDS: Vancomycin Inj 1,000 MG in Sodium Chlor 0.9% Inj 250 ML IV.SIG SCH (13:58)
[2018-01-29 19:38] LABS: Hematocrit 25.1 % (39.0-51.0); Hemoglobin 8.4 gm/dL (13.0-17.0)
[2018-01-30] MEDS: Insulin NovoLOG Aspart Correctional Sugar Inj SQ SCH ×4 (08:34→20:21)
[2018-01-30] MEDS: Amitriptyline 25 MG Tablet PO SCH (08:35)
[2018-01-30] MEDS: Ranolazine 500 MG 12HR ER Tablet PO SCH ×2 (08:35→20:22)
[2018-01-30] MEDS: Carvedilol 6.25 MG Tablet PO SCH ×2 (08:35→20:22)
--- NOTE | 2018-01-30 08:50 | P.PN ---
Subjective Interval history: s/p right foot lis franc amputation 01/29/18. Patient says he feels better today less pain in his food. There is no swelling no redness. Dressing is on however there is some bleeding at the heel. The patient says he went to the restroom yesterday and had some bleeding after walking on the foot to go to the restroom , pt reports it stopped after reinforcing dressings and elevation. There is no fever or chills. No chest pain or shortness of breath. No palpitations. No nausea vomiting at a bowel movement 2 days ago. Physical Exam Vital signs: Vital Signs 01/29/18 11:38 01/29/18 11:45 01/29/18 12:00 Temperature 97.5 F L Pulse Rate 76 78 77 Respiratory Rate 12 15 16 Blood Pressure 119/70 117/65 111/62 Pulse Oximetry 100 94 L 01/29/18 12:15 01/29/18 16:00 01/29/18 20:00 Temperature 97.6 F 97.3 F L 97.4 F L Pulse Rate 78 86 80 Respiratory Rate 16 18 17 Blood Pressure 108/57 L 107/54 L 133/73 Pulse Oximetry 95 97 99 01/30/18 00:00 01/30/18 04:00 01/30/18 08:00 Temperature 97.6 F 97.4 F L 97.7 F Pulse Rate 78 76 80 Respiratory Rate 16 16 19 Blood Pressure 136/63 127/61 138/64 Pulse Oximetry 97 98 99 Intake & Output 01/29/18 01/30/18 01/30/18 18:59 06:59 18:59 Intake Total 1550 / 1550 640 / 640 Output Total 575 / 575 1600 / 1600 Balance 975 / 975 -960 / -960 Intake: IV 350 / 350 100 / 100 Zosyn 4.5 GM Premix 4.5 gm In 100 / 100 100 / 100 100 ml @ 200 mls/hr IV.SIG Q12H MEY Rx#:[id number] Vancomycin Inj 1,000 MG In NS 250 / 250 Inj 250 ML @ 250 mls/hr IV.SIG Q24H MEY Rx#:[id number] Oral 540 / 540 Anesthesia Amount 1200 / 1200 Output: Urine 425 / 425 1600 / 1600 Estimated Blood Loss 150 / 150 Narrative: GENERAL: Pleasant 62-year-old male, in no acute distress. CARDIOVASCULAR: Regular rate and rhythm. No murmur, no gallops, no rubs. RESPIRATORY: Clear and equal to auscultation bilaterally. No crackles, no wheezes. No accessory muscle use. GASTROINTESTINAL: Abdomen soft, non-tender, nondistended, normal active bowel sounds. Hepatic and splenic margins not palpable. MUSCULOSKELETAL: Right anterior foot with gauze dressing wrap with some old blood at the heel bandage. NEUROLOGICAL: Awake and alert. No obvious cranial nerve deficits. Motor grossly within normal limits. No focal deficits. Five out of 5 muscle strength in the arms and legs. Normal speech. PSYCHIATRIC: Appropriate mood and affect; insight and judgment normal. Results - Labs CBC & Chem 7: 01/29/18 19:08 01/29/18 06:04 Laboratory Results - last 24 hr 01/29/18 01/29/18 01/29/18 11:42 17:04 17:58 Hgb Hct POC Glucose 241 H 321 H 369 H 01/29/18 01/29/18 01/30/18 19:08 20:35 08:15 Hgb 8.4 L D Hct 25.1 L POC Glucose 279 H 275 H - Imaging Impressions Foot X-Ray 01/29/18 00:00 CONCLUSION: Post surgical changes are seen. - Procedures Status post List franc amputation 01/29/18 Assessment and Plan - Plan Right diabetic foot infection, possible osteomyelitis This is a recurrent infection of the right foot following amputation of gangrenous right large toe Continue IV antibiotic empiric coverage with vancomycin and Zosyn This will be a surgical case regardless of MRI results Podiatry is consulted (Dr. Godoy) S/p list trma amputation 01/29/[address] Barron Plan for dressing change 01/31 by Keep in house for additional 48-72 hours for close monitoring in an effort to reduce readmission risk per podiatry appreciate recommendations. Heel WBing with walker only Cont IV abx Consult PT/OT Type 2 diabetes Accu-Cheks with sliding scale insulin coverage Diabetic diet Peripheral artery disease Patient underwent a femoropopliteal bypass in his right leg within the month Coronary artery disease Continue current medications DVT Prophylaxis Lovenox Discussed with the patient, nurse
[2018-01-30] MEDS: Vancomycin Inj 1,000 MG in Sodium Chlor 0.9% Inj 250 ML IV.SIG SCH (10:23)
[2018-01-30] MEDS: Piperacil/Tazo 4.5 GM Premix 4.5 GM/100 ML BAG IV.SIG SCH ×2 (10:24→21:48)
--- NOTE | 2018-01-30 10:30 | P.PNPOD ---
Subjective Interval history: s/p right foot lis franc amputation 01/29/18. Pt nurse reported bleeding yesterday after walking on the foot to go to the restroom , pt reports it stopped after reinforcing dressings and elevation. He reports some mild pain but denies any current n/v/f/h/c/sob. Physical Exam Vital signs: Vital Signs 01/29/18 11:38 01/29/18 11:45 01/29/18 12:00 Temperature 97.5 F L Pulse Rate 76 78 77 Respiratory Rate 12 15 16 Blood Pressure 119/70 117/65 111/62 Pulse Oximetry 100 94 L 01/29/18 12:15 01/29/18 16:00 01/29/18 20:00 Temperature 97.6 F 97.3 F L 97.4 F L Pulse Rate 78 86 80 Respiratory Rate 16 18 17 Blood Pressure 108/57 L 107/54 L 133/73 Pulse Oximetry 95 97 99 01/30/18 00:00 01/30/18 04:00 01/30/18 08:00 Temperature 97.6 F 97.4 F L 97.7 F Pulse Rate 78 76 80 Respiratory Rate 16 16 19 Blood Pressure 136/63 127/61 138/64 Pulse Oximetry 97 98 99 Intake & Output 01/29/18 01/30/18 01/30/18 18:59 06:59 18:59 Intake Total 1550 / 1550 640 / 640 Output Total 575 / 575 1600 / 1600 Balance 975 / 975 -960 / -960 Intake: IV 350 / 350 100 / 100 Zosyn 4.5 GM Premix 4.5 gm In 100 / 100 100 / 100 100 ml @ 200 mls/hr IV.SIG Q12H MEY Rx#:[id number] Vancomycin Inj 1,000 MG In NS 250 / 250 Inj 250 ML @ 250 mls/hr IV.SIG Q24H MEY Rx#:[id number] Oral 540 / 540 Anesthesia Amount 1200 / 1200 Output: Urine 425 / 425 1600 / 1600 Estimated Blood Loss 150 / 150 Narrative: Bandages in tact, small amount of dried blood to plantar bandage. Calf is supple and non tender to compression. Medications and Allergies Active Medications: Active Medications Acetaminophen (Tylenol) 650 mg PO Q4H PRN PRN Reason: Temp > 100.4 Hydrocodone Bitart/Acetaminophen ([place] 5/325) 1 tab PO Q6H PRN PRN Reason: PAIN 1-10 Last Admin: 01/30/18 04:13 Dose: 1 tab Al Hydroxide/Mg Hydroxide (Milk Of Magnboby Liq) 30 ml PO Q12H PRN PRN Reason: Mild Constipation Amitriptyline HCl (Elavil) 25 mg PO DAILY [facility] Last Admin: 01/30/18 08:35 Dose: 25 mg Apixaban (Eliquis) 5 mg PO BID [facility] Last Admin: 01/30/18 08:35 Dose: 5 mg Carvedilol (Coreg) 6.25 mg PO BID [facility] Last Admin: 01/30/18 08:35 Dose: 6.25 mg Clonidine HCl (Catapres) 0.1 mg PO Q6H PRN PRN Reason: SBP>160, DBP>90 Last Admin: 01/27/18 17:36 Dose: 0.1 mg Dextrose (D50w Vial) 50 ml IV.PUSH UNSCH PRN PRN Reason: PER HYPOGLYCEMIA PROTOCOL Enalapril Maleate (Vasotec) 5 mg PO DAILY [facility] Last Admin: 01/30/18 08:35 Dose: 5 mg Glucagon (Glucagon Inj) 1 mg OTHER PRN PRN PRN Reason: for Hypoglycemia Protocol Vancomycin HCl 1,000 mg/ (Sodium Chloride) 250 mls @ 250 mls/hr IV.SIG Q24H [facility] Last Infusion: 01/29/18 15:00 Dose: Infused Piperacillin/Tazobactam/Dextrose (Zosyn 4.5 Gm Premix) 4.5 gm in 100 mls @ 200 mls/hr IV.SIG Q12H [facility] Last Infusion: 01/29/18 23:55 Dose: Infused Insulin Aspart (Novolog Insulin Correctional Sugar Inj) 0 unit SQ ACHS [facility]; Protocol Last Admin: 01/30/18 08:34 Dose: 5 unit Miscellaneous Information ([facility]) 1 each OTHER UNSCH PRN PRN Reason: SEE LABEL COMMENTS Stop: 01/30/18 11:39 Ondansetron HCl (Zofran Inj) 4 mg IV.PUSH Q6H PRN PRN Reason: NAUSEA OR VOMITING Ranolazine (Ranexa) 500 mg PO Q12H [facility] Last Admin: 01/30/18 08:35 Dose: 500 mg Allergies Allergy/AdvReac Type Severity Reaction Status Date / Time No Known Allergies Allergy Verified 01/27/18 10:04 Home Medications Medication Instructions Recorded Confirmed Type amitriptyline 25 mg PO DAILY 12/25/17 01/27/18 History aspirin 81 mg PO DAILY 12/25/17 01/27/18 History enalapril maleate 5 mg PO DAILY 12/25/17 01/27/18 History insulin asp prt-insulin aspart 20 unit SUB-Q BID 12/25/17 01/27/18 History insulin asp prt-insulin aspart 30 unit SUB-Q AC BREAKFAST 12/25/17 01/27/18 History [Novolog Mix 70-30FlexPen U-100] metformin 1,000 mg PO BID 12/25/17 01/27/18 History ranolazine [Ranexa] 500 mg PO Q12H 12/25/17 01/27/18 History simvastatin 20 tab PO DAILY 12/25/17 01/27/18 History Results - Labs CBC & Chem 7: 01/29/18 19:08 01/29/18 06:04 Laboratory Results - last 24 hr 01/29/18 01/29/18 01/29/18 11:42 17:04 17:58 Hgb Hct POC Glucose 241 H 321 H 369 H 01/29/18 01/29/18 01/30/18 19:08 20:35 08:15 Hgb 8.4 L D Hct 25.1 L POC Glucose 279 H 275 H - Imaging Impressions Foot X-Ray 01/29/18 00:00 CONCLUSION: Post surgical changes are seen. Assessment and Plan - Assessment (1) Osteomyelitis of foot Code(s): M86.9 - Osteomyelitis, unspecified Status: Acute - Plan -dressing change tomorrow with -will likely keep in house for additional 48-72 hours for close monitoring in an effort to reduce readmission risk -heel WBing with walker only -cont iv abx
[2018-01-31 07:34] LABS: Baso % (Auto) 0.3 % (0.0-2.0); Eos # (Auto) 0.2 th/mm3 (0.0-0.4); Eos % (Auto) 3.7 % (0.0-4.0); Hematocrit 24.8 % (39.0-51.0); Hemoglobin 8.3 gm/dL (13.0-17.0); Lymph % (Auto) 19.1 % (9.0-44.0); Mean Corpuscular HGB Conc 33.5 % (32.0-36.0); Mean Corpuscular Hemoglobin 28.3 pg (27.0-34.0); Mean Corpuscular Volume 84.5 fL (80.0-100.0); Mean Platelet Volume 8.2 fL (7.0-11.0); Mono # (Auto) 0.5 th/mm3 (0.0-0.9); Mono % (Auto) 9.7 % (0.0-8.0); Neut # (Auto) 3.6 th/mm3 (1.8-7.7); Neut % (Auto) 67.2 % (16.0-70.0); Platelet Count 167 th/mm3 (150-450); Red Blood Count 2.94 mil/mm3 (4.50-5.90); White Blood Count 5.4 th/mm3 (4.0-11.0)
[2018-01-31 07:44] LABS: Calcium 8.5 mg/dL (8.5-10.1); Carbon Dioxide 27.9 meq/L (21.0-32.0); Potassium 4.1 meq/L (3.5-5.1)
[2018-01-31] MEDS: Amitriptyline 25 MG Tablet PO SCH (08:34)
[2018-01-31] MEDS: Insulin NovoLOG Aspart Correctional Sugar Inj SQ SCH ×4 (08:34→21:13)
[2018-01-31] MEDS: Ranolazine 500 MG 12HR ER Tablet PO SCH ×2 (08:34→21:14)
[2018-01-31] MEDS: Carvedilol 6.25 MG Tablet PO SCH ×2 (08:34→21:14)
--- NOTE | 2018-01-31 10:44 | P.PN ---
Subjective Interval history: In bed sleepy Pain in his right foot is controlled by meds. No fever ro chills Tinge blood on plantar area after dresign was changed, patient did some PT earlier today BS in 200s restart insulin 70/30 Physical Exam Vital signs: Vital Signs 01/30/18 12:00 01/30/18 16:00 01/30/18 20:00 Temperature 96.2 F L 97.9 F 97.9 F Pulse Rate 78 81 87 Respiratory Rate 16 17 18 Blood Pressure 116/56 L 142/65 H 140/66 Pulse Oximetry 99 99 100 01/31/18 00:00 Temperature 97.7 F Pulse Rate 75 Respiratory Rate 17 Blood Pressure 141/65 H Pulse Oximetry 98 Intake & Output 01/30/18 01/31/18 01/31/18 18:59 06:59 18:59 Intake Total 1025 / 1025 1060 / 1060 Output Total 1100 / 1100 1400 / 1400 Balance -75 / -75 -340 / -340 Weight 101.605 kg Intake: IV 350 / 350 100 / 100 Zosyn 4.5 GM Premix 4.5 gm In 100 / 100 100 / 100 100 ml @ 200 mls/hr IV.SIG Q12H [facility] Rx#:[id number] Vancomycin Inj 1,000 MG In NS 250 / 250 Inj 250 ML @ 250 mls/hr IV.SIG Q24H MEY Rx#:[id number] Oral 675 / 675 960 / 960 Output: Urine 1100 / 1100 1400 / 1400 Other: Date of Last Bowel Movement 01/29/18 # Bowel Movements 0 Narrative: GENERAL: Pleasant 62-year-old male, in no acute distress. CARDIOVASCULAR: Regular rate and rhythm. No murmur, no gallops, no rubs. RESPIRATORY: Clear and equal to auscultation bilaterally. No crackles, no wheezes. No accessory muscle use. GASTROINTESTINAL: Abdomen soft, non-tender, nondistended, normal active bowel sounds. Hepatic and splenic margins not palpable. MUSCULOSKELETAL: Right anterior foot with gauze dressing wrap tinges quarter size old blood on plantar area NEUROLOGICAL: Awake and alert. No obvious cranial nerve deficits. Motor grossly within normal limits. No focal deficits. Five out of 5 muscle strength in the arms and legs. Normal speech. PSYCHIATRIC: Appropriate mood and affect; insight and judgment normal. Results - Labs CBC & Chem 7: 01/31/18 05:03 01/31/18 05:03 Laboratory Results - last 24 hr 01/30/18 01/30/18 01/30/18 12:34 17:56 19:35 WBC RBC Hgb Hct MCV MCH MCHC RDW Plt Count MPV Neut % (Auto) Lymph % (Auto) [place] % (Auto) Eos % (Auto) Baso % (Auto) Neut # (Auto) Lymph # (Auto) [place] # (Auto) Eos # (Auto) Baso # (Auto) WBC Differential Differential Comment Sodium Potassium Chloride Carbon Dioxide Anion Gap BUN Creatinine Estimated GFR POC Glucose 265 H 287 H 298 H Random Glucose Calcium 01/31/18 01/31/18 01/31/18 05:03 05:03 08:02 WBC 5.4 RBC 2.94 L Hgb 8.3 L Hct 24.8 L MCV 84.5 MCH 28.3 MCHC 33.5 RDW 14.0 Plt Count 167 MPV 8.2 Neut % (Auto) 67.2 Lymph % (Auto) 19.1 [place] % (Auto) 9.7 H Eos % (Auto) 3.7 Baso % (Auto) 0.3 Neut # (Auto) 3.6 Lymph # (Auto) 1.0 [place] # (Auto) 0.5 Eos # (Auto) 0.2 Baso # (Auto) 0.0 WBC Differential . Differential Comment Auto diff final Sodium 139 Potassium 4.1 Chloride 103 Carbon Dioxide 27.9 Anion Gap 8 BUN 11 Creatinine 1.08 Estimated GFR 69 L POC Glucose 245 H Random Glucose 224 H Calcium 8.5 - Procedures Status post List franc amputation 01/29/18 Assessment and Plan - Plan Right diabetic foot infection, possible osteomyelitis This is a recurrent infection of the right foot following amputation of gangrenous right large toe Continue IV antibiotic empiric coverage with vancomycin and Zosyn This will be a surgical case regardless of MRI results Podiatry is consulted (Dr. Godoy) S/p list tram amputation 01/29/[address] Barron Plan for dressing change 01/31 by Keep in house for additional 48-72 hours for close monitoring in an effort to reduce readmission risk per podiatry appreciate recommendations. Heel WBing with walker only Cont IV abx Consult PT/OT Type 2 diabetes Accu-Cheks with sliding scale insulin coverage Diabetic diet BS in 200s restart insulin 70/30 Monitor BS Peripheral artery disease Patient underwent a femoropopliteal bypass in his right leg within the month Coronary artery disease Continue current medications DVT Prophylaxis Lovenox Discussed with the patient, nurse DC plan: patient with Right diabetic foot infection. This is a recurrent infection of the right foot following amputation of gangrenous right large toe . On IV antibiotic empiric coverage with vancomycin and Zosyn. Continue abx for 1-2 days per podiatry. Pt is S/p list tram amputation 01/29/[address] Barron
[2018-01-31] MEDS: Piperacil/Tazo 4.5 GM Premix 4.5 GM/100 ML BAG IV.SIG SCH ×2 (11:17→21:20)
[2018-01-31] MEDS: Vancomycin Inj 1,000 MG in Sodium Chlor 0.9% Inj 250 ML IV.SIG SCH (11:17)
--- NOTE | 2018-01-31 18:59 | P.PNPOD ---
Subjective Interval history: s/p R [place] amputation. DOS 01/29/18 Dr Barron. In NAD.No calf pain and no SOB. Physical Exam Vital signs: Vital Signs 01/30/18 20:00 01/31/18 00:00 01/31/18 08:00 Temperature 97.9 F 97.7 F 97.1 F L Pulse Rate 87 75 89 Respiratory Rate 18 17 20 Blood Pressure 140/66 141/65 H 167/76 H Pulse Oximetry 100 98 98 01/31/18 12:00 01/31/18 16:00 Temperature 97.0 F L 97.5 F L Pulse Rate 77 81 Respiratory Rate 18 18 Blood Pressure 162/75 H 131/61 Pulse Oximetry 99 98 Intake & Output 01/30/18 01/31/18 01/31/18 18:59 06:59 18:59 Intake Total 1025 / 1025 1060 / 1060 1110 / 1110 Output Total 1100 / 1100 1400 / 1400 600 / 600 Balance -75 / -75 -340 / -340 510 / 510 Weight 101.605 kg Intake: IV 350 / 350 100 / 100 350 / 350 Zosyn 4.5 GM Premix 4.5 gm In 100 / 100 100 / 100 100 / 100 100 ml @ 200 mls/hr IV.SIG Q12H MEY Rx#:[id number] Vancomycin Inj 1,000 MG In NS 250 / 250 250 / 250 Inj 250 ML @ 250 mls/hr IV.SIG Q24H MEY Rx#:[id number] Oral 675 / 675 960 / 960 760 / 760 Output: Urine 1100 / 1100 1400 / 1400 600 / 600 Other: Date of Last Bowel Movement 01/29/18 01/28/18 # Bowel Movements 0 1 Narrative: RLE + strikethrough to outer dressing. Intact sutures and incision. No active bleeding and no purulence. + post ops edema. NVS intact. Medications and Allergies Active Medications: Active Medications Acetaminophen (Tylenol) 650 mg PO Q4H PRN PRN Reason: Temp > 100.4 Hydrocodone Bitart/Acetaminophen ([place] 5/325) 1 tab PO Q6H PRN PRN Reason: PAIN 1-10 Last Admin: 01/31/18 17:17 Dose: 1 tab Al Hydroxide/Mg Hydroxide (Milk Of Magnesia Liq) 30 ml PO Q12H PRN PRN Reason: Mild Constipation Last Admin: 01/31/18 08:39 Dose: 30 ml Amitriptyline HCl (Elavil) 25 mg PO DAILY [facility] Last Admin: 01/31/18 08:34 Dose: 25 mg Apixaban (Eliquis) 5 mg PO BID [facility] Last Admin: 01/31/18 08:34 Dose: 5 mg Carvedilol (Coreg) 6.25 mg PO BID [facility] Last Admin: 01/31/18 08:34 Dose: 6.25 mg Clonidine HCl (Catapres) 0.1 mg PO Q6H PRN PRN Reason: SBP>160, DBP>90 Last Admin: 01/27/18 17:36 Dose: 0.1 mg Dextrose (D50w Vial) 50 ml IV.PUSH UNSCH PRN PRN Reason: PER HYPOGLYCEMIA PROTOCOL Docusate Sodium (Colace) 100 mg PO BID [facility] Enalapril Maleate (Vasotec) 5 mg PO DAILY [facility] Last Admin: 01/31/18 08:35 Dose: 5 mg Glucagon (Glucagon Inj) 1 mg OTHER PRN PRN PRN Reason: for Hypoglycemia Protocol Vancomycin HCl 1,000 mg/ (Sodium Chloride) 250 mls @ 250 mls/hr IV.SIG Q24H [facility] Last Infusion: 01/31/18 12:54 Dose: Infused Piperacillin/Tazobactam/Dextrose (Zosyn 4.5 Gm Premix) 4.5 gm in 100 mls @ 200 mls/hr IV.SIG Q12H [facility] Last Infusion: 01/31/18 12:53 Dose: Infused Insulin Aspart (Novolog Insulin Correctional Sugar Inj) 0 unit SQ ACHS [facility]; Protocol Last Admin: 01/31/18 17:16 Dose: 7 unit Insulin Aspart (Novolog Mix 70/30 Inj) 20 units SQ BID [facility] Ondansetron HCl (Zofran Inj) 4 mg IV.PUSH Q6H PRN PRN Reason: NAUSEA OR VOMITING Ranolazine (Ranexa) 500 mg PO Q12H [facility] Last Admin: 01/31/18 08:34 Dose: 500 mg Allergies Allergy/AdvReac Type Severity Reaction Status Date / Time No Known Allergies Allergy Verified 01/27/18 10:04 Home Medications Medication Instructions Recorded Confirmed Type amitriptyline 25 mg PO DAILY 12/25/17 01/27/18 History aspirin 81 mg PO DAILY 12/25/17 01/27/18 History enalapril maleate 5 mg PO DAILY 12/25/17 01/27/18 History insulin asp prt-insulin aspart 20 unit SUB-Q BID 12/25/17 01/27/18 History insulin asp prt-insulin aspart 30 unit SUB-Q AC BREAKFAST 12/25/17 01/27/18 History [Novolog Mix 70-30FlexPen U-100] metformin 1,000 mg PO BID 12/25/17 01/27/18 History ranolazine [Ranexa] 500 mg PO Q12H 12/25/17 01/27/18 History simvastatin 20 tab PO DAILY 12/25/17 01/27/18 History Results - Labs CBC & Chem 7: 01/31/18 05:03 01/31/18 05:03 Laboratory Results - last 24 hr 01/30/18 01/31/18 01/31/18 19:35 05:03 05:03 WBC 5.4 RBC 2.94 L Hgb 8.3 L Hct 24.8 L MCV 84.5 MCH 28.3 MCHC 33.5 RDW 14.0 Plt Count 167 MPV 8.2 Neut % (Auto) 67.2 Lymph % (Auto) 19.1 [place] % (Auto) 9.7 H Eos % (Auto) 3.7 Baso % (Auto) 0.3 Neut # (Auto) 3.6 Lymph # (Auto) 1.0 [place] # (Auto) 0.5 Eos # (Auto) 0.2 Baso # (Auto) 0.0 WBC Differential . Differential Comment Auto diff final Sodium 139 Potassium 4.1 Chloride 103 Carbon Dioxide 27.9 Anion Gap 8 BUN 11 Creatinine 1.08 Estimated GFR 69 L POC Glucose 298 H Random Glucose 224 H Calcium 8.5 01/31/18 01/31/18 08:02 11:16 WBC RBC Hgb Hct MCV MCH MCHC RDW Plt Count MPV Neut % (Auto) Lymph % (Auto) [place] % (Auto) Eos % (Auto) Baso % (Auto) Neut # (Auto) Lymph # (Auto) [place] # (Auto) Eos # (Auto) Baso # (Auto) WBC Differential Differential Comment Sodium Potassium Chloride Carbon Dioxide Anion Gap BUN Creatinine Estimated GFR POC Glucose 245 H 300 H Random Glucose Calcium - Procedures Status post List franc amputation 01/29/18 Assessment and Plan - Assessment (1) Osteomyelitis of foot Code(s): M86.9 - Osteomyelitis, unspecified Status: Acute - Plan Dressing changed 01/31/18 OK to partial WB with post op shoe. OK to d/c per Podiatry. F/U with Dr Barron with 3 days of d/c.
[2018-01-31] MEDS: Docusate Sodium 100 MG Capsule PO SCH (21:14)
[2018-01-31] MEDS: Insulin Aspart Prot 70/30 1,000 UNITS/10 ML Vial SQ SCH (21:15)
[2018-02-01] MEDS: Insulin Aspart Prot 70/30 1,000 UNITS/10 ML Vial SQ SCH (08:12)
[2018-02-01] MEDS: Ranolazine 500 MG 12HR ER Tablet PO SCH ×2 (08:12→21:41)
[2018-02-01] MEDS: Amitriptyline 25 MG Tablet PO SCH (08:12)
[2018-02-01] MEDS: Insulin NovoLOG Aspart Correctional Sugar Inj SQ SCH ×4 (08:12→21:51)
[2018-02-01] MEDS: Docusate Sodium 100 MG Capsule PO SCH ×2 (08:13→21:41)
[2018-02-01] MEDS: Carvedilol 6.25 MG Tablet PO SCH ×2 (08:13→21:41)
[2018-02-01] MEDS: Vancomycin Inj 1,000 MG in Sodium Chlor 0.9% Inj 250 ML IV.SIG SCH (10:23)
[2018-02-01] MEDS: Piperacil/Tazo 4.5 GM Premix 4.5 GM/100 ML BAG IV.SIG SCH (10:23)
--- NOTE | 2018-02-01 10:30 | P.DS ---
Date of admission: 01/27/18 12:02 Primary care physician: Imani Croft Attending physician on discharge: Rodney Christiansen Anticipated date of discharge: 02/01/18 Brief History from admission: 62-year-old male with a history of diabetes and peripheral artery disease who is treated at [place] approximately 1 month ago for a right gangrenous large toe with infection. His toes amputated and the wound was carefully debrided at that time. Severe peripheral artery disease was addressed with vascular surgery who bypassed occluded vessels in order to reestablish blood flow. He went home and did well for a while but had a recurrence of his wound infection approximately 1 week ago. He was brought in for a quick jump start treatment with IV antibiotics and discharged home with oral antibiotics. On follow-up with his clinical cytopathologist the wound appears to have reopened. Exploration of the wound demonstrated that it was deep and he was recommended to return to the ER for IV antibiotics and to obtain an MRI with and without IV contrast to rule out osteomyelitis. MRI results are pending. He denies any nausea vomiting or diarrhea. He denies any chest pain, diaphoresis, shortness of breath. DS: Summary Hospital Course: 62-year-old male with past medical history significant for diabetes, peripheral artery disease, neuropathy, cardiomyopathy, HTN, HLD, and CAD who presented to the emergency department on 01/27 with complaints of right foot infection. Patient was recently treated in [place] approximately 1 month prior to this admission for right toe gangrene requiring amputation. Patient was also evaluated during admission by vascular services and underwent bypass for occluded vessels. He was discharged home and did well for a while however returned due to exchange ongoing infection of the right foot. Patient was treated with IV vancomycin as well as Zosyn. Podiatry was consulted and patient underwent List franc amputation on 01/29 by . He had dressing change to right lower extremity on 01/31 by . He was followed Patient is seen and examined this morning up in chair in no acute distress. He reports that pain is minimal. He denies any fevers, chills, nausea, vomiting, shortness of breath or cough, endorses constipation. - Time Spent with Patient Total time spent providing and/or coordinating discharge services: - Quality: VTE Deep Vein Thrombosis/Pulmonary Embolism Present on Admission: No Exam Vital signs: Vital Signs 01/31/18 12:00 01/31/18 16:00 01/31/18 20:00 Temperature 97.0 F L 97.5 F L 97.8 F Pulse Rate 77 81 79 Respiratory Rate 18 18 17 Blood Pressure 162/75 H 131/61 137/63 Pulse Oximetry 99 98 98 02/01/18 00:00 02/01/18 08:00 Temperature 98.2 F 97.4 F L Pulse Rate 77 85 Respiratory Rate 17 18 Blood Pressure 151/71 H 171/82 H Pulse Oximetry 99 100 Intake & Output 01/31/18 02/01/18 02/01/18 18:59 06:59 18:59 Intake Total 1110 / 1110 340 / 340 Output Total 600 / 600 3000 / 3000 Balance 510 / 510 -2660 / -2660 Weight 101.605 kg Intake: IV 350 / 350 100 / 100 Zosyn 4.5 GM Premix 4.5 gm In 100 / 100 100 / 100 100 ml @ 200 mls/hr IV.SIG Q12H MEY Rx#:[id number] Vancomycin Inj 1,000 MG In NS 250 / 250 Inj 250 ML @ 250 mls/hr IV.SIG Q24H MEY Rx#:[id number] Oral 760 / 760 240 / 240 Output: Urine 600 / 600 3000 / 3000 Other: Date of Last Bowel Movement 01/28/18 # Bowel Movements 1 Results Procedures completed during hospitalization: Status post List franc amputation 01/29/18 Pending studies at discharge: Pending at discharge 01/29/18 07:33 Surgical [PTH] Routine Labs on day of discharge: Labs from last 24 hours 02/01/18 01/31/18 01/31/18 07:36 21:11 11:16 POC Glucose 164 H 295 H 300 H - Impressions ITS Impressions Foot MRI 01/27/18 10:10 CONCLUSION: 1. Medial dorsal forefoot soft tissue ulceration with contiguous extensive nonenhancing soft tissue abscess/soft tissue necrosis extending to the first through fourth metatarsals. Findings highly suspicious for osteomyelitis of the remaining first metatarsal, mid to distal second and third metatarsals and the fourth metatarsal head and neck metatarsals. 2. Fractures of the third and fourth metatarsals. Fragmentation/erosion of the fourth toe proximal phalanx. Foot X-Ray 01/29/18 00:00 CONCLUSION: Post surgical changes are seen. Discharge Plan - Discharge Condition Condition: Stable - Physicians Team Primary Care Provider: Imani Croft, Attending Provider: Rodney Christiansen Other Providers: Charlene Barron DPM
--- NOTE | 2018-02-01 13:26 | P.PN ---
Subjective Interval history: Follow-up for right diabetic foot ulcer, DM. Patient is seen and examined this morning up in chair in no acute distress. He reports that pain is minimal. He denies any fevers, chills, nausea, vomiting, shortness of breath or cough, endorses constipation. Physical Exam Vital signs: Vital Signs 01/31/18 16:00 01/31/18 20:00 02/01/18 00:00 Temperature 97.5 F L 97.8 F 98.2 F Pulse Rate 81 79 77 Respiratory Rate 18 17 17 Blood Pressure 131/61 137/63 151/71 H Pulse Oximetry 98 98 99 02/01/18 08:00 02/01/18 12:00 Temperature 97.4 F L 97.4 F L Pulse Rate 85 78 Respiratory Rate 18 18 Blood Pressure 171/82 H 120/59 L Pulse Oximetry 100 100 Intake & Output 01/31/18 02/01/18 02/01/18 18:59 06:59 18:59 Intake Total 1110 / 1110 340 / 340 350 / 350 Output Total 600 / 600 3000 / 3000 Balance 510 / 510 -2660 / -2660 350 / 350 Weight 101.605 kg Intake: IV 350 / 350 100 / 100 350 / 350 Zosyn 4.5 GM Premix 4.5 gm In 100 / 100 100 / 100 100 / 100 100 ml @ 200 mls/hr IV.SIG Q12H MEY Rx#:[id number] Vancomycin Inj 1,000 MG In NS 250 / 250 250 / 250 Inj 250 ML @ 250 mls/hr IV.SIG Q24H MEY Rx#:[id number] Oral 760 / 760 240 / 240 Output: Urine 600 / 600 3000 / 3000 Other: Date of Last Bowel Movement 01/28/18 # Bowel Movements 1 Narrative: GENERAL: 62-year-old male, in no acute distress. CARDIOVASCULAR: Regular rate and rhythm. RESPIRATORY: Clear and equal to auscultation bilaterally. No crackles, no wheezes. Nonlabored. GASTROINTESTINAL: Abdomen soft, non-tender, nondistended, + bowel sounds. MUSCULOSKELETAL: Right foot with Gerald bandage dressing. NEUROLOGICAL: Awake and alert. No obvious cranial nerve deficits. Motor grossly within normal limits. No focal deficits. Five out of 5 muscle strength in the arms and legs. Normal speech. PSYCHIATRIC: Appropriate mood and affect; insight and judgment normal. Results - Labs CBC & Chem 7: 01/31/18 05:03 01/31/18 05:03 Laboratory Results - last 24 hr 01/31/18 02/01/18 02/01/18 21:11 07:36 12:19 POC Glucose 295 H 164 H 242 H - Procedures Status post List franc amputation 01/29/18 Assessment and Plan - Plan Right diabetic foot infection, possible osteomyelitis This is a recurrent infection of the right foot following amputation of gangrenous right large toe Currently on IV antibiotic empiric coverage with vancomycin and Zosyn Podiatry is consulted (Dr. Godoy) S/p list tram amputation 01/29/[address] Barron Dressing change 01/31 by Kept in house for additional 48-72 hours for close monitoring in an effort to reduce readmission risk per podiatry appreciate recommendations. Okay to partially weight-bear with postop shoe, podiatry cleared for discharge, with Dr. Barron 3 days, also recommend broad-spectrum antibiotics on discharge. -IV antibiotics discontinued, started on oral Levaquin and clindamycin Consult PT/OT Type 2 diabetes Accu-Cheks with sliding scale insulin coverage Diabetic diet BS in 200s restart insulin 70/30, BS improved this morning, continue to monitor and if still high consider adding glipizide. Peripheral artery disease Patient underwent a femoropopliteal bypass in his right leg within the month Coronary artery disease Continue current medications DVT Prophylaxis Lovenox Discussed Condition With: Patient, RN, Dr. Christiansen. Discharge Planning: Switched over to oral antibiotics, patient with high risk for readmission. If afebrile overnight and transitioned over to oral antibiotics will DC tomorrow, discuused with .
[2018-02-01] MEDS ORDERED: glipiZIDE 5 MG Tablet PO SCH (17:00)
[2018-02-01 20:19] VITALS: RESP 17
[2018-02-02] VITALS: O2SAT 98
[2018-02-02] MEDS: Insulin Aspart Prot 70/30 1,000 UNITS/10 ML Vial SQ SCH ×2 (00:15→08:32)
[2018-02-02] MEDS: Ranolazine 500 MG 12HR ER Tablet PO SCH (08:31)
[2018-02-02] MEDS: Docusate Sodium 100 MG Capsule PO SCH (08:31)
[2018-02-02] MEDS: Amitriptyline 25 MG Tablet PO SCH (08:31)
[2018-02-02] MEDS: Carvedilol 6.25 MG Tablet PO SCH (08:31)
[2018-02-02] MEDS: Insulin NovoLOG Aspart Correctional Sugar Inj SQ SCH (08:35)
[2018-02-02] MEDS ORDERED: levoFLOXacin 750 MG Tablet PO SCH (09:00)
[2018-02-02 09:14] VITALS: BP 137/69; PULSE 75; TEMP 98.2
--- NOTE | 2018-02-02 09:14 | P.DS ---
Date of admission: 01/27/18 12:02 Primary care physician: Imani Croft Attending physician on discharge: Rodney Christiansen Anticipated date of discharge: 02/02/18 Brief History from admission: 62-year-old male with a history of diabetes and peripheral artery disease who is treated at [place] approximately 1 month ago for a right gangrenous large toe with infection. His toes amputated and the wound was carefully debrided at that time. Severe peripheral artery disease was addressed with vascular surgery who bypassed occluded vessels in order to reestablish blood flow. He went home and did well for a while but had a recurrence of his wound infection approximately 1 week ago. He was brought in for a quick jump start treatment with IV antibiotics and discharged home with oral antibiotics. On follow-up with his tile and marble installer the wound appears to have reopened. Exploration of the wound demonstrated that it was deep and he was recommended to return to the ER for IV antibiotics and to obtain an MRI with and without IV contrast to rule out osteomyelitis. MRI results are pending. He denies any nausea vomiting or diarrhea. He denies any chest pain, diaphoresis, shortness of breath. DS: Medications - Discharge Medications Prescriptions: clindamycin HCl 300 mg PO TID #30 cap hydrocodone-acetaminophen [[place]] 1 tab PO Q6H PRN #12 tab PRN Reason: Pain 2-10 levofloxacin [Levaquin] 750 mg PO DAILY #10 tab DS: Summary Hospital Course: 62-year-old male with past medical history significant for diabetes, peripheral artery disease, neuropathy, cardiomyopathy, HTN, HLD, and CAD who presented to the emergency department on 01/27 with complaints of right foot infection. Patient was recently treated in [place] approximately 1 month prior to this admission for right toe gangrene requiring amputation. Patient was also evaluated during admission by vascular services and underwent bypass for occluded vessels. He was discharged home and did well for a while however returned due to exchange ongoing infection of the right foot. Patient was treated with IV vancomycin as well as Zosyn. Podiatry was consulted and patient underwent List franc amputation on 01/29 by . He had dressing change to right lower extremity on 01/31 by . Patient will need to follow-up with podiatry for ongoing dressing changes. Patient is seen and examined this morning resting in bed in no acute distress. He reports that pain is minimal. He denies any fevers, chills, nausea, vomiting , shortness of breath or cough. - Time Spent with Patient Total time spent providing and/or coordinating discharge services: Less than 30 minutes - Quality: VTE Deep Vein Thrombosis/Pulmonary Embolism Present on Admission: No Exam Vital signs: Vital Signs 02/01/18 12:00 02/01/18 16:00 02/01/18 20:00 Temperature 97.4 F L 97.7 F 97.7 F Pulse Rate 78 70 80 Respiratory Rate 18 16 17 Blood Pressure 120/59 L 144/66 H 119/60 Pulse Oximetry 100 100 100 02/02/18 00:00 Temperature 98.1 F Pulse Rate 73 Respiratory Rate 17 Blood Pressure 128/61 Pulse Oximetry 98 Intake & Output 02/01/18 02/02/18 02/02/18 18:59 06:59 18:59 Intake Total 1190 / 1190 480 / 480 Output Total 1999 / 1999 2500 / 2500 Balance -810 / -810 -2019 / -2019 Weight 101.605 kg Intake: IV 350 / 350 Zosyn 4.5 GM Premix 4.5 gm In 100 / 100 100 ml @ 200 mls/hr IV.SIG Q12H MEY Rx#:[id number] Vancomycin Inj 1,000 MG In NS 250 / 250 Inj 250 ML @ 250 mls/hr IV.SIG Q24H MEY Rx#:[id number] Oral 840 / 840 480 / 480 Output: Urine 1999 / 1999 2500 / 2500 Other: # Bowel Movements 0 Narrative: GENERAL: 62-year-old male, in no acute distress. CARDIOVASCULAR: Regular rate and rhythm. RESPIRATORY: Clear and equal to auscultation bilaterally. No crackles, no wheezes. Nonlabored. GASTROINTESTINAL: Abdomen soft, non-tender, nondistended, + bowel sounds. MUSCULOSKELETAL: Right foot with Gerald bandage dressing. NEUROLOGICAL: Awake and alert. No obvious cranial nerve deficits. Motor grossly within normal limits. No focal deficits. Five out of 5 muscle strength in the arms and legs. Normal speech. PSYCHIATRIC: Appropriate mood and affect; insight and judgment normal. Results Procedures completed during hospitalization: Status post List franc amputation 01/29/18 Pending studies at discharge: Pending at discharge 01/29/18 07:33 Surgical [PTH] Routine Labs on day of discharge: Labs from last 24 hours 02/02/18 02/01/18 02/01/18 08:34 21:43 16:54 POC Glucose 109 265 H 182 H 02/01/18 12:19 POC Glucose 242 H - Impressions ITS Impressions Foot MRI 01/27/18 10:10 CONCLUSION: 1. Medial dorsal forefoot soft tissue ulceration with contiguous extensive nonenhancing soft tissue abscess/soft tissue necrosis extending to the first through fourth metatarsals. Findings highly suspicious for osteomyelitis of the remaining first metatarsal, mid to distal second and third metatarsals and the fourth metatarsal head and neck metatarsals. 2. Fractures of the third and fourth metatarsals. Fragmentation/erosion of the fourth toe proximal phalanx. Foot X-Ray 01/29/18 00:00 CONCLUSION: Post surgical changes are seen. Discharge Plan - Discharge Disposition Patient Disposition: W/Home Health Service - Discharge Condition Condition: Stable - Discharge Order Discharge Orders: Discharge Order (Routine); Ordered 02/02/18 Ordered By: Jane Andrew - Physicians Team Primary Care Provider: Imani Croft, Attending Provider: Rodney Christiansen Other Providers: Charlene Barron DPM
--- NOTE | 2018-02-02 09:16 | P.DCO ---
- Home Health Nursing Order: Signs/symptoms of disease process, Wound care and dressing changes ( Instructions for dressing changes per Dr. Barron, patient to follow-up in 3 days.) - Certification I have seen patient Steve Villarreal on 02/02/18. My clinical findings support the need for the requested home health care services because: Limited mobility due to disease progression I certify that my clinical findings support that this patient is homebound because: Unsteady gait/balance
== END 2018-02-02 12:09 | disposition home or self-care (01) ==
LOC: NEPE 09:27 → NEDA 12:02 → N07 14:35
PROVIDERS: ADMIT Hospitalist; ATTEND Hospitalist